=== PATIENT | male | born 1940 | race Caucasian/White ===

== ENCOUNTER 2017-08-13 06:20 | Emergency (ER) | payer MEDICARE, BC ==
[2017-08-13 07:34] LABS: #Eosinphils 0.2 thou/uL (0.0-0.7); #Lymphocytes 0.7 thou/uL (1.20-3.40); #Monocytes 0.6 thou/uL (0.11-0.59); #Neutrophils 6.1 thou/uL (1.40-6.50); %Eosinophils 2.3 % (0.0-10.0); %Monocytes 7.4 % (0.0-10.0); %Neutrophils 81.3 % (42.0-75.0); Hemoglobin 13.9 g/dL (14.0-18.0); Mean Corpuscular HGB CONC 32.6 g/dL (32.0-36.0); Mean Corpuscular Hemoglobin 29.9 pg (27.0-31.0); Mean Corpuscular Volume 91.6 fl (80.0-94.0); Mean Platelet Volume 8.9 fL (7.4-10.4); Platelet Count 169 thou/uL (130-400); RBC Distribution Width 12.5 % (11.5-14.5); Red Blood Cell (RBC) Count 4.66 mill/uL (4.70-6.10); White Blood Cell (WBC) Count 7.5 thou/uL (4.8-10.8)
[2017-08-13] MEDS ORDERED: Furosemide 40 MG/4 ML VIAL ONE (07:45)
[2017-08-13 07:48] LABS: ALT (SGPT) 15 U/L (8-55); AST (SGOT) 18 U/L (5-34); Albumin 3.9 g/dL (3.4-4.8); Alkaline Phosphatase 88 U/L (40-150); Anion Gap 10 mmol/L (10-20); BUN (Urea Nitrogen) 20 mg/dL (8.4-25.7); Bilirubin, Total 0.5 mg/dL (0.2-1.2); CK (CPK) 38 U/L (30-200); Calc. Creatinine Clearance 0 mL/min (70-130); Calcium 10.9 mg/dL (7.8-10.44); Carbon Dioxide 31 mmol/L (23-31); Chloride 98 mmol/L (98-107); Estimated GFR-MDRD 52; Globulin 3.6 g/dL (2.4-3.5); Glucose 116 mg/dL (83-110); Lipase 69 U/L (8-78); Potassium 4.5 mmol/L (3.5-5.1); Protein, Total 7.5 g/dL (5.8-8.1); Sodium 134 mmol/L (136-145)
[2017-08-13 07:51] LABS: CKMB 0.8 ng/mL (0-6.6); Troponin I 0.024 ng/mL (< 0.028)
--- NOTE | 2017-08-13 08:01 | RAD ---
CHEST ONE VIEW: HISTORY: Dyspnea. COMPARISON: 10/24/2016 FINDINGS: The patient is rotated to the left. There are sternotomy wires. There is atherosclerosis of the aor ta. The heart is enlarged. The pulmonary vessels are slightly prominent. There are bibasilar opaci ties, suggesting pleural effusion with parenchymal change. Opacification is left greater than right. No pneumothorax or osseous abnormalities. IMPRESSION: 1. Atherosclerosis. 2. Cardiomegaly. 3. Bibasilar opacities, suggesting pleural and parenchymal changes. Continued surveillance. POS: [facility]
--- NOTE | 2017-08-13 08:27 | RAD ---
KUB: Date: 08-13-17 Comparison: None. History: Difficulty breathing, pain on inspiration. FINDINGS: Supine imaging is provided, limiting assessment for free intraperitoneal air and small bowel obstruct ion. There is increased density in both lung bases, incompletely assessed on this exam, which may sig nify volume loss, pleural fluid, or infiltrate. The bowel gas pattern is nonspecific with no definite evidence for small bowel obstruction. Bowel gas pattern could be better assessed with upright and/or decubitus imaging. IMPRESSION: Nonspecific bowel gas pattern with gas within nondilated small and large bowel. Increased density in both lung bases, better assessed on chest radiograph. POS: [facility]
== END 2017-08-13 10:57 | disposition home or self-care (01) ==
LOC: ERS 06:20
DX: I11.0 Hypertensive heart disease with heart failure (principal); I50.9 Heart failure, unspecified; K59.00 Constipation, unspecified; E11.9 Type 2 diabetes mellitus without complications; Z87.01 Personal history of pneumonia (recurrent); Z79.82 Long term (current) use of aspirin; Z79.899 Other long term (current) drug therapy; Z79.84 Long term (current) use of oral hypoglycemic drugs
CPT/HCPCS: 71045; 74018; 80053; 82550; 82553; 83690; 83880; 84484; 85025; 93005; 94760; 96374; J1940

== ENCOUNTER 2018-06-08 09:50 | Outpatient (CLI) | payer MEDICARE, BC ==
--- NOTE | 2018-06-08 10:37 | RAD ---
EXAM: CHEST PA AND LATERAL: History: Dyspnea. Comparison: 08-13-17, 11-29-15 FINDINGS: Post underlying sternotomy. Persistent overall stable cardiomegaly with some pleural and parenchymal opacity changes noted in both lungs which appear to be chronic and stable. IMPRESSION: Stable cardiomegaly with vascular congestion and increased pleural and parenchymal opacity changes no chantale bilaterally, particularly in the mid and lower lung zones but stable from prior study. No new pro cess. POS: [facility]
== END 2018-06-08 09:51 | disposition home or self-care (01) ==
LOC: RAD 09:50
PROVIDERS: ATTEND Internal Medicine Critical Care Medicine
DX: R06.00 Dyspnea, unspecified (principal); I51.7 Cardiomegaly; R09.89 Other specified symptoms and signs involving the circulatory and respiratory systems
CPT/HCPCS: 71046

== ENCOUNTER 2018-08-18 12:36 | Observation (INO) | payer MEDICARE, BC ==
--- NOTE | 2018-08-18 13:41 | RAD ---
FEXAM: Single view of the chest COMPARISON: 08/13/2017 FINDINGS: Single view of the chest shows an enlarged but stable cardiomediastinal silhouette. The pat ient is status post sternotomy. There is obscurity of the left costophrenic angle which may represent a small left pleural effusion. Degenerative changes are seen in the spine. IMPRESSION: Cardiomegaly and left pleural effusion
[2018-08-18 13:49] LABS: Hemoglobin 14.4 g/dL (14.0-18.0); Mean Corpuscular HGB CONC 33.4 g/dL (32.0-36.0); Mean Corpuscular Hemoglobin 30.7 pg (27.0-31.0); Mean Corpuscular Volume 92.1 fL (78.0-98.0); Mean Platelet Volume 10.1 fL (7.4-10.4); Platelet Count 146 thou/uL (130-400); RBC Distribution Width 12.7 % (11.5-14.5); Red Blood Cell (RBC) Count 4.68 mill/uL (4.70-6.10); White Blood Cell (WBC) Count 9.7 thou/uL (4.8-10.8)
[2018-08-18 14:08] LABS: Band 5 % (5-11); Eosinophils 1 % (0-10); Lymphocytes 8 % (21-51); MDiff Complete? YES; Monocytes 6 % (0-10); Neutrophil 77 % (42-75); Platelet Morphology Comment Appears Adequate; RBC Morphology Normal; Reactive Lymphocytes 3 % (0-10)
[2018-08-18] MEDS ORDERED: Nitroglycerin 2% Ointment 1 INCH/1 GM Packet ONE (14:29)
[2018-08-18] MEDS ORDERED: Furosemide 40 MG/4 ML VIAL ONE (14:29)
[2018-08-18 14:30] LABS: CKMB 1.9 ng/mL (0-6.6)
[2018-08-18 14:43] LABS: Albumin 3.8 g/dL (3.4-4.8)
[2018-08-18 14:44] LABS: Chloride 106 mmol/L (98-107); Potassium 4.5 mmol/L (3.5-5.1); Sodium 140 mmol/L (136-145)
[2018-08-18 14:45] LABS: Calcium 10.3 mg/dL (7.8-10.44); Glucose 92 mg/dL (83-110)
[2018-08-18 14:46] LABS: Globulin 2.6 g/dL (2.4-3.5); Protein, Total 6.4 g/dL (5.8-8.1)
[2018-08-18 14:47] LABS: Anion Gap 10 mmol/L (10-20); Bilirubin, Total 0.9 mg/dL (0.2-1.2); Carbon Dioxide 29 mmol/L (23-31)
[2018-08-18 14:48] LABS: Alkaline Phosphatase 87 U/L (40-150)
[2018-08-18 14:49] LABS: Calc. Creatinine Clearance 0 mL/min (70-130); Estimated GFR-MDRD 53
[2018-08-18 14:50] LABS: BUN (Urea Nitrogen) 25 mg/dL (8.4-25.7)
[2018-08-18 14:51] LABS: ALT (SGPT) 12 U/L (8-55); AST (SGOT) 16 U/L (5-34)
--- NOTE | 2018-08-18 16:35 | HP ---
PRIMARY CARE PHYSICIAN: Dr. Carpenter, out-of-town physician. CHIEF COMPLAINT: Shortness of breath. HISTORY OF PRESENT ILLNESS: The patient is a 77-year-old male, who started having increased shortness of breath and some orthopnea and nocturnal dyspnea since the last night. He denied any chest pain. He denied any cough. No fever. No chills. He is established with Dr. Cruz for his cardiac condition and diastolic congestive heart failure. Currently, he had similar presentation in 2015 when he ended up in the hospital and he had stents placed. PAST MEDICAL HISTORY: Positive for, 1. Coronary artery disease, status post CABG. 2. Diastolic chronic CHF with LVEF of 55% to 60%. 3. Obstructive sleep apnea. 4. Morbid obesity. 5. Type 2 diabetes mellitus. 6. Hyperlipidemia. 7. Chronic kidney disease, stage 3. 8. Benign prostatic hyperplasia. 9. Venous insufficiency. 10. Hypertension. PAST SURGICAL HISTORY: 1. Four-vessel CABG. 2. Stent placement. 3. Hernia repair. 4. History of tracheostomy, status post repair. 5. Left heart catheterization in 2014. ALLERGIES: NONE. MEDICATIONS: Please refer to the medications list. SOCIAL HISTORY: He never smoked. He drinks some alcohol from time to time. He does not use any illicit drugs. Surrogate decision maker is his , Kaley Olsen. REVIEW OF SYSTEMS: All 10 systems were reviewed and they were negative except for symptoms mentioned in the HPI. PHYSICAL EXAMINATION: VITAL SIGNS: Blood pressure is 170/92, pulse is 76, respiratory rate is 22, and pulse oximetry 99% on O2 by nasal cannula. GENERAL: He is not in any distress during my visit. HEENT: His head is atraumatic and normocephalic. Eyes are PERRLA. Sclerae are nonicteric. Oral mucosa is moist. NECK: Supple. No JVD. LUNGS: Breath sounds slightly diminished at both bases. No wheezing. No rales. HEART: S1 and S2 normal. No S3. No S4. There is a systolic murmur mostly audible at the left sternal border, 3/6. ABDOMEN: Obese. Mildly distended. Bowel sounds are present. No organomegaly. EXTREMITIES: 1+ peripheral edema similar bilaterally on lower extremities. NEUROLOGICAL: He is alert and oriented x4. There is no any motor or sensory deficit. Cranial nerves are intact. LABORATORY DATA: White count of 9.7, hemoglobin 14.4, hematocrit 43.1, and platelet count is 146,000. Normal electrolytes. Creatinine 1.31. Troponin I 0.033. BNP 700.1. The rest of chemistry within normal limits. IMAGING DATA: EKG, normal sinus rhythm with right bundle-branch block. Chest x-ray personally reviewed by me showed possible left pleural effusion with some cardiomegaly. IMPRESSION: 1. Acute on chronic exacerbation of congestive heart failure, diastolic. 2. Elevated troponin to rule out acute coronary syndrome. 3. Morbid obesity. 4. Coronary artery disease, status post coronary artery bypass grafting and post stenting. 5. Type 2 diabetes mellitus. 6. Hyperlipidemia. 7. Chronic kidney disease, stage 3. 8. Venous insufficiency. 9. Hypertension. 10. Benign prostatic hyperplasia. PLAN: Admission to observation. Condition is fair. Activity bedrest and bathroom privileges. IV Hep-Lock. Lasix 40 mg IV push twice a day, Lovenox for DVT prophylaxis. Sliding scale, mild with Humalog for his diabetes. We will reconcile his home medications when it is available. We will do echocardiogram on him and continue nitro paste, which was started in the emergency room. Additional sets of troponins. Aspirin 325 mg. Job ID: [id number]
[2018-08-18 16:57] LABS: Troponin I 0.046 ng/mL (< 0.028)
[2018-08-18 18:09] VITALS: BMI 38.2
[2018-08-18] MEDS ORDERED: Lisinopril 20 MG TAB PO SCH (19:30)
[2018-08-18] MEDS ORDERED: Rosuvastatin 20 MG TAB PO SCH (19:30)
[2018-08-18] MEDS ORDERED: Carvedilol 3.125 MG TAB PO SCH (19:30)
[2018-08-18 20:19] LABS: Troponin I 0.056 ng/mL (< 0.028)
[2018-08-19] MEDS: Nitroglycerin 2% Ointment 1 INCH/1 GM Packet TOP SCH ×4 (04:16→23:24)
[2018-08-19 05:34] LABS: Anion Gap 12 mmol/L (10-20); BUN (Urea Nitrogen) 24 mg/dL (8.4-25.7); Calc. Creatinine Clearance 72 mL/min (70-130); Calcium 10.2 mg/dL (7.8-10.44); Carbon Dioxide 27 mmol/L (23-31); Chloride 105 mmol/L (98-107); Estimated GFR-MDRD 53; Glucose 100 mg/dL (83-110); Potassium 4.1 mmol/L (3.5-5.1); Sodium 140 mmol/L (136-145)
[2018-08-19] MEDS: Furosemide 40 MG/4 ML VIAL SLOW IVP SCH ×2 (06:35→13:24)
[2018-08-19] MEDS: Enoxaparin Sodium 40 MG/0.4 ML SYRINGE SC SCH (07:57)
[2018-08-19] MEDS ORDERED: Aspirin 81 mg Enteric Coated Tablet PO SCH (09:00)
[2018-08-19] MEDS ORDERED: NIACIN PO SCH (09:00)
[2018-08-19] MEDS: Aspirin 81 mg Enteric Coated Tablet PO SCH (10:22)
[2018-08-19] MEDS: Vit A,C & E/Lutein/Minerals Tablet PO SCH (10:22)
[2018-08-19] MEDS: Tamsulosin HCl 0.4 MG CAP PO SCH (10:22)
[2018-08-19] MEDS: Docusate 100 MG CAP PO SCH ×2 (10:22→20:23)
[2018-08-19] MEDS: Clopidogrel Bisulfate 75 MG TAB PO SCH (10:23)
[2018-08-19] MEDS: Finasteride 5 MG TAB PO SCH (10:23)
--- NOTE | 2018-08-19 14:41 | PRG ---
DATE OF SERVICE: 08/19/2018 SUBJECTIVE: The patient is seen and examined at the bedside. He feels significantly better. His shortness of breath improved. OBJECTIVE: VITAL SIGNS: Blood pressure is 123/61, pulse is 57, temperature is 98.6, respiratory rate is 16, and O2 saturation is 98% on room air. HEENT: His head is atraumatic and normocephalic. Eyes are PERRLA. Sclerae are nonicteric. Oral mucosa is moist. NECK: Supple. LUNGS: Breath sounds are diminished at both bases with bilateral crackles at both bases. HEART: S1 and S2 normal. No S3. No S4. Systolic murmur at the left sternal border, 2/6. ABDOMEN: Obese, somewhat distended. Bowel sounds are present. EXTREMITIES: 1+ peripheral edema similar bilaterally. NEUROLOGICAL: He is alert and oriented x4. There is no any motor deficit. Cranial nerves are intact. LABORATORY DATA: Labs showed a chemistry of normal electrolytes. Creatinine 1.31. The rest of chemistry within normal limits. Two additional sets of troponin I 0.033 and 0.056. IMPRESSION: 1. Congestive heart failure exacerbation, improved with IV Lasix and nitrates. Three sets of troponin I indeterminate. 2. Morbid obesity. 3. Coronary artery disease, status post coronary artery bypass grafting and stenting, stable. 4. Type 2 diabetes mellitus, stable. 5. Hyperlipidemia, chronic, stable. 6. Chronic kidney disease, stage 3, chronic, stable. 7. Venous insufficiency. 8. Hypertension. 9. Benign prostatic hyperplasia. PLAN: Plan is to continue Lasix IV push twice a day. Echocardiogram is still pending. The patient should be able to go home in the next 24 hours. Job ID: [id number]
[2018-08-19] MEDS: Ipratropium Bromide 0.03% Nasal Inhaler 30 ml Bottle EA NARE SCH ×2 (18:12→18:13)
[2018-08-19] MEDS ORDERED: Rosuvastatin 20 MG TAB PO SCH (21:00)
[2018-08-19] MEDS: Lisinopril 20 MG TAB PO SCH (21:16)
[2018-08-20] MEDS ORDERED: Milk Of Magnesia 30 ML UDCUP PO PRN (04:02)
[2018-08-20] MEDS: Furosemide 40 MG/4 ML VIAL SLOW IVP SCH (04:21)
[2018-08-20] MEDS: Nitroglycerin 2% Ointment 1 INCH/1 GM Packet TOP SCH (04:27)
[2018-08-20] MEDS ORDERED: Ipratropium Bromide 0.03% Nasal Inhaler 30 ml Bottle EA NARE SCH (06:30)
[2018-08-20 07:32] LABS: Anion Gap 11 mmol/L (10-20); BUN (Urea Nitrogen) 25 mg/dL (8.4-25.7); Calc. Creatinine Clearance 71 mL/min (70-130); Calcium 10.1 mg/dL (7.8-10.44); Carbon Dioxide 29 mmol/L (23-31); Chloride 103 mmol/L (98-107); Estimated GFR-MDRD 53; Glucose 105 mg/dL (83-110); Sodium 139 mmol/L (136-145)
[2018-08-20 07:40] VITALS: BP 134/62; TEMP 97.9
[2018-08-20] MEDS ORDERED: metFORMIN 500 MG TAB PO SCH (08:00)
[2018-08-20] MEDS ORDERED: Carvedilol 3.125 MG TAB PO SCH (08:00)
[2018-08-20] MEDS: Enoxaparin Sodium 40 MG/0.4 ML SYRINGE SC SCH (08:18)
[2018-08-20] MEDS: Tamsulosin HCl 0.4 MG CAP PO SCH (08:18)
[2018-08-20] MEDS: Finasteride 5 MG TAB PO SCH (08:18)
[2018-08-20] MEDS: Lisinopril 20 MG TAB PO SCH (08:19)
[2018-08-20] MEDS: Vit A,C & E/Lutein/Minerals Tablet PO SCH (08:19)
[2018-08-20] MEDS: Aspirin 81 mg Enteric Coated Tablet PO SCH (08:19)
[2018-08-20] MEDS: Docusate 100 MG CAP PO SCH (08:19)
[2018-08-20] MEDS: Clopidogrel Bisulfate 75 MG TAB PO SCH (08:19)
--- NOTE | 2018-08-20 18:51 | DIS ---
DATE OF ADMISSION: 08/18/2018 DATE OF DISCHARGE: 08/20/2018 PRIMARY CARE PHYSICIAN: Dr. Mack Carpenter. PRIMARY PLATINUM AND PALLADIUM KETTLE TENDER: Eugene Cruz MD PENDING TESTS AT THIS TIME: Transthoracic echocardiogram. DISCHARGE DISPOSITION: Home. DISCHARGE DIAGNOSES: 1. Acute congestive heart failure exacerbation, likely diastolic. 2. Coronary artery disease with history of coronary artery bypass grafting and stenting. 3. Diabetes mellitus type 2. 4. Hyperlipidemia. 5. Chronic kidney disease, stage 3. 6. Chronic venous insufficiency. 7. Hypertension. 8. BPH. 9. Morbid obesity with a BMI of 37. DISCHARGE MEDICATIONS: 1. Restart home medications. No medication changes remain. 2. Demadex 40 mg daily. 3. Plavix 75 mg daily. 4. Glucophage p.o. b.i.d. 5. Flomax 0.4 mg daily. 6. Crestor 40 mg daily. 7. Niacin 1 tablet daily. 8. Lisinopril 20 mg p.o. b.i.d. 9. Proscar 5 mg daily. 10. Colace 100 mg p.o. b.i.d. 11. Carvedilol 3.125 mg p.o. b.i.d. 12. Aspirin 81 mg daily. IN-HOUSE CONSULTATION: None. PROCEDURES IN HOSPITAL: Transthoracic echocardiogram. HISTORY OF PRESENTING ILLNESS: Mr. Olsen is a very pleasant 77-year-old male with past medical history of coronary artery disease and chronic diastolic congestive heart failure among other, who presented to the emergency room with complaints of worsening shortness of breath. He was diagnosed with acute on chronic congestive heart failure exacerbation and was admitted to the hospital under observation status and was started on diuretics. He was hypertensive upon presentation with a blood pressure of 170/92, but he was saturating 99% on oxygen via nasal cannula. EKG showed sinus rhythm. Chest x-ray showed possible pulmonary vascular congestion. Please see admission history and physical dictated by Dr. Restrepo on 08/18/2018. HOSPITAL COURSE: The patient had great improvement with diuresis. He was hemodynamically stable and his symptoms improved greatly while he was in the hospital. Echo was ordered, but it was not read by the time of discharge and by the time of this dictation. The patient was eager to go home. I did not want to wait for the results of the echo. He will follow up with his marine fuel dock attendant with the echocardiogram. He will restart his torsemide. He was diuresed with IV Lasix while in the hospital. He was seen and examined prior to discharge this morning and is hemodynamically stable with a blood pressure 134/62, heart rate 66, saturating 99% on room air. Chest is clear to auscultation on examination. Rate and rhythm are regular. Extremities are free of any edema. He will be discharged and is encouraged to follow with primary care physician in [address] Cruz as soon as possible. He will follow up with his primary care physician with regard to the results of his echocardiogram at this point. He is otherwise hemodynamically stable and he is compensated with his history of congestive heart failure. Job ID: [id number]
--- NOTE | 2018-08-22 21:47 | EKG ---
Test Reason : Blood Pressure : / mmHG Vent. Rate : 069 BPM Atrial Rate : 069 BPM P-R Int : 186 ms QRS Dur : 160 ms QT Int : 430 ms P-R-T Axes : 042 -28 009 degrees QTc Int : 460 ms Normal sinus rhythm Right bundle branch block Abnormal ECG Confirmed by MAXIMILIANO BALES ([id number]), field map editor MARRY CERNA ([id number]) on 08/22/2018 9:46:23 PM Referred By: Confirmed By:MAXIMILIANO BALES
== END 2018-08-20 11:42 | disposition home or self-care (01) ==
LOC: ERS 12:36 → 2SW 17:31
PROVIDERS: ADMIT Internal Medicine; ATTEND Internal Medicine
DX: I13.0 Hypertensive heart and chronic kidney disease with heart failure and stage 1 through stage 4 chronic kidney disease, or unspecified chronic kidney disease (principal); E11.22 Type 2 diabetes mellitus with diabetic chronic kidney disease; N18.3 Chronic kidney disease, stage 3 (moderate); I50.33 Acute on chronic diastolic (congestive) heart failure; I25.10 Atherosclerotic heart disease of native coronary artery without angina pectoris; I87.2 Venous insufficiency (chronic) (peripheral); G47.33 Obstructive sleep apnea (adult) (pediatric); E66.01 Morbid (severe) obesity due to excess calories; E78.5 Hyperlipidemia, unspecified; Z68.37 Body mass index [BMI] 37.0-37.9, adult; N40.0 Benign prostatic hyperplasia without lower urinary tract symptoms; Z95.1 Presence of aortocoronary bypass graft; Z95.5 Presence of coronary angioplasty implant and graft; Z79.02 Long term (current) use of antithrombotics/antiplatelets; Z79.82 Long term (current) use of aspirin; Z79.84 Long term (current) use of oral hypoglycemic drugs; Z79.899 Other long term (current) drug therapy; Z98.890 Other specified postprocedural states
CPT/HCPCS: 71045; 80048 ×2; 80053; 82553; 83880; 84484 ×2; 85025; 93005; 93306; 94660 ×2; 96372 ×2; 96374; 96376 ×2; 99285; G0378 ×2; 36415; J1650; J1940

== ENCOUNTER 2018-10-20 08:01 | Emergency (ER) | payer MEDICARE, BC ==
--- NOTE | 2018-10-20 08:28 | RAD ---
XR Chest 1 View Portable HISTORY: Dyspnea COMPARISON: 08/18/2018 FINDINGS: Changes of median sternotomy are again seen. The heart size is enlarged. There is continued obscuration of the left costophrenic angle. No pneumothoraces, lobar consolidation, mehul pulmonary edema or large effusions are seen. IMPRESSION: Stable exam
[2018-10-20 08:35] LABS: #Eosinphils 0.3 thou/uL (0.0-0.7); #Lymphocytes 0.9 thou/uL (1.20-3.40); #Monocytes 0.4 thou/uL (0.11-0.59); #Neutrophils 4.7 thou/uL (1.40-6.50); %Eosinophils 4.1 % (0.0-10.0); %Lymphocytes 14.3 % (21.0-51.0); %Monocytes 6.7 % (0.0-10.0); %Neutrophils 74.9 % (42.0-75.0); Hemoglobin 14.1 g/dL (14.0-18.0); Mean Corpuscular HGB CONC 34.1 g/dL (32.0-36.0); Mean Corpuscular Hemoglobin 31.5 pg (27.0-31.0); Mean Corpuscular Volume 92.5 fL (78.0-98.0); Mean Platelet Volume 9.8 fL (7.4-10.4); Platelet Count 130 thou/uL (130-400); RBC Distribution Width 12.5 % (11.5-14.5); Red Blood Cell (RBC) Count 4.48 mill/uL (4.70-6.10); White Blood Cell (WBC) Count 6.3 thou/uL (4.8-10.8)
[2018-10-20 08:46] LABS: ALT (SGPT) 14 U/L (8-55); AST (SGOT) 15 U/L (5-34); Albumin 4.1 g/dL (3.4-4.8); Alkaline Phosphatase 101 U/L (40-150); Anion Gap 12 mmol/L (10-20); BUN (Urea Nitrogen) 28 mg/dL (8.4-25.7); Bilirubin, Total 0.6 mg/dL (0.2-1.2); Calc. Creatinine Clearance 0 mL/min (70-130); Calcium 10.6 mg/dL (7.8-10.44); Carbon Dioxide 28 mmol/L (23-31); Chloride 105 mmol/L (98-107); Estimated GFR-MDRD 46; Globulin 2.4 g/dL (2.4-3.5); Glucose 109 mg/dL (83-110); Potassium 4.8 mmol/L (3.5-5.1); Protein, Total 6.5 g/dL (5.8-8.1); Sodium 140 mmol/L (136-145)
== END 2018-10-20 10:25 | disposition home or self-care (01) ==
LOC: ERS 08:01
DX: R06.02 Shortness of breath (principal); I11.0 Hypertensive heart disease with heart failure; I50.9 Heart failure, unspecified; E11.9 Type 2 diabetes mellitus without complications; E78.5 Hyperlipidemia, unspecified; Z79.899 Other long term (current) drug therapy; Z79.84 Long term (current) use of oral hypoglycemic drugs; Z79.82 Long term (current) use of aspirin
CPT/HCPCS: 71045; 80053; 83880; 84484; 85025; 93005; 99285; C1776

== ENCOUNTER 2019-06-19 12:47 | Inpatient (IN) | payer MEDICARE, BC ==
[2019-06-19 13:34] LABS: #Eosinphils 0.2 thou/uL (0.0-0.7); #Lymphocytes 0.9 thou/uL (1.20-3.40); #Monocytes 0.8 thou/uL (0.11-0.59); #Neutrophils 4.9 thou/uL (1.40-6.50); %Basophils 0.1 % (0.0-1.0); %Eosinophils 3.6 % (0.0-10.0); %Lymphocytes 13.8 % (21.0-51.0); %Monocytes 11.1 % (0.0-10.0); %Neutrophils 71.3 % (42.0-75.0); Hemoglobin 13.1 g/dL (14.0-18.0); Mean Corpuscular HGB CONC 33.3 g/dL (32.0-36.0); Mean Corpuscular Hemoglobin 30.6 pg (27.0-31.0); Mean Corpuscular Volume 91.8 fL (78.0-98.0); Mean Platelet Volume 10.1 fL (7.4-10.4); Platelet Count 157 thou/uL (130-400); RBC Distribution Width 12.2 % (11.5-14.5); Red Blood Cell (RBC) Count 4.29 mill/uL (4.70-6.10); White Blood Cell (WBC) Count 6.8 thou/uL (4.8-10.8)
--- NOTE | 2019-06-19 13:53 | RAD ---
EXAM: Single view of the chest HISTORY: Dyspnea COMPARISON: 10/20/2018 FINDINGS: Single view of the chest shows an enlarged but stable cardiomediastinal silhouette. The pa tient is status post sternotomy. There is obscurity of the left hemidiaphragm which may be secondary to a small left pleural effusion. Degenerative changes are seen in the spine. IMPRESSION: Cardiomegaly and possible small left pleural effusion
[2019-06-19 13:58] LABS: ALT (SGPT) 11 U/L (8-55); AST (SGOT) 14 U/L (5-34); Albumin 3.8 g/dL (3.4-4.8); Alkaline Phosphatase 99 U/L (40-110); Anion Gap 12 mmol/L (10-20); BUN (Urea Nitrogen) 30 mg/dL (8.4-25.7); Bilirubin, Total 0.5 mg/dL (0.2-1.2); CK (CPK) 50 U/L (30-200); Calc. Creatinine Clearance 0 mL/min (70-130); Calcium 10.6 mg/dL (7.8-10.44); Carbon Dioxide 27 mmol/L (23-31); Chloride 104 mmol/L (98-107); Estimated GFR-MDRD 42; Globulin 2.9 g/dL (2.4-3.5); Glucose 89 mg/dL (83-110); Protein, Total 6.7 g/dL (5.8-8.1); Sodium 138 mmol/L (136-145)
[2019-06-19 14:18] LABS: CKMB 1.5 ng/mL (0-6.6)
[2019-06-19] MEDS ORDERED: Aspirin Chewable 81 MG TAB ONE (14:37)
[2019-06-19] MEDS ORDERED: Furosemide 40 MG/4 ML VIAL ONE (14:37)
--- NOTE | 2019-06-19 14:41 | PDOC.FPRHP ---
- History of Present Illness Chief Complaint: increased RAYMOND over the last week History of Present Illness: 78 yo M w/ PMHx of HFpEF presents to the ED with complaint of worsening shortness of breath over the past week. Pt states that these symptoms began to become bothersome and limiting over the past 2 days. This morning he noted gaining 3 lbs since the previous day and knew that he was retaining fluid prompting him to seek further evaluation. Pt is followed by the heart failure clinic. Denies much lower extremity edema but feels that his abdomen is more distended. He notes orthopnea and RAYMOND. states that he often intermittently needs to sit forward when sitting in a chair because of his shortness of breath. Pt denies any chest pain, palpitations, N/V/D, or recent illness. In the ED pt was found to have an elevated BNP, slightly elevated Cr, and indeterminate trop consistent with CHF exacerbation. He was also noted to be in rate controlled A-fib. Pt and deny pt ever being told he has A-fib before but thinks he may be on a blood thinner although I suspect they are referring to his Plavix and home medication reconciliation does not have any anticoagulants. Patient had CABG [place] [address] Knight. Stent [place] [address] Cruz. Follows with Dr. Cruz. ED Course: ED: received 80mg IV Lasix and 324mg asa - Allergies/Adverse Reactions Allergies Allergy/AdvReac Type Severity Reaction Status Date / Time No Known Allergies Allergy Verified 06/19/19 18:21 - Home Medications Medication Instructions Recorded Confirmed Type Aspirin [Ecotrin Low Strength] 1 tab PO DAILY 10/18/13 06/19/19 History Niacin (Inositol Niacinate) 1 tab PO DAILY 10/18/13 06/19/19 History [Niacin] metFORMIN [Glucophage] 1 tab PO BID 10/18/13 06/19/19 History Finasteride [Proscar] 5 mg PO DAILY 05/21/15 06/19/19 History Tamsulosin HCl [Flomax] 0.4 mg PO DAILY 05/21/15 06/19/19 History Carvedilol [Coreg] 3.125 mg PO BID-WM #60 tab 05/25/15 06/19/19 Rx Rosuvastatin Calcium [Crestor] 40 mg PO HS 07/16/16 06/19/19 History Clopidogrel Bisulfate [Plavix] 75 mg PO DAILY tab 10/26/16 06/19/19 Rx Docusate [Colace] 100 mg PO BID cap 10/26/16 06/19/19 Rx Lisinopril [Zestril] 20 mg PO BID tab 10/26/16 06/19/19 Rx Torsemide [Demadex] 40 mg PO DAILY 08/18/18 06/19/19 History Vit C/E/Zn/Coppr/Lutein/Zeaxan 1 capsule PO BID 08/18/18 06/19/19 History [PreserVision Areds 2 Softgel] - History PMHx: HFpEF (55-60% EF in 07/2018), HTN, CAD s/p stent x2, REGINA, HLD, NIDDMII, BPH PSHx: history of hernia repair, Surgical history of coronary artery bypass graft surgery, four vessels, Date of surgery 01/2010, Surgical history of orthopedic surgery, BILATERAL knee, Surgical history of cardiac stents x2 (2014) FHx: Non-contributory Social: Tile Decorator: Dr. Cruz PCP: Dr. Nate Carpenter - Review of Systems General: reports: weight/appetite/sleep changes. denies: fever/chills, night sweats Eyes: denies: vision changes, other ENT: denies: nasal congestion, rhinorrhea Respiratory: reports: shortness of breath, exercise intolerance. denies: cough , congestion Cardiovascular: reports: edema (abdominal), paroxysmal nocturnal dyspnea, orthopnea. denies: chest pain, palpitation Gastrointestinal: denies: nausea, vomiting, diarrhea, constipation, abdominal pain Genitourinary: reports: polyuria. denies: incontinence, dysuria Skin: denies: rashes, lesions Musculoskeletal: denies: pain, stiffness Neurological: denies: numbness, weakness Psychological: denies: anxiety, depression - Vital signs BP: 127/81, MAP: 96, Pulse: 64, Resp: 16 (Non-Labored), Temp: 98.3 (Oral), Pain : 0, O2 sat: 98 on (Room Air), Wt: 110kg - Physical Exam Constitutional: NAD, awake, alert and oriented, well developed -Constitutional: Morbidly obese HEENT: EOMI, grossly normal vision, grossly normal hearing, MMM Neck: supple, FROM, trachea midline Heart: pulses present -Heart: Irregularly irregular rhythm, normal rate, systolic murmur noted No LE edema -Lungs: Poor inspiratory excursion, mildly audible basilar crackles Abdomen: soft, non-tender -Abdomen: Distension, non-tympanic Musculoskeletal: normal structure, normal tone Neurological: no focal deficit, CN II-XII intact Skin: capillary refill <2 seconds -Skin: LE venous stasis Heme/Lymphatic: no unusual bruising or bleeding, no purpura Psychiatric: normal mood and affect, good judgment and insight, intact recent and remote memory FMR H&P: Results - Labs Result Diagrams: 06/19/19 13:09 06/19/19 13:09 Lab results: WBC 6.8 thou/uL (4.8-10.8) 06/19/19 13:09 Hgb 13.1 g/dL (14.0-18.0) L 06/19/19 13:09 Hct 39.4 % (42.0-52.0) L 06/19/19 13:09 MCV 91.8 fL (78.0-98.0) 06/19/19 13:09 Plt Count 157 thou/uL (130-400) 06/19/19 13:09 Neutrophils % 71.3 % (42.0-75.0) 06/19/19 13:09 Sodium 138 mmol/L (136-145) 06/19/19 13:09 Potassium 5.0 mmol/L (3.5-5.1) 06/19/19 13:09 Chloride 104 mmol/L (98-107) 06/19/19 13:09 Carbon Dioxide 27 mmol/L (23-31) 06/19/19 13:09 BUN 30 mg/dL (8.4-25.7) H 06/19/19 13:09 Creatinine 1.59 mg/dL (0.7-1.3) H 06/19/19 13:09 Glucose 89 mg/dL (83-110) 06/19/19 13:09 Calcium 10.6 mg/dL (7.8-10.44) H 06/19/19 13:09 Total Bilirubin 0.5 mg/dL (0.2-1.2) 06/19/19 13:09 AST 14 U/L (5-34) 06/19/19 13:09 ALT 11 U/L (8-55) 06/19/19 13:09 Alkaline Phosphatase 99 U/L (40-110) 06/19/19 13:09 Creatine Kinase 50 U/L (30-200) 06/19/19 13:09 CK-MB (CK-2) 1.5 ng/mL (0-6.6) 06/19/19 13:09 B-Natriuretic Peptide 512.8 pg/mL (0-100) H 06/19/19 13:09 Serum Total Protein 6.7 g/dL (5.8-8.1) 06/19/19 13:09 Albumin 3.8 g/dL (3.4-4.8) 06/19/19 13:09 - EKG Interpretation EK lead EKG shows, atrial fibrillation with controlled ventricular response, Rate (beats per minute): 64, Conduction with, complete right bundle branch block , ST segments normal, T waves normal, [place] normal. - Radiology Interpretation Chest x-ray Status: report reviewed by me (Cardiomegaly and possible small left pleural effusion) FMR H&P: A/P - Problem List (1) Acute exacerbation of CHF (congestive heart failure) Current Visit: No Status: Acute Code(s): I50.9 - HEART FAILURE, UNSPECIFIED (2) CKD (chronic kidney disease) stage 3, GFR 30-59 ml/min Current Visit: No Status: Acute Code(s): N18.3 - CHRONIC KIDNEY DISEASE, STAGE 3 (MODERATE) (3) DM2 (diabetes mellitus, type 2) Current Visit: No Status: Acute (4) Diastolic congestive heart failure Current Visit: No Status: Acute Code(s): I50.30 - UNSPECIFIED DIASTOLIC ( CONGESTIVE) HEART FAILURE (5) Elevated troponin Current Visit: No Status: Acute Code(s): R79.89 - OTHER SPECIFIED ABNORMAL FINDINGS OF BLOOD CHEMISTRY (6) REGINA (obstructive sleep apnea) Current Visit: No Status: Acute Code(s): G47.33 - OBSTRUCTIVE SLEEP APNEA ( ADULT) (PEDIATRIC) (7) BPH (benign prostatic hypertrophy) Current Visit: No Status: Chronic Code(s): N40.0 - BENIGN PROSTATIC HYPERPLASIA WITHOUT LOWER URINRY TRACT SYMP (8) CAD (coronary artery disease) Current Visit: No Status: Chronic Code(s): I25.10 - ATHSCL HEART DISEASE OF [place] CORONARY ARTERY W/O ANG PCTRS Qualifiers: Coronary Disease-Associated Artery/Lesion type: unspecified vessel or lesion type [place] vs. transplanted heart: [place] heart Associated angina: with unspecified angina Qualified Code(s): I25.119 - Atherosclerotic heart disease of [place] coronary artery with unspecified angina pectoris (9) Hyperlipidemia Current Visit: No Status: Chronic Code(s): E78.5 - HYPERLIPIDEMIA, UNSPECIFIED (10) Systolic murmur Current Visit: No Status: Chronic Code(s): I38 - ENDOCARDITIS, VALVE UNSPECIFIED (11) Venous stasis dermatitis of both lower extremities Current Visit: No Status: Chronic Code(s): I83.11 - VARICOSE VEINS OF RIGHT LOWER EXTREMITY WITH INFLAMMATION; I83.12 - VARICOSE VEINS OF LEFT LOWER EXTREMITY WITH INFLAMMATION - Plan HFpEF Exacerbation -08/19/18 Echo: EF 55-60% -Sx consistent w/ exacerbation -BNP: 512, Cr: 1.59, Initial trop: 0.032 -Received 80mg IV Lasix in ED -Continue Lasix 40mg IV BID -Resume home coreg, lisinopril -Strict I/O -Daily weights CAD -Hx of CABG and stent -Resume Plavix, asa, coreg, Lisinopril, niacin, and crestor Diabetes Mellitus -Continue home metformin -Mild SSI, ACHS accu-checks, hypoglycemic protocol BPH -Resume home tamsulosin and finasteride -If pt does not produce expected diuresis or develops sx of retention will consider bladder scan Obstructive Sleep Apnea -Uses CPAP at home, will order for HS use IVF: SL VTE: Lovenox Diet: CC Code: Full Dispo: Admit to tele inpt for diuresis, trop trend, and tele monitoring. ELOS > 48hr PCP: Dr. Carpenter FMR H&P: Upper Level - Pertinent history 78YOM with a PMH significant for HRpEF, CAD s/p CABGx4 & stent placement x2, HLD , HTN & DMII who presented to the ED for evaluation for reported progressively worsening SOB over the last week. Patient reports that over the last week that he has been unable to do normal activities without getting SOB. He stated that this morning he was only able to ambulate ~3o feet before becoming completely winded and having to stop and rest to catch his breath. Goes to the CHF clinic regularly and reports he has been compliant with all of his home meds & watches his salt & fluid intake as directed. Also weighs himself daily and reports that this AM he noted that he had gained ~3 lbs since yesterday AM. Denies any recent illness or fever/chills, cough, abdominal pain, N/V or dysuria. Also denies any associated chest pain or LE edema. Does feel like his abdomen is swollen. - Pertinent findings Labs/Imaging: BNP 512 Trop 0.03 EKG a fib w/o RVR CXR: small L pleural effusion REVIEW OF SYSTEMS: Gen: no fever, chills, or sweats Neuro: no numbness/tingling, no weakness Eyes: no visual changes ENT: no sore throat, no runny nose Resp: no cough, + SOB on exertion Card: denies chest pain, no LE edema GI: no N/V/D, no abdominal pain : no dysuria, no hematuria MSK: no myalgias, no joint pain/stiffness Heme: no easy bruising/bleeding, no blood thinners Skin: no rash, no erythema Vitals: T: 98.3F RR: 18 BP: 127/81 P:64 Sat: 98% on RA Wt: 110kg PHYSICAL EXAMINATION: General: NAD, alert and oriented x3 HEENT: normal sclera, oropharynx without erythema or exudate Neck: Supple. Full ROM. Heart/Cardiovascular System: irregularly irregular rhythm with normal rate, 3/6 systolic flow murmur Lungs/Respiratory System: No increased work of breathing. Room air. Trace crackles on inspiration in LLL Abdomen/Gastro-Intestinal System: no abdominal tenderness, normal bowel sounds, no masses with moderate distension Extremities: Warm extremities. No cyanosis but ~1+ pitting edema in B/L ankles. Neuro: No gross deficits appreciated. CN 2-12 grossly intact. Psychiatry: Awake, Alert and cooperative with exam Skin: No lesions, rashes, or ulcers but chronic venous stasis pigment changes in B/L LEs. Musculoskeletal: Full ROM. - Plan Date/Time: 06/19/19 1440 [place], have evaluated this patient and agree with findings/plan as outlined by internal audit director resident. Pertinent changes/additions are listed here. 78YOM with a PMH significant for HFpEF, CAD s/p CABG x4 & stent placement x2, HTN & DMII who presented to the ED for increased RAYMOND and was found to be in an acute on chronic CHF exacerbation w/ new onset atrial fibrillation. #Acute on chronic HFpEF exacerbation: - BNP 512 w/ abdominal swelling and ~1+ edema in ankles. Small L-sided effusion on CXR. - s/p 80mg IV lasix in the ED w/ no UO yet. Will get strict I&Os on the floor along w/ QD weights. If no void before arrival to floor will bladder scan & consider transitioning back to home torsemide at a higher dose. Will otherwise continue routine home CHF meds. - HH. Low Na diet w/ 1200mL fluid restriction. #New onset Atrial fibrillation: - A fib noted on exam & EKG but rate controlled in the 60s. Continue continuous telemetry monitoring overnight with plans to consult cards in the AM. - Mg, phos & TSH levels pending but likely 2/2 stress associated with problem # 1. - Continue home BB for rate control for now. - VTE PPX with lovenox. #Indeterminant troponin: - Initial troponin elevated @ 0.032 but no reported chest pain or concerning EKG changes. Continue to trend & get repeat EKG should CP develop. - Suspect just stress induced 2/2 problems 1 & 2. #Suspected CKDIII: - BUN/Cr 30/1.59 w/ eGFR of 42. Per chart review eGFR has ranged from the 30- 60s since ~2017. - Will continue to monitor closely while diuresing & renally dose meds PRN. #HFpEF: - Aware, in acute exacerbation. See problem #1. #CAD s/p CABG & stents x2: - Continue home meds. #HTN: - Continue home meds. #HLD: - Continue home meds. #NIDDMII: - Continue home meds with mild SSI while inpatient. - Hypoglycemia protocol, ZOEY back CC 1999 diet. #BPH: - Continue home meds. #[place]: - Continue CPAP while inpatient. ABx: None Fluids: SL VTE PPX: Lovenox GI PPX: None Code status: FULL Dispo: Will admit to telemetry for trending of trops overnight & close monitoring of heart rhythm and rate. Addendum - Attending - Attending Attestation Date/Time: 06/19/192108 I personally evaluated the patient at 1750 and discussed the management with Dr. Martinez/jerry. H&P repeated by me. I agree with the History, Examination, Assessment and Plan documented above with any addition or exceptions noted below. HFpEF exacerbation- IV lasix, fluid restriction, strict I/Os. home meds new onset afib- rate controlled. cards consult in am. Discussed need for NOAC with patient and family as CHADsVASC is 6 and HASBLED is 2. thinks patient is on a blood thinner (will check with cards to see if on their med list ) CKD stage III- in review of cr over the past few years consisted with stage III CKD- will trend daily
[2019-06-19 16:27] LABS: Troponin I 0.029 ng/mL (< 0.028)
[2019-06-19] MEDS ORDERED: Acetaminophen 325 MG TAB PO PRN ×2 (17:23→17:41)
[2019-06-19 17:39] VITALS: BMI 38.2
[2019-06-19] MEDS ORDERED: Dextrose 5% in Water 1,000 ML IV PRN (17:41)
[2019-06-19] MEDS ORDERED: HumaLOG 300 UNITS/3 ML VIAL SC PRN ×2 (17:41)
[2019-06-19] MEDS ORDERED: Dextrose 50% Abboject 50 ML SYRINGE SLOW IVP PRN (17:41)
[2019-06-19] MEDS ORDERED: Ondansetron ODT 4 MG TAB PO PRN (17:41)
[2019-06-19] MEDS ORDERED: Carvedilol 3.125 MG TAB PO SCH (18:00)
[2019-06-19 18:04] LABS: Magnesium 2.8 mg/dL (1.6-2.6); Phosphorus 3.3 mg/dL (2.3-4.7)
[2019-06-19 19:36] LABS: Troponin I 0.031 ng/mL (< 0.028)
[2019-06-19] MEDS: Rosuvastatin 20 MG TAB PO SCH (21:46)
[2019-06-19] MEDS: Lisinopril 20 MG TAB PO SCH (21:47)
[2019-06-19] MEDS: metFORMIN 500 MG TAB PO SCH (21:49)
[2019-06-19] MEDS: Docusate 100 MG CAP PO SCH (21:49)
[2019-06-19] MEDS: Vit A,C & E/Lutein/Minerals Tablet PO SCH (21:49)
[2019-06-19] MEDS: Ipratropium Bromide 0.03% Nasal Inhaler 30 ml Bottle EA NARE SCH (21:53)
[2019-06-20 04:39] LABS: Anion Gap 11 mmol/L (10-20); BUN (Urea Nitrogen) 29 mg/dL (8.4-25.7); Calc. Creatinine Clearance 66 mL/min (70-130); Calcium 9.9 mg/dL (7.8-10.44); Carbon Dioxide 26 mmol/L (23-31); Chloride 106 mmol/L (98-107); Estimated GFR-MDRD 49; Glucose 101 mg/dL (83-110); Sodium 139 mmol/L (136-145)
--- NOTE | 2019-06-20 06:06 | PDOC.FM ---
- Subjective Subjective: Pt states he has had a great improvement in his breathing and sx since yesterday. States he slept much better last night. Has been urinating frequently , filling two bedside urinals just this morning. Denies any CP, palpitations. - Objective Vital Signs & Weight: Vital Signs (12 hours) Temp Pulse Resp BP BP Pulse Ox 06/20/19 05:00 96.2 F L 69 18 112/71 98 06/20/19 03:35 96.2 F L 69 18 112/71 98 06/20/19 00:55 97.8 F 69 17 125/60 94 L 06/19/19 22:07 62 22 H 97 06/19/19 21:47 122/59 L 06/19/19 20:43 98.4 F 65 17 125/62 95 Weight Weight 113.58 kg I&O: 06/18/19 06/19/19 06/20/19 06:59 06:59 06:59 Intake Total 240 Output Total 600 Balance -360 Result Diagrams: 06/19/19 13:09 06/20/19 04:08 Phys Exam - Physical Examination Constitutional: NAD HEENT: moist MMs cervical hyperlordosis and thoracic kyphosis Very scant scattered crackles at bases Irregularly irregular with soft systolic murmur, normal rate Gastrointestinal: soft, non-tender, positive bowel sounds Musculoskeletal: pulses present trace edema to BLE Neurological: non-focal, moves all 4 limbs Psychiatric: normal affect, A&O x 3 Skin: no rash, cap refill <2 seconds Dx/Plan (1) Acute exacerbation of CHF (congestive heart failure) Code(s): I50.9 - HEART FAILURE, UNSPECIFIED Status: Acute (2) CKD (chronic kidney disease) stage 3, GFR 30-59 ml/min Code(s): N18.3 - CHRONIC KIDNEY DISEASE, STAGE 3 (MODERATE) Status: Acute (3) DM2 (diabetes mellitus, type 2) Status: Acute (4) Diastolic congestive heart failure Code(s): I50.30 - UNSPECIFIED DIASTOLIC (CONGESTIVE) HEART FAILURE Status: Acute (5) Elevated troponin Code(s): R79.89 - OTHER SPECIFIED ABNORMAL FINDINGS OF BLOOD CHEMISTRY Status : Acute (6) REGINA (obstructive sleep apnea) Code(s): G47.33 - OBSTRUCTIVE SLEEP APNEA (ADULT) (PEDIATRIC) Status: Acute (7) BPH (benign prostatic hypertrophy) Code(s): N40.0 - BENIGN PROSTATIC HYPERPLASIA WITHOUT LOWER URINRY TRACT SYMP Status: Chronic (8) CAD (coronary artery disease) Code(s): I25.10 - ATHSCL HEART DISEASE OF [place] CORONARY ARTERY W/O ANG PCTRS Status: Chronic Qualifiers: Coronary Disease-Associated Artery/Lesion type: unspecified vessel or lesion type [place] vs. transplanted heart: [place] heart Associated angina: with unspecified angina Qualified Code(s): I25.119 - Atherosclerotic heart disease of [place] coronary artery with unspecified angina pectoris (9) Hyperlipidemia Code(s): E78.5 - HYPERLIPIDEMIA, UNSPECIFIED Status: Chronic (10) Systolic murmur Code(s): I38 - ENDOCARDITIS, VALVE UNSPECIFIED Status: Chronic (11) Venous stasis dermatitis of both lower extremities Code(s): I83.11 - VARICOSE VEINS OF RIGHT LOWER EXTREMITY WITH INFLAMMATION; I83.12 - VARICOSE VEINS OF LEFT LOWER EXTREMITY WITH INFLAMMATION Status: Chronic - Plan Plan: HFpEF Exacerbation -08/19/18 Echo: EF 55-60% -Continue Lasix 40mg IV BID for diuresis -Resume home coreg, lisinopril -Strict I/O -Daily weights New onset Afib - Rate controlled on presentation and asx - Currently remains rate controlled in the 60s - HASBLED: 2 - CHADSVASC: 6 - Pt would likely benefit from anti-coagulation therapy - Will initiate Eliquis at sub-standard dose due to age of 78 and Cr > 1.5 - Plan to consult cardiology this morning CKD III - Cr improved w/ diuresis overnight, remains stable near baseline - Will continue to trend CAD -Hx of CABG and stent -Resume Plavix, asa, coreg, Lisinopril, niacin, and crestor Diabetes Mellitus -Continue home metformin -Mild SSI, ACHS accu-checks, hypoglycemic protocol BPH -Resume home tamsulosin and finasteride -If pt does not produce expected diuresis or develops sx of retention will consider bladder scan Obstructive Sleep Apnea -Uses CPAP at home, will order for HS use IVF: SL VTE: Lovenox Diet: CC Code: Full Dispo: Admit to tele inpt for diuresis, trop trend, and tele monitoring. ELOS > 48hr PCP: Dr. Carpenter Addendum - Attending - Attending Attestation Date/Time: 06/20/19 1260 I personally evaluated the patient at 0735 am and discussed the management with Dr. Martinez I agree with the History, Examination, Assessment and Plan documented above with any addition or exceptions noted below. Acute HFpEF exacerbation- continue lasix, beta barrett, [place] inh. Afib, new onset rate controlled- add eliquis. Appreciate cards input. CKD stage III- trend trop Expect a few more days of diuresis.
[2019-06-20] MEDS: Furosemide 40 MG/4 ML VIAL SLOW IVP SCH ×2 (06:08→13:24)
[2019-06-20] MEDS ORDERED: Carvedilol 3.125 MG TAB PO SCH ×2 (08:00→18:15)
[2019-06-20] MEDS: Niacin 500 MG TAB PO SCH (08:36)
[2019-06-20] MEDS: Aspirin 81 mg Enteric Coated Tablet PO SCH (08:36)
[2019-06-20] MEDS: Vit A,C & E/Lutein/Minerals Tablet PO SCH ×2 (08:37→21:28)
[2019-06-20] MEDS: Clopidogrel Bisulfate 75 MG TAB PO SCH (08:37)
[2019-06-20] MEDS: Finasteride 5 MG TAB PO SCH (08:37)
[2019-06-20] MEDS: Lisinopril 20 MG TAB PO SCH ×2 (08:37→21:29)
[2019-06-20] MEDS: Tamsulosin HCl 0.4 MG CAP PO SCH (08:37)
[2019-06-20] MEDS: metFORMIN 500 MG TAB PO SCH ×2 (08:38→21:29)
[2019-06-20] MEDS: Ipratropium Bromide 0.03% Nasal Inhaler 30 ml Bottle EA NARE SCH ×3 (08:38→21:29)
[2019-06-20] MEDS: Docusate 100 MG CAP PO SCH ×2 (08:39→21:29)
[2019-06-20] MEDS: Apixaban 2.5 MG TAB PO SCH ×2 (08:42→21:29)
[2019-06-20] MEDS ORDERED: Enoxaparin Sodium 40 MG/0.4 ML SYRINGE SC SCH (09:00)
[2019-06-20] MEDS ORDERED: Aspirin Chewable 81 MG TAB PO SCH (09:00)
--- NOTE | 2019-06-20 14:52 | CON ---
DATE OF CONSULTATION: 06/20/2019 REASON FOR CONSULTATION: 1. New onset atrial fibrillation. 2. Congestive heart failure. PRIMARY PHARMACY CONSULTANT: Eugene Cruz MD. HISTORY OF PRESENT ILLNESS: Mr. Olsen is a pleasant 78-year-old gentleman with past history of diastolic dysfunction, CAD status post bypass surgery in addition to stent placement, re-presented with congestive heart failure type symptoms. He states this occurred over the last week. He has had increased shortness of breath, increased lower extremity edema, and PND. He states he has had multiple hospitalizations in the past for similar symptoms. His LVEF has been normal. He also appeared to have new onset atrial fibrillation. Based on his previous history, this is felt to be a new finding. He did have atrial fibrillation noted post bypass. HOME MEDICATIONS: 1. Plavix. 2. Zantac. 3. Metformin. 4. Niacin. 5. Flomax. 6. Crestor. 7. Aspirin. 8. Finasteride. 9. Lisinopril. 10. Carvedilol. 11. Torsemide. 12. Rosuvastatin. PAST MEDICAL HISTORY: As above including; 1. Obesity. 2. Obstructive sleep apnea. 3. Moderate MR. 4. Moderate AI. 5. Hyperlipidemia. 6. Hypertension. 7. Diabetes mellitus. PAST SURGICAL HISTORY: 1. Stent placement to the RCA, PDA graft on 05/09. 2. Inguinal hernia repair. 3. Basal cell carcinoma removed. FAMILY HISTORY: Negative. REVIEW OF SYSTEMS: Ten-point review of systems reviewed and as above, otherwise negative. PHYSICAL EXAMINATION: VITAL SIGNS: Blood pressure 130/70, pulse 66, temperature 97.9. GENERAL: Patient is a pleasant male, who is in no acute distress. The patient appears their stated age. NEUROLOGIC: The patient is alert and oriented x3 with no focal neurologic deficits. HEENT: Sclerae without icterus. Mouth has moist mucous membranes with normal pallor. NECK: No JVD. Carotid upstroke brisk. No bruits bilaterally. LUNGS: Crackles noted bilaterally. BACK: No scoliosis or kyphosis. CARDIAC: Irregularly irregular. ABDOMEN: Soft, nontender, nondistended. No peritoneal signs present. No hepatosplenomegaly. No abnormal striae. EXTREMITIES: 2+ femoral and 2+ dorsalis pedis pulses. No cyanosis, clubbing, or edema. SKIN: No gross abnormalities. PERTINENT LABORATORY DATA: Hemoglobin 13.1, hematocrit 39.4, creatinine 1. IMPRESSION: 1. New onset atrial fibrillation. 2. Congestive heart failure, likely diastolic. 3. Coronary artery disease. 4. Status post bypass surgery. RECOMMENDATIONS: Lasix IV has been given. Would agree. We would also continue Coreg in addition to aspirin. We will cover with Lovenox 1 mg/kg subcu q.12. He may benefit from long-acting novel oral anticoagulant, although states due to financial difficulties, may prefer Coumadin. Echo Doppler is pending. Job ID: [id number]
[2019-06-20] MEDS: Rosuvastatin 20 MG TAB PO SCH (21:28)
[2019-06-21 04:42] LABS: Hemoglobin 12.2 g/dL (14.0-18.0); Platelet Count 164 thou/uL (130-400)
[2019-06-21] MEDS: Furosemide 40 MG/4 ML VIAL SLOW IVP SCH ×2 (05:51→13:51)
--- NOTE | 2019-06-21 05:58 | PDOC.FM ---
"- Subjective Subjective: Mr. Olsen is doing well this morning. He denies any complaints today. He has many questions about a-fib and treatment options, reassured him that cardiology is consulted and we will await their recommendations. - Objective MAR Reviewed: Yes Vital Signs & Weight: Vital Signs (12 hours) Temp Pulse Resp BP BP Pulse Ox 06/21/19 04:20 97.6 F 57 L 16 103/60 97 06/21/19 00:46 97.3 F L 59 L 17 106/57 L 95 06/20/19 21:29 113/58 L 06/20/19 20:10 96.4 F L 64 17 113/58 L 98 Weight Weight 112.582 kg I&O: 06/19/19 06/20/19 06/21/19 06:59 06:59 06:59 Intake Total 240 745 Output Total 600 2100 Balance -360 -1355 Result Diagrams: 06/21/19 04:06 06/21/19 04:06 Phys Exam - Physical Examination Constitutional: NAD Dx/Plan (1) Acute exacerbation of CHF (congestive heart failure) Code(s): I50.9 - HEART FAILURE, UNSPECIFIED Status: Acute (2) CKD (chronic kidney disease) stage 3, GFR 30-59 ml/min Code(s): N18.3 - CHRONIC KIDNEY DISEASE, STAGE 3 (MODERATE) Status: Acute (3) DM2 (diabetes mellitus, type 2) Status: Acute (4) Diastolic congestive heart failure Code(s): I50.30 - UNSPECIFIED DIASTOLIC (CONGESTIVE) HEART FAILURE Status: Acute (5) REGINA (obstructive sleep apnea) Code(s): G47.33 - OBSTRUCTIVE SLEEP APNEA (ADULT) (PEDIATRIC) Status: Acute (6) BPH (benign prostatic hypertrophy) Code(s): N40.0 - BENIGN PROSTATIC HYPERPLASIA WITHOUT LOWER URINRY TRACT SYMP Status: Chronic (7) CAD (coronary artery disease) Code(s): I25.10 - ATHSCL HEART DISEASE OF [place] CORONARY ARTERY W/O ANG PCTRS Status: Chronic Qualifiers: Coronary Disease-Associated Artery/Lesion type: unspecified vessel or lesion type [place] vs. transplanted heart: [place] heart Associated angina: with unspecified angina Qualified Code(s): I25.119 - Atherosclerotic heart disease of [place] coronary artery with unspecified angina pectoris (8) Hyperlipidemia Code(s): E78.5 - HYPERLIPIDEMIA, UNSPECIFIED Status: Chronic (9) Venous stasis dermatitis of both lower extremities Code(s): I83.11 - VARICOSE VEINS OF RIGHT LOWER EXTREMITY WITH INFLAMMATION; I83.12 - VARICOSE VEINS OF LEFT LOWER EXTREMITY WITH INFLAMMATION Status: Chronic - Plan Plan: HFpEF Exacerbation -08/19/18 Echo: EF 55-60% -Continue Lasix 40mg IV BID for diuresis -Resume home coreg, lisinopril -Strict I/O -Daily weights New onset Afib - Rate controlled on presentation and asymptomatic - Currently remains rate controlled in the 60s - HASBLED: 2 | CHADSVASC: 6 - Started Eliquis at sub-standard dose due to age of 78 and Cr > 1.5 - Cardiology consulted. Appreciate recommendations. CKD III - Cr improved w/ diuresis, baseline ~1.3. - Will continue to trend CAD -Hx of CABG and stent -Resume Plavix, asa, coreg, Lisinopril, niacin, and crestor Diabetes Mellitus -Continue home metformin -Mild SSI, ACHS accu-checks, hypoglycemic protocol BPH -Resume home tamsulosin and finasteride -If pt does not produce expected diuresis or develops sx of retention will consider bladder scan Obstructive Sleep Apnea -Uses CPAP at home, will order for HS use IVF: SL VTE: Lovenox Diet: CC Code: Full Dispo: Admit to tele inpt for diuresis, trop trend, and tele monitoring. ELOS > 48hr PCP: Dr. Carpenter Addendum - Attending - Attending Attestation Date/Time: 06/21/19 1067 I personally evaluated the patient and discussed the management with Dr. Thompson. I agree with the History, Examination, Assessment and Plan documented above with any addition or exceptions noted below. Patient's echo was being taken while we were in the room. Will f/u with cardiology recs."
[2019-06-21] MEDS ORDERED: Carvedilol 3.125 MG TAB PO SCH ×2 (08:00)
[2019-06-21] MEDS: Clopidogrel Bisulfate 75 MG TAB PO SCH (08:46)
[2019-06-21] MEDS: Docusate 100 MG CAP PO SCH ×2 (08:46→21:22)
[2019-06-21] MEDS: Aspirin 81 mg Enteric Coated Tablet PO SCH (08:46)
[2019-06-21] MEDS: Lisinopril 20 MG TAB PO SCH ×2 (08:46→21:21)
[2019-06-21] MEDS: Apixaban 2.5 MG TAB PO SCH (08:46)
[2019-06-21] MEDS: Finasteride 5 MG TAB PO SCH (08:46)
[2019-06-21] MEDS: Tamsulosin HCl 0.4 MG CAP PO SCH (08:48)
[2019-06-21] MEDS: Vit A,C & E/Lutein/Minerals Tablet PO SCH ×2 (08:48→21:22)
[2019-06-21] MEDS: Niacin 500 MG TAB PO SCH (08:48)
[2019-06-21] MEDS: metFORMIN 500 MG TAB PO SCH ×2 (08:48→21:22)
[2019-06-21] MEDS: Ipratropium Bromide 0.03% Nasal Inhaler 30 ml Bottle EA NARE SCH ×3 (12:04→21:35)
[2019-06-21] MEDS ORDERED: Carvedilol 3.125 MG TAB PO ONE (19:00)
[2019-06-21] MEDS: Rosuvastatin 20 MG TAB PO SCH (21:21)
--- NOTE | 2019-06-22 05:24 | PDOC.FM ---
"- Subjective Subjective: He is doing well this morning. He did not have much urinary output overnight. He is feeling better. He states that [facility] told him they will put a pacemaker in him on Friday and then address the A-Fib. - Objective MAR Reviewed: Yes Vital Signs & Weight: Vital Signs (12 hours) Temp Pulse Resp BP BP BP Pulse Ox 06/22/19 03:56 98.4 F 51 L 21 H 103/63 97 06/22/19 00:00 60 20 06/21/19 21:21 131/60 06/21/19 20:00 97.9 F 62 20 131/60 99 Weight Weight 112.582 kg I&O: 06/20/19 06/21/19 06/22/19 06:59 06:59 06:59 Intake Total 240 777 720 Output Total 600 2100 500 Balance -360 -1323 220 Result Diagrams: 06/21/19 04:06 06/22/19 08:57 Phys Exam - Physical Examination Constitutional: NAD HEENT: PERRLA, moist MMs Neck: supple, full ROM Respiratory: no wheezing, no rales, no rhonchi, clear to auscultation bilateral Cardiovascular: no significant murmur, no rub Gastrointestinal: soft, non-tender, positive bowel sounds Musculoskeletal: no edema, pulses present Neurological: non-focal, moves all 4 limbs Psychiatric: normal affect, A&O x 3 Skin: no rash, normal turgor Dx/Plan (1) Acute exacerbation of CHF (congestive heart failure) Code(s): I50.9 - HEART FAILURE, UNSPECIFIED Status: Acute (2) CKD (chronic kidney disease) stage 3, GFR 30-59 ml/min Code(s): N18.3 - CHRONIC KIDNEY DISEASE, STAGE 3 (MODERATE) Status: Acute (3) DM2 (diabetes mellitus, type 2) Status: Acute (4) Diastolic congestive heart failure Code(s): I50.30 - UNSPECIFIED DIASTOLIC (CONGESTIVE) HEART FAILURE Status: Acute (5) REGINA (obstructive sleep apnea) Code(s): G47.33 - OBSTRUCTIVE SLEEP APNEA (ADULT) (PEDIATRIC) Status: Acute (6) BPH (benign prostatic hypertrophy) Code(s): N40.0 - BENIGN PROSTATIC HYPERPLASIA WITHOUT LOWER URINRY TRACT SYMP Status: Chronic (7) CAD (coronary artery disease) Code(s): I25.10 - ATHSCL HEART DISEASE OF [place] CORONARY ARTERY W/O ANG PCTRS Status: Chronic Qualifiers: Coronary Disease-Associated Artery/Lesion type: unspecified vessel or lesion type [place] vs. transplanted heart: [place] heart Associated angina: with unspecified angina Qualified Code(s): I25.119 - Atherosclerotic heart disease of [place] coronary artery with unspecified angina pectoris (8) Hyperlipidemia Code(s): E78.5 - HYPERLIPIDEMIA, UNSPECIFIED Status: Chronic (9) Venous stasis dermatitis of both lower extremities Code(s): I83.11 - VARICOSE VEINS OF RIGHT LOWER EXTREMITY WITH INFLAMMATION; I83.12 - VARICOSE VEINS OF LEFT LOWER EXTREMITY WITH INFLAMMATION Status: Chronic - Plan Plan: HFpEF Exacerbation - ECHO 06/21/2019: EF 55-60%. -Change from IV Lasix to PO, patient has been adequately diuresed. -Patient's coreg was discontinued by cardiology yesterday -Strict I/O -Daily weights New onset Afib - Rate controlled on presentation and asymptomatic - Currently remains rate controlled in the 60s - HASBLED: 2 | CHADSVASC: 6 - Eliquis discontinued, for planned pacemake insertion tomorrow. - Cardiology consulted. Appreciate recommendations. CKD III - Cr improved w/ diuresis, baseline ~1.3. - Will continue to trend CAD -Hx of CABG and stent -Resume Plavix, asa, Lisinopril, niacin, and crestor Diabetes Mellitus -Continue home metformin -Mild SSI, ACHS accu-checks, hypoglycemic protocol BPH -Resume home tamsulosin and finasterid Obstructive Sleep Apnea -Uses CPAP at home, will order for HS use IVF: SL VTE: Lovenox Diet: CC, fluids < 1200 mL Code: Full Dispo: Admit to tele inpt for diuresis. ELOS >48hr PCP: Dr. Carpenter Addendum - Attending - Attending Attestation Date/Time: 06/22/19 3727 I personally evaluated the patient and discussed the management with Dr. Thompson. I agree with the History, Examination, Assessment and Plan documented above with any addition or exceptions noted below. Pt is sitting up feeling better. CHF exac improved. Will change to po lasix. Plan for pacemaker tomorrow."
[2019-06-22] MEDS: Furosemide 40 MG/4 ML VIAL SLOW IVP SCH (06:03)
[2019-06-22] MEDS: Lisinopril 20 MG TAB PO SCH ×2 (08:41→20:21)
[2019-06-22] MEDS: Aspirin 81 mg Enteric Coated Tablet PO SCH (08:41)
[2019-06-22] MEDS: Finasteride 5 MG TAB PO SCH (08:41)
[2019-06-22] MEDS: Docusate 100 MG CAP PO SCH ×2 (08:41→20:21)
[2019-06-22] MEDS: metFORMIN 500 MG TAB PO SCH ×2 (08:43→20:21)
[2019-06-22] MEDS: Niacin 500 MG TAB PO SCH (08:43)
[2019-06-22] MEDS: Vit A,C & E/Lutein/Minerals Tablet PO SCH ×2 (08:43→20:21)
[2019-06-22] MEDS: Tamsulosin HCl 0.4 MG CAP PO SCH (08:43)
[2019-06-22] MEDS: Ipratropium Bromide 0.03% Nasal Inhaler 30 ml Bottle EA NARE SCH ×3 (08:44→20:23)
[2019-06-22] MEDS: Clopidogrel Bisulfate 75 MG TAB PO SCH (09:24)
[2019-06-22 10:01] LABS: Anion Gap 13 mmol/L (10-20); BUN (Urea Nitrogen) 29 mg/dL (8.4-25.7); Calc. Creatinine Clearance 62 mL/min (70-130); Calcium 10.4 mg/dL (7.8-10.44); Carbon Dioxide 29 mmol/L (23-31); Chloride 103 mmol/L (98-107); Estimated GFR-MDRD 45; Glucose 89 mg/dL (83-110); Potassium 3.9 mmol/L (3.5-5.1); Sodium 141 mmol/L (136-145)
[2019-06-22] MEDS: Rosuvastatin 20 MG TAB PO SCH (20:21)
[2019-06-23] MEDS ORDERED: CEFAZOLIN 2 GM in Premix Bag 1 BAG IVPB SCH (02:00)
[2019-06-23 03:04] LABS: Platelet Count 137 thou/uL (130-400)
[2019-06-23 03:25] LABS: Anion Gap 12 mmol/L (10-20); BUN (Urea Nitrogen) 30 mg/dL (8.4-25.7); Calc. Creatinine Clearance 70 mL/min (70-130); Calcium 9.8 mg/dL (7.8-10.44); Carbon Dioxide 25 mmol/L (23-31); Chloride 107 mmol/L (98-107); Estimated GFR-MDRD 53; Glucose 96 mg/dL (83-110); Potassium 3.8 mmol/L (3.5-5.1); Sodium 140 mmol/L (136-145)
--- NOTE | 2019-06-23 05:37 | PDOC.FM ---
- Subjective Subjective: Mr. Olsen is doing well this morning, he was being prepared for transport to the OR for his pacemaker placement. - Objective MAR Reviewed: Yes Vital Signs & Weight: Vital Signs (12 hours) Temp Pulse Resp BP BP Pulse Ox 06/23/19 03:05 97.8 F 71 18 140/75 99 06/22/19 20:21 162/81 H 06/22/19 19:25 97.7 F 66 18 149/70 H 100 Weight Weight 109.769 kg I&O: 06/21/19 06/22/19 06/23/19 06:59 06:59 06:59 Intake Total 777 960 720 Output Total 2100 900 975 Balance -1323 60 -255 Result Diagrams: 06/23/19 02:51 06/23/19 02:51 Phys Exam - Physical Examination Constitutional: NAD HEENT: PERRLA, moist MMs Neck: supple, full ROM Respiratory: no wheezing, no rales, no rhonchi, clear to auscultation bilateral Cardiovascular: no significant murmur, no rub Bradycardia. Atrial fibrillation on monitor. Gastrointestinal: soft, non-tender, no distention Musculoskeletal: no edema, pulses present Neurological: non-focal, normal sensation Psychiatric: normal affect, A&O x 3 Skin: no rash, normal turgor Dx/Plan (1) Acute exacerbation of CHF (congestive heart failure) Code(s): I50.9 - HEART FAILURE, UNSPECIFIED Status: Acute (2) CKD (chronic kidney disease) stage 3, GFR 30-59 ml/min Code(s): N18.3 - CHRONIC KIDNEY DISEASE, STAGE 3 (MODERATE) Status: Acute (3) DM2 (diabetes mellitus, type 2) Status: Acute (4) Diastolic congestive heart failure Code(s): I50.30 - UNSPECIFIED DIASTOLIC (CONGESTIVE) HEART FAILURE Status: Acute (5) REGINA (obstructive sleep apnea) Code(s): G47.33 - OBSTRUCTIVE SLEEP APNEA (ADULT) (PEDIATRIC) Status: Acute (6) BPH (benign prostatic hypertrophy) Code(s): N40.0 - BENIGN PROSTATIC HYPERPLASIA WITHOUT LOWER URINRY TRACT SYMP Status: Chronic (7) CAD (coronary artery disease) Code(s): I25.10 - ATHSCL HEART DISEASE OF [place] CORONARY ARTERY W/O ANG PCTRS Status: Chronic Qualifiers: Coronary Disease-Associated Artery/Lesion type: unspecified vessel or lesion type [place] vs. transplanted heart: [place] heart Associated angina: with unspecified angina Qualified Code(s): I25.119 - Atherosclerotic heart disease of [place] coronary artery with unspecified angina pectoris (8) Hyperlipidemia Code(s): E78.5 - HYPERLIPIDEMIA, UNSPECIFIED Status: Chronic (9) Venous stasis dermatitis of both lower extremities Code(s): I83.11 - VARICOSE VEINS OF RIGHT LOWER EXTREMITY WITH INFLAMMATION; I83.12 - VARICOSE VEINS OF LEFT LOWER EXTREMITY WITH INFLAMMATION Status: Chronic - Plan Plan: HFpEF Exacerbation - ECHO 06/21/2019: EF 55-60%. - Restart home torsemide today post-op - Patient's coreg was discontinued by cardiology, likely due to bradycardia. - Strict I/O / Daily weights New onset Afib - Rate controlled and asymptomatic - Cardiology plans to insert pace maker today. Possible cardioversion. - Eliquis discontinued - Cardiology consulted. Appreciate recommendations. CKD III - Cr improved w/ diuresis, baseline ~1.3. - Will continue to trend CAD -Hx of CABG and stent -Resume Plavix, asa, Lisinopril, niacin, and crestor Diabetes Mellitus -Continue home metformin -Mild SSI, ACHS accu-checks, hypoglycemic protocol BPH -Resume home tamsulosin and finasteride Obstructive Sleep Apnea -Uses CPAP at home, will order for HS use IVF: SL VTE: Lovenox Diet: CC, fluids < 1200 mL Code: Full Dispo: Admit to tele inpt for diuresis. ELOS >48hr PCP: Dr. Carpenter Addendum - Attending - Attending Attestation Date/Time: 06/23/19 3279 I personally evaluated the patient and discussed the management with Dr. Thompson. I agree with the History, Examination, Assessment and Plan documented above with any addition or exceptions noted below. Pt went for pacemaker placement. Will f/u with cardiology recs. Continue po lasix.
[2019-06-23] MEDS ORDERED: Sodium Chloride 0.9% 1,000 ML IV SCH (06:00)
[2019-06-23] MEDS ORDERED: Lidocaine 1% (PF) 30 ML VIAL ONE ×4 (06:32→08:39)
[2019-06-23] MEDS ORDERED: Gentamicin 80 MG/2 ML VIAL ONE ×2 (06:32→10:23)
[2019-06-23] MEDS ORDERED: Heparin (Artline) 500 ML ONE (06:32)
[2019-06-23] MEDS ORDERED: CEFAZOLIN 1 GM VIAL ONE ×2 (06:32→10:23)
[2019-06-23] MEDS ORDERED: Fentanyl 100 MCG/2 ML VIAL ONE (07:28)
[2019-06-23] MEDS ORDERED: Midazolam HCl 2 mg/2 ml Vial ONE (07:28)
[2019-06-23] MEDS ORDERED: Furosemide 40 MG TAB PO SCH (07:30)
[2019-06-23] MEDS ORDERED: DOPamine 400 MG/D5W 250 ML 250 ML ONE (08:09)
[2019-06-23] MEDS ORDERED: Iopamidol 370 76% 50 ML VIAL FS ONE (08:57)
[2019-06-23] MEDS ORDERED: Acetaminophen/Codeine 30-300mg Tablet PO PRN ×2 (10:32)
--- NOTE | 2019-06-23 10:51 | RAD ---
EXAM: Single view of the chest HISTORY: Status post pacemaker placement COMPARISON: 06/19/2019 FINDINGS: Single view of the chest shows an enlarged but stable cardiomediastinal silhouette. The pa tient is status post sternotomy. There is a right subclavian pacemaker with its leads in the right atrium and ventricle. No pneumothorax is seen. May be a small left pleural effusion with adjacent at electasis The bones are unremarkable. IMPRESSION: Status post pacemaker placement without evidence of complication.
[2019-06-23] MEDS: Aspirin 81 mg Enteric Coated Tablet PO SCH (13:11)
[2019-06-23] MEDS: Finasteride 5 MG TAB PO SCH (13:11)
[2019-06-23] MEDS: Niacin 500 MG TAB PO SCH (13:11)
[2019-06-23] MEDS: Torsemide 20 MG TAB PO SCH (13:12)
[2019-06-23] MEDS: Docusate 100 MG CAP PO SCH ×2 (13:12→20:48)
[2019-06-23] MEDS: Tamsulosin HCl 0.4 MG CAP PO SCH (13:12)
[2019-06-23] MEDS: metFORMIN 500 MG TAB PO SCH ×2 (13:13→20:48)
[2019-06-23] MEDS: Vit A,C & E/Lutein/Minerals Tablet PO SCH ×2 (13:13→20:48)
[2019-06-23] MEDS: Ipratropium Bromide 0.03% Nasal Inhaler 30 ml Bottle EA NARE SCH (13:14)
[2019-06-23] MEDS: Lisinopril 20 MG TAB PO SCH (15:10)
[2019-06-23] MEDS: Milk Of Magnesia 30 ML UDCUP PO PRN (16:26)
[2019-06-23] MEDS: Carvedilol 6.25 MG TAB PO SCH (17:33)
[2019-06-23] MEDS: ceFAZolin 1 GM/D5W 1 GM in Premix Bag 1 BAG IVPB SCH (18:40)
[2019-06-23] MEDS: Rosuvastatin 20 MG TAB PO SCH (20:48)
[2019-06-24] MEDS: ceFAZolin 1 GM/D5W 1 GM in Premix Bag 1 BAG IVPB SCH ×3 (02:16→18:12)
[2019-06-24 04:58] LABS: Anion Gap 10 mmol/L (10-20); BUN (Urea Nitrogen) 27 mg/dL (8.4-25.7); Calc. Creatinine Clearance 64 mL/min (70-130); Calcium 9.9 mg/dL (7.8-10.44); Carbon Dioxide 26 mmol/L (23-31); Chloride 105 mmol/L (98-107); Estimated GFR-MDRD 48; Glucose 140 mg/dL (83-110); Potassium 4.3 mmol/L (3.5-5.1); Sodium 137 mmol/L (136-145)
--- NOTE | 2019-06-24 05:34 | PDOC.FM ---
- Subjective Subjective: Mr. Olsen is doing well this morning. He is complaining of constipation. - Objective MAR Reviewed: Yes Vital Signs & Weight: Vital Signs (12 hours) Temp Pulse Resp BP BP Pulse Ox 06/24/19 04:34 97.7 F 71 23 H 175/95 H 91 L 06/24/19 03:12 98.2 F 61 18 133/65 98 06/23/19 19:31 98.4 F 69 18 132/63 100 Weight Weight 109.769 kg I&O: 06/22/19 06/23/19 06/24/19 06:59 06:59 06:59 Intake Total 960 720 650 Output Total 900 1375 Balance 60 -655 650 Result Diagrams: 06/23/19 02:51 06/24/19 04:13 Phys Exam - Physical Examination Constitutional: NAD HEENT: PERRLA, moist MMs Neck: supple, full ROM Respiratory: no wheezing, no rales, no rhonchi, clear to auscultation bilateral Cardiovascular: no significant murmur, no rub Atrial fibrillation on monitor Gastrointestinal: soft, non-tender Musculoskeletal: no edema, pulses present Neurological: non-focal, moves all 4 limbs Psychiatric: normal affect, A&O x 3 Skin: no rash, normal turgor Deviation from normal: 2 separate incisions from pacemaker procedure yesterday. -: Clean, dry and intact. Dx/Plan (1) Acute exacerbation of CHF (congestive heart failure) Code(s): I50.9 - HEART FAILURE, UNSPECIFIED Status: Acute (2) CKD (chronic kidney disease) stage 3, GFR 30-59 ml/min Code(s): N18.3 - CHRONIC KIDNEY DISEASE, STAGE 3 (MODERATE) Status: Acute (3) DM2 (diabetes mellitus, type 2) Status: Acute (4) Diastolic congestive heart failure Code(s): I50.30 - UNSPECIFIED DIASTOLIC (CONGESTIVE) HEART FAILURE Status: Acute (5) REGINA (obstructive sleep apnea) Code(s): G47.33 - OBSTRUCTIVE SLEEP APNEA (ADULT) (PEDIATRIC) Status: Acute (6) BPH (benign prostatic hypertrophy) Code(s): N40.0 - BENIGN PROSTATIC HYPERPLASIA WITHOUT LOWER URINRY TRACT SYMP Status: Chronic (7) CAD (coronary artery disease) Code(s): I25.10 - ATHSCL HEART DISEASE OF [place] CORONARY ARTERY W/O ANG PCTRS Status: Chronic Qualifiers: Coronary Disease-Associated Artery/Lesion type: unspecified vessel or lesion type [place] vs. transplanted heart: [place] heart Associated angina: with unspecified angina Qualified Code(s): I25.119 - Atherosclerotic heart disease of [place] coronary artery with unspecified angina pectoris (8) Hyperlipidemia Code(s): E78.5 - HYPERLIPIDEMIA, UNSPECIFIED Status: Chronic (9) Venous stasis dermatitis of both lower extremities Code(s): I83.11 - VARICOSE VEINS OF RIGHT LOWER EXTREMITY WITH INFLAMMATION; I83.12 - VARICOSE VEINS OF LEFT LOWER EXTREMITY WITH INFLAMMATION Status: Chronic - Plan Plan: HFpEF Exacerbation - ECHO 06/21/2019: EF 55-60%. - Restart home HF meds: Coreg, Lisinopril, and Torsemide. - Strict I/O / Daily weights New onset Afib - Rate controlled and asymptomatic - Eliquis discontinued - Cardiology consulted. Appreciate recommendations. - Yesterday had pacemaker placed, rate has improved overnight. Still in A-Fib. Will await cardiology recommendations, specifically in regards to anticoagulation. CKD III, stable. - Will continue to trend CAD -Hx of CABG and stent Diabetes Mellitus -Continue home metformin -Mild SSI, ACHS accu-checks, hypoglycemic protocol BPH -Resume home tamsulosin and finasteride Obstructive Sleep Apnea -Uses CPAP at home, will order for HS use IVF: SL VTE: Lovenox Diet: CC, fluids < 1200 mL Code: Full Dispo: Admit to tele inpt for diuresis. ELOS >48hr PCP: Dr. Carpenter Addendum - Attending - Attending Attestation Date/Time: 06/24/19 1022 I personally evaluated the patient and discussed the management with Dr. Thompson. I agree with the History, Examination, Assessment and Plan documented above with any addition or exceptions noted below. The patient is sitting up in a chair. Plans for cardioversion in a few days. Will stay hospitalized. Pt is in a.fib.
[2019-06-24] MEDS ORDERED: Polyethylene Glycol 3350 17 GM Packet PO PRN (08:23)
[2019-06-24] MEDS ORDERED: Polyethylene Glycol 3350 17 GM Packet PO SCH (08:30)
[2019-06-24] MEDS: Finasteride 5 MG TAB PO SCH (08:51)
[2019-06-24] MEDS: Docusate 100 MG CAP PO SCH ×2 (08:51→21:16)
[2019-06-24] MEDS: Carvedilol 6.25 MG TAB PO SCH ×2 (08:51→18:12)
[2019-06-24] MEDS: Lisinopril 20 MG TAB PO SCH (08:51)
[2019-06-24] MEDS: Ipratropium Bromide 0.03% Nasal Inhaler 30 ml Bottle EA NARE SCH ×4 (08:51→21:17)
[2019-06-24] MEDS: Aspirin 81 mg Enteric Coated Tablet PO SCH (08:51)
[2019-06-24] MEDS: Niacin 500 MG TAB PO SCH (08:52)
[2019-06-24] MEDS: Torsemide 20 MG TAB PO SCH (08:52)
[2019-06-24] MEDS: metFORMIN 500 MG TAB PO SCH ×2 (08:52→21:16)
[2019-06-24] MEDS: Vit A,C & E/Lutein/Minerals Tablet PO SCH ×2 (08:52→21:16)
[2019-06-24] MEDS: Tamsulosin HCl 0.4 MG CAP PO SCH (08:52)
[2019-06-24] MEDS ORDERED: Fleet Enema 133 ML BOT FS SCH (12:30)
[2019-06-24] MEDS: Milk Of Magnesia 30 ML UDCUP PO PRN (15:50)
--- NOTE | 2019-06-24 15:50 | CCL ---
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 DESCRIPTION OF PROCEDURE: The patient was brought to the [facility] and versed 1 mg and fentanyl 25 mg was given intravenously for approximately three hours of continuous moderate conscious sedation with appropriate monitoring. A left subclavian venogram was performed. 1% Lidocaine was infiltrated. The left subclavian vein was entered with the J-wire and this was very deep. Pacemaker pocket was then manufactured. Using a 9 [place] sheath, the sheath would not adequately advance. It then became apparent that he had a persistent left superior vena cava. An antibiotic solution soaked gauze was placed in the pocket and attention was then turned to the right side. A right subclavian venogram was performed. The area was prepped and draped. 1% lidocaine was infiltrated. A J-wire was placed into the right subclavian vein. Pacemaker pocket was manufactured using blunt and sharp dissection with electrocautery for hemostasis. Antibiotic solution soaked gauze was placed into the pocket. Using a 9 [place] long sheath, the ventricular lead was inserted and the sheath was peeled away with the J-wire remaining in place. This was advanced into the RV apex and screws into place. R-wave 14.0, impedance 795, threshold 0.4 volts. Using the same J-wire, a 7 [place] sheath was inserted and the atrial lead was inserted and the sheath was removed. The right atrial lead was screwed into the right atrium. The patient was in atrial fibrillation with P-wave of 1.0. The tabs on the suture tie-down were removed from both leads. Both leads were secured in place with two sutures of 0 silk for each lead. The antibiotic solution soaked gauze was removed and the subcutaneous pocket was irrigated with copious amounts of antibiotic solution. The leads were attached to the pacemaker generator. D-Stat flowable was then placed for continuous oozing. The pacemaker was placed into an antibiotic sleeve and this was placed into the pocket and secured in place with one suture of 0 silk. The incision was then closed using two layers of running 3-0 Vicryl, one layer of running 4-0 Vicryl. Dermabond was placed on the incision. Attention was then turned to the left subclavian pocket. The antibiotic solution soaked gauze was removed and this was irrigated with copious amounts of antibiotic solution. This was then closed using two layers of running 3-0 Vicryl, one layer of running 4-0 Vicryl. Dermabond was placed on the incision. During the procedure, the patient did become hypotensive with systolics as low as 68. He was given intravenous fluids, started on Dopamine up to 15 micrograms per kilogram per minute. However at the conclusion of the procedure, this had been tapered off with systolic pressures still in the 120s to 130s. MTDD
[2019-06-24] MEDS: Rosuvastatin 20 MG TAB PO SCH (21:16)
[2019-06-25] MEDS: ceFAZolin 1 GM/D5W 1 GM in Premix Bag 1 BAG IVPB SCH ×2 (03:21→10:16)
[2019-06-25 04:12] LABS: #Eosinphils 0.2 thou/uL (0.0-0.7); #Monocytes 0.6 thou/uL (0.11-0.59); #Neutrophils 5.3 thou/uL (1.40-6.50); %Basophils 0.3 % (0.0-1.0); %Lymphocytes 13.9 % (21.0-51.0); %Monocytes 8.8 % (0.0-10.0); %Neutrophils 73.9 % (42.0-75.0); Hemoglobin 10.3 g/dL (14.0-18.0); Mean Corpuscular HGB CONC 34.6 g/dL (32.0-36.0); Mean Corpuscular Volume 92.5 fL (78.0-98.0); Mean Platelet Volume 9.5 fL (7.4-10.4); Platelet Count 133 thou/uL (130-400); RBC Distribution Width 12.4 % (11.5-14.5); Red Blood Cell (RBC) Count 3.22 mill/uL (4.70-6.10); White Blood Cell (WBC) Count 7.2 thou/uL (4.8-10.8)
[2019-06-25 04:27] LABS: Anion Gap 10 mmol/L (10-20); BUN (Urea Nitrogen) 24 mg/dL (8.4-25.7); Calc. Creatinine Clearance 83 mL/min (70-130); Calcium 8.6 mg/dL (7.8-10.44); Carbon Dioxide 22 mmol/L (23-31); Chloride 111 mmol/L (98-107); Estimated GFR-MDRD 62; Glucose 97 mg/dL (83-110); Potassium 3.5 mmol/L (3.5-5.1); Sodium 139 mmol/L (136-145)
--- NOTE | 2019-06-25 05:31 | PDOC.FM ---
- Subjective Subjective: Doing well this morning. Despite great efforts yesterday, he still only had a small "rabbit poop" bowel movement. Encouraged him to ambulate and continue bowel regimen. - Objective MAR Reviewed: Yes Vital Signs & Weight: Vital Signs (12 hours) Temp Pulse Resp BP BP Pulse Ox 06/25/19 03:15 97.8 F 71 17 134/63 94 L 06/24/19 21:13 98.3 F 74 19 133/90 97 Weight Weight 111.947 kg I&O: 06/23/19 06/24/19 06/25/19 06:59 06:59 06:59 Intake Total 720 1160 600 Output Total 1375 400 650 Balance -655 760 -50 Result Diagrams: 06/25/19 03:41 06/25/19 03:30 Phys Exam - Physical Examination Constitutional: NAD HEENT: PERRLA, moist MMs Neck: no JVD, full ROM Respiratory: no wheezing, no rales, no rhonchi, clear to auscultation bilateral Cardiovascular: RRR, no significant murmur, no rub Gastrointestinal: soft, non-tender, no distention Musculoskeletal: pulses present, edema present (1+) Neurological: non-focal, normal sensation Psychiatric: normal affect, A&O x 3 Skin: no rash, normal turgor Dx/Plan (1) Acute exacerbation of CHF (congestive heart failure) Code(s): I50.9 - HEART FAILURE, UNSPECIFIED Status: Acute (2) CKD (chronic kidney disease) stage 3, GFR 30-59 ml/min Code(s): N18.3 - CHRONIC KIDNEY DISEASE, STAGE 3 (MODERATE) Status: Acute (3) DM2 (diabetes mellitus, type 2) Status: Acute (4) Diastolic congestive heart failure Code(s): I50.30 - UNSPECIFIED DIASTOLIC (CONGESTIVE) HEART FAILURE Status: Acute (5) REGINA (obstructive sleep apnea) Code(s): G47.33 - OBSTRUCTIVE SLEEP APNEA (ADULT) (PEDIATRIC) Status: Acute (6) BPH (benign prostatic hypertrophy) Code(s): N40.0 - BENIGN PROSTATIC HYPERPLASIA WITHOUT LOWER URINRY TRACT SYMP Status: Chronic (7) CAD (coronary artery disease) Code(s): I25.10 - ATHSCL HEART DISEASE OF [place] CORONARY ARTERY W/O ANG PCTRS Status: Chronic Qualifiers: Coronary Disease-Associated Artery/Lesion type: unspecified vessel or lesion type [place] vs. transplanted heart: [place] heart Associated angina: with unspecified angina Qualified Code(s): I25.119 - Atherosclerotic heart disease of [place] coronary artery with unspecified angina pectoris (8) Hyperlipidemia Code(s): E78.5 - HYPERLIPIDEMIA, UNSPECIFIED Status: Chronic (9) Venous stasis dermatitis of both lower extremities Code(s): I83.11 - VARICOSE VEINS OF RIGHT LOWER EXTREMITY WITH INFLAMMATION; I83.12 - VARICOSE VEINS OF LEFT LOWER EXTREMITY WITH INFLAMMATION Status: Chronic - Plan Plan: HFpEF Exacerbation - ECHO 06/21/2019: EF 55-60%. - Restart home HF meds: Coreg, Lisinopril, and Torsemide. - Strict I/O / Daily weights New onset Afib - Rate controlled and asymptomatic - Eliquis discontinued - Cardiology consulted. Appreciate recommendations. - Pacemaker placed 06/23/2019. Still in A-Fib. Will await cardiology recommendations. Per the patient, Dr. Cruz told him they will restart blood thinners today and plan for ALLIE and possible cardioversion on Friday morning. CKD III, stable. - Will continue to trend CAD -Hx of CABG and stent Diabetes Mellitus -Continue home metformin -Mild SSI, ACHS accu-checks, hypoglycemic protocol BPH -Resume home tamsulosin and finasteride Obstructive Sleep Apnea -Uses CPAP at home, will order for HS use IVF: SL VTE: Eliquis (currently held) Diet: CC, fluids < 1200 mL Code: Full Dispo: Admit to tele inpt for diuresis. ELOS >48hr PCP: Dr. Carpenter Addendum - Attending - Attending Attestation Date/Time: 06/25/19 6013 I personally evaluated the patient and discussed the management with Dr. Thompson. I agree with the History, Examination, Assessment and Plan documented above with any addition or exceptions noted below. Patient is doing well from a cardiac standpoint. He will undergo cardioversion next week. He is having constipation. Adjusting bowel regimen to help with discomfort.
[2019-06-25] MEDS: Aspirin 81 mg Enteric Coated Tablet PO SCH (08:25)
[2019-06-25] MEDS: Vit A,C & E/Lutein/Minerals Tablet PO SCH ×2 (08:25→20:12)
[2019-06-25] MEDS: Tamsulosin HCl 0.4 MG CAP PO SCH (08:25)
[2019-06-25] MEDS: Torsemide 20 MG TAB PO SCH (08:25)
[2019-06-25] MEDS: Lisinopril 20 MG TAB PO SCH (08:25)
[2019-06-25] MEDS: Niacin 500 MG TAB PO SCH (08:25)
[2019-06-25] MEDS: metFORMIN 500 MG TAB PO SCH ×2 (08:25→20:12)
[2019-06-25] MEDS: Finasteride 5 MG TAB PO SCH (08:25)
[2019-06-25] MEDS: Docusate 100 MG CAP PO SCH ×2 (08:26→20:13)
[2019-06-25] MEDS: Carvedilol 6.25 MG TAB PO SCH ×2 (08:26→16:54)
[2019-06-25] MEDS: Ipratropium Bromide 0.03% Nasal Inhaler 30 ml Bottle EA NARE SCH ×3 (08:26→20:13)
[2019-06-25] MEDS: Cephalexin 250 MG CAP PO SCH ×2 (11:53→16:54)
[2019-06-25 17:37] LABS: Hemoglobin 11.4 g/dL (14.0-18.0); Platelet Count 147 thou/uL (130-400)
[2019-06-25] MEDS: Rosuvastatin 20 MG TAB PO SCH (20:13)
[2019-06-26] MEDS: Cephalexin 250 MG CAP PO SCH ×5 (00:34→23:13)
[2019-06-26] MEDS: Milk Of Magnesia 30 ML UDCUP PO PRN (04:32)
[2019-06-26 04:39] LABS: #Basophils 0.1 thou/uL (0.0-0.2); #Eosinphils 0.4 thou/uL (0.0-0.7); #Lymphocytes 1.2 thou/uL (1.20-3.40); #Monocytes 0.7 thou/uL (0.11-0.59); #Neutrophils 4.7 thou/uL (1.40-6.50); %Basophils 0.9 % (0.0-1.0); %Eosinophils 5.4 % (0.0-10.0); %Lymphocytes 16.5 % (21.0-51.0); %Monocytes 10.2 % (0.0-10.0); Hemoglobin 10.2 g/dL (14.0-18.0); Mean Corpuscular HGB CONC 33.6 g/dL (32.0-36.0); Mean Corpuscular Hemoglobin 30.9 pg (27.0-31.0); Mean Corpuscular Volume 92.1 fL (78.0-98.0); Mean Platelet Volume 9.5 fL (7.4-10.4); Platelet Count 132 thou/uL (130-400); RBC Distribution Width 12.4 % (11.5-14.5); Red Blood Cell (RBC) Count 3.28 mill/uL (4.70-6.10)
[2019-06-26 05:04] LABS: Anion Gap 13 mmol/L (10-20); BUN (Urea Nitrogen) 31 mg/dL (8.4-25.7); Calc. Creatinine Clearance 68 mL/min (70-130); Calcium 10.1 mg/dL (7.8-10.44); Carbon Dioxide 24 mmol/L (23-31); Chloride 108 mmol/L (98-107); Estimated GFR-MDRD 50; Glucose 104 mg/dL (83-110); Potassium 4.1 mmol/L (3.5-5.1); Sodium 141 mmol/L (136-145)
--- NOTE | 2019-06-26 05:49 | PDOC.FM ---
- Subjective Subjective: He is complaining of not having a bowel movement since Friday. He complains the food is bad for him in the cafeteria, so he is eating light. - Objective MAR Reviewed: Yes Vital Signs & Weight: Vital Signs (12 hours) Temp Pulse Resp BP BP Pulse Ox 06/26/19 03:39 97.9 F 68 23 H 115/63 93 L 06/26/19 00:00 20 06/25/19 20:00 98.7 F 62 20 108/59 L 97 Weight Weight 111.947 kg I&O: 06/24/19 06/25/19 06/26/19 06:59 06:59 06:59 Intake Total 1160 600 600 Output Total 400 650 Balance 760 -50 600 Result Diagrams: 06/26/19 04:05 06/26/19 04:05 Phys Exam - Physical Examination Constitutional: NAD HEENT: PERRLA, moist MMs Neck: supple, full ROM Respiratory: clear to auscultation bilateral Cardiovascular: RRR Gastrointestinal: soft, non-tender Distended Musculoskeletal: no edema, pulses present Neurological: normal sensation, moves all 4 limbs Psychiatric: normal affect Skin: no rash, normal turgor Dx/Plan (1) CKD (chronic kidney disease) stage 3, GFR 30-59 ml/min Code(s): N18.3 - CHRONIC KIDNEY DISEASE, STAGE 3 (MODERATE) Status: Acute (2) DM2 (diabetes mellitus, type 2) Status: Acute (3) REGINA (obstructive sleep apnea) Code(s): G47.33 - OBSTRUCTIVE SLEEP APNEA (ADULT) (PEDIATRIC) Status: Acute (4) CAD (coronary artery disease) Code(s): I25.10 - ATHSCL HEART DISEASE OF [place] CORONARY ARTERY W/O ANG PCTRS Status: Chronic Qualifiers: Coronary Disease-Associated Artery/Lesion type: unspecified vessel or lesion type [place] vs. transplanted heart: [place] heart Associated angina: with unspecified angina Qualified Code(s): I25.119 - Atherosclerotic heart disease of [place] coronary artery with unspecified angina pectoris (5) CHF (congestive heart failure) Code(s): I50.9 - HEART FAILURE, UNSPECIFIED Status: Chronic (6) Hyperlipidemia Code(s): E78.5 - HYPERLIPIDEMIA, UNSPECIFIED Status: Chronic (7) REGINA on CPAP Code(s): G47.33 - OBSTRUCTIVE SLEEP APNEA (ADULT) (PEDIATRIC) Status: Chronic (8) Venous stasis dermatitis of both lower extremities Code(s): I83.11 - VARICOSE VEINS OF RIGHT LOWER EXTREMITY WITH INFLAMMATION; I83.12 - VARICOSE VEINS OF LEFT LOWER EXTREMITY WITH INFLAMMATION Status: Chronic (9) Acute exacerbation of CHF (congestive heart failure) Code(s): I50.9 - HEART FAILURE, UNSPECIFIED Status: Acute (10) Diastolic congestive heart failure Code(s): I50.30 - UNSPECIFIED DIASTOLIC (CONGESTIVE) HEART FAILURE Status: Acute (11) BPH (benign prostatic hypertrophy) Code(s): N40.0 - BENIGN PROSTATIC HYPERPLASIA WITHOUT LOWER URINRY TRACT SYMP Status: Chronic - Plan Plan: HFpEF Exacerbation - ECHO 06/21/2019: EF 55-60%. - Restart home HF meds: Coreg, Lisinopril, and Torsemide. - Strict I/O, Daily weights New onset Afib - Rate controlled and asymptomatic - Eliquis, will discuss with CM due to limitations in being able to afford the medication - Cardiology consulted. Appreciate recommendations. - Pacemaker placed 06/23/2019. Still in A-Fib. Will await cardiology recommendations. Per the patient, Dr. Cruz told him they will restart blood thinners today and plan for ALLIE and possible cardioversion on Friday morning. CKD III, stable. - Will continue to trend CAD -Hx of CABG and stent Diabetes Mellitus -Continue home metformin -Mild SSI, ACHS accu-checks, hypoglycemic protocol BPH -Resume home tamsulosin and finasteride Obstructive Sleep Apnea -Uses CPAP at home, will order for HS use Constipation -Will give a dose of lactulose today to help with lack fo BM IVF: SL VTE: Eliquis Diet: CC, fluids < 1200 mL Code: Full Dispo: tele inpt, LOS >48hr. Awaiting ALLIE & Cardioversion on Friday PCP: Dr. Carpenter Addendum - Attending - Attending Attestation Date/Time: 06/26/19 7390 I personally evaluated the patient and discussed the management with Dr. Baldwin. I agree with the History, Examination, Assessment and Plan documented above with any addition or exceptions noted below. The patient still has not had a bowel movement, will add lactulose. He is upset this morning because he found out eliquis will be at least $300 a month and cannot afford this. Discussed that we would talk with case mgmt on Friday to see if they can help. If he is unable to afford a NOAC, may need to consider warfarin. Awaiting cardioversion on Friday.
[2019-06-26] MEDS: Torsemide 20 MG TAB PO SCH (09:27)
[2019-06-26] MEDS: Lisinopril 20 MG TAB PO SCH (09:27)
[2019-06-26] MEDS: Ipratropium Bromide 0.03% Nasal Inhaler 30 ml Bottle EA NARE SCH ×3 (09:27→20:37)
[2019-06-26] MEDS: Vit A,C & E/Lutein/Minerals Tablet PO SCH ×2 (09:27→20:31)
[2019-06-26] MEDS: Niacin 500 MG TAB PO SCH (09:28)
[2019-06-26] MEDS: metFORMIN 500 MG TAB PO SCH ×2 (09:28→20:31)
[2019-06-26] MEDS: Finasteride 5 MG TAB PO SCH (09:28)
[2019-06-26] MEDS: Docusate 100 MG CAP PO SCH ×2 (09:28→20:30)
[2019-06-26] MEDS: Tamsulosin HCl 0.4 MG CAP PO SCH (09:28)
[2019-06-26] MEDS: Aspirin 81 mg Enteric Coated Tablet PO SCH (09:29)
[2019-06-26] MEDS: Apixaban 5 MG TAB PO SCH ×2 (09:29→20:30)
[2019-06-26] MEDS: Carvedilol 6.25 MG TAB PO SCH ×3 (09:29→20:30)
[2019-06-26] MEDS: Dronedarone HCl 400 MG TAB PO SCH (17:08)
[2019-06-26] MEDS: Rosuvastatin 20 MG TAB PO SCH (20:30)
[2019-06-27 04:51] LABS: #Eosinphils 0.3 thou/uL (0.0-0.7); #Monocytes 0.5 thou/uL (0.11-0.59); #Neutrophils 4.1 thou/uL (1.40-6.50); %Basophils 0.2 % (0.0-1.0); %Lymphocytes 16.7 % (21.0-51.0); %Monocytes 8.9 % (0.0-10.0); %Neutrophils 69.1 % (42.0-75.0); Hemoglobin 10.5 g/dL (14.0-18.0); Mean Corpuscular HGB CONC 31.8 g/dL (32.0-36.0); Mean Corpuscular Hemoglobin 29.3 pg (27.0-31.0); Mean Platelet Volume 9.5 fL (7.4-10.4); Platelet Count 159 thou/uL (130-400); RBC Distribution Width 12.6 % (11.5-14.5)
[2019-06-27 05:12] LABS: Anion Gap 13 mmol/L (10-20); BUN (Urea Nitrogen) 34 mg/dL (8.4-25.7); Calc. Creatinine Clearance 63 mL/min (70-130); Calcium 10.1 mg/dL (7.8-10.44); Carbon Dioxide 21 mmol/L (23-31); Chloride 107 mmol/L (98-107); Estimated GFR-MDRD 45; Glucose 102 mg/dL (83-110); Potassium 3.9 mmol/L (3.5-5.1); Sodium 137 mmol/L (136-145)
[2019-06-27] MEDS: Cephalexin 250 MG CAP PO SCH ×4 (05:26→23:52)
--- NOTE | 2019-06-27 05:31 | PDOC.FM ---
- Subjective Subjective: He is doing well today. Had a bowel movement yesterday morning. - Objective MAR Reviewed: Yes Vital Signs & Weight: Vital Signs (12 hours) Temp Pulse Resp BP BP Pulse Ox 06/27/19 03:22 97.7 F 64 18 97/51 L 96 06/26/19 23:10 63 20 105/57 L 93 L 06/26/19 20:00 98.3 F 65 18 119/62 98 Weight Weight 112.945 kg I&O: 06/25/19 06/26/19 06/27/19 06:59 06:59 06:59 Intake Total 600 1100 850 Output Total 154 053 5637 Balance -50 1000 -170 Result Diagrams: 06/27/19 04:35 06/27/19 04:35 Phys Exam - Physical Examination Constitutional: NAD HEENT: PERRLA, moist MMs, oral pharynx no lesions Neck: supple, full ROM Respiratory: clear to auscultation bilateral Cardiovascular: no significant murmur afib, regular rhythm Gastrointestinal: soft, non-tender, positive bowel sounds Musculoskeletal: pulses present trace edema Neurological: moves all 4 limbs Psychiatric: normal affect Skin: no rash, normal turgor Dx/Plan (1) Afib Code(s): I48.91 - UNSPECIFIED ATRIAL FIBRILLATION Status: Acute (2) CKD (chronic kidney disease) stage 3, GFR 30-59 ml/min Code(s): N18.3 - CHRONIC KIDNEY DISEASE, STAGE 3 (MODERATE) Status: Acute (3) DM2 (diabetes mellitus, type 2) Status: Acute (4) REGINA (obstructive sleep apnea) Code(s): G47.33 - OBSTRUCTIVE SLEEP APNEA (ADULT) (PEDIATRIC) Status: Acute (5) CAD (coronary artery disease) Code(s): I25.10 - ATHSCL HEART DISEASE OF [place] CORONARY ARTERY W/O ANG PCTRS Status: Chronic Qualifiers: Coronary Disease-Associated Artery/Lesion type: unspecified vessel or lesion type [place] vs. transplanted heart: [place] heart Associated angina: with unspecified angina Qualified Code(s): I25.119 - Atherosclerotic heart disease of [place] coronary artery with unspecified angina pectoris (6) Hyperlipidemia Code(s): E78.5 - HYPERLIPIDEMIA, UNSPECIFIED Status: Chronic (7) REGINA on CPAP Code(s): G47.33 - OBSTRUCTIVE SLEEP APNEA (ADULT) (PEDIATRIC) Status: Chronic (8) Venous stasis dermatitis of both lower extremities Code(s): I83.11 - VARICOSE VEINS OF RIGHT LOWER EXTREMITY WITH INFLAMMATION; I83.12 - VARICOSE VEINS OF LEFT LOWER EXTREMITY WITH INFLAMMATION Status: Chronic (9) Diastolic congestive heart failure Code(s): I50.30 - UNSPECIFIED DIASTOLIC (CONGESTIVE) HEART FAILURE Status: Acute (10) BPH (benign prostatic hypertrophy) Code(s): N40.0 - BENIGN PROSTATIC HYPERPLASIA WITHOUT LOWER URINRY TRACT SYMP Status: Chronic (11) CHF (congestive heart failure) Code(s): I50.9 - HEART FAILURE, UNSPECIFIED Status: Chronic - Plan Plan: New onset Afib - Rate controlled and asymptomatic - Carriequapryl, will discuss with CM due to limitations in being able to afford the medication - Cardiology consulted. Appreciate recommendations. - Pacemaker placed 06/23/2019. Still in A-Fib. Will await cardiology recommendations. Per the patient, Dr. Cruz told him they will restart blood thinners today and plan for ALLIE and possible cardioversion on Friday morning. HFpEF Exacerbation - ECHO 06/21/2019: EF 55-60%. - Restart home HF meds: Coreg, Lisinopril, and Torsemide. - Strict I/O, Daily weights CKD III, stable. - Will continue to trend CAD -Hx of CABG and stent Diabetes Mellitus -Continue home metformin -Mild SSI, ACHS accu-checks, hypoglycemic protocol BPH -Resume home tamsulosin and finasteride Obstructive Sleep Apnea -Uses CPAP at home, will order for HS use Constipation -Lactulose and Colace started yesterday -BM yesterday morning IVF: SL VTE: Eliquis Diet: CC, fluids < 1200 mL Code: Full Dispo: tele inpt, LOS >48hr. Awaiting ALLIE & Cardioversion on Friday PCP: Dr. Carpenter Addendum - Attending - Attending Attestation Date/Time: 06/27/19 4163 I personally evaluated the patient and discussed the management with Dr. Baldwin. I agree with the History, Examination, Assessment and Plan documented above with any addition or exceptions noted below. The patient is feeling much better this morning. He has had a bowel movement. Will continue current meds for bowel regimen. Pt scheduled to have cardioversion tomorrow.
[2019-06-27] MEDS: Torsemide 20 MG TAB PO SCH (09:42)
[2019-06-27] MEDS: Tamsulosin HCl 0.4 MG CAP PO SCH (09:42)
[2019-06-27] MEDS: Niacin 500 MG TAB PO SCH (09:43)
[2019-06-27] MEDS: Dronedarone HCl 400 MG TAB PO SCH ×2 (09:43→17:22)
[2019-06-27] MEDS: Lisinopril 20 MG TAB PO SCH (09:44)
[2019-06-27] MEDS: Apixaban 5 MG TAB PO SCH ×2 (09:44→21:07)
[2019-06-27] MEDS: metFORMIN 500 MG TAB PO SCH ×2 (09:44→21:07)
[2019-06-27] MEDS: Finasteride 5 MG TAB PO SCH (09:44)
[2019-06-27] MEDS: Aspirin 81 mg Enteric Coated Tablet PO SCH (09:44)
[2019-06-27] MEDS: Vit A,C & E/Lutein/Minerals Tablet PO SCH ×2 (09:44→21:07)
[2019-06-27] MEDS: Ipratropium Bromide 0.03% Nasal Inhaler 30 ml Bottle EA NARE SCH ×3 (09:45→21:05)
[2019-06-27] MEDS: Docusate 100 MG CAP PO SCH ×2 (09:45→21:05)
[2019-06-27] MEDS: Carvedilol 6.25 MG TAB PO SCH ×3 (09:45→21:06)
[2019-06-27 17:09] LABS: Hemoglobin 11.5 g/dL (14.0-18.0); Platelet Count 188 thou/uL (130-400)
[2019-06-27] MEDS: Rosuvastatin 20 MG TAB PO SCH (21:06)
--- NOTE | 2019-06-28 00:01 | EKG ---
Test Reason : POST PACEMAKER INSER Blood Pressure : / mmHG Vent. Rate : 065 BPM Atrial Rate : 066 BPM P-R Int : 000 ms QRS Dur : 164 ms QT Int : 448 ms P-R-T Axes : 000 -35 054 degrees QTc Int : 465 ms Poor data quality, interpretation may be adversely affected Demand pacemaker; interpretation is based on intrinsic rhythm Atrial fibrillation with premature ventricular or aberrantly conducted complexes Left axis deviation Right bundle branch block Abnormal ECG When compared with ECG of 19-JUN-2019 12:54, (Unconfirmed) Electronic demand pacing is now Present Confirmed by Kiel LINDER ([id number]) on 06/28/2019 12:00:59 AM Referred By: REBECCA Confirmed By:Kiel LINDER
[2019-06-28 04:45] LABS: #Eosinphils 0.4 thou/uL (0.0-0.7); #Lymphocytes 1.1 thou/uL (1.20-3.40); #Monocytes 0.7 thou/uL (0.11-0.59); #Neutrophils 5.8 thou/uL (1.40-6.50); %Basophils 0.1 % (0.0-1.0); %Eosinophils 4.6 % (0.0-10.0); %Lymphocytes 13.6 % (21.0-51.0); %Monocytes 8.5 % (0.0-10.0); %Neutrophils 73.2 % (42.0-75.0); Hemoglobin 10.7 g/dL (14.0-18.0); Mean Corpuscular HGB CONC 32.1 g/dL (32.0-36.0); Mean Corpuscular Volume 90.4 fL (78.0-98.0); Mean Platelet Volume 9.6 fL (7.4-10.4); Platelet Count 186 thou/uL (130-400); RBC Distribution Width 12.5 % (11.5-14.5); White Blood Cell (WBC) Count 7.9 thou/uL (4.8-10.8)
[2019-06-28] MEDS: Cephalexin 250 MG CAP PO SCH ×3 (05:04→18:57)
[2019-06-28 05:09] LABS: Anion Gap 12 mmol/L (10-20); BUN (Urea Nitrogen) 36 mg/dL (8.4-25.7); Calc. Creatinine Clearance 57 mL/min (70-130); Calcium 10.4 mg/dL (7.8-10.44); Carbon Dioxide 25 mmol/L (23-31); Chloride 106 mmol/L (98-107); Estimated GFR-MDRD 40; Glucose 105 mg/dL (83-110); Potassium 3.9 mmol/L (3.5-5.1); Sodium 139 mmol/L (136-145)
--- NOTE | 2019-06-28 05:38 | PDOC.FM ---
- Subjective Subjective: Mr. Olsen is doing well this morning. He is eager to have his procedure done and go home. - Objective MAR Reviewed: Yes Vital Signs & Weight: Vital Signs (12 hours) Temp Pulse Resp BP BP Pulse Ox 06/28/19 03:22 97.6 F 60 18 99/53 L 93 L 06/27/19 23:31 97.2 F L 64 19 96/64 94 L 06/27/19 20:59 98.1 F 62 18 107/59 L 96 Weight Weight 112.627 kg I&O: 06/26/19 06/27/19 06/28/19 06:59 06:59 06:59 Intake Total 1100 850 600 Output Total 100 1020 400 Balance 1000 -170 200 Result Diagrams: 06/28/19 04:05 06/28/19 04:05 Phys Exam - Physical Examination Constitutional: NAD HEENT: PERRLA, moist MMs Neck: supple, full ROM Respiratory: no wheezing, no rales, no rhonchi, clear to auscultation bilateral Cardiovascular: RRR, no significant murmur, no rub Gastrointestinal: soft, non-tender Musculoskeletal: pulses present, edema present (1+ ) Neurological: non-focal, normal sensation Psychiatric: normal affect, A&O x 3 Skin: no rash, normal turgor Dx/Plan (1) Acute exacerbation of CHF (congestive heart failure) Code(s): I50.9 - HEART FAILURE, UNSPECIFIED Status: Acute (2) CKD (chronic kidney disease) stage 3, GFR 30-59 ml/min Code(s): N18.3 - CHRONIC KIDNEY DISEASE, STAGE 3 (MODERATE) Status: Acute (3) DM2 (diabetes mellitus, type 2) Status: Acute (4) Diastolic congestive heart failure Code(s): I50.30 - UNSPECIFIED DIASTOLIC (CONGESTIVE) HEART FAILURE Status: Acute (5) REGINA (obstructive sleep apnea) Code(s): G47.33 - OBSTRUCTIVE SLEEP APNEA (ADULT) (PEDIATRIC) Status: Acute (6) BPH (benign prostatic hypertrophy) Code(s): N40.0 - BENIGN PROSTATIC HYPERPLASIA WITHOUT LOWER URINRY TRACT SYMP Status: Chronic (7) CAD (coronary artery disease) Code(s): I25.10 - ATHSCL HEART DISEASE OF [place] CORONARY ARTERY W/O ANG PCTRS Status: Chronic Qualifiers: Coronary Disease-Associated Artery/Lesion type: unspecified vessel or lesion type [place] vs. transplanted heart: [place] heart Associated angina: with unspecified angina Qualified Code(s): I25.119 - Atherosclerotic heart disease of [place] coronary artery with unspecified angina pectoris (8) Hyperlipidemia Code(s): E78.5 - HYPERLIPIDEMIA, UNSPECIFIED Status: Chronic (9) Venous stasis dermatitis of both lower extremities Code(s): I83.11 - VARICOSE VEINS OF RIGHT LOWER EXTREMITY WITH INFLAMMATION; I83.12 - VARICOSE VEINS OF LEFT LOWER EXTREMITY WITH INFLAMMATION Status: Chronic - Plan Plan: New onset Afib - Rate controlled and asymptomatic - On Eliquis - Pacemaker placed 06/23/2019. Still in A-Fib. - Cardiology plan is to perform ALLIE and cardioversion today. Will await recommendations. HFpEF Exacerbation - ECHO 06/21/2019: EF 55-60%. - Restart home HF meds: Coreg, Lisinopril, and Torsemide. Lisinopril dose has been decreased to 10mg. - Strict I/O, Daily weights. MELVIN on CKD III - Creatinine uptrended back to 1.66. - Patient will receive fluids during procedure today. Will repeat this pm and consider giving more fluids. Patient may need higher water restriction. He has not been drinking 1200mL per day, encouraged him to take more PO today. CAD -Hx of CABG and stent Diabetes Mellitus -Continue home metformin -Mild SSI, ACHS accu-checks, hypoglycemic protocol BPH -Resume home tamsulosin and finasteride Obstructive Sleep Apnea -Uses CPAP at home, will order for HS use Constipation -Lactulose and Colace IVF: SL VTE: Eliquis Diet: CC, fluids < 1200 mL Code: Full Dispo: tele inpt, LOS >48hr. Awaiting ALLIE & Cardioversion on Friday PCP: Dr. Carpenter Addendum - Attending - Attending Attestation Date/Time: 06/28/19 3510 I personally evaluated the patient and discussed the management with the team. I agree with the History, Examination, Assessment and Plan documented above with any addition or exceptions noted below. Patient in good spirits and feels great. Awaiting procedure. Can likely just d /c acei in light of rising creatinine, suspected d/t hypovolemia because patient is avoiding almost any liquid intake. Gentle hydration and recheck tomorrow.
[2019-06-28] MEDS: Dronedarone HCl 400 MG TAB PO SCH ×2 (08:53→16:53)
[2019-06-28] MEDS: metFORMIN 500 MG TAB PO SCH ×2 (08:53→21:21)
[2019-06-28] MEDS: Aspirin 81 mg Enteric Coated Tablet PO SCH (08:53)
[2019-06-28] MEDS: Vit A,C & E/Lutein/Minerals Tablet PO SCH ×2 (08:53→21:22)
[2019-06-28] MEDS: Tamsulosin HCl 0.4 MG CAP PO SCH (08:53)
[2019-06-28] MEDS: Apixaban 5 MG TAB PO SCH ×2 (08:54→21:21)
[2019-06-28] MEDS: Docusate 100 MG CAP PO SCH ×2 (08:54→21:21)
[2019-06-28] MEDS: Torsemide 20 MG TAB PO SCH (08:54)
[2019-06-28] MEDS: Finasteride 5 MG TAB PO SCH (08:54)
[2019-06-28] MEDS: Carvedilol 6.25 MG TAB PO SCH ×3 (08:54→21:21)
[2019-06-28] MEDS ORDERED: Lisinopril 10 MG TAB PO SCH (09:00)
[2019-06-28] MEDS: Ipratropium Bromide 0.03% Nasal Inhaler 30 ml Bottle EA NARE SCH ×3 (09:07→21:22)
[2019-06-28] MEDS ORDERED: PROPOFOL 200 MG/20 ML VIAL ONE (10:44)
[2019-06-28] MEDS ORDERED: PROPOFOL 0 ML ONE (15:27)
[2019-06-28] MEDS ORDERED: Benzocaine-Menthol 82.5 ML CAN TOP PRN (17:42)
[2019-06-28] MEDS ORDERED: Lidocaine 2% Jelly 5 ML TUBE TOP PRN (17:43)
[2019-06-28] MEDS ORDERED: Niacin 500 MG TAB PO SCH (21:00)
[2019-06-28] MEDS: Rosuvastatin 20 MG TAB PO SCH (21:22)
[2019-06-29] MEDS: Cephalexin 250 MG CAP PO SCH ×3 (00:21→12:13)
[2019-06-29 04:26] LABS: #Eosinphils 0.2 thou/uL (0.0-0.7); #Monocytes 0.7 thou/uL (0.11-0.59); #Neutrophils 6.6 thou/uL (1.40-6.50); %Basophils 0.1 % (0.0-1.0); %Eosinophils 2.2 % (0.0-10.0); %Lymphocytes 11.4 % (21.0-51.0); %Monocytes 7.9 % (0.0-10.0); %Neutrophils 78.4 % (42.0-75.0); Hemoglobin 10.2 g/dL (14.0-18.0); Mean Corpuscular HGB CONC 33.8 g/dL (32.0-36.0); Mean Corpuscular Hemoglobin 30.6 pg (27.0-31.0); Mean Corpuscular Volume 90.4 fL (78.0-98.0); Mean Platelet Volume 9.1 fL (7.4-10.4); Platelet Count 168 thou/uL (130-400); RBC Distribution Width 12.6 % (11.5-14.5); Red Blood Cell (RBC) Count 3.34 mill/uL (4.70-6.10); White Blood Cell (WBC) Count 8.4 thou/uL (4.8-10.8)
[2019-06-29 04:53] LABS: Anion Gap 13 mmol/L (10-20); BUN (Urea Nitrogen) 31 mg/dL (8.4-25.7); Calc. Creatinine Clearance 60 mL/min (70-130); Calcium 10.2 mg/dL (7.8-10.44); Carbon Dioxide 24 mmol/L (23-31); Chloride 106 mmol/L (98-107); Estimated GFR-MDRD 44; Glucose 99 mg/dL (83-110); Sodium 139 mmol/L (136-145)
--- NOTE | 2019-06-29 05:32 | PDOC.FM ---
- Subjective Subjective: Mr. Olsen is doing well this morning. He states that Dr. Cruz told him he was going home today, we will wait for his recommendations prior to d/c. - Objective MAR Reviewed: Yes Vital Signs & Weight: Vital Signs (12 hours) Temp Pulse Resp BP BP BP Pulse Ox 06/29/19 04:00 98.7 F 71 20 123/56 L 97 06/28/19 21:21 111/60 06/28/19 20:00 97.6 F 76 18 111/60 98 Weight Weight 111.266 kg I&O: 06/27/19 06/28/19 06/29/19 06:59 06:59 06:59 Intake Total 850 600 840 Output Total 1020 400 Balance -170 200 840 Result Diagrams: 06/29/19 04:05 06/29/19 04:05 Phys Exam - Physical Examination Constitutional: NAD HEENT: PERRLA, moist MMs, sclera anicteric Neck: no nodes, supple, full ROM Respiratory: no wheezing, no rales, no rhonchi, clear to auscultation bilateral Cardiovascular: RRR, no significant murmur, no rub Gastrointestinal: soft, non-tender Musculoskeletal: pulses present, edema present 1+ bilaterally. Neurological: non-focal, moves all 4 limbs Psychiatric: normal affect, A&O x 3 Skin: no rash, normal turgor Dx/Plan (1) Acute exacerbation of CHF (congestive heart failure) Code(s): I50.9 - HEART FAILURE, UNSPECIFIED Status: Acute (2) CKD (chronic kidney disease) stage 3, GFR 30-59 ml/min Code(s): N18.3 - CHRONIC KIDNEY DISEASE, STAGE 3 (MODERATE) Status: Acute (3) DM2 (diabetes mellitus, type 2) Status: Acute (4) Diastolic congestive heart failure Code(s): I50.30 - UNSPECIFIED DIASTOLIC (CONGESTIVE) HEART FAILURE Status: Acute (5) REGINA (obstructive sleep apnea) Code(s): G47.33 - OBSTRUCTIVE SLEEP APNEA (ADULT) (PEDIATRIC) Status: Acute (6) BPH (benign prostatic hypertrophy) Code(s): N40.0 - BENIGN PROSTATIC HYPERPLASIA WITHOUT LOWER URINRY TRACT SYMP Status: Chronic (7) CAD (coronary artery disease) Code(s): I25.10 - ATHSCL HEART DISEASE OF [place] CORONARY ARTERY W/O ANG PCTRS Status: Chronic Qualifiers: Coronary Disease-Associated Artery/Lesion type: unspecified vessel or lesion type [place] vs. transplanted heart: [place] heart Associated angina: with unspecified angina Qualified Code(s): I25.119 - Atherosclerotic heart disease of [place] coronary artery with unspecified angina pectoris (8) Hyperlipidemia Code(s): E78.5 - HYPERLIPIDEMIA, UNSPECIFIED Status: Chronic (9) Venous stasis dermatitis of both lower extremities Code(s): I83.11 - VARICOSE VEINS OF RIGHT LOWER EXTREMITY WITH INFLAMMATION; I83.12 - VARICOSE VEINS OF LEFT LOWER EXTREMITY WITH INFLAMMATION Status: Chronic - Plan Plan: New onset Afib - On Eliquis - Pacemaker placed 06/23/2019. - S/p ALLIE and Cardioversion 06/28/19. - Pending cardiology recommendations, patient may be discharged today. HFpEF Exacerbation, resolved - ECHO 06/21/2019: EF 55-60%. - Restart home HF meds: Coreg, and Torsemide. - Due to renal function, will d/c lisinopril - Strict I/O, Daily weights. MELVIN on CKD III - Creatinine 1.54 today. - Increased fluid restriction to 1500mL today. CAD -Hx of CABG and stent Diabetes Mellitus -Continue home metformin -Mild SSI, ACHS accu-checks, hypoglycemic protocol BPH -Resume home tamsulosin and finasteride Obstructive Sleep Apnea -Uses CPAP at home, will order for HS use Constipation -Lactulose and Colace IVF: SL VTE: Eliquis Diet: CC, fluids < 1500 mL Code: Full Dispo: Stable, soon to be discharged. PCP: Dr. Carpenter Addendum - Attending - Attending Attestation Date/Time: 06/29/19 3549 I personally evaluated the patient and discussed the management with the team. I agree with the History, Examination, Assessment and Plan documented above with any addition or exceptions noted below. Asensed, Vpaced. No cp/sob/n/v/f/c/palps. He is dressed and wants to go home. Follow up with PCP and cards.
--- NOTE | 2019-06-29 07:42 | OP ---
DATE OF PROCEDURE: 06/28/2019 PROCEDURE PERFORMED: Transesophageal echocardiogram. INDICATION: An 78-year-old gentleman with paroxysmal atrial fibrillation. DESCRIPTION OF PROCEDURE: The patient was taken to the PACU. The patient was sedated by Anesthesiology. A transesophageal probe was placed into the distal esophagus and stomach. Echocardiographic images were obtained. The transesophageal probe was removed. FINDINGS: 1. Normal left systolic function. 2. Left atrial enlargement. 3. Normal aortic valve. 4. Mitral valve prolapse. 5. Moderate to severe mitral regurgitation. 6. Mild aortic regurgitation. 7. No thrombus is noted in left atrium or left atrial appendage. 8. Atherosclerotic debris in the descending aorta. IMPRESSION: No formed thrombus in the left atrium or left atrial appendage. Job ID: [id number]
[2019-06-29] MEDS: Vit A,C & E/Lutein/Minerals Tablet PO SCH (08:55)
[2019-06-29] MEDS: metFORMIN 500 MG TAB PO SCH (08:56)
[2019-06-29] MEDS: Apixaban 5 MG TAB PO SCH (08:56)
[2019-06-29] MEDS: Finasteride 5 MG TAB PO SCH (08:56)
[2019-06-29] MEDS: Torsemide 20 MG TAB PO SCH (08:56)
[2019-06-29] MEDS: Dronedarone HCl 400 MG TAB PO SCH (08:56)
[2019-06-29] MEDS: Aspirin 81 mg Enteric Coated Tablet PO SCH (08:56)
[2019-06-29] MEDS: Carvedilol 6.25 MG TAB PO SCH (08:56)
[2019-06-29] MEDS: Docusate 100 MG CAP PO SCH (08:57)
[2019-06-29] MEDS: Tamsulosin HCl 0.4 MG CAP PO SCH (08:57)
[2019-06-29] MEDS: Ipratropium Bromide 0.03% Nasal Inhaler 30 ml Bottle EA NARE SCH (08:58)
[2019-06-29 11:38] VITALS: BP 100/59; TEMP 98.2
--- NOTE | 2019-06-29 15:37 | DIS ---
DATE OF ADMISSION: 06/19/2019 DATE OF DISCHARGE: 06/29/2019 RESIDENT: Chel Thompson MD. ADMITTING ATTENDING: Phuong Oneil MD. DISCHARGE ATTENDING: Jesus Godinez MD. CONSULT: Cardiology, Dr. Cruz. PROCEDURES: Pacemaker insertion, transesophageal echocardiogram, and cardioversion. PRIMARY DIAGNOSIS: Heart failure with preserved ejection fraction exacerbation, new-onset atrial fibrillation. SECONDARY DIAGNOSES: 1. Coronary artery disease. 2. Diabetes. 3. Benign prostatic hyperplasia. 4. Obstructive sleep apnea. 5. Acute kidney injury on chronic kidney disease, stage 3. DISCONTINUED MEDICATIONS: Lisinopril. DISCHARGE MEDICATIONS: 1. Aspirin. 2. Proscar. 3. Metformin. 4. Rosuvastatin. 5. Flomax. 6. Torsemide. 7. . 8. Ocuvite. 9. Eliquis. 10. Coreg. 11. Keflex. 12. Plavix. 13. Docusate. 14. Dronedarone. 15. Milk of magnesia. 16. MiraLAX. HISTORY OF PRESENT ILLNESS AND HOSPITAL COURSE: Mr. Olsen is a pleasant 78-year-old male, who presented to the emergency department complaining of worsening shortness of breath for the past week. He says that his symptoms became bothersome 2 days prior to admission. He reports that he gained approximately 3 pounds and realized that he was retaining fluid, which prompted him to seek further evaluation. He is a known patient to the [facility]. He has a history of a CABG surgery back in [address] Knight and then stents placed in [address] Cruz. He sees Dr. Cruz as an outpatient. Initial labs were notable for a BNP of 512. A creatinine of 1.59, otherwise unremarkable. An echo from July showed an EF of 55% to 60%. He was given Lasix in the emergency department and continued on Lasix for diuresis as Cardiology was consulted new-onset atrial fibrillation, which was rate controlled. His rate remained in the 50s to 60s and he was started on Eliquis for anticoagulation with Cardiology consulted. Upon review of his clinical course, Cardiology opted to implant the pacemaker. On the , the patient was then given the option to stay in the hospital. Cardiology then opted to wait several days before performing a ALLIE and cardioversion. On 06/28, he underwent the ALLIE with cardioversion and was successfully converted back into sinus rhythm and recovered well. The patient diuresed adequately over the course of his stay. His MELVIN improved. However, it appears that the patient has underlying CKD and his creatinine was on the rise after the procedure. It improved with IV fluid hydration. DISPOSITION: Stable. DISCHARGE INSTRUCTIONS: 1. Location: Home. 2. Diet: Heart healthy. 3. Activity: Ad sameer. 4. Followup: Follow up with [facility], primary care physician, and electronic components assembler within 7 to 14 days of discharge. Job ID: [id number]
--- NOTE | 2019-06-29 20:57 | OP ---
DATE OF PROCEDURE: 06/28/19 SURGEON: Eugene Cruz M.D. PROCEDURE: Direct current electrical cardioversion. PROCEDURE IN DETAIL: 11/30/18 PROCEDURE: Electrical cardioversion. The patient remained sedated after undergoing a transesophageal echo. The pacemaker ventricular outpu t was increased to 5 volts. Using 200 joules of synchronized energy, the patient returned to atrial s ensing/atrial pacing. The pacemaker was then reprogrammed to previous setting. Patient tolerated the procedure well.
== END 2019-06-29 12:16 | disposition home or self-care (01) | DRG 242 ==
LOC: ERS 12:47 → 2NO 17:18 → CCU 06-23 09:14 → 2NO 06-23 10:07
PROVIDERS: ADMIT Family Medicine; ATTEND Family Medicine
PROC: 0JH604Z Insertion of Pacemaker, Single Chamber into Chest Subcutaneous Tissue and Fascia, Open Approach (ICD-10-PCS; principal; 2019-06-23)
PROC: 02H63JZ Insertion of Pacemaker Lead into Right Atrium, Percutaneous Approach (ICD-10-PCS; 2019-06-23)
PROC: 02HK3JZ Insertion of Pacemaker Lead into Right Ventricle, Percutaneous Approach (ICD-10-PCS; 2019-06-23)
PROC: B5171ZZ Fluoroscopy of Left Subclavian Vein using Low Osmolar Contrast (ICD-10-PCS; 2019-06-23)
PROC: B5161ZZ Fluoroscopy of Right Subclavian Vein using Low Osmolar Contrast (ICD-10-PCS; 2019-06-23)
PROC: B24BZZ4 Ultrasonography of Heart with Aorta, Transesophageal (ICD-10-PCS; 2019-06-28)
PROC: 5A2204Z Restoration of Cardiac Rhythm, Single (ICD-10-PCS; 2019-06-28)
DX: I13.0 Hypertensive heart and chronic kidney disease with heart failure and stage 1 through stage 4 chronic kidney disease, or unspecified chronic kidney disease (principal); I50.33 Acute on chronic diastolic (congestive) heart failure; N17.9 Acute kidney failure, unspecified; K59.00 Constipation, unspecified; Z79.82 Long term (current) use of aspirin; Z79.899 Other long term (current) drug therapy; N40.0 Benign prostatic hyperplasia without lower urinary tract symptoms; I25.10 Atherosclerotic heart disease of native coronary artery without angina pectoris; Z95.5 Presence of coronary angioplasty implant and graft; G47.33 Obstructive sleep apnea (adult) (pediatric); Z95.1 Presence of aortocoronary bypass graft; Z98.890 Other specified postprocedural states; N18.3 Chronic kidney disease, stage 3 (moderate); E11.22 Type 2 diabetes mellitus with diabetic chronic kidney disease; E78.5 Hyperlipidemia, unspecified; I83.11 Varicose veins of right lower extremity with inflammation; I83.12 Varicose veins of left lower extremity with inflammation; I48.91 Unspecified atrial fibrillation; Z79.02 Long term (current) use of antithrombotics/antiplatelets; Z79.84 Long term (current) use of oral hypoglycemic drugs; E66.9 Obesity, unspecified; Z68.38 Body mass index [BMI] 38.0-38.9, adult
CPT/HCPCS: 33208; 36415; 36416; 71045; 75820; 80048; 80053; 82550; 82553; 82565; 83735; 83880; 84100; 84443; 84484; 85014; 85018; 85025; 85049; 92960; 93005; 93010; 93306; 93312; 93798; 94660; 96374; 99152; 99153; C1785; C1898; J0690; J1265; J1580; J1644; J1940; J2001; J2250; J2704; J3010; J3370; Q9967

== ENCOUNTER 2019-07-26 10:56 | Emergency (ER) | payer MEDICARE, BC ==
[2019-07-26] MEDS ORDERED: Furosemide 40 MG/4 ML VIAL ONE (11:23)
[2019-07-26] MEDS ORDERED: Nitroglycerin 2% Ointment 1 INCH/1 GM Packet ONE (11:23)
[2019-07-26 11:35] LABS: #Eosinphils 0.2 thou/uL (0.0-0.7); #Lymphocytes 0.7 thou/uL (1.20-3.40); #Monocytes 0.7 thou/uL (0.11-0.59); #Neutrophils 5.5 thou/uL (1.40-6.50); %Basophils 0.4 % (0.0-1.0); %Eosinophils 3.4 % (0.0-10.0); %Lymphocytes 9.7 % (21.0-51.0); %Monocytes 9.2 % (0.0-10.0); %Neutrophils 77.4 % (42.0-75.0); Hemoglobin 11.1 g/dL (14.0-18.0); Mean Corpuscular HGB CONC 32.8 g/dL (32.0-36.0); Mean Corpuscular Hemoglobin 30.6 pg (27.0-31.0); Mean Corpuscular Volume 93.3 fL (78.0-98.0); Mean Platelet Volume 8.8 fL (7.4-10.4); Platelet Count 178 thou/uL (130-400); RBC Distribution Width 13.8 % (11.5-14.5); Red Blood Cell (RBC) Count 3.62 mill/uL (4.70-6.10); White Blood Cell (WBC) Count 7.1 thou/uL (4.8-10.8)
[2019-07-26 11:53] LABS: ALT (SGPT) 21 U/L (8-55); AST (SGOT) 22 U/L (5-34); Alkaline Phosphatase 90 U/L (40-110); Anion Gap 12 mmol/L (10-20); BUN (Urea Nitrogen) 31 mg/dL (8.4-25.7); Bilirubin, Total 0.7 mg/dL (0.2-1.2); CK (CPK) 33 U/L (30-200); Calc. Creatinine Clearance 0 mL/min (70-130); Calcium 10.3 mg/dL (7.8-10.44); Carbon Dioxide 27 mmol/L (23-31); Chloride 103 mmol/L (98-107); Estimated GFR-MDRD 32; Globulin 2.6 g/dL (2.4-3.5); Glucose 72 mg/dL (83-110); Potassium 4.8 mmol/L (3.5-5.1); Protein, Total 6.6 g/dL (5.8-8.1); Sodium 137 mmol/L (136-145)
--- NOTE | 2019-07-26 11:57 | RAD ---
PORTABLE CHEST 1 VIEW: DATE: 07/26/2019. TIME: 11:41 AM. HISTORY: Shortness of breath. Atrial fibrillation. CHF. FINDINGS/IMPRESSION: Comparison is made with the exam of 06/23/2019. The heart size is enlarged. There are changes of median sternotomy and right-sided pacemaker device are again seen. There is continued opacity in the left lower hemithorax which was also seen on the p revious study. A small left pleural effusion may be present. No pneumothoraces are seen. POS: OFF
[2019-07-26 12:13] LABS: CKMB 1.3 ng/mL (0-6.6)
== END 2019-07-26 13:53 | disposition home or self-care (01) ==
LOC: ERS 10:56
DX: I11.0 Hypertensive heart disease with heart failure (principal); I50.9 Heart failure, unspecified; N19 Unspecified kidney failure; I48.91 Unspecified atrial fibrillation; E11.9 Type 2 diabetes mellitus without complications; Z87.01 Personal history of pneumonia (recurrent); Z79.891 Long term (current) use of opiate analgesic; Z79.82 Long term (current) use of aspirin; Z79.84 Long term (current) use of oral hypoglycemic drugs
CPT/HCPCS: 71045; 80053; 82550; 82553; 84484; 85025; 93005; 94760; 96374; J1940

== ENCOUNTER 2019-07-29 12:30 | Outpatient (CLI) | payer MEDICARE, BC ==
--- NOTE | 2019-07-29 13:39 | ULT ---
Exam: Bilateral renal ultrasound complete: HISTORY: Chronic kidney disease COMPARISON: None FINDINGS: Right kidney: 12.1 x 5.1 x 5.1 cm Left kidney: 10.9 x 5.6 x 6 cm No renal hydronephrosis. No evidence for abnormal perinephric process. No solid or cystic renal mass. Unremarkable appearing bladder. IMPRESSION: Unremarkable bilateral renal ultrasound. No hydronephrosis or perinephric process.
== END 2019-07-29 12:31 | disposition home or self-care (01) ==
LOC: BICULT 12:30
PROVIDERS: ATTEND Urology
DX: N18.3 Chronic kidney disease, stage 3 (moderate) (principal)
CPT/HCPCS: 76770

== ENCOUNTER 2019-08-04 02:51 | Inpatient (IN) | payer MEDICARE, BC ==
[2019-08-04 03:48] LABS: ALT (SGPT) 44 U/L (8-55); AST (SGOT) 44 U/L (5-34); Albumin 3.6 g/dL (3.4-4.8); Alkaline Phosphatase 89 U/L (40-110); Anion Gap 12 mmol/L (10-20); BUN (Urea Nitrogen) 27 mg/dL (8.4-25.7); Bilirubin, Total 0.6 mg/dL (0.2-1.2); CK (CPK) 33 U/L (30-200); Calc. Creatinine Clearance 0 mL/min (70-130); Calcium 9.9 mg/dL (7.8-10.44); Carbon Dioxide 24 mmol/L (23-31); Chloride 107 mmol/L (98-107); Estimated GFR-MDRD 32; Globulin 2.6 g/dL (2.4-3.5); Glucose 98 mg/dL (83-110); Potassium 4.7 mmol/L (3.5-5.1); Protein, Total 6.2 g/dL (5.8-8.1); Sodium 138 mmol/L (136-145)
[2019-08-04 03:50] LABS: #Eosinphils 0.3 thou/uL (0.0-0.7); #Lymphocytes 0.7 thou/uL (1.20-3.40); #Monocytes 0.6 thou/uL (0.11-0.59); #Neutrophils 3.8 thou/uL (1.40-6.50); %Basophils 0.3 % (0.0-1.0); %Eosinophils 6.1 % (0.0-10.0); %Lymphocytes 13.3 % (21.0-51.0); %Monocytes 10.4 % (0.0-10.0); %Neutrophils 69.8 % (42.0-75.0); Hemoglobin 9.8 g/dL (14.0-18.0); Mean Corpuscular HGB CONC 33.2 g/dL (32.0-36.0); Mean Corpuscular Hemoglobin 31.1 pg (27.0-31.0); Mean Corpuscular Volume 93.6 fL (78.0-98.0); Mean Platelet Volume 9.2 fL (7.4-10.4); Platelet Count 160 thou/uL (130-400); Red Blood Cell (RBC) Count 3.17 mill/uL (4.70-6.10); White Blood Cell (WBC) Count 5.4 thou/uL (4.8-10.8)
[2019-08-04] MEDS ORDERED: Furosemide 100 MG/10 ML VIAL ONE (04:31)
[2019-08-04] MEDS ORDERED: Nitroglycerin 2% Ointment 1 INCH/1 GM Packet ONE (04:31)
[2019-08-04 04:45] LABS: CKMB 1.4 ng/mL (0-6.6)
[2019-08-04] MEDS ORDERED: [UNRECOGNIZED DRUG - REMARK] PO PRN (05:29)
[2019-08-04] MEDS ORDERED: Ondansetron PF 4 MG/2 ML Vial IVP PRN (05:30)
[2019-08-04] MEDS ORDERED: Senokot S 8.6-50 MG TAB PO PRN (05:30)
[2019-08-04] MEDS ORDERED: Acetaminophen 325 MG TAB PO PRN (05:30)
[2019-08-04] MEDS ORDERED: Aspirin Chewable 81 MG TAB ONE (05:50)
[2019-08-04 06:48] LABS: Troponin I 0.037 ng/mL (< 0.028)
--- NOTE | 2019-08-04 07:12 | HP ---
CHIEF COMPLAINT: Shortness of breath. HISTORY OF PRESENT ILLNESS: The patient is an 78-year-old male, with a history of diastolic heart failure, atrial fibrillation, status post cardioversion, currently in sinus rhythm, history of CAD, who presents to the hospital with complaints of shortness of breath x1 day. The patient states that he has been kind of feeling short of breath coming on for the past few days. However, today last night he woke up around 12:30, feeling very short of breath and could not catch his breath, so he came into the hospital for further evaluation. He normally wears a CPAP at night. He denies any chest pain. He states that he did some gardening yesterday and was very short of breath, had to sit down. He states that also his mobility is very diminished. The patient states that he has been compliant with all his medication. He states that he has been compliant with his diet and also his water intake. PAST MEDICAL HISTORY: As of the following; 1. He has a history of CAD, status post bypass and also stent placed. 2. History of atrial fibrillation, status post cardioversion. 3. Diastolic heart failure. 4. Sleep apnea. 5. BPH. 6. Hyperlipidemia. PAST SURGICAL HISTORY: He has had a hernia repair. He has had a cardioversion, recently had a bypass. He also has had orthopedic surgery and bilateral knee surgery and stents put in x2 in 2014. FAMILY HISTORY: No history of heart disease or cancer. SOCIAL HISTORY: He denies any smoking, however, he used to drink alcohol. Currently, he does not drink alcohol, maybe one beer a week. Denies any drug use. He is a full code. REVIEW OF SYSTEMS: All negative except for the ones mentioned above in the HPI. ALLERGIES: HE HAS NO KNOWN ALLERGIES. MEDICATIONS: 1. Aspirin 81 mg daily. 2. Proscar 5 mg daily. 3. Rosuvastatin 40 mg daily. 4. Eliquis 2.5 twice a day. 5. Coreg 3.125 twice a day. 6. Torsemide 20 mg daily. PHYSICAL EXAMINATION: VITAL SIGNS: As of the following; temperature of 97.9, pulse is 62, blood pressure 115/59, respiratory rate 18, and oxygen saturation 100% on non-rebreather. GENERAL: He is awake, alert, and oriented x3. Does not appear in any distress. CARDIOVASCULAR: S1 and S2 present. He does have a systolic murmur heard in his left sternal border and also his right upper chest area. LUNGS: He has some crackles to his right lower lung bases and also left lower lung bases. No wheezing or rhonchi noted. ABDOMEN: Significantly obese with some caput medusae. Bowel sounds are present x2. No pain upon palpation. He does have some slight bruising to his left flank area, however, no pain upon palpation. He states that this is probably from his pacemaker insertion. His pacemaker to right chest wall area appears intact. EXTREMITIES: Lower extremity, he does have significant lower extremity edema with chronic venous stasis changes. NEUROVASCULAR: There are no focal deficits noted. SKIN: As I mentioned, he has chronic venous stasis to his lower extremities. He also has some mild bruise to his right flank area. LABORATORY RESULTS: As of the following; WBCs of 5.4, hemoglobin of 9.8, hematocrit of 29.6, and platelets of 160. Chemistry; sodium of 138, potassium 4.7, BUN of 27, and creatinine of 2.04. His BNP has been better than before of 520, and his troponin is 0.04. AST is 44. IMAGING DATA: He did have a chest x-ray that according to my interpretation appears some congestion noted to his right lower lung and some maybe left. ASSESSMENT AND PLAN: The patient is an 78-year-old male, who comes into the hospital with shortness of breath. 1. Shortness of breath most likely secondary to possible acute on chronic diastolic heart failure. The patient currently is in sinus rhythm. He has a history of atrial fibrillation. He was cardioverted last admission about a month ago. He is currently on amiodarone. We will continue that. He is on Eliquis 2.5 twice a day. We will continue that. He was initially on aspirin, Plavix, and Eliquis. However, started having nosebleeds at this time. His Plavix was stopped and he was restarted on aspirin on Friday per . I will continue the baby aspirin and the Eliquis. I will consult Cardiology. We will give him some IV Lasix x1. I do not see any sort of infectious etiology. The patient was initially started on BiPAP. He did not tolerate it, so he feels better with a facemask on. We will continue that. 2. Chronic kidney disease. The patient was not aware of this. We will continue to monitor. He recently had an ultrasound of his kidneys due to the pain on his left flank area, his kidney was unremarkable. He currently does not have a door maker. 3. Paroxysmal atrial fibrillation, currently in sinus rhythm, stable. We will continue his home medications. 4. Mildly elevated troponin. This could be secondary to demand related. We will continue to trend. 5. Distended abdomen. The patient states that he used to drink significant amount of beer in the past. He has a very significant abdominal distention. We will get an abdominal ultrasound to see if there is any ascites. 6. Deep venous thrombosis prophylaxis. The patient is already on Eliquis. Job ID: [id number]
[2019-08-04] MEDS ORDERED: Dronedarone HCl 400 MG TAB PO SCH (08:00)
--- NOTE | 2019-08-04 08:12 | RAD ---
Portable frontal chest radiograph: 08/04/2019 COMPARISON: 07/26/2019 HISTORY: Short of breath FINDINGS: Stable dual lead transvenous pacing device. Midline sternotomy wires are noted. Stable enla rgement of the cardiac silhouette. There is pulmonary vessel congestion with perihilar and bibasilar interstitial prominence as well as small bilateral pleural effusions. IMPRESSION: Findings suspicious for pulmonary edema. Basilar infectious pneumonitis or aspiration can not be excluded. Recommend follow-up imaging following treatment to document resolution.
--- NOTE | 2019-08-04 08:35 | ULT ---
ULTRASOUND ABDOMEN: Date: 08/04/2019 HISTORY: Abdominal distention. FINDINGS: Exam is somewhat limited due to body habitus. The visualized portions of the liver have a normal appearance without focal mass or abnormal biliary ductal dilatation. The spleen is enlarged, measuring up to 15.0 cm. No gallstones, gallbladder wall t hickening, or pericholecystic fluid is seen. The kidneys are normal. The pancreas is obscured by over lying bowel gas. The visualized portions of the aorta and IVC are unremarkable. No free fluid is seen . IMPRESSION: 1. No evidence of cholelithiasis. 2. Splenomegaly. POS: [facility]
[2019-08-04] MEDS ORDERED: Clopidogrel Bisulfate 75 MG TAB PO SCH (09:00)
[2019-08-04] MEDS ORDERED: Carvedilol 6.25 MG TAB PO SCH (09:00)
[2019-08-04 10:14] VITALS: BMI 37.8
[2019-08-04] MEDS: Docusate 100 MG CAP PO SCH ×2 (10:55→20:16)
[2019-08-04] MEDS: Apixaban 2.5 MG TAB PO SCH ×2 (10:55→20:16)
[2019-08-04] MEDS: Carvedilol 3.125 MG TAB PO SCH ×2 (10:55→20:16)
[2019-08-04] MEDS: Amiodarone 200 MG TAB PO SCH (10:55)
[2019-08-04] MEDS: Finasteride 5 MG TAB PO SCH (10:55)
[2019-08-04] MEDS: Furosemide 40 MG/4 ML VIAL SLOW IVP SCH (10:55)
[2019-08-04] MEDS ORDERED: Furosemide 40 MG TAB ONE (10:59)
[2019-08-04] MEDS ORDERED: Furosemide 40 MG/4 ML VIAL ONE (11:03)
[2019-08-04] MEDS: Aspirin 81 mg Enteric Coated Tablet PO SCH (11:24)
[2019-08-04 15:24] LABS: Troponin I 0.026 ng/mL (< 0.028)
--- NOTE | 2019-08-04 22:32 | CON ---
DATE OF CONSULTATION: HISTORY OF PRESENT ILLNESS: Randy Olsen is an 78-year-old white male, who I have followed for many years. He is status post bypass surgery and in April 2015, had placement of a stent in the right coronary artery. He has been hospitalized several times with diastolic heart failure. He was hospitalized again in May 2019 with new onset atrial fibrillation. He presented with increased shortness of breath, increased lower extremity edema. Despite stopping his carvedilol, he would have frequent bradycardic episodes and long pauses. It was felt that a pacemaker need to be placed prior to electrical cardioversion. At pacemaker insertion, it was found that he had a persistent left superior vena cava. The pacemaker was placed via the right subclavian vein. He was then placed on Multaq and anticoagulation was started with Eliquis. He underwent transesophageal echo, which revealed normal left ventricular systolic function, rcfadmpq-if-sfmeyz mitral regurgitation. There was no thrombus in left atrium of the left atrial appendage. He underwent electrical cardioversion returned of atrial pacing. He was discharged on Multaq and started to have problems with more fluid accumulation, and it is felt this may have been due to the Multaq. That was discontinued, instead he is placed on amiodarone. He has continued to maintain sinus rhythm. Also, BUN and creatinine continued to rise. He also has been having problems with epistaxis at home and he was last seen 5 days ago, Plavix was discontinued and he has had no more episodes of epistaxis. Due to creatinine going up to 2.99, metolazone was discontinued and torsemide was stopped for 2 days and then reduced of 20 q.a.m. Also blood pressure was low and his carvedilol dose was further reduced. Yesterday, he worked with his Tiller out in the yard. He denies any shortness of breath with that. Then, last night when he was trying to sleep with his CPAP, he became acutely short of breath and came for further evaluation. He has been treated with intravenous Lasix and has had improvement in his breathing. He denies any chest discomfort. PAST MEDICAL HISTORY: Feihgght-mr-kzwndl mitral regurgitation at transesophageal echo, atrial fibrillation post CABG in April 2020, obstructive sleep apnea, hypercholesterolemia, diabetes, and hypertension. PAST SURGICAL HISTORY: Bilateral total knee replacements, stent placement in the right coronary artery after closure of the right posterior descending graft in April 2015, left inguinal hernia repair, and trach placement after CABG due to difficult to wean, CABG with reoperation afterwards for postop bleeding. SOCIAL HISTORY: He does not smoke or drink. REVIEW OF SYSTEMS: Otherwise unremarkable. PHYSICAL EXAMINATION: VITAL SIGNS: Blood pressure 118/58 and pulse 68. HEENT: PERRL. NECK: Supple. CHEST: Clear. CARDIAC: S1 and S2. Normal without any S3 or S4. There is a 1/6 holosystolic murmur. ABDOMEN: Obese. Normal bowel sounds. No tenderness. EXTREMITIES: Revealed 2+ pretibial edema. NEUROLOGICAL: Grossly intact. LABORATORY DATA: EKG reveals sinus rhythm with left axis deviation, nonspecific intraventricular conduction delay, probable right bundle-branch block. On the monitor here, he mostly is atrially paced. Hemoglobin 9.8, hematocrit 29.6, white count 5400, and platelets 160,000. Troponin I 0.040. BNP 520.5. Sodium 138, potassium 4.7, chloride 107, carbon dioxide 24, BUN 27, and creatinine 2.04. IMPRESSION: 1. Acute on chronic diastolic heart failure. 2. Eaoxoxez-sv-twtjqh mitral regurgitation. 3. Atrial fibrillation, status post electrical cardioversion. 4. Status post dual-chamber pacemaker placement. 5. Persistent left superior vena cava. 6. Status post CABG. 7. Placement of stent in the right coronary artery in April 2015, after closure of the right posterior descending graft. 8. Hypertension. 9. Hypercholesterolemia. 10. Obstructive sleep apnea. 11. Chronic kidney disease. PLAN: Mr. Olsen had a creatinine of 2.99, which was obtained in [place] at a different lab and that may be why there is such a discrepancy between that and his current lab value. He will continue to be diuresed and his renal function will need to be watched very closely. Echo will be repeated to reassess left ventricular function. His pacemaker will be interrogated. Job ID: [id number]
[2019-08-05 05:04] LABS: #Eosinphils 0.2 thou/uL (0.0-0.7); #Lymphocytes 0.5 thou/uL (1.20-3.40); #Monocytes 0.4 thou/uL (0.11-0.59); #Neutrophils 2.8 thou/uL (1.40-6.50); %Basophils 0.9 % (0.0-1.0); %Eosinophils 6.1 % (0.0-10.0); %Lymphocytes 12.8 % (21.0-51.0); %Monocytes 10.8 % (0.0-10.0); %Neutrophils 69.3 % (42.0-75.0); Hemoglobin 8.7 g/dL (14.0-18.0); Mean Corpuscular HGB CONC 33.6 g/dL (32.0-36.0); Mean Corpuscular Hemoglobin 30.8 pg (27.0-31.0); Mean Corpuscular Volume 91.5 fL (78.0-98.0); Mean Platelet Volume 9.1 fL (7.4-10.4); Platelet Count 145 thou/uL (130-400); Red Blood Cell (RBC) Count 2.82 mill/uL (4.70-6.10)
[2019-08-05 05:32] LABS: ALT (SGPT) 28 U/L (8-55); AST (SGOT) 19 U/L (5-34); Albumin 3.2 g/dL (3.4-4.8); Alkaline Phosphatase 80 U/L (40-110); Anion Gap 10 mmol/L (10-20); BUN (Urea Nitrogen) 24 mg/dL (8.4-25.7); Bilirubin, Total 0.5 mg/dL (0.2-1.2); Calc. Creatinine Clearance 47 mL/min (70-130); Calcium 9.4 mg/dL (7.8-10.44); Carbon Dioxide 26 mmol/L (23-31); Chloride 106 mmol/L (98-107); Estimated GFR-MDRD 34; Globulin 2.3 g/dL (2.4-3.5); Glucose 82 mg/dL (83-110); Magnesium 2.1 mg/dL (1.6-2.6); Potassium 3.7 mmol/L (3.5-5.1); Protein, Total 5.5 g/dL (5.8-8.1); Sodium 138 mmol/L (136-145)
[2019-08-05] MEDS: Amiodarone 200 MG TAB PO SCH (08:40)
[2019-08-05] MEDS: Finasteride 5 MG TAB PO SCH (08:40)
[2019-08-05] MEDS: Aspirin 81 mg Enteric Coated Tablet PO SCH (08:40)
[2019-08-05] MEDS: Furosemide 40 MG/4 ML VIAL SLOW IVP SCH (08:40)
[2019-08-05] MEDS: Docusate 100 MG CAP PO SCH ×2 (08:40→20:52)
[2019-08-05] MEDS: Apixaban 2.5 MG TAB PO SCH ×2 (08:41→20:52)
[2019-08-05] MEDS: Carvedilol 3.125 MG TAB PO SCH ×2 (08:41→20:52)
[2019-08-05] MEDS ORDERED: Polyethylene Glycol 3350 17 GM Packet PO PRN (14:54)
[2019-08-05] MEDS ORDERED: Milk Of Magnesia 30 ML UDCUP PO PRN (14:54)
[2019-08-05] MEDS ORDERED: Potassium Chloride 20 MEQ TAB PO SCH (15:00)
[2019-08-05] MEDS ORDERED: Tamsulosin HCl 0.4 MG CAP PO SCH (15:00)
[2019-08-05] MEDS ORDERED: Rosuvastatin 20 MG TAB PO SCH (21:00)
--- NOTE | 2019-08-05 23:38 | PDOC.HOSPP ---
- Subjective Encounter Date: 08/05/19 Encounter Time: 11:00 Subjective: Patient seen and examined for CHF exacerbation. No CP. No new complaints. No overnight events - Objective Vital Signs & Weight: Vital Signs (12 hours) Temp Pulse Pulse Pulse Resp BP BP 08/05/19 20:00 98.2 F 83 18 08/05/19 15:29 98.1 F 69 18 08/05/19 11:50 86 78 156/70 H 133/63 BP Pulse Ox 08/05/19 20:00 137/65 96 08/05/19 15:29 131/62 96 08/05/19 11:50 Weight Weight 230 lb 6.4 oz I&O: 08/04/19 08/05/19 08/06/19 06:59 06:59 06:59 Intake Total 1560 720 Output Total 750 Balance 810 720 Result Diagrams: 08/05/19 04:13 08/05/19 04:13 Additional Labs: Accuchecks 08/05/19 08/05/19 08/05/19 20:07 17:39 11:19 POC Glucose 112 H 89 104 08/05/19 06:17 POC Glucose 111 H EKG Reviewed by me: Yes (Tele SR) Hospitalist ROS - Review of Systems Respiratory: reports: SOB with excertion. denies: cough, dry, shortness of breath, hemoptysis, pleuritic pain, sputum, wheezing, other Gastrointestinal: denies: nausea, vomiting, abdominal pain, diarrhea, constipation, melena, hematochezia, other - Medication Medications: Active Medications Generic Name Dose Route Start Last Admin Trade Name Freq PRN Reason Stop Dose Admin Apixaban 2.5 mg 08/05/19 21:00 08/05/19 20:52 Eliquis PO 2.5 mg BID ROCKY Administration Aspirin 81 mg 08/04/19 09:00 08/05/19 08:40 Ecotrin PO 81 mg DAILY ROCKY Administration Carvedilol 3.125 mg 08/05/19 21:00 08/05/19 20:52 Coreg PO 3.125 mg BID ROCKY Administration Docusate Sodium 100 mg 08/04/19 09:00 08/05/19 20:52 Colace PO 100 mg BID ROCKY Administration Finasteride 5 mg 08/04/19 09:00 08/05/19 08:40 Proscar PO 5 mg DAILY ROCKY Administration Rosuvastatin Calcium 40 mg 08/05/19 21:00 08/05/19 20:52 Crestor PO 40 mg HS ROCKY Administration Sodium Chloride 10 ml 08/04/19 21:00 08/05/19 20:53 Flush - Normal Saline IVF 10 ml Q12HR ROCKY Administration - Exam General Appearance: NAD Respiratory: no wheezes, no rales, rhonchi Gastrointestinal: non-distended, normal bowel sounds Extremities: 1+ LE edema Neurological: no new deficit Psychiatric: normal affect, A&O x 3 Hosp A/P - Plan Acute on chronic diastolic HF CAD HTN Obesity BMI 37.2 REGINA on CPAP Mod MR Par Afib - on Eliquis PLAN: Cont IV Lasix Cont Amiodarone Daily labs Cardio input appreciated Cont other meds as above
[2019-08-06] MEDS ORDERED: Potassium Chloride 20 MEQ TAB PO SCH (08:00)
[2019-08-06] MEDS: Aspirin 81 mg Enteric Coated Tablet PO SCH (08:17)
[2019-08-06] MEDS: Finasteride 5 MG TAB PO SCH (08:17)
[2019-08-06] MEDS: Docusate 100 MG CAP PO SCH (08:17)
[2019-08-06] MEDS: Carvedilol 3.125 MG TAB PO SCH (08:18)
[2019-08-06] MEDS: Apixaban 2.5 MG TAB PO SCH (08:18)
[2019-08-06] MEDS ORDERED: Amiodarone 200 MG TAB PO SCH (09:00)
[2019-08-06] MEDS ORDERED: Torsemide 20 MG TAB PO SCH (09:00)
[2019-08-06] MEDS ORDERED: Tamsulosin HCl 0.4 MG CAP PO SCH (09:00)
[2019-08-06 11:46] VITALS: BP 132/63; TEMP 98.2
--- NOTE | 2019-08-06 19:06 | DIS ---
DATE OF ADMISSION: 08/04/2019 DATE OF DISCHARGE: 08/06/2019 DISCHARGE DISPOSITION: Home. FOLLOWUP: 1. Follow up with primary care physician, Dr. Carpenter, in next week as scheduled. 2. Basic metabolic profile after 1 week is recommended. Primary care physician advised to follow. DISCHARGE MEDICATIONS: Torsemide dose was increased to 20 mg b.i.d. All other home medications were left unchanged. The patient was seen and examined on the day of discharge. Denies any new complaints. No chest pain, shortness of breath, or palpitations reported. BRIEF HOSPITAL COURSE: The patient is an 78-year-old male with chronic diastolic heart failure, obstructive sleep apnea, on CPAP, presented to the emergency room with shortness of breath. His workup was consistent with mrdiq-kc-jweizqt diastolic heart failure exacerbation. His symptoms improved with IV diuretics. His weight on discharge is 230 pounds from 234 pounds. He was extensively counseled on congestive heart failure. Torsemide dose was increased to 20 mg twice daily per Cardiology recommendation. He appears stable for discharge. He has been cleared by Cardiology. FINAL DIAGNOSES: 1. Kkhgr-ye-hojzhjl diastolic heart failure exacerbation. 2. Moderate mitral regurgitation. 3. Atrial fibrillation, status post cardioversion in the past. 4. History of pacemaker placement, dual chamber. 5. Coronary artery disease, status post stent and coronary artery bypass graft. 6. Hypertension. 7. Hyperlipidemia. 8. Obstructive sleep apnea. 9. Chronic kidney disease, stage 4. 10. Abnormal liver function tests, probably secondary to passive hepatic congestion. 11. Elevated troponin secondary to congestive heart failure/questionable type-2 myocardial infarction present on admission. The patient and the family understand the above plan of care. Job ID: [id number]
== END 2019-08-06 11:40 | disposition home or self-care (01) | DRG 280 ==
LOC: ERS 02:51 → ERHOLD 05:33 → 2NO 13:28
PROVIDERS: ADMIT Internal Medicine; ATTEND Internal Medicine
DX: I13.0 Hypertensive heart and chronic kidney disease with heart failure and stage 1 through stage 4 chronic kidney disease, or unspecified chronic kidney disease (principal); I50.33 Acute on chronic diastolic (congestive) heart failure; I21.A1 Myocardial infarction type 2; J44.1 Chronic obstructive pulmonary disease with (acute) exacerbation; N18.4 Chronic kidney disease, stage 4 (severe); G47.33 Obstructive sleep apnea (adult) (pediatric); I34.0 Nonrheumatic mitral (valve) insufficiency; N40.0 Benign prostatic hyperplasia without lower urinary tract symptoms; I48.0 Paroxysmal atrial fibrillation; E78.00 Pure hypercholesterolemia, unspecified; I25.10 Atherosclerotic heart disease of native coronary artery without angina pectoris; E66.9 Obesity, unspecified; E11.22 Type 2 diabetes mellitus with diabetic chronic kidney disease; E78.5 Hyperlipidemia, unspecified; Z95.0 Presence of cardiac pacemaker; Z79.01 Long term (current) use of anticoagulants; Z95.1 Presence of aortocoronary bypass graft; Z79.4 Long term (current) use of insulin; Z95.5 Presence of coronary angioplasty implant and graft; Z90.49 Acquired absence of other specified parts of digestive tract; Z68.37 Body mass index [BMI] 37.0-37.9, adult
CPT/HCPCS: 36415; 36416; 71045; 80053; 82550; 82553; 83735; 83880; 84443; 84484; 85025; 93005; 93306; 93798; 93975; 96374; J1940

== ENCOUNTER 2019-08-09 00:30 | Emergency (ER) | payer MEDICARE, BC ==
[2019-08-09 01:08] LABS: #Eosinphils 0.3 thou/uL (0.0-0.7); #Lymphocytes 0.7 thou/uL (1.20-3.40); #Monocytes 0.5 thou/uL (0.11-0.59); #Neutrophils 3.8 thou/uL (1.40-6.50); %Basophils 0.2 % (0.0-1.0); %Eosinophils 5.5 % (0.0-10.0); %Lymphocytes 13.3 % (21.0-51.0); %Monocytes 8.9 % (0.0-10.0); Hemoglobin 9.8 g/dL (14.0-18.0); Mean Corpuscular HGB CONC 33.1 g/dL (32.0-36.0); Mean Corpuscular Hemoglobin 30.4 pg (27.0-31.0); Mean Corpuscular Volume 91.8 fL (78.0-98.0); Mean Platelet Volume 8.8 fL (7.4-10.4); Platelet Count 178 thou/uL (130-400); RBC Distribution Width 13.9 % (11.5-14.5); Red Blood Cell (RBC) Count 3.23 mill/uL (4.70-6.10); White Blood Cell (WBC) Count 5.2 thou/uL (4.8-10.8)
[2019-08-09 01:38] LABS: ALT (SGPT) 25 U/L (8-55); AST (SGOT) 21 U/L (5-34); Albumin 3.8 g/dL (3.4-4.8); Alkaline Phosphatase 96 U/L (40-110); Anion Gap 13 mmol/L (10-20); BUN (Urea Nitrogen) 33 mg/dL (8.4-25.7); Bilirubin, Total 0.4 mg/dL (0.2-1.2); CK (CPK) 48 U/L (30-200); Calc. Creatinine Clearance 0 mL/min (70-130); Calcium 10.1 mg/dL (7.8-10.44); Carbon Dioxide 25 mmol/L (23-31); Chloride 106 mmol/L (98-107); Estimated GFR-MDRD 31; Globulin 2.7 g/dL (2.4-3.5); Glucose 107 mg/dL (83-110); Potassium 4.4 mmol/L (3.5-5.1); Protein, Total 6.5 g/dL (5.8-8.1); Sodium 140 mmol/L (136-145)
[2019-08-09 01:53] LABS: CKMB 1.6 ng/mL (0-6.6)
--- NOTE | 2019-08-09 07:58 | RAD ---
CHEST 2 VIEWS: INDICATION: Emergency room examination. Chest pain and shortness of breath. COMPARISON: Prior exam dated 08/04/2019. FINDINGS: Cardiomegaly with bilateral pleural effusions is similar-appearing. Interstitial edema persists. Le ft-sided pacemaker is unchanged. No pneumothorax is evident. IMPRESSION: Persistent findings of mild congestive heart failure. POS: [facility]
== END 2019-08-09 03:36 | disposition home or self-care (01) ==
LOC: ERS 00:30
DX: I11.0 Hypertensive heart disease with heart failure (principal); I50.9 Heart failure, unspecified; E11.9 Type 2 diabetes mellitus without complications; E78.5 Hyperlipidemia, unspecified; Z79.899 Other long term (current) drug therapy; Z79.82 Long term (current) use of aspirin; Z79.84 Long term (current) use of oral hypoglycemic drugs; Z79.01 Long term (current) use of anticoagulants
CPT/HCPCS: 36415; 71046; 80053; 82550; 82553; 83880; 84484; 85025; 93005; 94760

== ENCOUNTER 2019-09-11 14:15 | Inpatient (IN) | payer MEDICARE, BC ==
--- NOTE | 2019-09-11 15:35 | RAD ---
EXAM: CHEST ONE VIEW: 09/11/19 HISTORY: Chest pain and shortness of breath. History of congestive heart failure. COMPARISON: 08/09/2019. FINDINGS: There is cardiomegaly. Right ICD. Postop midline sternotomy changes. Bilateral vascular congestion wi th some interstitial edema and pleural effusions. Evidence for some congestive heart failure. No confluent lobar pneumonia. IMPRESSION: Evidence for congestive heart failure with cardiomegaly and vascular congestion and pleural effusions . POS: [facility]
[2019-09-11 15:36] LABS: #Eosinphils 0.2 thou/uL (0.0-0.7); #Lymphocytes 0.6 thou/uL (1.20-3.40); #Monocytes 0.5 thou/uL (0.11-0.59); #Neutrophils 4.1 thou/uL (1.40-6.50); %Basophils 0.9 % (0.0-1.0); %Eosinophils 3.8 % (0.0-10.0); %Lymphocytes 10.7 % (21.0-51.0); %Neutrophils 75.6 % (42.0-75.0); Hemoglobin 10.1 g/dL (14.0-18.0); Mean Corpuscular HGB CONC 32.1 g/dL (32.0-36.0); Mean Corpuscular Hemoglobin 27.7 pg (27.0-31.0); Mean Corpuscular Volume 86.3 fL (78.0-98.0); Mean Platelet Volume 10.6 fL (7.4-10.4); Platelet Count 180 thou/uL (130-400); RBC Distribution Width 15.8 % (11.5-14.5); Red Blood Cell (RBC) Count 3.64 mill/uL (4.70-6.10); White Blood Cell (WBC) Count 5.4 thou/uL (4.8-10.8)
[2019-09-11 15:57] LABS: ALT (SGPT) 17 U/L (8-55); AST (SGOT) 15 U/L (5-34); Alkaline Phosphatase 105 U/L (40-110); Anion Gap 14 mmol/L (10-20); BUN (Urea Nitrogen) 27 mg/dL (8.4-25.7); Bilirubin, Total 0.7 mg/dL (0.2-1.2); Calc. Creatinine Clearance 0 mL/min (70-130); Calcium 10.9 mg/dL (7.8-10.44); Carbon Dioxide 25 mmol/L (23-31); Chloride 103 mmol/L (98-107); Estimated GFR-MDRD 32; Globulin 2.9 g/dL (2.4-3.5); Glucose 106 mg/dL (83-110); Lipase 42 U/L (8-78); Protein, Total 6.9 g/dL (5.8-8.1); Sodium 138 mmol/L (136-145)
[2019-09-11] MEDS ORDERED: Aspirin Chewable 81 MG TAB ONE (16:50)
[2019-09-11] MEDS ORDERED: Furosemide 40 MG/4 ML VIAL ONE (16:50)
[2019-09-11 18:27] LABS: Troponin I 0.028 ng/mL (< 0.028)
--- NOTE | 2019-09-11 20:22 | HP ---
HISTORY OF PRESENT ILLNESS: The patient is an 78-year-old male with past medical historyof hypertension; hyperlipidemia; coronary artery disease, status post CABG; diastolic congestive heart failure; atrial fibrillation; and chronic kidney disease, stage 3. The patient presented to the hospital with complaints of shortness of breath. The patient takes torsemide and Eliquis at home, but those two medications were held a week ago for an anticipated cardiac cath. For the past 3 days, the patient has been experiencing increasing shortness of breath on exertion and swelling of his lower extremities. He has tried to put it off and not come to the hospital, but his symptoms progressed, so he decided to come to the ER today. In the ER, he was found to be in respiratory distress and his chest x-ray revealed pulmonary edema. He was given a dose of Lasix and referred to hospitalist team for admission. REVIEW OF SYSTEMS: Negative except as noted in HPI. PAST MEDICAL HISTORY: Hypertension, diabetes mellitus, hyperlipidemia, coronary artery disease, diastolic congestive heart failure, atrial fibrillation, and chronic kidney disease. PAST SURGICAL HISTORY: Pacemaker placement, bilateral knee surgery, hernia surgery, and CABG. FAMILY HISTORY: Noncontributory. SOCIAL HISTORY: The patient drinks beer socially. Denies smoking or illicit drug use. ALLERGIES: NO KNOWN DRUG ALLERGIES. MEDICATIONS: 1. Tamsulosin 0.4 mg orally daily. 2. Finasteride 5 mg orally daily. 3. Aspirin 81 mg orally daily. 4. Rosuvastatin 40 mg orally nightly. 5. Amiodarone 200 mg orally daily. 6. Carvedilol 6.25 mg, the patient takes half a tablet twice daily. 7. Torsemide 40 mg. 8. Furosemide 40 mg orally daily. 9. Eliquis 5 mg, the patient takes half a tablet twice daily. PHYSICAL EXAMINATION: GENERAL: The patient is alert and oriented x3. HEENT: Head is normocephalic and atraumatic. Extraocular muscles are intact. NECK: Supple. No JVD. CHEST: Revealed crackles at the bases bilaterally. CARDIOVASCULAR: Showed normal S1 and S2. No murmurs, rubs, or gallops and peripheral edema +1. ABDOMEN: Soft, nontender, nondistended. NEUROLOGIC: Revealed normal cranial nerves 2 through 12 and no motor or sensory deficits. ASSESSMENT: 1. Gtgxp-ag-qtxzfph heart failure with preserved ejection fraction. 2. Hypertension. 3. Hyperlipidemia. 4. Coronary artery disease. 5. Chronic kidney disease, stage 3. 6. Atrial fibrillation. PLAN: Place on telemetry. Start low-salt diet with 1800 mL fluid restriction. Strict intake and output and daily weight. Start Lasix 40 mg IV twice daily. Check BMP daily to monitor kidney function and potassium levels. We will consider consulting Cardiology. Job ID: [id number]
[2019-09-11 20:59] VITALS: BMI 34.9
[2019-09-11] MEDS ORDERED: Rosuvastatin 20 MG TAB PO SCH (21:00)
[2019-09-11] MEDS: Carvedilol 3.125 MG TAB PO SCH (21:08)
[2019-09-11 21:36] LABS: Troponin I 0.022 ng/mL (< 0.028)
[2019-09-12 04:53] LABS: #Basophils 0.1 thou/uL (0.0-0.2); #Eosinphils 0.3 thou/uL (0.0-0.7); #Lymphocytes 0.8 thou/uL (1.20-3.40); #Monocytes 0.7 thou/uL (0.11-0.59); #Neutrophils 4.7 thou/uL (1.40-6.50); %Basophils 1.2 % (0.0-1.0); %Eosinophils 4.5 % (0.0-10.0); %Lymphocytes 11.7 % (21.0-51.0); %Monocytes 10.8 % (0.0-10.0); %Neutrophils 71.8 % (42.0-75.0); Hemoglobin 9.5 g/dL (14.0-18.0); Mean Corpuscular Hemoglobin 27.9 pg (27.0-31.0); Mean Corpuscular Volume 87.1 fL (78.0-98.0); Mean Platelet Volume 10.2 fL (7.4-10.4); Platelet Count 163 thou/uL (130-400); RBC Distribution Width 16.2 % (11.5-14.5); White Blood Cell (WBC) Count 6.5 thou/uL (4.8-10.8)
[2019-09-12] MEDS: Furosemide 40 MG/4 ML VIAL SLOW IVP SCH ×2 (05:03→13:08)
[2019-09-12 05:18] LABS: Anion Gap 13 mmol/L (10-20); BUN (Urea Nitrogen) 27 mg/dL (8.4-25.7); Calc. Creatinine Clearance 41 mL/min (70-130); Calcium 10.2 mg/dL (7.8-10.44); Carbon Dioxide 24 mmol/L (23-31); Chloride 105 mmol/L (98-107); Estimated GFR-MDRD 30; Glucose 91 mg/dL (83-110); Potassium 3.7 mmol/L (3.5-5.1); Sodium 138 mmol/L (136-145)
[2019-09-12] MEDS: Carvedilol 3.125 MG TAB PO SCH (08:06)
[2019-09-12] MEDS ORDERED: Finasteride 5 MG TAB PO SCH (09:00)
[2019-09-12] MEDS ORDERED: Potassium Chloride 20 MEQ TAB PO SCH (09:00)
[2019-09-12] MEDS ORDERED: Aspirin 81 mg Enteric Coated Tablet PO SCH (09:00)
[2019-09-12] MEDS ORDERED: Amiodarone 200 MG TAB PO SCH (09:00)
[2019-09-12] MEDS ORDERED: Enoxaparin Sodium 40 MG/0.4 ML SYRINGE SC SCH (09:00)
[2019-09-12 11:28] VITALS: BP 110/57; TEMP 98
--- NOTE | 2019-09-12 19:03 | DIS ---
DATE OF ADMISSION: 09/11/2019 DATE OF DISCHARGE: 09/12/2019 DISCHARGE DIAGNOSES: 1. Ypuwx-ji-bgmuulg heart failure with preserved ejection fraction. 2. Hypertension. 3. Hyperlipidemia. 4. Coronary artery disease. 5. Chronic kidney disease, stage 3. 6. Atrial fibrillation. DISCHARGE MEDICATIONS: 1. Furosemide 40 mg orally daily. 2. Tamsulosin 0.4 mg orally daily. 3. Finasteride 5 mg orally daily. 4. Aspirin 81 mg orally daily. 5. Rosuvastatin 40 mg orally nightly. 6. Amiodarone 200 mg orally daily. 7. Carvedilol 6.25 mg half tablet orally twice daily. 8. Eliquis 5 mg orally twice daily, which is on hold by the patient's rabbit dresser. HISTORY OF PRESENT ILLNESS AND HOSPITAL COURSE: The patient is an 78-year-old male with past medical history of hypertension; hyperlipidemia; coronary artery disease, status post CABG; diastolic heart failure; atrial fibrillation; and chronic kidney disease, who presented to the hospital with worsening shortness of breath for the past 3 days. The patient has not been taking his furosemide at home for the past 4 days as instructed by his rabbit dresser. He is scheduled for an upcoming cardiac cath. In the ER, the patient was found to be in respiratory distress and chest x-ray revealed pulmonary edema. He was placed in the hospital on a telemetry floor. IV diuretics with Lasix were started and the patient received 3 doses during his hospital stay. This has led to achievement of negative fluid balance and improvement in his symptoms. On the 2nd day of hospitalization, the patient was feeling back to his baseline. At this time, he is stable for discharge home. He was instructed to continue taking his diuretic and follow up with his rabbit dresser for further instructions. Job ID: [id number]
== END 2019-09-12 13:45 | disposition home or self-care (01) | DRG 291 ==
LOC: ERS 14:15 → 2NO 17:18
PROVIDERS: ADMIT Internal Medicine; ATTEND Internal Medicine
DX: I13.0 Hypertensive heart and chronic kidney disease with heart failure and stage 1 through stage 4 chronic kidney disease, or unspecified chronic kidney disease (principal); I50.33 Acute on chronic diastolic (congestive) heart failure; N18.3 Chronic kidney disease, stage 3 (moderate); E78.5 Hyperlipidemia, unspecified; I25.10 Atherosclerotic heart disease of native coronary artery without angina pectoris; I48.91 Unspecified atrial fibrillation; Z95.1 Presence of aortocoronary bypass graft; Z79.82 Long term (current) use of aspirin; Z79.899 Other long term (current) drug therapy; Z99.89 Dependence on other enabling machines and devices; Z95.5 Presence of coronary angioplasty implant and graft; Z95.0 Presence of cardiac pacemaker; Z79.01 Long term (current) use of anticoagulants
CPT/HCPCS: 36415; 36416; 71045; 80048; 80053; 83690; 83880; 84484; 85025; 93005; 94660; 96374; J1650; J1940

== ENCOUNTER 2019-09-20 11:51 | Inpatient (IN) | payer MEDICARE, BC ==
[2019-09-20] MEDS ORDERED: HOLD HYPOGLYCEMIC MEDS AM OF CATH FS SCH (14:15)
[2019-09-20] MEDS ORDERED: Sodium Chloride 0.9% 1,000 ML IV SCH (14:15)
[2019-09-20 14:33] LABS: #Eosinphils 0.2 thou/uL (0.0-0.7); #Lymphocytes 0.7 thou/uL (1.20-3.40); #Monocytes 0.5 thou/uL (0.11-0.59); #Neutrophils 3.2 thou/uL (1.40-6.50); %Basophils 0.8 % (0.0-1.0); %Lymphocytes 15.5 % (21.0-51.0); %Monocytes 9.8 % (0.0-10.0); Hemoglobin 9.9 g/dL (14.0-18.0); Mean Corpuscular HGB CONC 31.9 g/dL (32.0-36.0); Mean Platelet Volume 10.4 fL (7.4-10.4); Platelet Count 135 thou/uL (130-400); RBC Distribution Width 16.2 % (11.5-14.5); Red Blood Cell (RBC) Count 3.54 mill/uL (4.70-6.10); White Blood Cell (WBC) Count 4.6 thou/uL (4.8-10.8)
[2019-09-20 14:49] LABS: ALT (SGPT) 20 U/L (8-55); AST (SGOT) 15 U/L (5-34); Albumin 3.6 g/dL (3.4-4.8); Alkaline Phosphatase 98 U/L (40-110); Anion Gap 13 mmol/L (10-20); BUN (Urea Nitrogen) 29 mg/dL (8.4-25.7); Bilirubin, Total 0.4 mg/dL (0.2-1.2); Calc. Creatinine Clearance 39 mL/min (70-130); Calcium 10.6 mg/dL (7.8-10.44); Carbon Dioxide 28 mmol/L (23-31); Chloride 103 mmol/L (98-107); Estimated GFR-MDRD 28; Globulin 2.5 g/dL (2.4-3.5); Glucose 132 mg/dL (83-110); Potassium 3.7 mmol/L (3.5-5.1); Protein, Total 6.1 g/dL (5.8-8.1); Sodium 140 mmol/L (136-145)
[2019-09-20] MEDS ORDERED: Communication Order-Pharmacy FS SCH (17:30)
[2019-09-20] MEDS: Carvedilol 3.125 MG TAB PO SCH (19:17)
[2019-09-20] MEDS ORDERED: Furosemide 40 MG/4 ML VIAL SLOW IVP SCH (19:30)
--- NOTE | 2019-09-20 20:08 | RAD ---
PORTABLE CHEST: Indications: Pre-cardiac catheterization. Comparison: 09-11-2019 FINDINGS: Cardiomegaly and post op sternotomy change. Mild vascular congestion. Bilateral effusions. Bibasilar atelectasis. Confluent consolidation or infiltrate in the left lung base cannot be excluded. Bilatera l effusions again noted. Similar findings were present on 09-11-2019. IMPRESSION: Cardiomegaly with vascular congestion and bilateral effusions. Bibasilar atelectasis, more prominent on the left. Stable findings from 09-11-2019. POS: [facility]
[2019-09-20] MEDS: Docusate 100 MG CAP PO SCH (20:52)
[2019-09-20] MEDS: Vit A,C & E/Lutein/Minerals Tablet PO SCH (20:52)
[2019-09-20] MEDS ORDERED: DC ENOXAPARIN NIGHT BEFORE CATH FS SCH (22:00)
[2019-09-21 04:02] VITALS: BMI 36.6
[2019-09-21 05:32] LABS: Anion Gap 14 mmol/L (10-20); BUN (Urea Nitrogen) 28 mg/dL (8.4-25.7); Calc. Creatinine Clearance 40 mL/min (70-130); Calcium 10.7 mg/dL (7.8-10.44); Carbon Dioxide 26 mmol/L (23-31); Chloride 104 mmol/L (98-107); Estimated GFR-MDRD 30; Glucose 85 mg/dL (83-110); Potassium 3.7 mmol/L (3.5-5.1); Sodium 140 mmol/L (136-145)
[2019-09-21] MEDS: Furosemide 40 MG/4 ML VIAL SLOW IVP SCH ×2 (05:58→13:24)
[2019-09-21] MEDS: Tamsulosin HCl 0.4 MG CAP PO SCH (05:58)
[2019-09-21] MEDS: Docusate 100 MG CAP PO SCH ×2 (05:58→20:34)
[2019-09-21] MEDS: Finasteride 5 MG TAB PO SCH (05:58)
[2019-09-21] MEDS: Aspirin Chewable 81 MG TAB PO SCH (05:58)
[2019-09-21] MEDS: Carvedilol 3.125 MG TAB PO SCH ×2 (05:58→16:33)
[2019-09-21] MEDS: Potassium Chloride 20 MEQ TAB PO SCH (05:59)
[2019-09-21] MEDS: Amiodarone 200 MG TAB PO SCH (05:59)
[2019-09-21] MEDS: Polyethylene Glycol 3350 17 GM Packet PO SCH (05:59)
[2019-09-21] MEDS: Vit A,C & E/Lutein/Minerals Tablet PO SCH ×2 (05:59→20:34)
[2019-09-21] MEDS: Rosuvastatin 20 MG TAB PO SCH (05:59)
[2019-09-21] MEDS ORDERED: Sodium Chloride 0.9% 1,000 ML IV SCH (06:00)
--- NOTE | 2019-09-21 06:14 | HP ---
HISTORY OF PRESENT ILLNESS: Randy Olsen is an 78-year-old white male, whom I have followed since April 2010 when he transferred care to me several months after his bypass surgery. In approximately 2005, he had a stent placed in [place]. In January 2010, he developed progressive dyspnea. He underwent stress test at [facility] which was negative. He also had a stress test at [facility] in [place], which was negative. He then had an episode of syncope at home and was admitted at [facility] in January 2010. He underwent cardiac catheterization by Dr. Schwarz, who worked at [facility] at that time. He was found to have 90% plus left main calcified stenosis and diffuse coronary artery disease. He underwent emergency CABG x4 with CHARLES to LAD and saphenous vein graft to the diagonal, obtuse marginal and to the right posterior descending on February 02, 2010. The right PDA graft was anastomosed to the side of the diagonal graft. He had a laura postoperative course, having to undergo reoperation due to postoperative bleeding and developed left hemothorax. Ultimately, he had a tracheostomy placed due to difficulty weaning from the ventilator. The trach remained in place until April 2010 when it fell out. He also lost weight from 300 down to 233 pounds. After bypass surgery, Mr. Olsen stated that he could walk much better than before. He could walk up to 700 to 800 feet without dyspnea. He could only walk 50-60 feet prior to CABG. He did not have any chest discomfort prior to CABG. Echocardiogram in April 2010, revealed this study to be technically difficult with ejection fraction of 50% to 55%, left atrial and left ventricular enlargement, moderate mitral regurgitation, mild to moderate aortic insufficiency, mild tricuspid regurgitation, mild pulmonic regurgitation. He was on amiodarone at that time and it was stopped at three-month followup after CABG. In May 2009, he was walking 2000 feet. He was admitted in July 2009 with increased shortness of breath when his dose of furosemide was reduced for unclear reasons. Chest x-ray on admission showed bilateral alveolar interstitial parenchymal changes and pleural effusion. With diuresis, his dyspnea improved. He also continued to be followed in the office with somewhat poor cholesterol control until around 2013. He was not complaining of much dyspnea during his followups. He was again admitted in April 2015, stating that for 1 month he had developed progressive exertional dyspnea. He would carry wood from outside and would have to stop and catch his breath. He did not have to do this over the previous five years. He denied any chest discomfort without exertion. With rest, he would recover in 5 minutes. The night before admission, he woke up at 2:30 in the morning with pressure in his chest, inability to breathe. He states that he continued to remain short of breath for 2 to 3 hours, although the episode of chest tightness lasted only 1 to 2 minutes. With nitroglycerin, his dyspnea had significantly improved. He had borderline elevated troponin I as high as 0.264. It was felt that he probably had acute coronary syndrome with increasing dyspnea, which was the anginal equivalent prior to bypass surgery. He then underwent cardiac catheterization on 05/23/2015. There was mild inferobasal hypokinesis with ejection fraction 50% to 55%. The mean AO-LV gradient was approximately 5 mm. There was a 90% left main , 80% proximal LAD, and 80% first diagonal stenosis. There was a 90% ramus stenosis. The circumflex was normal. The right coronary artery had a 99% mid stenosis and a 70% distal stenosis with retrograde filling of the distal right coronary artery from the ramus graft and from the first septal. Bypass grafts revealed patent CHARLES to LAD, patent vein graft to the ramus (not obtuse marginal) and patent vein graft to the first diagonal. The vein graft to the right PDA, which was piggybacked onto the diagonal graft was occluded. He then underwent PTCA and stent placement in the right coronary artery with a PROMUS 2.5 x 28 mm stent placed in the distal right coronary artery and PROMUS 3.0 x 20 mm placed in the mid right coronary artery. The mid stent was post dilated with a 3.5 mm balloon. After the intervention, he had no further episodes of chest pain or shortness of breath. He did have two short episodes of second-degree AV block type 1 and was sent home with a 30-day monitor. He returned for followup on June 26, 2015 and did not have any further dyspnea on exertion like he had prior to stent placement. He did not have any significant arrhythmias on 30-day monitor. He returned in October 2015, complaining of waking up in the middle of the night short of breath. He admitted to eating a lot of salt and drinking a lot of water the day before. He was given metolazone to take on a p.r.n. basis and he diuresed. He was taking metolazone 5 mg every Friday. His breathing had improved. However, his BUN and creatinine were elevated and metolazone was reduced to every 7 to 10 days as needed. He was admitted in June 2016 due to increased shortness of breath and finding of pulmonary vascular congestion and bilateral effusions on chest x-ray. This was after he [place] a [place] and had been eating a lot of high sodium foods. He was diuresed and discharge creatinine was 1.22. He was again admitted in October 2016 with diastolic heart failure. He had another episode of diastolic heart failure in July 2018. He was again hospitalized in May 2019 with new onset atrial fibrillation. He presented with increased shortness of breath, increased lower extremity edema. Despite stopping his carvedilol, he did have frequent bradycardic episodes and long pauses with the atrial fibrillation and it was felt that a pacemaker needed to be placed prior to electrical cardioversion. At pacemaker insertion, it was found that he had a persistent left superior vena cava. The pacemaker was placed via the right subclavian vein. He was then placed on Multaq and anticoagulation was started with Eliquis. He underwent transesophageal echo, which revealed normal left ventricular systolic function and moderate to severe mitral regurgitation. There was no thrombus of the left atrium or the left atrial appendage. He underwent electrical cardioversion with return of atrial pacing. He was discharged on Multaq and started to have problems with more fluid accumulation and it was felt that this may have been due to the Multaq, that was discontinued, instead he was placed on amiodarone. He continued to maintain sinus rhythm. Also, his BUN and creatinine continued to rise. He was having problems with epistaxis at home and Plavix was discontinued and he had no more episodes of epistaxis. Due to creatinine increasing up to 2.99, metolazone was discontinued and torsemide was stopped for 2 days and then reduced to 20 mg q.a.m. Blood pressure was low and his carvedilol dose was slowly reduced. He then was admitted again on August 03. Early that day, he had been outside working in the yard with his tiller, but denied any chest discomfort during that activity. Then he was trying to sleep with CPAP when he became acutely short of breath. He came for further evaluation. He was treated with intravenous Lasix and had some improvement in his breathing. He denied any chest discomfort. It was again felt that he has an acute on chronic diastolic heart failure episode. Torsemide was increased back to 20 mg b.i.d. He was again admitted on September 10 with increased shortness of breath and was diuresed overnight and discharged. He continued shortness of breath and he underwent cardiac PET scan, which revealed mild to moderate proximal to distal, inferior, and apical ischemia. It was felt that he need to undergo cardiac catheterization, might need to be admitted early for hydration, which he has now come to the hospital to do. However, he has had increased shortness of breath, increased peripheral edema and I do not feel that he could be adequately hydrated without evoking more respiratory distress. His Eliquis had been stopped since he has not had any atrial fibrillation since electrical cardioversion, so he could undergo invasive evaluation. He has not had any epistaxis since Plavix had been stopped. He denied any melena or bloody bowel movements. He was found to have low iron of 32 with TIBC of 294 and was placed on iron. He denies any chest discomfort, but continues to have significant shortness of breath with minimal exertion. PAST MEDICAL HISTORY: Moderate to severe mitral regurgitation on transesophageal echo, atrial fibrillation post CABG in April 2020, obstructive sleep apnea, hypercholesterolemia, diabetes, hypertension, obesity. PAST SURGICAL HISTORY: Bilateral total knee replacements, stent placement in the right coronary artery after closure of the right posterior descending graft in April 2015, left inguinal hernia repair, trach placement after CABG due to difficulty to wean from the ventilator, CABG with reoperation afterwards for postop bleeding. MEDICATIONS: 1. Flomax 0.4 mg q.a.m. 2. Aspirin 81 daily. 3. Finasteride 5 mg daily. 4. Stool softener, Colace 100 mg b.i.d. 5. KCl 20 mEq q.a.m. 6. Rosuvastatin 40 mg daily. 7. Carvedilol 6.25 one half tablet b.i.d. 8. Amiodarone 200 mg daily. 9. Furosemide 40 mg t.i.d. 10. He was taking Eliquis 2.5 mg b.i.d., which has been discontinued. ALLERGIES: NONE. SOCIAL HISTORY: He does not smoke. He has not had any alcohol in 14 or 15 years. FAMILY HISTORY: Negative for myocardial infarction, CABG, or sudden . REVIEW OF SYSTEMS: A 10-point review of systems is otherwise unremarkable. PHYSICAL EXAMINATION: VITAL SIGNS: Blood pressure 122/57, pulse of 81. HEENT: PERRL. NECK: Supple. CHEST: Clear anteriorly with faint crackles at the bases. CARDIOVASCULAR: S1 and S2 normal without any S3 or S4. There is a 2/6 systolic murmur. Carotid upstrokes are normal without bruits. ABDOMEN: Obese. Normal bowel sounds without tenderness. EXTREMITIES: He does have pitting edema of his abdominal wall. Extremities revealed 3+ pretibial edema. NEUROLOGIC: Grossly intact. SKIN: Warm and dry. LABORATORY DATA: Hemoglobin 9.9, hematocrit 31.2, white count 4600, platelets 135,000. Sodium 140, potassium 3.7, chloride 103, carbon dioxide 28, BUN 29, creatinine 2.23. IMPRESSION: 1. Progressive dyspnea, which is multifactorial. He has had multiple episodes of diastolic heart failure. He has moderate to severe mitral regurgitation. He did have atrial fibrillation that has not recurred since cardioversion. He is atrially paced after pacemaker placement, although his ventricular pacing has increased and is now up to 46%. He also has severe obstructive sleep apnea. 2. Atrial fibrillation, status post cardioversion. No recurrence since cardioversion on interrogation of the pacemaker. 3. Status post dual-chamber pacemaker placement. 4. Persistent left superior vena cava. 5. Status post CABG. 6. Placement of drug-eluting stent in the right coronary artery in April 2015 after closure of the right posterior descending graft. 7. Hypertension. 8. Hypercholesterolemia with last LDL of 49 in March 2019. His LDL has been in 40s and 50s for the past five years. 9. Obstructive sleep apnea. 10. Chronic kidney disease. PLAN: Bedside pulmonary function tests will be obtained. The patient probably will need to undergo diuresis before he can undergo catheterization. I am quite concerned about his renal dysfunction and the need for catheterization with evaluation of multiple bypass grafts. Pulmonary and Renal will also be consulted during this admission. Job ID: [id number] MTDD
[2019-09-21] MEDS ORDERED: Furosemide 40 MG TAB PO SCH (09:00)
[2019-09-21] MEDS: Ferrous Sulfate 325 MG TAB PO SCH (13:40)
--- NOTE | 2019-09-21 23:06 | CON ---
DATE OF CONSULTATION: CONSULTING PHYSICIAN: Evgeny Murillo MD REQUESTING PHYSICIAN: Dr. Cruz. REASON FOR CONSULTATION: Acute on chronic kidney disease. IMPRESSION: 1. Acute on chronic kidney disease, this is likely cardiorenal compounded by diuretics. 2. Multiple cardiac issues including atrial fibrillation and coronary artery disease. PLAN: 1. Patient currently is on diuretics and once his symptoms improve, we will recommend deescalating the diuretics by changing to oral diuretics. 2. Renally dose all medications and avoid potentially nephrotoxic agents. 3. Close outpatient Nephrology followup status post discharge recommended. 4. I do not see any potentially nephrotoxic medications on this patient. HISTORY OF PRESENT ILLNESS: History is that of an 78-year-old gentleman, who presented here with shortness of breath, has extensive cardiac history, being followed by Dr. Cruz. Patient's baseline creatinine anywhere around 1.4. However, over the course of this hospitalization, patient's creatinine has been above 2. Patient currently on IV diuretics Lasix and as a result of these findings, decision is being taken to involve Renal in the management of this case. Chest imaging did reveal evidence of cardiomegaly and congestion. the diuretics. PAST MEDICAL HISTORY: Significant for moderate to severe mitral regurgitation, atrial fibrillation, coronary artery disease status post CABG, obstructive sleep apnea, dyslipidemia, diabetes, hypertension, and obesity. MEDICATIONS: Reviewed as documented on [facility]. ALLERGIES: NO KNOWN DRUG ALLERGIES. SOCIAL HISTORY: No alcohol, no tobacco, no illicit drug use. FAMILY HISTORY: No family history of kidney disease. REVIEW OF SYSTEMS: As documented in the body of the history. All other systems were reviewed and found not to be significantly related to presenting illness. PHYSICAL EXAMINATION: GENERAL: The patient was found not to be in any obvious distress. VITAL SIGNS: Noted with the following vital signs; afebrile, temperature 97.7, pulse 61, respiratory rate of 16, O2 saturations are 97%, blood pressure 123/57. HEENT: Unremarkable. CARDIOVASCULAR SYSTEM: First and second heart sounds were heard. RESPIRATORY SYSTEM: Clear to auscultation. DIGESTIVE SYSTEM: Revealed an obese abdomen. EXTREMITIES: No peripheral edema. SKIN: No new gross rash. LYMPHATICS: No peripheral lymphadenopathy. SUMMARY: An 78-year-old gentleman with cardiac issues presented here with shortness of breath, on diuretics, experiencing bump in creatinine. Thank you for this consultation. We will follow with you. Job ID: [id number]
[2019-09-22 04:54] LABS: Anion Gap 12 mmol/L (10-20); BUN (Urea Nitrogen) 28 mg/dL (8.4-25.7); Calc. Creatinine Clearance 41 mL/min (70-130); Calcium 10.4 mg/dL (7.8-10.44); Carbon Dioxide 27 mmol/L (23-31); Chloride 103 mmol/L (98-107); Estimated GFR-MDRD 30; Glucose 85 mg/dL (83-110); Potassium 3.6 mmol/L (3.5-5.1); Sodium 138 mmol/L (136-145)
[2019-09-22] MEDS: Furosemide 40 MG/4 ML VIAL SLOW IVP SCH ×2 (05:56→13:02)
[2019-09-22] MEDS: Potassium Chloride 20 MEQ TAB PO SCH (08:29)
[2019-09-22] MEDS: Aspirin Chewable 81 MG TAB PO SCH (08:29)
[2019-09-22] MEDS: Finasteride 5 MG TAB PO SCH (08:29)
[2019-09-22] MEDS: Amiodarone 200 MG TAB PO SCH (08:29)
[2019-09-22] MEDS: Carvedilol 3.125 MG TAB PO SCH ×2 (08:29→16:48)
[2019-09-22] MEDS: Vit A,C & E/Lutein/Minerals Tablet PO SCH ×2 (08:29→20:23)
[2019-09-22] MEDS: Rosuvastatin 20 MG TAB PO SCH (08:29)
[2019-09-22] MEDS: Tamsulosin HCl 0.4 MG CAP PO SCH (08:30)
[2019-09-22] MEDS: Ferrous Sulfate 325 MG TAB PO SCH (08:32)
[2019-09-22] MEDS: Polyethylene Glycol 3350 17 GM Packet PO SCH (08:32)
[2019-09-22] MEDS: Docusate 100 MG CAP PO SCH ×2 (08:32→20:23)
[2019-09-22] MEDS ORDERED: Simethicone Chewable 80 MG TAB PO PRN (12:45)
--- NOTE | 2019-09-22 12:45 | EKG ---
Test Reason : Blood Pressure : / mmHG Vent. Rate : 074 BPM Atrial Rate : 075 BPM P-R Int : 000 ms QRS Dur : 148 ms QT Int : 470 ms P-R-T Axes : 000 -38 142 degrees QTc Int : 521 ms AV dual-paced rhythm with prolonged AV conduction Abnormal ECG When compared with ECG of 11-SEP-2019 14:41, Electronic ventricular pacemaker has replaced Sinus rhythm Confirmed by DR. Celine TRAMMELL ([id number]) on 09/22/2019 12:44:27 PM Referred By: REBECCA Confirmed By:DR. Celine TRAMMELL
--- NOTE | 2019-09-22 16:10 | PRG ---
DATE OF SERVICE: 09/22/2019 SUBJECTIVE: Mr. Randy Olsen denies shortness of breath. He said he has had no fever, chills, or sweats. OBJECTIVE: VITAL SIGNS: Stable. LUNGS: Clear. He wore his CPAP last night. He is reporting no new problems. He is tentatively on the cardiac catheterization schedule for in the morning. Job ID: [id number]
[2019-09-22] MEDS ORDERED: Communication Order-Pharmacy FS SCH (18:00)
[2019-09-23 04:52] LABS: Anion Gap 14 mmol/L (10-20); BUN (Urea Nitrogen) 28 mg/dL (8.4-25.7); Calc. Creatinine Clearance 41 mL/min (70-130); Calcium 10.4 mg/dL (7.8-10.44); Carbon Dioxide 25 mmol/L (23-31); Chloride 103 mmol/L (98-107); Estimated GFR-MDRD 31; Glucose 85 mg/dL (83-110); Potassium 3.7 mmol/L (3.5-5.1); Sodium 138 mmol/L (136-145)
[2019-09-23] MEDS: Tamsulosin HCl 0.4 MG CAP PO SCH (05:19)
[2019-09-23] MEDS: Finasteride 5 MG TAB PO SCH (05:19)
[2019-09-23] MEDS: Vit A,C & E/Lutein/Minerals Tablet PO SCH ×2 (05:19→20:46)
[2019-09-23] MEDS: Rosuvastatin 20 MG TAB PO SCH (05:19)
[2019-09-23] MEDS: Potassium Chloride 20 MEQ TAB PO SCH (05:20)
[2019-09-23] MEDS: Carvedilol 3.125 MG TAB PO SCH ×2 (05:20→17:58)
[2019-09-23] MEDS: Ferrous Sulfate 325 MG TAB PO SCH (05:20)
[2019-09-23] MEDS: Amiodarone 200 MG TAB PO SCH (05:20)
[2019-09-23] MEDS: Aspirin Chewable 81 MG TAB PO SCH (05:20)
[2019-09-23] MEDS: Docusate 100 MG CAP PO SCH ×2 (05:33→20:46)
[2019-09-23] MEDS: Furosemide 40 MG/4 ML VIAL SLOW IVP SCH ×2 (05:33→17:57)
[2019-09-23] MEDS: Polyethylene Glycol 3350 17 GM Packet PO SCH (05:33)
[2019-09-23] MEDS ORDERED: Sodium Chloride 0.9% 1,000 ML IV SCH ×2 (06:00→08:39)
[2019-09-23] MEDS ORDERED: Heparin 10,000 UNITS/1 ML VIAL ONE (06:50)
[2019-09-23] MEDS ORDERED: Fentanyl 100 MCG/2 ML VIAL ONE (07:06)
[2019-09-23] MEDS ORDERED: Midazolam HCl 2 mg/2 ml Vial ONE (07:06)
[2019-09-23] MEDS ORDERED: Bivalirudin 250 MG VIAL ONE (07:46)
[2019-09-23] MEDS ORDERED: Clopidogrel Bisulfate 300 MG TAB ONE (07:46)
[2019-09-23] MEDS ORDERED: Nitroglycerin 0.4 MG TAB (25 Tab Bottle) SL PRN (08:38)
[2019-09-23] MEDS ORDERED: Morphine 2 MG/ML SYRINGE SLOW IVP PRN (08:38)
--- NOTE | 2019-09-23 11:03 | PRG ---
DATE OF SERVICE: 09/23/2019 Randy Olsen apparently had a stent placed this morning. He is afebrile. Heart rate is in the 70s, oximetry is 94% this morning on room air, blood pressure 133/65 this morning. Otherwise, there has been no change. Hopefully, coronary stenting procedure will lead to improvement of dyspnea episodes. Job ID: [id number]
[2019-09-23] MEDS ORDERED: Iopamidol 370 76% 100 ML VIAL ONE (12:14)
[2019-09-23] MEDS ORDERED: Iopamidol 370 76% 50 ML VIAL FS ONE (12:14)
--- NOTE | 2019-09-23 16:46 | PRG ---
DATE OF SERVICE: 09/22/2019 OBJECTIVE: VITAL SIGNS: The patient was seen and noted with the following vital signs; afebrile, blood pressure 111/58, pulse 63, respiratory rate of 18, and O2 sats 94%. HEENT: Unremarkable. CARDIOVASCULAR: First and second heart sounds were heard. RESPIRATORY: Clear to auscultation. DIGESTIVE: Revealed a benign abdomen with positive bowel sounds. EXTREMITIES: No peripheral edema. SKIN: No new gross rash. LYMPHATICS: No peripheral lymphadenopathy. LABORATORY INVESTIGATION: Showed a creatinine now down to 2.12. IMPRESSION: 1. Acute on chronic kidney disease, seems to be stabilizing. 2. Morbid obesity. 3. Multiple cardiac issues. PLAN: 1. The patient currently on diuretics. The patient is getting to the point that the diuretics need to be deescalated to oral diuretics. 2. Renally dose all medications and avoid potentially nephrotoxic agents. 3. Further management to be dependent on the clinical course. Job ID: [id number]
--- NOTE | 2019-09-23 16:55 | PRG ---
DATE OF SERVICE: 09/23/2019 OBJECTIVE: VITAL SIGNS: The patient was seen and noted with the following vital signs; afebrile, temperature 97.4, pulse 74, respiratory rate of 20, O2 saturation of 94%, and blood pressure 133/65. HEENT: Unremarkable. CARDIOVASCULAR: First and second heart sounds were heard. RESPIRATORY: Clear to auscultation. DIGESTIVE: Revealed a benign abdomen with positive bowel sounds. EXTREMITIES: No peripheral edema. SKIN: No new gross rash. LYMPHATICS: No peripheral lymphadenopathy. LABORATORY INVESTIGATION: Showed a creatinine down to 2.09. IMPRESSION: 1. Acute on chronic kidney disease, improving. 2. Congestive heart failure. PLAN: 1. Consider deescalating diuretics by changing the Lasix from IV to p.o. diuretics. 2. Further management to be dependent on the clinical course. Job ID: [id number]
[2019-09-23] MEDS: Clopidogrel Bisulfate 75 MG TAB PO SCH (17:56)
[2019-09-24 04:14] LABS: #Eosinphils 0.2 thou/uL (0.0-0.7); #Lymphocytes 0.9 thou/uL (1.20-3.40); #Monocytes 0.6 thou/uL (0.11-0.59); #Neutrophils 4.8 thou/uL (1.40-6.50); %Basophils 0.5 % (0.0-1.0); %Lymphocytes 13.9 % (21.0-51.0); %Monocytes 8.9 % (0.0-10.0); %Neutrophils 73.8 % (42.0-75.0); Hemoglobin 9.6 g/dL (14.0-18.0); Mean Corpuscular HGB CONC 31.1 g/dL (32.0-36.0); Mean Corpuscular Hemoglobin 26.9 pg (27.0-31.0); Mean Corpuscular Volume 86.6 fL (78.0-98.0); Mean Platelet Volume 10.6 fL (7.4-10.4); Platelet Count 144 thou/uL (130-400); RBC Distribution Width 16.4 % (11.5-14.5); Red Blood Cell (RBC) Count 3.57 mill/uL (4.70-6.10); White Blood Cell (WBC) Count 6.5 thou/uL (4.8-10.8)
[2019-09-24 04:36] LABS: ALT (SGPT) 10 U/L (8-55); AST (SGOT) 11 U/L (5-34); Albumin 3.5 g/dL (3.4-4.8); Alkaline Phosphatase 86 U/L (40-110); Anion Gap 11 mmol/L (10-20); BUN (Urea Nitrogen) 22 mg/dL (8.4-25.7); Bilirubin, Total 0.7 mg/dL (0.2-1.2); Calc. Creatinine Clearance 48 mL/min (70-130); Calcium 10.5 mg/dL (7.8-10.44); Carbon Dioxide 24 mmol/L (23-31); Chloride 106 mmol/L (98-107); Estimated GFR-MDRD 37; Globulin 2.5 g/dL (2.4-3.5); Glucose 81 mg/dL (83-110); Potassium 3.6 mmol/L (3.5-5.1); Sodium 137 mmol/L (136-145)
--- NOTE | 2019-09-24 06:08 | EKG ---
Test Reason : POST REBELSTENT-RCA Blood Pressure : / mmHG Vent. Rate : 060 BPM Atrial Rate : 060 BPM P-R Int : 218 ms QRS Dur : 178 ms QT Int : 512 ms P-R-T Axes : 097 -34 016 degrees QTc Int : 512 ms Electronic atrial pacemaker Left axis deviation Right bundle branch block Abnormal ECG When compared with ECG of 20-SEP-2019 17:38, Electronic atrial pacemaker has replaced Electronic ventricular pacemaker Confirmed by DR. Celine TRAMMELL ([id number]) on 09/24/2019 6:08:47 AM Referred By: REBECCA Confirmed By:DR. Celine TRAMMELL
[2019-09-24] MEDS: Tamsulosin HCl 0.4 MG CAP PO SCH (08:11)
[2019-09-24] MEDS: Rosuvastatin 20 MG TAB PO SCH (08:11)
[2019-09-24] MEDS: Potassium Chloride 20 MEQ TAB PO SCH (08:11)
[2019-09-24] MEDS: Vit A,C & E/Lutein/Minerals Tablet PO SCH (08:11)
[2019-09-24] MEDS: Aspirin Chewable 81 MG TAB PO SCH (08:11)
[2019-09-24] MEDS: Clopidogrel Bisulfate 75 MG TAB PO SCH (08:11)
[2019-09-24] MEDS: Polyethylene Glycol 3350 17 GM Packet PO SCH ×2 (08:11→19:36)
[2019-09-24] MEDS: Amiodarone 200 MG TAB PO SCH (08:12)
[2019-09-24] MEDS: Finasteride 5 MG TAB PO SCH (08:12)
[2019-09-24] MEDS: Ferrous Sulfate 325 MG TAB PO SCH (08:12)
[2019-09-24] MEDS: Docusate 100 MG CAP PO SCH (08:13)
[2019-09-24] MEDS: Carvedilol 3.125 MG TAB PO SCH (08:13)
[2019-09-24 08:29] VITALS: BP 124/57; TEMP 97.6
[2019-09-24] MEDS ORDERED: Furosemide 20 MG TAB PO SCH (09:00)
--- NOTE | 2019-09-24 14:47 | PQF ---
CLINICAL DOCUMENTATION IMPROVEMENT CLARIFICATION FORM: ICD-10 Updated PLEASE DO AN ADDENDUM TO THE PROGRESS NOTE WITH ANY DOCUMENTATION UPDATES OR ADDITIONS AND CARRY THROUGH TO DC SUMMARY. THANK YOU. DATE: 09/24/19 ATTN: DR. FERNANDEZ Please exercise your independent, professional judgment in responding to the clarification form. Clinical indicators are provided on the bottom of this form for your review Please check appropriate box(s): HEART FAILURE: A. ACUITY [ ] Acute [ x ] Acute on Chronic [ ] Chronic In addition, please specify: Present on Admission (POA): [ x ] Yes [ ] No [ ] Unable to determine For continuity of documentation, please document condition throughout progress notes and discharge summary. Thank You. CLINICAL INDICATORS - SIGNS / SYMPTOMS / LABS / RESULTS AND LOCATION IN EMR BNP 716.3 PROGRESS NOTE 09/22 ([facility]): "ACUTE ON CHRONIC KIDNEY DISEASE, IMPROVING" "CONGESTIVE HEART FAILURE" RISKS: H/O DIASTOLIC HEART FAILURE (H&P) MITRAL REGURG (H&P) AFIB (H&P) ACUTE ON CHRONIC KIDNEY DISEASE [facility]/22) TREATMENT: IV LASIX 09/20-09/22 PO LASIX 09/23 COREG 09/19-09/22 (This form is maintained as a part of the permanent medical record) 2014 [employer], [employer]. All Rights Reserved [email or web address] [email or web address] [facility]
--- NOTE | 2019-09-24 22:49 | DIS ---
DATE OF ADMISSION: 09/22/2019 DATE OF DISCHARGE: 09/24/2019 DISCHARGE DIAGNOSES: 1. Acute on chronic diastolic heart failure, ACC/AHA stage C, [place] heart Association class 4 at the time of admission. 2. Progressive dyspnea, multifactorial. 3. Restrictive lung disease with FVC of 51%, FEV1 of 50%. 4. Status post coronary artery bypass graft with three of four grafts patent ( right posterior descending graft was occluded since at least April 2015). 5. Status post drug-eluting stent placement in the proximal and distal RCA in April 2015 with continued good results. 6. Bare-metal stent placed in the mid RCA on this admission. 7. Atrial fibrillation, status post cardioversion after pacemaker placed in May 2019 (no atrial fibrillation seen on pacemaker since cardioversion). 8. Status post dual-chamber pacemaker placement. 9. Persistent left superior vena cava. 10. Hypertension. 11. Hypercholesterolemia, under good control. 12. Obstructive sleep apnea. 13. Chronic kidney disease. 14. [id number] mitral regurgitation. DISCHARGE DISPOSITION: Patient will be seen via telemedicine followup in 1 week with CBC and BMP being obtained. DISCHARGE MEDICATIONS: 1. Plavix 75 mg daily x28 days. 2. Amiodarone 200 mg daily. 3. Carvedilol 3.125 b.i.d. 4. Ferrous sulfate 325 q.a.m. 5. Proscar 5 mg q.a.m. 6. Furosemide 40 mg b.i.d. 7. KCl 20 mEq daily. 8. Nitroglycerin p.r.n. 9. Rosuvastatin 40 mg daily. 10. Flomax 0.4 mg daily. 11. Ocuvite with lutein one daily. 12. On the September 26, he will resume Eliquis 2.5 mg b.i.d. and stop aspirin at that time. In 28 days after he runs out of Plavix, he will resume the aspirin 81 daily. HOSPITAL COURSE: Mr. Olsen has been having progressive dyspnea over the last several weeks. He has been hospitalized for diastolic heart failure. With continued progressive dyspnea, he underwent cardiac PET scan in the office. In the past prior to bypass surgery, as well as prior to stent placement in the right coronary artery, his main symptom was exertional dyspnea. On PET scan, he was found to have [id number] proximal to distal inferior and apical ischemia. He was to come for hydration prior to cardiac catheterization to further evaluate this since there was concern that he may have had restenosis of his right coronary artery stents. However, upon arrival, he complained that he had significant dyspnea even with moving in the room and even dyspnea at rest. He could not sleep at night with his CPAP. It was felt that he needed to be diuresed for several days to improve his symptoms prior to cardiac catheterization. He was treated with furosemide 40 mg IV b.i.d. with improvement in his symptoms. He ultimately underwent cardiac catheterization. Due to his renal insufficiency , left ventriculogram was not performed. There was an 80% left main, 80% proximal LAD, and 90% first diagonal. The ramus had a 90% stenosis. The circumflex was small and normal. The right coronary artery had a 20% in-stent proximal RCA stenosis. The distal stent was patent. Between the 2 stents in the mid RCA, there was 70% and 50% lesion. Due to worsening anemia, finding of low iron, and the need for long-term anticoagulation, the decision was made to place a bare-metal stent. Rebel 3.0 x 32 mm stent was placed in the mid RCA with reduction of both lesions to 0%. He was observed overnight and discharged. At the time of discharge, his hemoglobin was 9.6 and hematocrit 31.0. Also during the course of his hospitalization, his creatinine fell from 2.23 to 1.78, even though he was diuresed. Job ID: [id number] MTDD
--- NOTE | 2019-09-29 09:26 | EKG ---
Test Reason : Blood Pressure : / mmHG Vent. Rate : 072 BPM Atrial Rate : 072 BPM P-R Int : 256 ms QRS Dur : 180 ms QT Int : 486 ms P-R-T Axes : 063 -34 030 degrees QTc Int : 532 ms Electronic atrial pacemaker Long first degree AV block Left axis deviation Right bundle branch block Abnormal ECG When compared with ECG of 23-SEP-2019 09:04, No significant change was found Confirmed by DR. Celine TRAMMELL ([id number]) on 09/29/2019 9:26:07 AM Referred By: REBECCA Confirmed By:DR. Celine TRAMMELL
== END 2019-09-24 11:26 | disposition home or self-care (01) | DRG 248 ==
LOC: INTOOBSV 12:33 → 2NO 12:33 → OBSVTOIN 09-22 19:06
PROVIDERS: ADMIT Internal Medicine Cardiovascular Disease; ATTEND Internal Medicine Cardiovascular Disease
PROC: 02703DZ Dilation of Coronary Artery, One Artery with Intraluminal Device, Percutaneous Approach (ICD-10-PCS; principal; 2019-09-23)
PROC: 4A023N8 Measurement of Cardiac Sampling and Pressure, Bilateral, Percutaneous Approach (ICD-10-PCS; 2019-09-23)
PROC: B2131ZZ Fluoroscopy of Multiple Coronary Artery Bypass Grafts using Low Osmolar Contrast (ICD-10-PCS; 2019-09-23)
PROC: B2111ZZ Fluoroscopy of Multiple Coronary Arteries using Low Osmolar Contrast (ICD-10-PCS; 2019-09-23)
PROC: B2161ZZ Fluoroscopy of Right and Left Heart using Low Osmolar Contrast (ICD-10-PCS; 2019-09-23)
DX: I13.0 Hypertensive heart and chronic kidney disease with heart failure and stage 1 through stage 4 chronic kidney disease, or unspecified chronic kidney disease (principal); I50.33 Acute on chronic diastolic (congestive) heart failure; N17.9 Acute kidney failure, unspecified; G47.33 Obstructive sleep apnea (adult) (pediatric); I48.91 Unspecified atrial fibrillation; E78.00 Pure hypercholesterolemia, unspecified; Z96.653 Presence of artificial knee joint, bilateral; N18.9 Chronic kidney disease, unspecified; I34.0 Nonrheumatic mitral (valve) insufficiency; E66.01 Morbid (severe) obesity due to excess calories; E11.22 Type 2 diabetes mellitus with diabetic chronic kidney disease; Z95.0 Presence of cardiac pacemaker; Z95.1 Presence of aortocoronary bypass graft; Z79.82 Long term (current) use of aspirin; Z79.899 Other long term (current) drug therapy; Z68.36 Body mass index [BMI] 36.0-36.9, adult
CPT/HCPCS: 36415; 71045; 80048; 80053; 83880; 85025; 92928; 93005; 93010; 93306; 93461; 93798; 94010; 94640; 99152; 99153; C1769; C1876; C1887; J0583; J1644; J1940; J2250; J3010; J7620; Q9967

== ENCOUNTER 2019-10-07 14:41 | Observation (INO) | payer MEDICARE, BC ==
[2019-10-07 16:13] LABS: #Eosinphils 0.3 thou/uL (0.0-0.7); #Lymphocytes 0.7 thou/uL (1.20-3.40); #Monocytes 0.6 thou/uL (0.11-0.59); %Basophils 0.6 % (0.0-1.0); %Eosinophils 5.5 % (0.0-10.0); %Lymphocytes 12.5 % (21.0-51.0); %Monocytes 10.5 % (0.0-10.0); %Neutrophils 70.9 % (42.0-75.0); Hemoglobin 9.9 g/dL (14.0-18.0); Mean Corpuscular HGB CONC 32.5 g/dL (32.0-36.0); Mean Corpuscular Hemoglobin 28.1 pg (27.0-31.0); Mean Corpuscular Volume 86.4 fL (78.0-98.0); Mean Platelet Volume 10.4 fL (7.4-10.4); Platelet Count 171 thou/uL (130-400); RBC Distribution Width 16.5 % (11.5-14.5); Red Blood Cell (RBC) Count 3.51 mill/uL (4.70-6.10); White Blood Cell (WBC) Count 5.7 thou/uL (4.8-10.8)
[2019-10-07 16:18] LABS: INR-International Normal Ratio 1.4; Prothrombin Time 16.8 sec (12.0-14.7)
[2019-10-07 16:35] LABS: ALT (SGPT) 19 U/L (8-55); AST (SGOT) 11 U/L (5-34); Albumin 3.8 g/dL (3.4-4.8); Alkaline Phosphatase 96 U/L (40-110); Anion Gap 13 mmol/L (10-20); BUN (Urea Nitrogen) 35 mg/dL (8.4-25.7); Bilirubin, Total 0.9 mg/dL (0.2-1.2); Calc. Creatinine Clearance 0 mL/min (70-130); Calcium 10.3 mg/dL (7.8-10.44); Carbon Dioxide 26 mmol/L (23-31); Chloride 104 mmol/L (98-107); Estimated GFR-MDRD 27; Globulin 2.4 g/dL (2.4-3.5); Glucose 100 mg/dL (83-110); Lipase 56 U/L (8-78); Potassium 4.1 mmol/L (3.5-5.1); Protein, Total 6.2 g/dL (5.8-8.1); Sodium 139 mmol/L (136-145)
[2019-10-07 17:00] LABS: CKMB 1.5 ng/mL (0-6.6)
--- NOTE | 2019-10-07 17:20 | RAD ---
AP CHEST: 10/07/19 HISTORY: Dyspnea. COMPARISON: 09/20/19 and 09/11/19. Cardiomegaly with postop sternotomy change. Mild vascular congestion again noted. Hazy bibasilar infi ltrate and small effusions again noted. The left basilar infiltrate and/or consolidation more pronoun ade but appears stable from 09/20/19. Pacemaker leads unchanged. IMPRESSION: Cardiomegaly with mild vascular congestion. Small effusion and bibasilar infiltrates and/or atelectas is, more pronounced on the left. POS: AGW
--- NOTE | 2019-10-07 17:21 | CT ---
CT OF THE ABDOMEN AND PELVIS WITHOUT IV CONTRAST INDICATION: 78-year-old male with abdominal pain that is predominantly left-sided. COMPARISON: CT abdomen pelvis with contrast dated October 18, 2013 FINDINGS: The lack of IV contrast limits evaluation of the solid organs of the abdomen and pelvis. ABDOMEN: Lung bases: There are small bilateral pleural effusions with suspected bibasilar atelectasis. There i s moderate to prominent cardiomegaly. There are groundglass opacities seen within the perihilar region suspicious for airspace edema. Liver: Focal fatty infiltration near the falciform ligament is stable. Gallbladder: Layered gallstones are stable. Pancreas: Normal. Adrenal glands: There is a stable left adrenal adenoma. Right adrenal gland is normal-appearing. Spleen: There are calcified granuloma within the spleen. Kidneys and ureters: Normal. No hydronephrosis. Vasculature: There are severe vascular calcifications seen involving the visualized vasculature. Lymph nodes:No lymphadenopathy. Free fluid in abdomen:No free fluid is evident. PELVIS: Small and large bowel: Portions of the small bowel are excluded from view due to the size of the juan ent's abdomen extending beyond the [id number] of the examination. The visualized unopacified small large bowel appear within normal limits. Appendix:Normal Bladder: Decompressed Rectal and perirectal soft tissues:Normal. Reproductive structures: The prostate is enlarged measuring 5 cm Free fluid in pelvis: No free fluid is evident. Lymphadenopathy pelvis: No lymphadenopathy is evident. Osseous structures: No acute osseous abnormality. No destructive osteolytic or osteoblastic lesion i s identified. There is scattered degenerative and osteoarthritic changes. Soft tissues:Normal. IMPRESSION: 1. Cardiomegaly with perihilar groundglass airspace opacity and bilateral pleural effusion is suspici ous for CHF. The hazy airspace opacities within both lungs is most consistent with airspace edema; however, this can be seen with atypical infectious processes. Would recommend correlation with the cl inical examination. There is subsegmental atelectasis within both lower lobes. 2. No renal or ureteral calculus. 3. Stable left adrenal adenoma. 4. Prostate enlargement
[2019-10-07 17:26] LABS: Bilirubin Negative (Negative); Blood, Urine Negative (Negative); Glucose, Urine (Dipstick) Negative (Negative); Leukocyte Trace (Negative); Nitrite Negative (Negative); Protein, Urine (Dipstick) Negative (Neg-Trace); Urobilinogen 0.2 mg/dL (Less than 2)
[2019-10-07 17:27] LABS: Clarity Clear (Clear)
[2019-10-07 17:33] LABS: Bacteria/HPF None Seen HPF (None Seen); RBC/HPF 0-3 HPF (0-3); Squamous Epithelial 0-3 HPF (0-3); WBC/HPF 0-3 HPF (0-3)
[2019-10-07] MEDS ORDERED: Furosemide 20 MG/2 ML VIAL ONE (17:55)
[2019-10-07 18:29] LABS: Troponin I 0.046 ng/mL (< 0.028)
[2019-10-07] MEDS ORDERED: Acetaminophen 325 MG TAB PO PRN (18:36)
--- NOTE | 2019-10-07 18:49 | PDOC.HHP ---
Hospitalist HPI - History of Present Illness Dyspnea and abdominal pain History of Present Illness: PCP: [facility] [employer] Operator: Dr. Cruz The patient is an 78/M with PMH significant for diastolic CHF, CABG x4, CAD (x2 stents), proxysmal atrial fibrillation (on Eliquis and Plavix), Dual chamber PM (2019), HTN, HLD, DM, CKD IV and REGINA (home CPAP) presents for the above complaints. The patient reports feeling dyspnea for the past several months, stating that he has been in this hospital "7 times for this in the past couple months". Reports his dyspnea is intermittent, sometimes it comes on quickly, exacerbated and relieved by nothing. Reports chronic swelling to Lower extremities that has worsened over past several days. Reports increasing his home dose of lasix from 2 to 3 pills per day because of his increased bloating in his stomach and legs. Denies any cough or wheezing. Denies fever or chills. Denies any chest pain or heart palpitations. Reports orthopnea and says he is compliant with his CPAP or "I couldn't breathe with wearing it". Also, reports left lower,intermittent abdominal pain, describes as sharp, exacerbated and relieved by nothing. Denies any known trauma, N/V/D or constipation. Denies any dysuria, groin pain, or scrotal swelling. He states that he has had this pain for several years and has been told it is a pulled muscle in his abdomen. ED Course: VS BP: 126/62, Pulse: 69, Resp: 18, Temp: 98.4 (Temporal), O2 sat: 99 on (Room Air) EKG Apaced and AV paced Trop 0.042 BNP 767 CXR cardiomegaly, with mild vascular congestion and bilateral small pleural effusions suspicious for CHF exacerbation Mg 3.0 BUN 35 [address] abdomen and pelvis IMPRESSION: 1. Cardiomegaly with perihilar groundglass airspace opacity and bilateral pleural effusion is suspici ous for CHF. The hazy airspace opacities within both lungs is most consistent with airspace edema; however, this can be seen with atypical infectious processes. Would recommend correlation with the cl inical examination. There is subsegmental atelectasis within both lower lobes. 2. No renal or ureteral calculus. 3. Stable left adrenal adenoma. 4. Prostate enlargement Given: Lasix 40mg IVP x 1 dose Allergies: NKDA Home Medications: Nursing to verify and reconcile Hospitalist ROS - Review of Systems Constitutional: denies: fever, chills, weakness Eyes: denies: pain, vision change, conjunctivae inflammation, eyelid inflammation, redness, other ENT: denies: ear pain, ear discharge, nose pain, nose discharge, nose congestion , mouth pain, mouth swelling, throat pain, throat swelling, other Respiratory: reports: shortness of breath. denies: cough, hemoptysis, pleuritic pain, sputum, wheezing Cardiovascular: reports: edema (BLE). denies: chest pain, palpitations, orthopnea, paroxysmal noc. dyspnea, light headedness Gastrointestinal: reports: abdominal pain (LLQ). denies: nausea, vomiting, diarrhea, constipation, melena, hematochezia Genitourinary: denies: dysuria, frequency, incontinence, hematuria, retention, other Musculoskeletal: denies: neck pain, shoulder pain, arm pain, back pain, hand pain, leg pain, foot pain, other Skin: denies: rash, lesions, alma, bruising, other Neurological: denies: weakness, numbness, incoordination, change in speech, confusion, seizures, other Hospitalist History - Past Medical History Source: patient Cardiac: reports: AFIB (paroxysmal on eliquis), CAD, CHF (diastolic HF), HTN, Hyperlipidemia Pulmonary: reports: Other (Restrictive lung disease REGINA (home CPAP)) Heme/Onc: reports: Other (Chronic anemia) Renal/: reports: Other (CKD IV) Endocrine: reports: Diabetes - Family History Family History: reports: Other (Patient poor historian, unable to obtain) - Social History Smoking Status: Never smoker Alcohol: reports: Rare Drugs: reports: none Living Situation: With Family Occupation: Lives with spouse in [facility], retired [employer] Activity level: uses cane/walker - Exam General Appearance: NAD, awake alert Eye: anicteric sclera ENT: normocephalic atraumatic Neck: supple, no JVD Heart: irregular, diminshed peripheral pulses Heart - other findings: BLE 2+ pitting edema, distant heart sounds 2/2 body habitus Respiratory: no wheezes, no tachypnea, rales, rhonchi Gastrointestinal: soft, non-tender, normal bowel sounds, no guarding, no rigidity, distended Extremities: no cyanosis, 2+ LE edema Skin: no rashes Neurological: no focal deficits Psychiatric: normal affect, A&O x 3 Hospitalist Results - Labs Result Diagrams: 10/07/19 15:59 10/07/19 15:59 Lab results: WBC 5.7 thou/uL (4.8-10.8) 10/07/19 15:59 Hgb 9.9 g/dL (14.0-18.0) L 10/07/19 15:59 Hct 30.3 % (42.0-52.0) L 10/07/19 15:59 MCV 86.4 fL (78.0-98.0) 10/07/19 15:59 Plt Count 171 thou/uL (130-400) 10/07/19 15:59 Neutrophils % 70.9 % (42.0-75.0) 10/07/19 15:59 Sodium 139 mmol/L (136-145) 10/07/19 15:59 Potassium 4.1 mmol/L (3.5-5.1) 10/07/19 15:59 Chloride 104 mmol/L (98-107) 10/07/19 15:59 Carbon Dioxide 26 mmol/L (23-31) 10/07/19 15:59 BUN 35 mg/dL (8.4-25.7) H 10/07/19 15:59 Creatinine 2.30 mg/dL (0.7-1.3) H 10/07/19 15:59 Glucose 100 mg/dL (83-110) 10/07/19 15:59 Lactic Acid 0.9 mmol/L (0.5-2.2) 10/07/19 15:59 Calcium 10.3 mg/dL (7.8-10.44) 10/07/19 15:59 Total Bilirubin 0.9 mg/dL (0.2-1.2) 10/07/19 15:59 AST 11 U/L (5-34) 10/07/19 15:59 ALT 19 U/L (8-55) 10/07/19 15:59 Alkaline Phosphatase 96 U/L (40-110) 10/07/19 15:59 CK-MB (CK-2) 1.5 ng/mL (0-6.6) 10/07/19 15:58 Troponin I 0.046 ng/mL (< 0.028) H 10/07/19 17:57 B-Natriuretic Peptide 767.9 pg/mL (0-100) H 10/07/19 15:59 Serum Total Protein 6.2 g/dL (5.8-8.1) 10/07/19 15:59 Albumin 3.8 g/dL (3.4-4.8) 10/07/19 15:59 Lipase 56 U/L (8-78) 10/07/19 15:59 Urine Ketones Negative mg/dL (Negative) 10/07/19 16:37 Urine Blood Negative (Negative) 10/07/19 16:37 Urine Nitrite Negative (Negative) 10/07/19 16:37 Ur Leukocyte Esterase Trace (Negative) H 10/07/19 16:37 Urine RBC 0-3 HPF (0-3) 10/07/19 16:37 Urine WBC 0-3 HPF (0-3) 10/07/19 16:37 Ur Squamous Epith Cells 0-3 HPF (0-3) 10/07/19 16:37 Urine Bacteria None Seen HPF (None Seen) 10/07/19 16:37 - EKG Interpretation EKG: Apaced, AV paced - Radiology Interpretation CT scan - abdomen Status: report reviewed by me Chest x-ray Status: report reviewed by ks Hospitalist H&P A/P - Problem (1) Acute on chronic diastolic heart failure Code(s): I50.33 - ACUTE ON CHRONIC DIASTOLIC (CONGESTIVE) HEART FAILURE Status : Acute Assessment and Plan: Admit to telemetry floor, observation status Expected length of stay less than 2 midnights Patient had acute episode dyspnea in ER, nurse observed monitor EKG changes, unable to get 12 lead ER doctor concern for aflutter vs afib vs heart block CXR vascular congestion and bilateral effusions BNP 767, baseline 500s Trop 0.042 Patient to get lasix 40mg IVP x1 dose in ER, nursing getting IV access Last echo and cath in 08/2019 Will consult cardiology Interrogate PM Continue lasix IVP Fluid restriction and daily weight (2) Dyspnea Code(s): R06.00 - DYSPNEA, UNSPECIFIED Status: Acute Assessment and Plan: Likely secondary to problem #1 (3) Elevated troponin Code(s): R79.89 - OTHER SPECIFIED ABNORMAL FINDINGS OF BLOOD CHEMISTRY Status : Acute Assessment and Plan: EKG paced rhythm, no ST elevations Likely demand ischemia Will trend troponins Last echo and cath August 2019 (4) MELVIN (acute kidney injury) Code(s): N17.9 - ACUTE KIDNEY FAILURE, UNSPECIFIED Status: Acute Assessment and Plan: Baseline creatinine appears to be low 2.0 Baseline GFR appears to be 30 Likely pre renal Will hold nephrotoxins Will recheck level in am (5) Paroxysmal atrial fibrillation Code(s): I48.0 - PAROXYSMAL ATRIAL FIBRILLATION Status: Acute Assessment and Plan: History of atrial fibrillation Episode of arrhythmia on monitor in ER with acute dyspnea Unable to get 12 lead EKG ER doctor thinks a flutter vs afib vs heart block Will continue Eliquis home dosing Will cardiac monitor technician consult cardiology Will interrogate PM Patient home med amiodarone 200mg daily, will restart when reconciled by nursing (6) Abdominal pain Code(s): R10.9 - UNSPECIFIED ABDOMINAL PAIN Status: Acute Assessment and Plan: reports LLQ abdominal pain Ct abdomen unremarkable for any abdominal pathology Physical exam no concern for acute abdomen Labs unremarkable for abdominal pathology will continue to monitor (7) REGINA (obstructive sleep apnea) Code(s): G47.33 - OBSTRUCTIVE SLEEP APNEA (ADULT) (PEDIATRIC) Status: Chronic Assessment and Plan: Patient compliant on home CPAP Will see if family can bring machine, if not RT to manage (8) CKD (chronic kidney disease), stage IV Code(s): N18.4 - CHRONIC KIDNEY DISEASE, STAGE 4 (SEVERE) Status: Chronic (9) HTN (hypertension) Code(s): I10 - ESSENTIAL (PRIMARY) HYPERTENSION Status: Chronic Assessment and Plan: Patient home meds: 1. Coreg 3.125mg BID 2. Lasix 40mg BID Will restart coreg and hold lasix Monitor blood pressure (10) HLD (hyperlipidemia) Code(s): E78.5 - HYPERLIPIDEMIA, UNSPECIFIED Status: Chronic Assessment and Plan: Will restart home statin when medication reconciled (11) Chronic anemia Code(s): D64.9 - ANEMIA, UNSPECIFIED Status: Chronic Assessment and Plan: Appears stable Will repeat CBC in am Will restart home dose of ferrous sulfate when reconciled by nursing - Plan Plan: Consult HF clinic No DVT or GI prophylaxis Full Code MPOA is Malena Gould (spouse) at [phone] Desir
[2019-10-07 22:21] VITALS: BMI 34.4
[2019-10-08 00:08] LABS: Troponin I 0.061 ng/mL (< 0.028)
[2019-10-08 05:04] LABS: #Eosinphils 0.3 thou/uL (0.0-0.7); #Lymphocytes 0.7 thou/uL (1.20-3.40); #Monocytes 0.6 thou/uL (0.11-0.59); #Neutrophils 4.4 thou/uL (1.40-6.50); %Eosinophils 5.5 % (0.0-10.0); %Lymphocytes 11.3 % (21.0-51.0); %Monocytes 9.3 % (0.0-10.0); %Neutrophils 73.8 % (42.0-75.0); Hemoglobin 9.2 g/dL (14.0-18.0); Mean Corpuscular HGB CONC 31.4 g/dL (32.0-36.0); Mean Corpuscular Hemoglobin 27.1 pg (27.0-31.0); Mean Corpuscular Volume 86.4 fL (78.0-98.0); Mean Platelet Volume 10.4 fL (7.4-10.4); Platelet Count 162 thou/uL (130-400); RBC Distribution Width 16.5 % (11.5-14.5); Red Blood Cell (RBC) Count 3.39 mill/uL (4.70-6.10)
[2019-10-08 05:09] LABS: Anion Gap 13 mmol/L (10-20); BUN (Urea Nitrogen) 32 mg/dL (8.4-25.7); Calc. Creatinine Clearance 38 mL/min (70-130); Calcium 10.3 mg/dL (7.8-10.44); Carbon Dioxide 25 mmol/L (23-31); Chloride 105 mmol/L (98-107); Estimated GFR-MDRD 29; Glucose 82 mg/dL (83-110); Potassium 3.7 mmol/L (3.5-5.1); Sodium 139 mmol/L (136-145)
[2019-10-08] MEDS: Furosemide 40 MG/4 ML VIAL SLOW IVP SCH ×2 (05:51→14:07)
[2019-10-08] MEDS ORDERED: Furosemide 40 MG/4 ML VIAL SLOW IVP SCH (07:15)
--- NOTE | 2019-10-08 07:49 | RAD ---
EXAM: Portable chest PROVIDED CLINICAL HISTORY: Respiratory insufficiency COMPARISON: 10/07/2019 FINDINGS: Significant interval change with respect to the prior examination is not apparent. IMPRESSION: As above.
[2019-10-08] MEDS: Vit A,C & E/Lutein/Minerals Tablet PO SCH ×2 (09:38→20:54)
[2019-10-08] MEDS: Carvedilol 3.125 MG TAB PO SCH ×2 (09:39→18:05)
[2019-10-08] MEDS: Amiodarone 200 MG TAB PO SCH (09:39)
[2019-10-08] MEDS: Clopidogrel Bisulfate 75 MG TAB PO SCH (09:39)
[2019-10-08] MEDS: Apixaban 2.5 MG TAB PO SCH ×2 (09:39→20:54)
[2019-10-08] MEDS: Tamsulosin HCl 0.4 MG CAP PO SCH (09:39)
[2019-10-08] MEDS: Finasteride 5 MG TAB PO SCH (09:39)
[2019-10-08] MEDS: Ferrous Sulfate 325 MG TAB PO SCH (09:40)
[2019-10-08] MEDS: Docusate 100 MG CAP PO SCH ×2 (09:40→20:54)
[2019-10-08] MEDS: Polyethylene Glycol 3350 17 GM Packet PO SCH (09:40)
--- NOTE | 2019-10-08 12:46 | PDOC.HOSPP ---
- Subjective Encounter Date: 10/08/19 Encounter Time: 12:45 Subjective: Mr. Olsen was seen today in follow-up of CHF exacerbation. He says he feels better, and is asking about going home. He denies chest pain and never had any. - Objective Vital Signs & Weight: Vital Signs (12 hours) Temp Pulse Pulse Pulse Resp BP BP 10/08/19 11:45 98 F 65 17 10/08/19 10:19 76 68 129/72 140/65 10/08/19 07:53 97.8 F 66 18 10/08/19 07:10 10/08/19 04:00 97.7 F 68 18 BP BP Pulse Ox 10/08/19 11:45 122/59 L 94 L 10/08/19 10:19 10/08/19 07:53 94/47 L 85/45 L 99 10/08/19 07:10 95 10/08/19 04:00 130/60 95 Weight Weight 220 lb I&O: 10/07/19 10/08/19 10/09/19 06:59 06:59 06:59 Intake Total 468 627 Output Total 250 Balance 468 377 Result Diagrams: 10/08/19 04:18 10/08/19 04:18 Additional Labs: Accuchecks 10/08/19 10/08/19 10:51 05:01 POC Glucose 133 H 91 Hospitalist ROS - Medication Medications: Active Medications Generic Name Dose Route Start Last Admin Trade Name Freq PRN Reason Stop Dose Admin Amiodarone HCl 200 mg 10/08/19 09:00 10/08/19 09:39 Cordarone PO 200 mg DAILY ROCKY Administration Apixaban 2.5 mg 10/08/19 09:00 10/08/19 09:39 Eliquis PO 2.5 mg BID ROCKY Administration Carvedilol 3.125 mg 10/08/19 08:00 10/08/19 09:39 Coreg PO 3.125 mg BID-WM ROCKY Administration Clopidogrel Bisulfate 75 mg 10/08/19 09:00 10/08/19 09:39 Plavix PO 75 mg DAILY ROCKY Administration Docusate Sodium 100 mg 10/08/19 09:00 10/08/19 09:40 Colace PO Not Given BID ROCKY Ferrous Sulfate 325 mg 10/08/19 09:00 10/08/19 09:40 Feosol PO Not Given DAILY ROCKY Finasteride 5 mg 10/08/19 09:00 10/08/19 09:39 Proscar PO 5 mg DAILY ROCKY Administration Furosemide 40 mg 10/08/19 06:00 10/08/19 05:51 Lasix SLOW IVP 40 mg 0600,1400 ROCKY Administration Multivitamins/Minerals 1 tab 10/08/19 09:00 10/08/19 09:38 Ocuvite With Lutein PO 1 tab BID ROCKY Administration Polyethylene Glycol 17 gm 10/08/19 09:00 10/08/19 09:40 Miralax PO Not Given DAILY ROCKY Sodium Chloride 10 ml 10/07/19 18:36 10/07/19 22:29 Flush - Normal Saline IVF 10 ml PRN PRN Administration Saline Flush Tamsulosin HCl 0.4 mg 10/08/19 09:00 10/08/19 09:39 Flomax PO 0.4 mg DAILY ROCKY Administration - Exam Eye: PERRL, anicteric sclera Heart: RRR, murmur present, II/IV Respiratory: CTAB (with the exception of coarse breath sounds at the bases, and some rhonchi) Gastrointestinal: soft (obese), normal bowel sounds, no hepatomegaly, no splenomegaly, distended Extremities: 2+ LE edema (chronic venous stasis changes, and varicose veins bilaterally) Hosp A/P (1) Acute on chronic diastolic heart failure Code(s): I50.33 - ACUTE ON CHRONIC DIASTOLIC (CONGESTIVE) HEART FAILURE Status : Acute (2) Paroxysmal atrial fibrillation Code(s): I48.0 - PAROXYSMAL ATRIAL FIBRILLATION Status: Acute (3) CKD (chronic kidney disease), stage IV Code(s): N18.4 - CHRONIC KIDNEY DISEASE, STAGE 4 (SEVERE) Status: Chronic (4) Chronic anemia Code(s): D64.9 - ANEMIA, UNSPECIFIED Status: Chronic (5) DM2 (diabetes mellitus, type 2) Status: Acute (6) REGINA on CPAP Code(s): G47.33 - OBSTRUCTIVE SLEEP APNEA (ADULT) (PEDIATRIC) Status: Chronic - Plan * Acute CHF exacerbation-patient has clinically improved * Will continue Lasix IV * Await Cardiology evaluation * Will have the defibrillator interrogated * DM- blood glucose is stable * HTN- blood pressure is overall stable- ( some hypotension which has resolved * Disposition as per Cardiology
[2019-10-08] MEDS: Rosuvastatin 20 MG TAB PO SCH (20:54)
--- NOTE | 2019-10-08 23:59 | CON ---
DATE OF CONSULTATION: HISTORY: Randy Olsen is an 78-year-old white male with diastolic heart failure. Please see admission and discharge note from 2 weeks ago for full details. He recently underwent stent placement in the mid right coronary artery between 2 previous stents. He has had multiple admissions for diastolic heart failure. He also has history of atrial fibrillation and had a pacemaker placed earlier this year followed by cardioversion and has not been in atrial fibrillation since. When he is in the hospital, he diuresis fairly well with intravenous Lasix, however, it appears that whenever he is discharged, placed on increasing doses of Lasix that he then retains fluid and is back in the hospital within 2 to 3 weeks. Once he was placed on torsemide, however, that was stopped for unknown reasons. He denies any chest discomfort. He came to the emergency room, received Lasix 40 mg IV, stated his breathing dramatically improved. He states he put out a great amount of urine. However, in looking to the emergency room record, I could not see exactly how much he diuresed. PAST MEDICAL HISTORY: See previous dictation. CURRENT MEDICATIONS: At home include amiodarone 200 mg daily, furosemide 40 b.i.d., Proscar 5 daily, ferrous sulfate 325 daily, Colace 100 mg b.i.d., Plavix 75 daily, carvedilol 3.125 b.i.d., Eliquis 2.5 b.i.d., Flomax 0.4 daily, Crestor 40 mg daily, and MiraLAX. ALLERGIES: NONE. PHYSICAL EXAMINATION: VITAL SIGNS: Blood pressure 128/58, pulse 77. HEENT: PERRL. NECK: Supple. CHEST: Fairly clear. CARDIAC: S1 and S2 normal without any S3 or S4. There is a 2/6 systolic murmur. ABDOMEN: Obese, normal bowel sounds. EXTREMITIES: Reveal 2+ pretibial edema. NEUROLOGIC: Grossly intact. SKIN: Warm and dry. LABORATORY DATA: EKG reveals atrial pacing with left axis deviation and right bundle-branch block. Hemoglobin 9.2, hematocrit 29.3, white count 6000. Sodium 139, potassium 3.7, chloride 105, carbon dioxide 25, BUN 32, creatinine 2.18. Troponin I 0.061. IMPRESSION: 1. Kpe-NI-hlmjywyuw myocardial infarction type 2. 2. Acute on chronic diastolic heart failure, which has been a recurring problem with him. It does not appear that the p.o. furosemide has allowed him to diurese adequately. 3. Restrictive lung disease with FVC of 51%, FEV1 of 50%. 4. Status post coronary artery bypass graft x4 with 3 of 4 grafts patent (right posterior descending graft was occluded since at least April 2015). 5. Status post drug-eluting stent placement in the proximal and distal RCA in April 2015 with continued good results. 6. Bare-metal stent placement in the mid right coronary artery, August 2019. 7. Atrial fibrillation, status post cardioversion after pacemaker placed in May 2019 with no atrial fibrillation seen on the pacemaker since that time. 8. Status post dual-chamber pacemaker placement. 9. Persistent left superior vena cava. 10. Hypertension. 11. Hypercholesterolemia, under good control. 12. Obstructive sleep apnea. 13. Chronic kidney disease. 14. Fxtppvwd-rs-wdmlat mitral regurgitation. PLAN: Mr. Olsen appears to do well when he was treated with intravenous Lasix. However, when he was switched back to p.o. and goes home, he always comes back volume overloaded. I therefore placed him on p.o. torsemide 40 mg b.i.d. starting tomorrow as well as low-dose metolazone to see if he adequately diuresis with these p.o. medications. He may need metolazone every day or may just need to take it once or twice a week. If it appears that he is adequately diuresing on this regimen after a day or so, then hopefully can be discharged in 2 days. The other issue is his mitral regurgitation. I would like to have done a transesophageal echo, however, with recent COVID outbreak, that will need to wait for a period of time. His renal function will be monitored on a daily basis. Job ID: [id number] [facility]
[2019-10-09] MEDS: Furosemide 40 MG/4 ML VIAL SLOW IVP SCH ×2 (06:37→15:17)
[2019-10-09] MEDS: Polyethylene Glycol 3350 17 GM Packet PO SCH (08:47)
[2019-10-09] MEDS: Tamsulosin HCl 0.4 MG CAP PO SCH (08:50)
[2019-10-09] MEDS: Apixaban 2.5 MG TAB PO SCH ×2 (08:50→20:33)
[2019-10-09] MEDS: Amiodarone 200 MG TAB PO SCH (08:50)
[2019-10-09] MEDS: Finasteride 5 MG TAB PO SCH (08:50)
[2019-10-09] MEDS: Clopidogrel Bisulfate 75 MG TAB PO SCH (08:50)
[2019-10-09] MEDS: Carvedilol 3.125 MG TAB PO SCH ×2 (08:50→16:35)
[2019-10-09] MEDS: Vit A,C & E/Lutein/Minerals Tablet PO SCH ×2 (08:50→20:33)
[2019-10-09] MEDS: Docusate 100 MG CAP PO SCH ×2 (08:50→20:32)
[2019-10-09] MEDS: Ferrous Sulfate 325 MG TAB PO SCH (10:32)
--- NOTE | 2019-10-09 12:05 | EKG ---
Test Reason : Blood Pressure : / mmHG Vent. Rate : 066 BPM Atrial Rate : 066 BPM P-R Int : 000 ms QRS Dur : 176 ms QT Int : 470 ms P-R-T Axes : 076 -42 -11 degrees QTc Int : 492 ms Atrial-paced rhythm with prolonged AV conduction Left axis deviation Right bundle branch block Abnormal ECG Confirmed by ISHAN WIGGINS ([id number]), supervising editor news reel LUCY RAMIREZ ([id number]) on 10/09/2019 12:05:29 PM Referred By: Confirmed By:ISHAN Santamaria
[2019-10-09] MEDS ORDERED: Milk Of Magnesia 30 ML UDCUP PO PRN (15:38)
[2019-10-09] MEDS ORDERED: Milk Of Magnesia 30 ML UDCUP PO SCH (15:45)
[2019-10-09] MEDS ORDERED: Senokot S 8.6-50 MG TAB PO SCH (15:45)
--- NOTE | 2019-10-09 18:09 | PDOC.HOSPP ---
- Subjective Encounter Date: 10/09/19 Encounter Time: 15:00 Subjective: Patient seen and examined for CHF. SOB improving. No new complaints. No overnight events - Objective Vital Signs & Weight: Vital Signs (12 hours) Temp Pulse Pulse Pulse Resp BP BP 10/09/19 15:17 97.6 F 68 10/09/19 12:50 66 71 128/60 127/60 10/09/19 11:25 97.9 F 63 10/09/19 08:12 98 F 67 10/09/19 08:03 BP Pulse Ox Pulse Ox Pulse Ox 10/09/19 15:17 109/55 L 97 10/09/19 12:50 94 L 100 10/09/19 11:25 115/61 98 10/09/19 08:12 102/51 L 92 L 10/09/19 08:03 95 Weight Admit Weight 220 lb Weight 219 lb 12.8 oz I&O: 10/08/19 10/09/19 10/10/19 06:59 06:59 06:59 Intake Total 468 1479 473 Output Total 1100 875 Balance 468 379 -402 Result Diagrams: 10/08/19 04:18 10/08/19 04:18 Additional Labs: Accuchecks 10/09/19 10/09/19 16:51 10:50 POC Glucose 100 101 EKG Reviewed by me: Yes (Tele SR) Hospitalist ROS - Review of Systems Respiratory: reports: SOB with excertion. denies: cough, dry, shortness of breath, hemoptysis, pleuritic pain, sputum, wheezing, other Cardiovascular: reports: edema. denies: chest pain, palpitations, orthopnea, paroxysmal noc. dyspnea, light headedness, other Gastrointestinal: denies: nausea, vomiting, abdominal pain, diarrhea, constipation, melena, hematochezia, other - Medication Medications: Active Medications Generic Name Dose Route Start Last Admin Trade Name Freq PRN Reason Stop Dose Admin Amiodarone HCl 200 mg 10/08/19 09:00 10/09/19 08:50 Cordarone PO 200 mg DAILY ROCKY Administration Apixaban 2.5 mg 10/08/19 09:00 10/09/19 08:50 Eliquis PO 2.5 mg BID ROCKY Administration Carvedilol 3.125 mg 10/08/19 08:00 10/09/19 16:35 Coreg PO 3.125 mg BID-WM ROCKY Administration Clopidogrel Bisulfate 75 mg 10/08/19 09:00 10/09/19 08:50 Plavix PO 75 mg DAILY ROCKY Administration Docusate Sodium 100 mg 10/08/19 09:00 10/09/19 08:50 Colace PO 100 mg BID ROCKY Administration Ferrous Sulfate 325 mg 10/08/19 09:00 10/09/19 10:32 Feosol PO Not Given DAILY ROCKY Finasteride 5 mg 10/08/19 09:00 10/09/19 08:50 Proscar PO 5 mg DAILY ROCKY Administration Furosemide 40 mg 10/08/19 06:00 10/09/19 15:17 Lasix SLOW IVP 40 mg 0600,1400 ROCKY Administration Multivitamins/Minerals 1 tab 10/08/19 09:00 10/09/19 08:50 Ocuvite With Lutein PO 1 tab BID ROCKY Administration Polyethylene Glycol 17 gm 10/08/19 09:00 10/09/19 08:47 Miralax PO 17 gm DAILY ROCKY Administration Rosuvastatin Calcium 40 mg 10/08/19 21:00 10/08/19 20:54 Crestor PO 40 mg HS ROCKY Administration Sodium Chloride 10 ml 10/07/19 18:36 10/08/19 20:55 Flush - Normal Saline IVF 10 ml PRN PRN Administration Saline Flush Tamsulosin HCl 0.4 mg 10/08/19 09:00 10/09/19 08:50 Flomax PO 0.4 mg DAILY ROCKY Administration - Exam General Appearance: NAD Heart: RRR, no gallops Respiratory: rales (few rales at bases), rhonchi Gastrointestinal: soft, non-tender, normal bowel sounds Neurological: no new deficit Psychiatric: normal affect, A&O x 3 Hosp A/P - Plan Acute on chronic diastolic HF CAD with recent RCA stent HTN Obesity BMI 34 REGINA on CPAP Mod MR Par Afib - on Eliquis Constipation CKD 4 PLAN: Cont IV Lasix Cont Amiodarone/Coreg On Plavix with Eliquis Cardio input appreciated Cont other meds as above Cont Fluid restriction AM labs
[2019-10-09] MEDS: Simethicone Chewable 80 MG TAB PO SCH ×2 (20:33→23:55)
[2019-10-09] MEDS: Rosuvastatin 20 MG TAB PO SCH (20:33)
[2019-10-10 04:39] VITALS: TEMP 97.4
[2019-10-10 05:02] LABS: Albumin 3.5 g/dL (3.4-4.8); Anion Gap 9 mmol/L (10-20); BUN (Urea Nitrogen) 30 mg/dL (8.4-25.7); BUN/Creatinine Ratio 14.63; Calc. Creatinine Clearance 41 mL/min (70-130); Calcium 10.1 mg/dL (7.8-10.44); Carbon Dioxide 28 mmol/L (23-31); Chloride 105 mmol/L (98-107); Estimated GFR-MDRD 31; Glucose 86 mg/dL (83-110); Magnesium 2.7 mg/dL (1.6-2.6); Phosphorus 3.6 mg/dL (2.3-4.7); Potassium 3.4 mmol/L (3.5-5.1); Sodium 139 mmol/L (136-145)
[2019-10-10] MEDS: Furosemide 40 MG/4 ML VIAL SLOW IVP SCH (06:20)
[2019-10-10] MEDS ORDERED: Potassium Chloride 20 MEQ TAB PO SCH ×2 (08:15→17:00)
[2019-10-10] MEDS ORDERED: Senokot S 8.6-50 MG TAB PO SCH (09:00)
[2019-10-10] MEDS: Apixaban 2.5 MG TAB PO SCH (09:20)
[2019-10-10] MEDS: Carvedilol 3.125 MG TAB PO SCH (09:21)
[2019-10-10] MEDS: Vit A,C & E/Lutein/Minerals Tablet PO SCH (09:21)
[2019-10-10] MEDS: Tamsulosin HCl 0.4 MG CAP PO SCH (09:21)
[2019-10-10] MEDS: Ferrous Sulfate 325 MG TAB PO SCH (09:21)
[2019-10-10] MEDS: Finasteride 5 MG TAB PO SCH (09:21)
[2019-10-10] MEDS: Clopidogrel Bisulfate 75 MG TAB PO SCH (09:21)
[2019-10-10] MEDS: Docusate 100 MG CAP PO SCH (09:22)
[2019-10-10] MEDS: Amiodarone 200 MG TAB PO SCH (09:22)
[2019-10-10] MEDS: Polyethylene Glycol 3350 17 GM Packet PO SCH (09:22)
[2019-10-10] MEDS: Simethicone Chewable 80 MG TAB PO SCH (09:22)
[2019-10-10 11:02] VITALS: BP 132/64
--- NOTE | 2019-10-10 13:56 | DIS ---
DATE OF ADMISSION: 10/07/2019 DATE OF DISCHARGE: 10/10/2019 DISCHARGE DISPOSITION: Home. FOLLOWUP: 1. Follow up with primary care physician, Dr. Mack Carpenter next week as scheduled. 2. Follow up with Dr. Eugene Cruz tomorrow. ALLERGIES: NO KNOWN DRUG ALLERGIES. DISCHARGE MEDICATIONS: Same as admission medication. The patient will clarify further medication adjustment with Dr. Cruz tomorrow. BRIEF HOSPITAL COURSE: The patient is an 78-year-old white male with chronic diastolic heart failure, coronary artery disease with recent RCA stent placement, presented to the emergency room on October 07, 2019, with shortness of breath along with abdominal distention. His workup was consistent with [id number] diastolic heart failure exacerbation. He showed good improvement with IV diuretics. His shortness of breath has significantly improved. He is on room air even on ambulation. The patient has an appointment with Dr. Cruz tomorrsuzanne. He will clarify further medication adjustment with Dr. Cruz tomorrow. FINAL DIAGNOSES: 1. [id number] diastolic heart failure exacerbation. 2. Coronary artery disease, status post recent RCA stent placement. 3. Hypertension. 4. Obesity with a BMI of 34. 5. Obstructive sleep apnea, on CPAP. 6. Moderate mitral regurgitation. 7. Paroxysmal atrial fibrillation, on anticoagulation. 8. Constipation, resolved. 9. Chronic kidney disease, stage 4. 10. Elevated troponin probably due to type 2 myocardial infarction. 11. History of coronary artery bypass grafting. 12. History of dual-chamber pacemaker placement. 13. Severe tricuspid regurgitation. 14. The patient and the family understand the above plan of care. Job ID: [id number]
[2019-10-11] MEDS ORDERED: Metolazone 5 MG TAB PO SCH (08:30)
== END 2019-10-10 11:41 | disposition home or self-care (01) ==
LOC: ERS 14:41 → 2SE 20:12
PROVIDERS: ADMIT Internal Medicine; ATTEND Internal Medicine
DX: I13.0 Hypertensive heart and chronic kidney disease with heart failure and stage 1 through stage 4 chronic kidney disease, or unspecified chronic kidney disease (principal); E11.22 Type 2 diabetes mellitus with diabetic chronic kidney disease; N18.4 Chronic kidney disease, stage 4 (severe); I50.33 Acute on chronic diastolic (congestive) heart failure; D63.1 Anemia in chronic kidney disease; N17.9 Acute kidney failure, unspecified; R10.32 Left lower quadrant pain; R14.0 Abdominal distension (gaseous); I25.10 Atherosclerotic heart disease of native coronary artery without angina pectoris; G47.33 Obstructive sleep apnea (adult) (pediatric); I08.1 Rheumatic disorders of both mitral and tricuspid valves; I48.0 Paroxysmal atrial fibrillation; K59.00 Constipation, unspecified; R79.89 Other specified abnormal findings of blood chemistry; E78.5 Hyperlipidemia, unspecified; D35.02 Benign neoplasm of left adrenal gland; N40.0 Benign prostatic hyperplasia without lower urinary tract symptoms; E78.00 Pure hypercholesterolemia, unspecified; E66.9 Obesity, unspecified; Z68.35 Body mass index [BMI] 35.0-35.9, adult; Z79.01 Long term (current) use of anticoagulants; Z79.02 Long term (current) use of antithrombotics/antiplatelets; Z79.899 Other long term (current) drug therapy; Z95.0 Presence of cardiac pacemaker; Z95.1 Presence of aortocoronary bypass graft; Z95.5 Presence of coronary angioplasty implant and graft
CPT/HCPCS: 71045 ×2; 74176; 80048 ×2; 80069; 82553; 82962 ×3; 83605; 83690; 83735 ×2; 83880; 84484 ×2; 85025; 85610; 93005; 93798 ×3; 96374; 96376 ×3; 99285; G0378 ×5; 36415; 36416; 81003; 81015; 84443; J1940

== ENCOUNTER 2020-04-02 14:15 | Inpatient (IN) | payer MEDICARE, BC ==
[2020-04-02 14:42] LABS: #Eosinphils 0.7 thou/uL (0.0-0.7); #Lymphocytes 0.8 thou/uL (1.20-3.40); #Monocytes 0.7 thou/uL (0.11-0.59); %Eosinophils 9.5 % (0.0-10.0); %Lymphocytes 11.6 % (21.0-51.0); %Monocytes 9.9 % (0.0-10.0); Hemoglobin 9.1 g/dL (14.0-18.0); Mean Corpuscular HGB CONC 33.3 g/dL (32.0-36.0); Mean Corpuscular Hemoglobin 25.5 pg (27.0-31.0); Mean Corpuscular Volume 76.6 fL (78.0-98.0); Mean Platelet Volume 10.1 fL (7.4-10.4); Platelet Count 188 thou/uL (130-400); RBC Distribution Width 15.2 % (11.5-14.5); Red Blood Cell (RBC) Count 3.57 mill/uL (4.70-6.10); White Blood Cell (WBC) Count 7.2 thou/uL (4.8-10.8)
[2020-04-02 15:02] LABS: ALT (SGPT) 11 U/L (8-55); AST (SGOT) 13 U/L (5-34); Albumin 3.8 g/dL (3.4-4.8); Alkaline Phosphatase 118 U/L (40-110); Anion Gap 15 mmol/L (10-20); BUN (Urea Nitrogen) 93 mg/dL (8.4-25.7); Calc. Creatinine Clearance 0 mL/min (70-130); Calcium 10.8 mg/dL (7.8-10.44); Carbon Dioxide 28 mmol/L (23-31); Chloride 95 mmol/L (98-107); Estimated GFR-MDRD 21; Globulin 3.1 g/dL (2.4-3.5); Glucose 103 mg/dL (83-110); Protein, Total 6.9 g/dL (5.8-8.1); Sodium 135 mmol/L (136-145)
[2020-04-02 15:24] LABS: CKMB 1.8 ng/mL (0-6.6)
[2020-04-02] MEDS ORDERED: Furosemide 40 MG/4 ML VIAL ONE (15:45)
[2020-04-02] MEDS ORDERED: Potassium Chloride 20 MEQ TAB ONE (15:45)
[2020-04-02] MEDS ORDERED: Aspirin Chewable 81 MG TAB ONE (15:45)
--- NOTE | 2020-04-02 16:07 | RAD ---
XR Chest 1 View Portable HISTORY: CHF COMPARISON: 10/08/2019 FINDINGS: The heart size remains enlarged. Changes of median sternotomy and right-sided pacemaker dev ice again seen. No pneumothoraces are noted. There is mild pulmonary vascular congestion, left pleural effusion with haziness in the lower lung lynn.
--- NOTE | 2020-04-02 16:10 | PDOC.FPRHP ---
- History of Present Illness Chief Complaint: SOB History of Present Illness: Pt is an 79 yo male with PMH of CAD s/p CABG, HFpEF s/p pacemaker, paroxysmal afib, HTN, HLD, DM (not on meds). and REGINA for increased difficulty breathing. He reports that his SOB has progressively worsened throughout the week and became worse overnight. He also woke up feeling extremely weak and unable to ambulate further than 50 feet. He reports difficulty lying flat. Taking all meds as prescribed, no change in weight, no increased swelling. Watches salt intake. Denies fever, chills, cough, chest pain. ED Course: 40 mg IV Lasix, 40 meq K, Aspirin - Allergies/Adverse Reactions Allergies Allergy/AdvReac Type Severity Reaction Status Date / Time No Known Allergies Allergy Verified 04/19/20 07:26 - Home Medications Medication Instructions Recorded Confirmed Type Finasteride [Proscar] 5 mg PO DAILY 05/21/15 04/18/20 History Tamsulosin HCl [Flomax] 0.4 mg PO DAILY 05/21/15 04/18/20 History Docusate [Colace] 100 mg PO BID 09/20/19 04/18/20 History Polyethylene Glycol 3350 [Miralax] 17 gm PO DAILY 09/20/19 04/18/20 History Apixaban [Eliquis] 2.5 mg PO BID #30 tab 09/24/19 04/18/20 Rx Aspirin [Ecotrin Low Strength] 81 mg PO DAILY 04/02/20 04/18/20 History Atorvastatin Calcium [Lipitor] 40 mg PO DAILY 04/02/20 04/18/20 History Amiodarone [Cordarone] 200 mg PO BID #60 tab 04/07/20 04/18/20 Rx Ferrous Sulfate 325 mg PO DAILY #30 tab 04/07/20 04/18/20 Rx Potassium Chloride [K-Dur] 20 meq PO BID-WM #60 tab 04/07/20 04/18/20 Rx Carvedilol [Coreg] 1.5625 mg PO BID #30 tab 04/08/20 04/18/20 Rx Acetaminophen [Tylenol Regular 650 mg PO Q4H PRN tab 04/21/20 Rx Strength] Bacitracin [Bacitracin Zinc 1 pk TOP DAILYPRN PRN pk 04/21/20 Rx Ointment] Metolazone [Zaroxolyn] 5 mg PO SEEPHYS #8 tab 04/21/20 04/18/20 Rx Torsemide [Demadex] 40 mg PO BID@0900,1400 #120 tab 04/21/20 Rx Vit A,C & E/Lutein/Minerals 1 tab PO BID tab 04/21/20 Rx [Ocuvite With Lutein] - History PMHx: CAD s/p CABG, HFpEF s/p pacemaker, paroxysmal afib, HTN, HLD, DM (not on meds), REGINA PSHx: CABG, Pacemaker, Hernia repair, Bilateral knee replacements FHx: Mother had heart disease Social: beer once every 6 months, denies tobacco/drugs - Review of Systems General: reports: fatigue. denies: fever/chills Eyes: denies: eye pain, vision changes ENT: reports: rhinorrhea. denies: nasal congestion Respiratory: reports: shortness of breath. denies: cough Cardiovascular: reports: edema, orthopnea. denies: chest pain, paroxysmal nocturnal dyspnea Gastrointestinal: denies: nausea, vomiting, abdominal pain Skin: denies: rashes, lesions Musculoskeletal: denies: pain, swelling Neurological: reports: weakness. denies: syncope Psychological: denies: anxiety, depression - Vital signs BP: 94/56 HR: 67 RR: 21 Tmax: 97.8 Pox: 100% on RA Wt: 87 kg - Physical Exam Constitutional: NAD, awake, alert and oriented, well developed HEENT: normocephalic and atraumatic, PERRLA, EOMI, grossly normal vision, MMM -HEENT: hard of hearing Neck: supple, FROM Heart: RRR -Heart: significant systolic murmur -Lungs: Diffuse crackles Abdomen: soft, non-tender, bowel sounds present Musculoskeletal: normal structure, normal tone Neurological: no focal deficit Skin: no rash/lesions, no jaundice Heme/Lymphatic: no purpura, no petechia Psychiatric: normal mood and affect, good judgment and insight, intact recent and remote memory FMR H&P: Results - Labs Result Diagrams: 04/08/20 04:36 04/08/20 04:36 Lab results: WBC 7.2 thou/uL (4.8-10.8) 04/02/20 14:30 Hgb 9.1 g/dL (14.0-18.0) L 04/02/20 14:30 Hct 27.3 % (42.0-52.0) L 04/02/20 14:30 MCV 76.6 fL (78.0-98.0) L 04/02/20 14:30 Plt Count 188 thou/uL (130-400) 04/02/20 14:30 Neutrophils % 69.0 % (42.0-75.0) 04/02/20 14:30 Sodium 135 mmol/L (136-145) L 04/02/20 14:30 Potassium 3.0 mmol/L (3.5-5.1) L 04/02/20 14:30 Chloride 95 mmol/L (98-107) L 04/02/20 14:30 Carbon Dioxide 28 mmol/L (23-31) 04/02/20 14:30 BUN 93 mg/dL (8.4-25.7) H 04/02/20 14:30 Creatinine 2.93 mg/dL (0.7-1.3) H 04/02/20 14:30 Glucose 103 mg/dL (83-110) 04/02/20 14:30 Calcium 10.8 mg/dL (7.8-10.44) H 04/02/20 14:30 Total Bilirubin 1.0 mg/dL (0.2-1.2) 04/02/20 14:30 AST 13 U/L (5-34) 04/02/20 14:30 ALT 11 U/L (8-55) 04/02/20 14:30 Alkaline Phosphatase 118 U/L (40-110) H 04/02/20 14:30 CK-MB (CK-2) 1.8 ng/mL (0-6.6) 04/02/20 14:30 B-Natriuretic Peptide 1765.8 pg/mL (0-100) H 04/02/20 14:30 Serum Total Protein 6.9 g/dL (5.8-8.1) 04/02/20 14:30 Albumin 3.8 g/dL (3.4-4.8) 04/02/20 14:30 - Radiology Interpretation Chest x-ray Status: image reviewed by me, report reviewed by me Additional comment: Heart size remains enlarged. No pneumothoraces. Mild pulmonary vascular congestion, left pleural effusion with haziness in the lower lung lynn. FMR H&P: A/P - Plan CHF Exacerbation -HFpEF with echo in August showing EF of 55-60% -s/p 40 mg IV lasix, 40 meq of K, and aspirin in the ED -Cardiology, Dr. Cruz, consulted from ED: recommended IV lasix, halfing patient's home dose of carvedilol -consider repeat echo -on torsemide and metolazone at home -strict Is and Os, daily weights Likely NSTEMI Type II -no chest pain on exam -EKG: HR 66, paced, no ST changes or evidence of acute infarct -Trop: 0.096, will continue to trend -will admit to tele for further monitoring HFpEF s/p pacemaker -see above -Patient's superintendent distribution: Dr. Cruz -continue home medication CAD s/p CABG -continue home meds of atorvastatin, Eliquis, Carvedilol (at 1/2 of patient's home dose) -Trop: 0.096, will trend x3, see above Hypokalemia -s/p 40 meq in ED -repeat BMP at 1999, will replace as needed Physical Deconditioning -PT/OT consulted Paroxysmal Afib -continue Eliquis and amiodarone HTN -see above regarding carvedilol HLD -continue atorvastatin DM -not on any home medication -mild SSI in place -hypoglycemia protocol in place REGINA -will order CPAP PCP: Dr. Carpenter Code: FULL Diet: HH/CC IVF: SL PPx: Home Eliquis Dispo: will admit to tele for further observation and treatment FMR H&P: Upper Level - Plan Date/Time: 04/02/20 1606 ISaloni, have evaluated this patient and agree with findings/plan as outlined by seo intern resident. Pertinent changes/additions are listed here. 79 yo M presents for SOB and fatigue that has been worsening over the past week. He has a PMH of HFpEF (last echo 2019) with pacemaker, s/p cardiac stents x2 (2014) and CABG, DM2, HTN, CKD, and REGINA. He reports paroxysmal nocturnal dyspnea overnight which made him decide to come in today. He reports his metolazone was increased to 5 mg twice daily 2 weeks ago. He denied fever/chills/cough/palp itations/chest pain, weight gain, swelling in BLE. He reports having increased difficulty walking due to fatigue and SOB, stating he can only walk 20 feet with his walker. In ED he appeared to be in acute CHF exacerbation with elevated BNP and mild pulmonary vascular congestion on CXR. Cardiology Dr. Cruz was consulted, he recommended dose of carvedilol and IV Lasix with no fluid resuscitation for low systolic blood pressure due to the CHF exacerbation. He was given 40 IV Lasix, ASA, and 40 meq K for a K of 3.0. On exam he has crackles at bilateral bases, BP 88/36, R 16, P 81, T 97.6. Mild pitting edema BLE. Satting >92% on RA, looks comfortable sitting up in bed. Strength 5/5 BUE and BLE. Diagnosed with Acute CHF exacerbation. Diurese with Lasix, monitor BPs closely and monitor strict I/Os. Cardiology consulted, appreciate recs from Dr. Cruz, cardiology. Monitor electrolytes, replete K as needed. Trend indeterminate troponin. Trend kidney function, which is near baseline of CKD4. PT/OT consulted. Rosario Perez MD PGY3 Addendum - Attending - Attending Attestation Date/Time: 05/01/20 1002 I personally evaluated the patient and discussed the management with Dr. Moore on 04/02/20. I agree with the History, Examination, Assessment and Plan documented above with any addition or exceptions noted below.
[2020-04-02] MEDS ORDERED: Dextrose 50% Abboject 50 ML SYRINGE SLOW IVP PRN (17:37)
[2020-04-02] MEDS ORDERED: Dextrose 5% in Water 1,000 ML IV PRN (17:37)
[2020-04-02] MEDS ORDERED: HumaLOG 300 UNITS/3 ML VIAL SC PRN ×2 (17:37)
[2020-04-02] MEDS ORDERED: Acetaminophen 325 MG TAB PO PRN (17:39)
[2020-04-02 18:00] LABS: Troponin I 0.102 ng/mL (< 0.028)
[2020-04-02] MEDS: Carvedilol 3.125 MG TAB PO SCH (21:04)
[2020-04-02] MEDS: Docusate 100 MG CAP PO SCH (21:04)
[2020-04-02 21:05] LABS: Anion Gap 16 mmol/L (10-20); BUN (Urea Nitrogen) 92 mg/dL (8.4-25.7); Calc. Creatinine Clearance 0 mL/min (70-130); Calcium 10.4 mg/dL (7.8-10.44); Carbon Dioxide 27 mmol/L (23-31); Chloride 95 mmol/L (98-107); Estimated GFR-MDRD 21; Glucose 110 mg/dL (83-110); Sodium 135 mmol/L (136-145)
[2020-04-02] MEDS: Apixaban 2.5 MG TAB PO SCH (21:05)
[2020-04-02] MEDS: Torsemide 20 MG TAB PO SCH (21:05)
[2020-04-02 21:11] LABS: Potassium 2.9 mmol/L (3.5-5.1); Troponin I 0.086 ng/mL (< 0.028)
[2020-04-02 21:19] VITALS: BMI 30.4
[2020-04-02 21:56] LABS: Hemoglobin A1c 5.3 % (4.0-6.0)
[2020-04-02] MEDS ORDERED: Potassium Chloride 20 MEQ TAB PO SCH ×2 (23:00→23:15)
[2020-04-02] MEDS: Potassium Chloride 20 MEQ TAB PO SCH (23:24)
[2020-04-03] LABS: SARS-CoV-2 MS2 Positive; SARS-CoV-2 N Gene Negative; SARS-CoV-2 S Gene Negative; SARS-CoV-2 by NAA Not Detected (NotDetected); SARS-CoV-2 orf1ab Negative
[2020-04-03] MEDS: Potassium Chloride 20 MEQ TAB PO SCH ×3 (03:01→16:44)
[2020-04-03 04:47] LABS: #Eosinphils 0.9 thou/uL (0.0-0.7); #Lymphocytes 0.8 thou/uL (1.20-3.40); #Monocytes 0.7 thou/uL (0.11-0.59); #Neutrophils 4.2 thou/uL (1.40-6.50); %Basophils 0.6 % (0.0-1.0); %Eosinophils 13.6 % (0.0-10.0); %Lymphocytes 12.3 % (21.0-51.0); %Monocytes 9.9 % (0.0-10.0); %Neutrophils 63.5 % (42.0-75.0); Hemoglobin 8.2 g/dL (14.0-18.0); Mean Corpuscular HGB CONC 32.3 g/dL (32.0-36.0); Mean Corpuscular Hemoglobin 25.1 pg (27.0-31.0); Mean Corpuscular Volume 77.8 fL (78.0-98.0); Mean Platelet Volume 9.9 fL (7.4-10.4); Platelet Count 176 thou/uL (130-400); RBC Distribution Width 15.3 % (11.5-14.5); Red Blood Cell (RBC) Count 3.27 mill/uL (4.70-6.10); White Blood Cell (WBC) Count 6.7 thou/uL (4.8-10.8)
[2020-04-03 04:48] LABS: Hemoglobin 8.3 g/dL (14.0-18.0); Platelet Count 179 thou/uL (130-400)
[2020-04-03 05:04] LABS: Anion Gap 14 mmol/L (10-20); BUN (Urea Nitrogen) 94 mg/dL (8.4-25.7); Calc. Creatinine Clearance 26 mL/min (70-130); Calcium 10.4 mg/dL (7.8-10.44); Carbon Dioxide 25 mmol/L (23-31); Chloride 97 mmol/L (98-107); Estimated GFR-MDRD 22; Glucose 94 mg/dL (83-110); Sodium 133 mmol/L (136-145)
--- NOTE | 2020-04-03 07:57 | PDOC.FM ---
- Subjective Subjective: Patient doing well this morning. Sitting up comfortably on the side of the bed. States he feels much better since coming to the ED. No acute events overnight as per tele. - Objective MAR Reviewed: Yes Vital Signs & Weight: Vital Signs (12 hours) Temp Pulse Resp BP BP Pulse Ox 04/03/20 03:54 98.0 F 66 15 116/61 96 04/02/20 23:16 111/59 L 04/02/20 20:00 97.9 F 71 20 97/52 L 92 L Weight Weight 87.679 kg I&O: 04/02/20 04/03/20 04/04/20 06:59 06:59 06:59 Intake Total 320 Output Total 1350 Balance -1030 Result Diagrams: 04/03/20 04:35 04/03/20 04:35 Phys Exam - Physical Examination Constitutional: NAD HEENT: moist MMs Neck: full ROM Respiratory: no wheezing, no rales, clear to auscultation bilateral Cardiovascular: RRR, no significant murmur Gastrointestinal: soft, non-tender b/l LE trace edema Psychiatric: normal affect, A&O x 3 Deviation from normal: b/l LE venous stasis Dx/Plan - Plan Plan: CHF Exacerbation -HFpEF with echo in August showing EF of 55-60% -s/p 40 mg IV lasix, 40 meq of K, and aspirin in the ED -Cardiology, Dr. Cruz, consulted from ED: recommended IV lasix, halfing patient's home dose of carvedilol -consider repeat echo -on torsemide and metolazone at home -strict Is and Os, daily weights Likely NSTEMI Type II -no chest pain on exam -EKG: HR 66, paced, no ST changes or evidence of acute infarct -Trop: 0.096>.102>.086 -will admit to tele for further monitoring HFpEF s/p pacemaker -see above -Patient's cigar packer: Dr. Cruz -continue home medication CAD s/p CABG -continue home meds of atorvastatin, Eliquis, Carvedilol (at 1/2 of patient's home dose) -Trops, see above Hypokalemia -s/p 40 meq in ED -hold morning Lasix as patient is Euvolemic -will replace as needed Physical Deconditioning -PT/OT consulted Paroxysmal Afib -continue Eliquis and amiodarone HTN -see above regarding carvedilol HLD -continue atorvastatin History of DM -not on any home medication -mild SSI in place -hypoglycemia protocol in place -A1C 5.3 REGINA -will order CPAP PCP: Emily Guerra Code: FULL Diet: HH/CC IVF: SL PPx: Home Eliquis Dispo: will admit to tele for further observation and treatment. Anticipate discharge today pending cardiology recs Addendum - Attending - Attending Attestation Date/Time: 04/03/20 0348 I personally evaluated the patient and discussed the management with Dr. Guerrero. I agree with the History, Examination, Assessment and Plan documented above with any addition or exceptions noted below.
[2020-04-03] MEDS ORDERED: Potassium Chloride 20 MEQ TAB PO SCH (08:00)
[2020-04-03 08:22] LABS: Magnesium 2.8 mg/dL (1.6-2.6); Phosphorus 3.2 mg/dL (2.3-4.7)
[2020-04-03] MEDS ORDERED: Amiodarone 200 MG TAB PO SCH (09:00)
[2020-04-03] MEDS ORDERED: Furosemide 20 MG/2 ML VIAL SLOW IVP SCH (09:00)
[2020-04-03] MEDS: Atorvastatin Calcium 40 MG TAB PO SCH (09:35)
[2020-04-03] MEDS: Aspirin 81 mg Enteric Coated Tablet PO SCH (09:35)
[2020-04-03] MEDS: Apixaban 2.5 MG TAB PO SCH (09:35)
[2020-04-03] MEDS: Tamsulosin HCl 0.4 MG CAP PO SCH (09:37)
[2020-04-03] MEDS: Carvedilol 3.125 MG TAB PO SCH ×2 (09:37→22:06)
[2020-04-03] MEDS: Torsemide 20 MG TAB PO SCH ×2 (09:37→22:07)
[2020-04-03] MEDS: Docusate 100 MG CAP PO SCH ×2 (09:37→22:06)
[2020-04-03] MEDS: Finasteride 5 MG TAB PO SCH (09:37)
[2020-04-03 11:56] LABS: Anion Gap 12 mmol/L (10-20); BUN (Urea Nitrogen) 95 mg/dL (8.4-25.7); Calc. Creatinine Clearance 26 mL/min (70-130); Calcium 10.6 mg/dL (7.8-10.44); Carbon Dioxide 28 mmol/L (23-31); Chloride 96 mmol/L (98-107); Estimated GFR-MDRD 22; Glucose 114 mg/dL (83-110); Potassium 3.4 mmol/L (3.5-5.1); Sodium 133 mmol/L (136-145)
--- NOTE | 2020-04-03 20:24 | CON ---
DATE OF CONSULTATION: HISTORY OF PRESENT ILLNESS: Randy Olsen is an 79-year-old white male whom I have followed since April 2010 when he transferred care to me several months after his bypass surgery. In approximately 2005, he had a stent placed in [place]. In January 2010, he developed progressive dyspnea. He underwent stress test at [facility], which was negative. He also had a stress test at [facility] in [place], which was negative. He then had an episode of syncope at home and was admitted to [facility] in January 2010. He underwent cardiac catheterization by Dr. Schwarz, who worked at [facility] at that time. He was found to have a 90% plus left main calcified stenosis and diffuse coronary artery disease. He underwent emergency CABG x4 with CHARLES to the LAD, saphenous vein graft to the diagonal, obtuse marginal to the right posterior descending on February 02, 2010. The right PDA graft was anastomosed to the side of the diagonal graft. He had a laura postoperative course, having to undergo reoperation due to postoperative bleeding and then developed a left hemothorax. Ultimately, he had a tracheostomy placed due to difficulty weaning from the ventilator. The trach remained in place until April 2010 when it fell out. He also lost weight from 300 pounds down to 233 pounds. After bypass surgery, Mr. Olsen stated that he could walk much better than before. He could walk up to 700 to 800 feet without dyspnea. Prior to surgery, he could only walk 50 to 60 feet without dyspnea. He never did have any chest discomfort prior to CABG. Echocardiogram in April 2010 revealed the study to be technically difficult. Ejection fraction was 50% to 55% with left atrial and left ventricular enlargement, moderate mitral regurgitation, xynb-jf-zvwbwsgu aortic insufficiency, mild tricuspid regurgitation, mild pulmonic regurgitation. He was on amiodarone at that time. This was stopped 3 months after CABG. In May 2010, he was walking 2000 feet. He was admitted in July 2010 with increased shortness of breath when his furosemide was reduced for unclear reasons. Chest x-ray on admission showed bilateral alveolar interstitial parenchymal changes and pleural effusion. With diuresis, his dyspnea improved. He also continued to be followed in the office with somewhat poor cholesterol control until around 2013. In general, he would not complain much of dyspnea during his followup. He was again admitted in April 2015 stating that for one month, he developed progressive exertional dyspnea. He would carry wood from outside and would have to stop and catch his breath. He did not have the problem with dyspnea with activity for the previous 5 years. He denied any chest discomfort. With rest, he would recover in 5 minutes. The night before admission, he awoke at 2:30 in the morning with pressure in his chest and inability to breathe. He continued to remain short of breath for 2 to 3 hours, although the episode of chest tightness only lasted 1 to 2 minutes. With nitroglycerin, his dyspnea significantly improved. He had borderline elevated troponin I as high as 0.264. It is felt that he probably had acute coronary syndrome with increasing dyspnea, which had been his anginal equivalent prior to bypass surgery. He underwent cardiac catheterization on May 23, 2015. There was mild inferobasal hypokinesis with ejection fraction 50% to 55%. The mean aortic-LV gradient was approximately 5 mm. There was a 90% left main, 80% proximal LAD, 80% first diagonal stenosis. There was a 90% ramus stenosis. The circumflex was normal. Right coronary artery had a 99% mid stenosis and a 70% distal stenosis with retrograde filling of the distal right coronary artery from the ramus graft and from the first septal. Bypass grafts revealed patent CHARLES to the LAD, patent vein graft to the ramus (not obtuse marginal), and patent vein graft to the first diagonal. The vein graft to the right posterior descending artery, which was piggybacked onto the diagonal graft was occluded. He underwent PTCA and stent placement of the right coronary artery with placement of a PROMUS 2.5 x 28 mm stent in the distal right coronary artery and PROMUS 3.0 x 20 mm stent in the mid right coronary artery. The mid stent was post dilated with 3.5 mm balloon. After the intervention, he had no further episodes of chest discomfort or shortness of breath. He did have 2 short episodes of second-degree AV block type 1 and was sent home with a 30-day monitor. He returned for followup on June 26, 2015, did not have any further episodes of dyspnea on exertion like he had been having prior to stent placement. He also did not have any significant arrhythmias on 30-day monitor. In October 2015, he complained waking up in middle of night with shortness of breath. He admitted eating a lot of salt and drinking a lot of water the day before. He was given metolazone to take on a p.r.n. basis and he diuresed. With taking metolazone every Friday, his breathing improved. However, his BUN and creatinine were elevated. Metolazone was reduced to every 10 days. In June 2016, he was admitted due to increased shortness of breath and findings of pulmonary vascular congestion and bilateral effusions on chest x-ray. This was after he [place] and had been eating a lot of high sodium foods. He was diuresed and discharged creatinine was 1.22. He was again admitted in October 2016 with diastolic heart failure. He had another episode of diastolic heart failure in July 2018. In May 2019, he was admitted with new-onset atrial fibrillation. He presented with increased shortness of breath, increased lower extremity edema. Despite stopping his carvedilol, he continued to have frequent bradycardic episodes, long pauses with atrial fibrillation, and was felt that a pacemaker needed to be placed prior to electrical cardioversion. At pacemaker insertion, it was found that he had persistent left superior vena cava and the pacemaker was placed via the right subclavian vein. He was placed on Multaq and anticoagulation was started with Eliquis. He then underwent transesophageal echo, which revealed normal left ventricular systolic function, igrtxioa-jk-vjixbr mitral regurgitation. He had no thrombus in the left atrium or left atrial appendage. He underwent electrical cardioversion with return of atrial pacing. He was discharged on Multaq and started to have problems with more fluid accumulation and it was felt this may have been due to the Multaq. That was discontinued, so he was placed on amiodarone. His BUN and creatinine continued to rise. He also had some problems with epistaxis at home, on Eliquis and Plavix, and Plavix was discontinued. Due to creatinine increasing up to 2.99, metolazone was discontinued and torsemide was stopped for 2 days and then reduced to 20 q.a.m. Blood pressure at times has been low and his carvedilol doses had to be gradually tapered downward. He was again admitted on August 04, 2019, after working in the yard with his tiller. He was then trying to sleep with the CPAP, when he became acutely short of breath. He was treated with intravenous Lasix and had some improvement in his breathing. He denied any chest discomfort. Again, it was felt that he had jecft-no-zdgpzyc diastolic heart failure. Torsemide was increased back to 20 b.i.d. He was again admitted on September 11, 2019, with increased shortness of breath. He was diuresed overnight and discharged. He continued to have exertional shortness of breath and underwent cardiac PET scan, which revealed dcoy-fz-qyfoqkpe proximal to distal inferior and apical ischemia. In late August 2019, he was admitted for hydration prior to cardiac catheterization. However, upon arrival for hydration, he complained of significant dyspnea with moving in the room. He had dyspnea at rest. He could not sleep at night with CPAP. It was felt that he need to be diuresed for several days to improve his symptoms prior to catheterization. He ultimately underwent cardiac catheterization. Due to his renal insufficiency, a left ventriculogram was not performed. There was 80% left main, 80% proximal LAD, and 90% first diagonal stenosis. The ramus had a 90% stenosis. Circumflex was small and normal. The right coronary artery had a 20% in-stent proximal RCA stenosis. The distal stent was patent. Between the two stents in the mid RCA, there was 70% and 50% lesions. Due to worsening anemia, finding of low iron and the need for long-term anticoagulation, the decision was made to place a bare-metal stent. Rebel 3.0 x 32 mm stent was placed in mid RCA with reduction of both lesions to 0%. He was observed overnight and discharged. During that hospitalization, his creatinine fell from 2.23 down to 1.78, even though he was diuresed. When he was seen for followup in September 2019, he denied any further episodes of shortness of breath or edema and felt much better after the right coronary artery stent placement. In November 2019 again, denied any significant shortness of breath. At times, his creatinine would be elevated and his metolazone dose will need to be adjusted. He was last seen via telemedicine visit on March 16, 2020, and again he denied any increased shortness of breath. He now is admitted with increased shortness of breath. He denied any chest discomfort. He has not had any significant worsening of his baseline peripheral edema. In the emergency room, he was given intravenous Lasix and his breathing has improved. It is noted that his hemoglobin has dropped over the last 3 weeks. He denies any melena or hematochezia. PAST MEDICAL HISTORY: Bzrgvdti-gv-sdhexf mitral regurgitation on transesophageal echo, atrial fibrillation post CABG in April 2010 and recurrence in May 2019, obstructive sleep apnea, hypercholesterolemia, diabetes, hypertension, obesity. OPERATIONS: Bilateral total knee replacements, stent placed in the right coronary artery after closure of the right posterior descending graft in April 2015, left inguinal hernia repair, CABG with reoperation afterwards for postoperative bleeding, trach placement after CABG due to difficulty weaning from the ventilator, permanent pacemaker placement. MEDICATIONS: 1. Amiodarone 200 mg daily. 2. Eliquis 2.5 b.i.d. 3. Aspirin 81 daily. 4. Atorvastatin 40 daily. 5. Carvedilol 6.25 one-half tablet b.i.d. 6. Colace 100 b.i.d. 7. Ferrous sulfate 325 daily. 8. Proscar 5 mg daily. 9. Zaroxolyn 5 mg every week. 10. Torsemide 20 mg b.i.d. 11. KCl 20 mEq b.i.d. 12. MiraLAX. ALLERGIES: NONE. SOCIAL HISTORY: He does not smoke. He has not had any alcohol in 15 or 16 years. FAMILY HISTORY: Negative for myocardial infarction, CABG, or sudden . REVIEW OF SYSTEMS: A 10-point review of systems is unremarkable. PHYSICAL EXAMINATION: VITAL SIGNS: Blood pressure 89/53, pulse of 67. HEENT: PERRL. NECK: Supple. CHEST: Clear. CARDIAC: S1 and S2 normal without any S3 or S4. There is 2/6 systolic murmur. Carotid upstrokes normal without bruits. ABDOMEN: Normal bowel sounds without tenderness or organomegaly. EXTREMITIES: Reveal trace pretibial edema with chronic stasis changes. NEUROLOGIC: Grossly intact. SKIN: Warm and dry. LABORATORY DATA: EKG reveals ventricular pacing. Hemoglobin 8.3, hematocrit 25.4. 3 weeks ago, his hemoglobin was 10.6, hematocrit 32.7. He does have low RBC indices, platelets 179,000. Sodium 133, potassium 3.4, chloride 96, carbon dioxide 28, BUN 95, creatinine 2.75. Troponin I of 0.102. BNP 1765.8. COVID is negative. IMPRESSION: 1. Pthln-ba-lmhkxxg diastolic heart failure. 2. Progressive dyspnea due to diastolic heart failure. On the day of admission, he did have 13 hours of atrial fibrillation, which started approximately at noon. 3. Atrial fibrillation, status post cardioversion in May 2019. He has continued to have intermittent episodes of atrial fibrillation on his pacemaker, which has significantly increased over the last 3 to 4 weeks and as stated on the day of admission, he had an episode of 13 hours. 4. Anemia with drop in hemoglobin from 10.6 down to 8.3 over the last 3 weeks. He is on Eliquis. He denies any melena or hematochezia. He does have frequent nosebleeds. 5. Status post dual-chamber pacemaker placement. On interrogation of his device, he has been 100% ventricularly paced since mid September 2019, which is somewhat of a change for him. His left ventricular function will need to be reassessed. 6. Status post coronary artery bypass graft x4 with right posterior descending artery graft occluded. 7. History of right coronary artery stenting in April 2015 after closure of the right posterior descending graft as well as in August 2019. 8. Hypercholesterolemia under good control. 9. Hypertension. 10. Obstructive sleep apnea. 11. Chronic pulmonary disease. RECOMMENDATIONS: Eliquis to be discontinued due to his drop in hemoglobin. Stools will be guaiaced. GI will be consulted. Iron and iron-binding capacity will be obtained. Over the last year, he has had progressive drop in his blood pressure requiring significant tapering of the carvedilol. I am concerned that he may be developing worsening left ventricular function now that his ventricle is paced 100% of the time. An echo will be repeated to evaluate this. GI will be consulted in regard to his anemia. Also with increased episodes of atrial fibrillation and 13 hour episode on the day of admission, amiodarone will be increased to 200 mg b.i.d. for approximately 1 month and then back to 200 mg daily. Job ID: [id number] [facility] [place] [facility]
[2020-04-03] MEDS: Amiodarone 200 MG TAB PO SCH (22:06)
[2020-04-04 05:00] LABS: Anion Gap 14 mmol/L (10-20); BUN (Urea Nitrogen) 96 mg/dL (8.4-25.7); Calc. Creatinine Clearance 26 mL/min (70-130); Calcium 10.7 mg/dL (7.8-10.44); Carbon Dioxide 27 mmol/L (23-31); Chloride 98 mmol/L (98-107); Estimated GFR-MDRD 23; Glucose 104 mg/dL (83-110); Iron 19 ug/dL (65-175); Iron Binding Capacity, Total 301 mcg/dL (261-462); Potassium 3.6 mmol/L (3.5-5.1); Sodium 135 mmol/L (136-145)
--- NOTE | 2020-04-04 06:25 | PDOC.FM ---
- Subjective Subjective: Patient resting comfortably in bed. Says he is doing well, no concerns or complaints. No CP, SOB, abdominal pain, dark stools, dizziness. Does endorse frequent nose bleeds. On Eliquis, discontinued by Cardiology. Tolerating PO, and ambulating much better than when he presented to the ED. As per tele, no events overnight - Objective MAR Reviewed: Yes Vital Signs & Weight: Vital Signs (12 hours) Temp Pulse Resp BP Pulse Ox 04/04/20 04:00 97.8 F 61 16 90/55 L 98 04/03/20 20:00 98.8 F 62 18 105/53 L 100 Weight Weight 87.815 kg I&O: 04/02/20 04/03/20 04/04/20 06:59 06:59 06:59 Intake Total 320 1440 Output Total 1350 1070 Balance -1030 370 Result Diagrams: 04/04/20 04:12 04/04/20 04:12 Phys Exam - Physical Examination Constitutional: NAD HEENT: moist MMs Respiratory: no wheezing, clear to auscultation bilateral Cardiovascular: RRR Gastrointestinal: soft, non-tender Musculoskeletal: pulses present trace b/l LE edema Neurological: moves all 4 limbs Psychiatric: A&O x 3 Dx/Plan - Plan Plan: Anemia -patient's hemoglobin has been low between 8-10 since 07/2019 -MCV 77.8 -BPs have been low with 80-110 SBP -has not been tachycardic, denies any dark stools, asymptomatic -Iron studies show low iron, normal ferritin, low % saturation, normal TIBC, mixed picture -peripheral smear, FOBT pending -consider GI consult CHF Exacerbation, resolved -HFpEF with echo in August showing EF of 55-60% -s/p 40 mg IV lasix, 40 meq of K, and aspirin in the ED -Cardiology, Dr. Cruz, consulted from ED: recommended IV lasix, halfing patient's home dose of carvedilol -repeat echo pending, follow up results -on torsemide and metolazone at home -strict Is and Os, daily weights Likely NSTEMI Type II -no chest pain on exam -EKG: HR 66, paced, no ST changes or evidence of acute infarct -Trop: 0.096>.102>.086 -will admit to tele for further monitoring HFpEF s/p pacemaker -see above -Patient's table setter: Dr. Cruz -continue home medication CAD s/p CABG -continue home meds of atorvastatin, Eliquis (held), Carvedilol (at 1/2 of patient's home dose) -Trops, see above Hypokalemia -s/p 40 meq in ED -hold morning Lasix as patient is Euvolemic -will replace as needed Physical Deconditioning -PT/OT consulted Paroxysmal Afib -continue amiodarone -Eliquis held in light of anemia HTN -see above regarding carvedilol HLD -continue atorvastatin History of DM -not on any home medication -mild SSI in place -hypoglycemia protocol in place -A1C 5.3 REGINA -will order CPAP PCP: Emily Guerra Code: FULL Diet: HH/CC IVF: SL PPx: Home Eliquis discontinued by cardiology in light of anemia Dispo: will admit to tele for further observation and treatment. microarray specialist recs Addendum - Attending - Attending Attestation Date/Time: 04/04/20 7026 I personally evaluated the patient and discussed the management with Dr. Guerrero. I agree with the History, Examination, Assessment and Plan documented above with any addition or exceptions noted below. Patient stable. Cardiology on board, wants GI evaluation for possible GI source of anemia. Echo pending. Renal function overall stable.
[2020-04-04 07:10] LABS: Iron 19 ug/dL (65-175); Iron Binding Capacity, Total 300 mcg/dL (261-462)
[2020-04-04 07:30] LABS: Mean Corpuscular HGB CONC 32.7 g/dL (32.0-36.0); Mean Corpuscular Hemoglobin 25.5 pg (27.0-31.0); Mean Corpuscular Volume 77.8 fL (78.0-98.0); Mean Platelet Volume 10.1 fL (7.4-10.4); Platelet Count 168 thou/uL (130-400); RBC Distribution Width 15.3 % (11.5-14.5); Red Blood Cell (RBC) Count 3.15 mill/uL (4.70-6.10); White Blood Cell (WBC) Count 5.9 thou/uL (4.8-10.8)
[2020-04-04 07:34] LABS: Band 1 % (5-11); Eosinophils 16 % (0-10); Lymphocytes 13 % (21-51); Microcytosis SLIGHT = 6-15 cells (100X) (0-5/hpf); Monocytes 12 % (0-10); Myelocyte 1 % (0-0)
[2020-04-04 07:40] LABS: Burr Cells SLIGHT = 2-5 cells (100X) (0-1/hpf); Ovalocytes SLIGHT = 2-5 cells (100X) (0-1/hpf); Platelet Morphology Comment Appears Adequate; Polychromasia SLIGHT = 2-3 cells (100X) (0-2/hpf)
[2020-04-04 07:41] LABS: Neutrophil 54 % (42-75)
[2020-04-04] MEDS: Amiodarone 200 MG TAB PO SCH ×2 (07:45→20:50)
[2020-04-04] MEDS: Aspirin 81 mg Enteric Coated Tablet PO SCH (07:45)
[2020-04-04] MEDS: Potassium Chloride 20 MEQ TAB PO SCH ×2 (07:45→16:40)
[2020-04-04] MEDS: Carvedilol 3.125 MG TAB PO SCH ×2 (07:46→20:50)
[2020-04-04] MEDS: Atorvastatin Calcium 40 MG TAB PO SCH (07:46)
[2020-04-04] MEDS: Docusate 100 MG CAP PO SCH ×2 (07:47→20:52)
[2020-04-04] MEDS: Finasteride 5 MG TAB PO SCH (07:47)
[2020-04-04] MEDS: Tamsulosin HCl 0.4 MG CAP PO SCH (07:47)
[2020-04-04] MEDS: Torsemide 20 MG TAB PO SCH ×2 (07:47→20:54)
[2020-04-04 08:00] LABS: Elliptocytes SLIGHT = 2-5 cells (100X) (0-1/hpf)
[2020-04-04] MEDS: Pantoprazole 40 MG VIAL IVP SCH ×2 (10:37→20:54)
--- NOTE | 2020-04-04 17:30 | CON ---
DATE OF CONSULTATION: 04/04/2020 REQUESTING PHYSICIAN: Eugene Cruz MD REASON FOR CONSULTATION: Anemia and heme-positive stool. HISTORY OF PRESENT ILLNESS: Randy Olsen is a very pleasant 79-year-old man with no significant prior gastrointestinal history, but a significant cardiac history. He was admitted to the hospital two days ago with worsening shortness of breath in the absence of chest pain or worsening lower extremity edema. He is on Eliquis for chronic atrial fibrillation and has a pacemaker/defibrillator with ventricular pacing. Upon admission, it was noted that his hemoglobin was below baseline. It was 10.6 three weeks ago and now is down to 8.3, this morning 8.0. Echocardiogram has been ordered and is still pending today. The patient denies any overt gastrointestinal bleeding. There is no melena or hematochezia. His bowel movements are normal brown in color and regular. There is no hematemesis, nausea, vomiting, or abdominal pain. He was briefly having some episodic left lower quadrant discomfort a few months ago, but nothing recently. He does report he has been having nosebleeds on a fairly frequent basis for several months and more so over the past few weeks. He says bleeding episodes can last anywhere from 1 to 8 hours at a time. He has not seen any ENT doctor that he can recall. He has never undergone EGD or colonoscopy in the past. Eliquis was held since yesterday afternoon. Stool came back heme-positive. PAST MEDICAL HISTORY: Atrial fibrillation, CABG in April 2010, obstructive sleep apnea, hyperlipidemia, diabetes, hypertension, obesity, bilateral total knee replacement, right coronary artery stent in April 2015, left inguinal hernia repair, and pacemaker/defibrillator placement. ALLERGIES: NO KNOWN DRUG ALLERGIES. OUTPATIENT MEDICATIONS: 1. Amiodarone 200 mg daily. 2. Eliquis 2.5 mg b.i.d. 3. Aspirin 81 mg daily. 4. Atorvastatin 40 mg daily. 5. Carvedilol 6.25 one-half tablet twice daily. 6. Colace 100 mg b.i.d. 7. Ferrous sulfate 325 mg daily. 8. Proscar 5 mg daily. 9. Zaroxolyn 5 mg every week. 10. Torsemide 20 mg b.i.d. 11. Potassium chloride 20 mEq b.i.d. 12. MiraLAX p.r.n. SOCIAL HISTORY: No smoking. No alcohol for the past 15 years. FAMILY HISTORY: Negative for gastrointestinal malignancy. REVIEW OF SYSTEMS: Full review of systems including constitutional, head, eyes, ears, nose, throat, GI, , cardiovascular, respiratory, musculoskeletal, and neurologic systems is negative except as noted in the HPI. PHYSICAL EXAMINATION: VITAL SIGNS: Temperature 97.5, pulse 85, blood pressure 107/53, 100% oxygen saturation on room air. GENERAL: Pale, obese, lying in bed comfortably, in no distress. SKIN: He is pale. No jaundice. He has a lot of subcutaneous ecchymoses to the extremities x4. EYES: No scleral icterus. Extraocular movements intact. ENT: Mucous membranes moist. No oral lesions. LYMPH: No submandibular or supraclavicular lymphadenopathy. Thyroid nontender to palpation. HEART: Regular rate and rhythm. LUNGS: Clear to auscultation bilaterally. ABDOMEN: Obese. Bowel sounds present. Soft and nontender to deep palpation throughout. No masses or organomegaly appreciated. EXTREMITIES: No peripheral edema. VESSELS: Radial pulses 2+ bilaterally. NEURO: Cranial nerves 2 through 12 intact bilaterally. No focal deficits. LABORATORY STUDIES: Hemoglobin down to 8.0, MCV low at 77.8, WBC 5.9, and platelets 168. Sodium 135, potassium 3.6, BUN 96, creatinine 2.73, and glucose 103. Ferritin normal at 121.39, iron low at 19, percent saturation low at 6%, and TIBC normal range of 300. Troponin 0.086 and BNP elevated to 1765.8. Total bilirubin 1.0, alkaline phosphatase 118, AST 13, ALT 11, and albumin 3.8. Hemoglobin A1c only 5.3%. IMAGING STUDIES: Echocardiogram is pending. Chest x-ray from admission showed cardiomegaly, median sternotomy, right-sided pacemaker, mild pulmonary vascular congestion, and left pleural effusion. ASSESSMENT AND PLAN: 1. Acute on chronic anemia, microcytic. Note his iron studies are mixed. It looks like he takes oral iron on an outpatient basis, so this could certainly represent iron deficiency. 2. Heme-positive stool. This is not really meaningful in the context of inpatient admission with Eliquis administration. 3. Chronic atrial fibrillation, on Eliquis. Eliquis was held since yesterday afternoon. 4. Congestive heart failure. Echocardiogram is pending. 5. Epistaxis. This has been a significant recurrent issue for him over the past several months, worsening over the past few weeks. 6. I had a long discussion with the patient about the anemia. In terms of overt bleeding, he denies anything except for recurrent episodes of epistaxis, which actually do seem significant over the past few months. This is the most likely explanation for the blood loss component to his anemia. Obviously, we cannot discount the possibility of occult gastrointestinal bleeding lesion either, and he has never undergone upper lower endoscopy that he can recall. I would recommend consideration be given to ENT examination, either inpatient consultation or outpatient referral. From the GI standpoint, it would be reasonable to perform diagnostic upper and lower endoscopy. He would need to be off the Eliquis for 48 hours. To that end, we will give him a diet tonight, but have him on clear liquids tomorrow, in anticipation of bowel preparation tomorrow evening and EGD/colonoscopy the following day. This will also allow for echocardiogram results to come back, and for us to obtain formal cardiac clearance for the procedure. 7. Thank you for the consultation. Please call anytime with questions or concerns. Job ID: [id number]
[2020-04-05 04:43] LABS: #Eosinphils 0.8 thou/uL (0.0-0.7); #Lymphocytes 0.6 thou/uL (1.20-3.40); #Monocytes 0.7 thou/uL (0.11-0.59); #Neutrophils 4.5 thou/uL (1.40-6.50); %Basophils 0.7 % (0.0-1.0); %Eosinophils 12.7 % (0.0-10.0); %Lymphocytes 9.4 % (21.0-51.0); %Monocytes 9.9 % (0.0-10.0); %Neutrophils 67.3 % (42.0-75.0); Hemoglobin 8.2 g/dL (14.0-18.0); Mean Corpuscular HGB CONC 32.1 g/dL (32.0-36.0); Mean Corpuscular Hemoglobin 25.3 pg (27.0-31.0); Mean Corpuscular Volume 78.8 fL (78.0-98.0); Mean Platelet Volume 9.2 fL (7.4-10.4); Platelet Count 169 thou/uL (130-400); RBC Distribution Width 15.4 % (11.5-14.5); Red Blood Cell (RBC) Count 3.22 mill/uL (4.70-6.10); White Blood Cell (WBC) Count 6.7 thou/uL (4.8-10.8)
[2020-04-05 05:00] LABS: Anion Gap 14 mmol/L (10-20); BUN (Urea Nitrogen) 89 mg/dL (8.4-25.7); Calc. Creatinine Clearance 27 mL/min (70-130); Calcium 10.8 mg/dL (7.8-10.44); Carbon Dioxide 27 mmol/L (23-31); Chloride 98 mmol/L (98-107); Estimated GFR-MDRD 23; Glucose 113 mg/dL (83-110); Sodium 136 mmol/L (136-145)
[2020-04-05] MEDS ORDERED: Potassium Chloride 20 MEQ TAB PO SCH (06:15)
--- NOTE | 2020-04-05 06:20 | PDOC.FM ---
- Subjective Subjective: Patient sitting up at the side of the bed this morning. Doing well, no complaints. Ambulating well. Denies CP, SOB. Patient is to undergo bowel prep for colonoscopy and EGD scheduled for tomorrow. - Objective MAR Reviewed: Yes Vital Signs & Weight: Vital Signs (12 hours) Temp Pulse Resp BP Pulse Ox 04/05/20 03:46 97.7 F 65 15 100/53 L 97 04/05/20 03:21 98 04/04/20 23:43 104/54 L 04/04/20 19:19 97.8 F 63 16 97/52 L 100 Weight Weight 87.135 kg I&O: 04/03/20 04/04/20 04/05/20 06:59 06:59 06:59 Intake Total 320 1440 1240 Output Total 1350 1070 1080 Balance -1030 370 160 Result Diagrams: 04/05/20 04:35 04/05/20 04:35 Phys Exam - Physical Examination Constitutional: NAD HEENT: moist MMs Neck: full ROM Respiratory: no wheezing decreased breath sounds on left side Cardiovascular: RRR, no significant murmur Gastrointestinal: soft, non-tender Musculoskeletal: pulses present diffuse trace b/l LE edema Neurological: moves all 4 limbs Psychiatric: A&O x 3 Skin: normal turgor Dx/Plan - Plan Plan: Anemia -patient's hemoglobin has been low between 8-10 since 07/2019 -MCV 77.8 -BPs have been low with 80-110 SBP -has not been tachycardic, denies any dark stools, asymptomatic -Iron studies show low iron, normal ferritin, low % saturation, normal TIBC, mixed picture -peripheral smear likely reactive especially in setting of cardiac issues, FOBT positive for heme -GI consulted, appreciated the recs - plan for EGD and colonoscopy 04/05, will follow up results CHF Exacerbation, resolved -HFpEF with echo in August showing EF of 55-60% -repeat echo showed L pleural effusion, EF 55-60%, severely dilated LA, mitral annular calcification, moderate to severe tricuspid regurg -s/p 40 mg IV lasix, 40 meq of K, and aspirin in the ED -Cardiology, Dr. 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 Cruz -continue home medication CAD s/p CABG -continue home meds of atorvastatin, Eliquis (held), Carvedilol (at 1/2 of patient's home dose) -Trops, see above Hypercalcemia -seems to be chronic -aware, consider outpatient workup Hypokalemia -s/p 40 meq in ED -hold morning Lasix as patient is Euvolemic -will replace as indicated Physical Deconditioning -PT/OT consulted Paroxysmal Afib -continue amiodarone -Eliquis held in light of anemia HTN -see above regarding carvedilol HLD -continue atorvastatin History of DM -not on any home medication -mild SSI in place -hypoglycemia protocol in place -A1C 5.3 REGINA -will order CPAP PCP: Emily Guerra Code: FULL Diet: full liquid for colonoscopy prep IVF: SL PPx: Home Eliquis discontinued by cardiology in light of anemia Dispo: will admit to tele for further observation and treatment. engagement specialist recs Addendum - Attending - Attending Attestation Date/Time: 04/05/20 9610 I personally evaluated the patient and discussed the management with Dr. Guerrero. I agree with the History, Examination, Assessment and Plan documented above with any addition or exceptions noted below.
[2020-04-05] MEDS ORDERED: Metolazone 5 MG TAB PO SCH ×2 (08:00→17:00)
[2020-04-05] MEDS: Aspirin 81 mg Enteric Coated Tablet PO SCH (10:14)
[2020-04-05] MEDS: Torsemide 20 MG TAB PO SCH ×2 (10:14→20:05)
[2020-04-05] MEDS: Carvedilol 3.125 MG TAB PO SCH ×2 (10:14→20:05)
[2020-04-05] MEDS: Atorvastatin Calcium 40 MG TAB PO SCH (10:14)
[2020-04-05] MEDS: Potassium Chloride 20 MEQ TAB PO SCH ×2 (10:14→17:17)
[2020-04-05] MEDS: Docusate 100 MG CAP PO SCH ×2 (10:15→20:05)
[2020-04-05] MEDS: Finasteride 5 MG TAB PO SCH (10:15)
[2020-04-05] MEDS: Amiodarone 200 MG TAB PO SCH ×2 (10:15→20:05)
[2020-04-05] MEDS: Tamsulosin HCl 0.4 MG CAP PO SCH (10:16)
[2020-04-05] MEDS: Pantoprazole 40 MG VIAL IVP SCH ×2 (10:16→20:06)
[2020-04-05] MEDS ORDERED: GoLYTELY 4,000 ml Bottle PO SCH (17:00)
--- NOTE | 2020-04-05 18:51 | PRG ---
DATE OF SERVICE: SUBJECTIVE: Mr. Olsen has no acute complaints today. He has had no blood in the stool or black stools or red stools. No nausea or vomiting. No shortness of breath or chest pain. OBJECTIVE: VITAL SIGNS: Temperature 98.9, pulse 65, blood pressure 90/51 to 106/67. GENERAL: He is in no acute distress. Alert and oriented x3. LUNGS: Clear to auscultation bilaterally. HEART: Regular rate and rhythm without murmur. ABDOMEN: Soft, nontender, and nondistended. Bowel sounds are present. EXTREMITIES: No lower extremity edema. LABORATORY DATA: White blood cell count 6.7, hemoglobin is 8.2, and platelets 169. ASSESSMENT: 1. Chronic microcytic anemia with iron studies most consistent with anemia of chronic disease. 2. Some degree of anemia acute or chronic blood loss on Eliquis with frequent long-lasting nosebleeds. Question of whether or not he could have a GI source for blood loss as well. In light of his need for anticoagulation and his acute on chronic anemia, endoscopy is planned to rule out a bleeding source prior to restarting anticoagulation. He has not had a prior colonoscopy. PLAN: EGD and colonoscopy tomorrow. Dr. Pena will be covering service tomorrow. Job ID: [id number]
[2020-04-06 04:41] LABS: #Eosinphils 0.8 thou/uL (0.0-0.7); #Lymphocytes 0.7 thou/uL (1.20-3.40); #Monocytes 0.5 thou/uL (0.11-0.59); #Neutrophils 5.3 thou/uL (1.40-6.50); %Basophils 0.4 % (0.0-1.0); %Eosinophils 10.9 % (0.0-10.0); %Lymphocytes 9.9 % (21.0-51.0); %Monocytes 6.8 % (0.0-10.0); %Neutrophils 71.9 % (42.0-75.0); Hemoglobin 8.5 g/dL (14.0-18.0); Mean Corpuscular HGB CONC 31.9 g/dL (32.0-36.0); Mean Corpuscular Hemoglobin 25.1 pg (27.0-31.0); Mean Corpuscular Volume 78.6 fL (78.0-98.0); Mean Platelet Volume 9.7 fL (7.4-10.4); Platelet Count 191 thou/uL (130-400); RBC Distribution Width 15.4 % (11.5-14.5); Red Blood Cell (RBC) Count 3.38 mill/uL (4.70-6.10); White Blood Cell (WBC) Count 7.3 thou/uL (4.8-10.8)
[2020-04-06 04:59] LABS: Anion Gap 15 mmol/L (10-20); BUN (Urea Nitrogen) 77 mg/dL (8.4-25.7); Calc. Creatinine Clearance 30 mL/min (70-130); Calcium 10.9 mg/dL (7.8-10.44); Carbon Dioxide 27 mmol/L (23-31); Chloride 97 mmol/L (98-107); Estimated GFR-MDRD 26; Glucose 98 mg/dL (83-110); Sodium 136 mmol/L (136-145)
[2020-04-06 05:02] LABS: Potassium 2.8 mmol/L (3.5-5.1)
[2020-04-06] MEDS ORDERED: Potassium Chloride 20 MEQ in Premix Bag 1 BAG IVPB SCH (05:30)
--- NOTE | 2020-04-06 06:24 | PDOC.FM ---
- Subjective Subjective: Patient sitting up in chair this morning in no acute distress. He says he is doing well this morning and wants to go home. Denies CP, SOB, dizziness. Overnight, tele showed no acute events. - Objective MAR Reviewed: Yes Vital Signs & Weight: Vital Signs (12 hours) Temp Pulse Resp BP Pulse Ox 04/06/20 03:57 98.3 F 62 15 106/56 L 93 L 04/06/20 00:00 60 04/05/20 19:17 97.3 F L 67 18 102/52 L 95 Weight Weight 87.861 kg I&O: 04/04/20 04/05/20 04/06/20 06:59 06:59 06:59 Intake Total 1440 1240 1999 Output Total 1070 1080 Balance 171 528 7883 Result Diagrams: 04/06/20 04:14 04/06/20 04:14 Phys Exam - Physical Examination Constitutional: NAD HEENT: moist MMs Neck: full ROM Respiratory: no wheezing, clear to auscultation bilateral Cardiovascular: RRR Gastrointestinal: soft diffuse b/l LE Neurological: moves all 4 limbs Psychiatric: normal affect, A&O x 3 Dx/Plan - Plan Plan: Anemia -patient's hemoglobin has been low between 8-10 since 07/2019 -MCV 77.8 -BPs have been low with 80-110 SBP -has not been tachycardic, denies any dark stools, asymptomatic -Iron studies show low iron, normal ferritin, low % saturation, normal TIBC, mixed picture -peripheral smear likely reactive especially in setting of cardiac issues, FOBT positive for heme -patient has history of nose bleeds, on Eliquis. Consider outpatient ENT workup -GI consulted, appreciated the recs - plan for EGD and colonoscopy 04/06, will follow up results Hypokalemia -hold Lasix as patient is Euvolemic -will replace as indicated -Mg is normal -continue to monitor with AM BMP and repeat BMP as indicated CHF Exacerbation, resolved -HFpEF with echo in August showing EF of 55-60% -repeat echo showed L pleural effusion, EF 55-60%, severely dilated LA, mitral annular calcification, moderate to severe tricuspid regurg -s/p 40 mg IV lasix, 40 meq of K, and aspirin in the ED -Cardiology, Dr. 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 -continue home medication CAD s/p CABG -continue home meds of atorvastatin, Eliquis (held), Carvedilol (at 1/2 of patient's home dose) -Trops, see above Hypercalcemia -seems to be chronic -aware, consider outpatient workup Physical Deconditioning -PT/OT consulted Paroxysmal Afib -continue amiodarone -Eliquis held in light of anemia HTN -see above regarding carvedilol HLD -continue atorvastatin History of DM -not on any home medication -mild SSI in place -hypoglycemia protocol in place -A1C 5.3 REGINA -will order CPAP PCP: Emily Guerra Code: FULL Diet: full liquid for colonoscopy prep IVF: SL PPx: Home Eliquis discontinued by cardiology in light of anemia Dispo: will admit to tele for further observation and treatment. medical charge entry specialist recs Addendum - Attending - Attending Attestation Date/Time: 04/06/20 3068 I personally evaluated the patient and discussed the management with Dr. Guerrero. I agree with the History, Examination, Assessment and Plan documented above with any addition or exceptions noted below. Feels well. Awaiting endoscopy this morning. Replete K. Cardiology and GI on board.
[2020-04-06] MEDS ORDERED: Potassium Chloride 20 MEQ TAB PO SCH (06:30)
[2020-04-06] MEDS ORDERED: PROPOFOL 200 MG/20 ML VIAL ONE (09:36)
--- NOTE | 2020-04-06 13:01 | OP ---
DATE OF PROCEDURE: 04/06/2020 PROCEDURES PERFORMED: Esophagogastroduodenoscopy (diagnostic), colonoscopy (incomplete). INDICATION FOR PROCEDURE: Anemia. DESCRIPTION OF PROCEDURE: After the risks and benefits of the procedures were explained to the patient including risks of bleeding, infection, perforation, reactions to anesthesia, aspiration, and/or pain, informed consent was obtained. The patient was then taken to the endoscopy suite where deep sedation was administered via propofol and Anesthesia support. Once adequate sedation was achieved, the standard gastroscope was introduced into the mouth with intubation of the esophagus, stomach, and the proximal small intestines with the findings listed below. The patient tolerated this portion of the procedure well and upon conclusion of this portion of the procedure, all equipment was removed and the bed was rotated 180 degrees in anticipation of the colonoscopy. After a digital rectal examination was performed, the standard colonoscope was then introduced into the rectum and advanced to the proximal ascending colon with some difficulty due to the significantly poor colonic preparation. The patient tolerated the procedure well with no immediate perioperative complications. The quality of the prep was poor. On conclusion of the procedure, all equipment was removed from the patient and he was transferred to PACU in satisfactory condition. EGD FINDINGS: Esophagus: Normal-appearing mucosa was seen in the proximal, mid, and distal esophagus. There was no evidence of erosions, ulcerations, mass lesions, or active/recent bleeding. Stomach: Normal-appearing mucosa was seen in the gastric cardia, fundus, and proximal body. However, a 4 to 6 mm erythematous patch was seen in the mid to distal gastric body, but did not exhibit any evidence of active or recent bleeding. Otherwise, normal mucosa was seen in the antrum as well as along the incisura. There was no evidence of erosions, ulcerations, mass lesions, or active/recent bleeding. With this erythematous patch in the gastric body, no biopsies were taken given the higher likelihood of a nonbleeding AVM. Duodenum: Normal-appearing mucosa was seen in both the duodenal bulb and second portion of the duodenum. There was no evidence of erosions, ulcerations, mass lesions, or active/recent bleeding. IMPRESSION: 1. 4 to 6 mm erythematous patch in the gastric body without high-risk stigmata of active or recent bleeding. 2. Otherwise, normal upper endoscopy. COLONOSCOPY FINDINGS: Digital rectal exam: Small external hemorrhoids were seen on external examination with normal sphincter tone palpated. Colon findings: A large amount of retained semi-solid and liquid stool was seen throughout the entire colon, which significantly interfered with visualization of the colonic mucosa. The colonoscope was able to be advanced to the proximal ascending colon with further progression inhibited due to the amount of stool and clogging of the scope with inadequate visualization of any of the colonic mucosa. Of the mucosa seen (approximately 10%), normal-appearing mucosa was seen in the ascending, transverse, descending, sigmoid colon, and rectum. Small internal hemorrhoids were seen on rectal retroflexion. IMPRESSION: 1. Poor colonic preparation significantly interfering with visualization of the mucosa. 2. Small internal and external hemorrhoids (nonbleeding). RECOMMENDATIONS: 1. Would continue to trend the patient's H and H and transfuse as necessary to maintain an H and H of 7/21. 2. Continue to monitor clinically for signs of active GI bleeding. 3. Would place the patient on a clear liquid diet today and reprep for colonoscopy tomorrow in light of need of evaluation of the GI tract prior to being placed back on anticoagulation. 4. Would continue to avoid any anticoagulation. 5. Would defer to the ENT Services for management of his recurrent epistaxis, on anticoagulation. We will continue to follow. Please call with any questions. Job ID: [id number]
[2020-04-06] MEDS: Amiodarone 200 MG TAB PO SCH ×2 (13:43→20:41)
[2020-04-06] MEDS: Carvedilol 3.125 MG TAB PO SCH ×2 (13:43→20:41)
[2020-04-06] MEDS: Atorvastatin Calcium 40 MG TAB PO SCH (13:43)
[2020-04-06] MEDS: Potassium Chloride 20 MEQ TAB PO SCH ×2 (13:43→17:51)
[2020-04-06] MEDS: Aspirin 81 mg Enteric Coated Tablet PO SCH (13:43)
[2020-04-06] MEDS: Docusate 100 MG CAP PO SCH ×2 (13:44→20:41)
[2020-04-06] MEDS: Finasteride 5 MG TAB PO SCH (13:44)
[2020-04-06] MEDS: Torsemide 20 MG TAB PO SCH ×2 (13:45→20:41)
[2020-04-06] MEDS: Pantoprazole 40 MG VIAL IVP SCH ×2 (13:45→20:41)
[2020-04-06] MEDS: Tamsulosin HCl 0.4 MG CAP PO SCH (13:45)
[2020-04-06] MEDS ORDERED: GoLYTELY 4,000 ml Bottle PO SCH (14:20)
[2020-04-06 15:53] LABS: Anion Gap 16 mmol/L (10-20); BUN (Urea Nitrogen) 71 mg/dL (8.4-25.7); Calc. Creatinine Clearance 29 mL/min (70-130); Calcium 11.3 mg/dL (7.8-10.44); Carbon Dioxide 27 mmol/L (23-31); Chloride 99 mmol/L (98-107); Estimated GFR-MDRD 25; Glucose 122 mg/dL (83-110); Potassium 3.3 mmol/L (3.5-5.1); Sodium 139 mmol/L (136-145)
[2020-04-06] MEDS: Polyethylene Glycol 3350 17 GM Packet PO SCH (17:50)
[2020-04-07 04:05] LABS: Hemoglobin 7.7 g/dL (14.0-18.0); Platelet Count 168 thou/uL (130-400)
[2020-04-07 04:06] LABS: #Eosinphils 0.7 thou/uL (0.0-0.7); #Lymphocytes 0.6 thou/uL (1.20-3.40); #Monocytes 0.5 thou/uL (0.11-0.59); #Neutrophils 2.9 thou/uL (1.40-6.50); %Basophils 0.1 % (0.0-1.0); %Lymphocytes 13.2 % (21.0-51.0); %Monocytes 10.5 % (0.0-10.0); %Neutrophils 61.2 % (42.0-75.0); Hemoglobin 7.8 g/dL (14.0-18.0); Mean Corpuscular HGB CONC 32.5 g/dL (32.0-36.0); Mean Corpuscular Hemoglobin 24.9 pg (27.0-31.0); Mean Corpuscular Volume 76.6 fL (78.0-98.0); Mean Platelet Volume 9.3 fL (7.4-10.4); Platelet Count 161 thou/uL (130-400); RBC Distribution Width 15.3 % (11.5-14.5); Red Blood Cell (RBC) Count 3.12 mill/uL (4.70-6.10); White Blood Cell (WBC) Count 4.8 thou/uL (4.8-10.8)
[2020-04-07 04:28] LABS: Anion Gap 15 mmol/L (10-20); BUN (Urea Nitrogen) 62 mg/dL (8.4-25.7); Calc. Creatinine Clearance 32 mL/min (70-130); Calcium 10.7 mg/dL (7.8-10.44); Carbon Dioxide 28 mmol/L (23-31); Chloride 100 mmol/L (98-107); Estimated GFR-MDRD 28; Glucose 90 mg/dL (83-110); Magnesium 2.3 mg/dL (1.6-2.6); Sodium 140 mmol/L (136-145)
[2020-04-07 04:30] LABS: Potassium 2.6 mmol/L (3.5-5.1)
[2020-04-07] MEDS: Potassium Chloride 20 MEQ in Premix Bag 1 BAG IVPB SCH ×2 (05:28→07:24)
--- NOTE | 2020-04-07 06:16 | PDOC.FM ---
- Subjective Subjective: patient doing well this morning. No concerns or complaints. Denies GI sxs, no dark stools, CP, SOB. Ambulating well. No acute events overnight as per tele. - Objective MAR Reviewed: Yes Vital Signs & Weight: Vital Signs (12 hours) Temp Pulse Resp BP BP Pulse Ox 04/07/20 04:00 98.1 F 62 15 122/83 95 04/07/20 00:00 61 04/06/20 19:32 97.5 F L 89 18 114/59 L 96 Weight Weight 85.23 kg I&O: 04/05/20 04/06/20 04/07/20 06:59 06:59 06:59 Intake Total 1240 2000 4000 Output Total 1080 275 250 Balance 160 1725 3750 Result Diagrams: 04/07/20 03:49 04/07/20 03:49 Phys Exam - Physical Examination Constitutional: NAD HEENT: moist MMs Neck: full ROM Respiratory: no wheezing, clear to auscultation bilateral Cardiovascular: RRR Gastrointestinal: soft, non-tender Musculoskeletal: pulses present diffuse edema b/l LE Neurological: moves all 4 limbs Psychiatric: A&O x 3 Dx/Plan - Plan Plan: Anemia -patient's hemoglobin has been low between 8-10 since 07/2019 -MCV 77.8 -BPs have been low with 80-110 SBP -has not been tachycardic, denies any dark stools, asymptomatic -Iron studies show low iron, normal ferritin, low % saturation, normal TIBC, mixed picture -peripheral smear likely reactive especially in setting of cardiac issues, FOBT positive for heme -patient has history of nose bleeds, on Eliquis: -ENT consulted by cardiology, follow up recs -GI consulted, appreciated the recs - 04/06 EGD essentially normal, colonoscopy incomplete due to inadequate prep -04/07 repeat colonoscopy Hypokalemia -hold Lasix as patient is Euvolemic -will replace as indicated -Mg is normal -continue to monitor with AM BMP and repeat BMP as indicated CHF Exacerbation, resolved -HFpEF with echo in August showing EF of 55-60% -repeat echo showed L pleural effusion, EF 55-60%, severely dilated LA, mitral annular calcification, moderate to severe tricuspid regurg -s/p 40 mg IV lasix, 40 meq of K, and aspirin in the ED -Cardiology, Dr. 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 -continue home medication CAD s/p CABG -continue home meds of atorvastatin, Eliquis (held), Carvedilol (at 1/2 of patient's home dose) -Trops, see above Hypercalcemia -seems to be chronic -aware, consider outpatient workup Physical Deconditioning -PT/OT consulted Paroxysmal Afib -continue amiodarone -Eliquis held in light of anemia HTN -see above regarding carvedilol HLD -continue atorvastatin History of DM -not on any home medication -mild SSI in place -hypoglycemia protocol in place -A1C 5.3 REGINA -will order CPAP PCP: Emily Guerra Code: FULL Diet: NPO for colonoscopy today IVF: SL PPx: Home Eliquis discontinued by cardiology in light of anemia Dispo: will admit to tele for further observation and treatment. computer training specialist recs Addendum - Attending - Attending Attestation Date/Time: 04/07/20 9999 I personally evaluated the patient and discussed the management with Dr. Guerrero. I agree with the History, Examination, Assessment and Plan documented above with any addition or exceptions noted below. Patient here for CHF. He obtained euvolemia, but then has been undergoing anemia evaluation by GI and ENT before Cardiology will restart his anticoagulation. This workup is in progress. Will need to monitor for repeat hypervolemia given the 2 doses of bowel prep.
[2020-04-07] MEDS ORDERED: Metolazone 5 MG TAB PO SCH ×2 (08:00→17:00)
[2020-04-07] MEDS: Polyethylene Glycol 3350 17 GM Packet PO SCH (08:58)
[2020-04-07] MEDS ORDERED: Potassium Chloride 20 MEQ in Premix Bag 1 BAG IVPB SCH (10:00)
[2020-04-07] MEDS ORDERED: PHENYLEPHRINE-NS 100 MCG/ML 10 ML SYRINGE ONE (10:41)
[2020-04-07] MEDS ORDERED: Lidocaine 1% PF 5 ML VIAL ONE (10:41)
[2020-04-07] MEDS ORDERED: ePHEDrine 50 MG/ML VIAL ONE (10:41)
[2020-04-07] MEDS ORDERED: PROPOFOL 200 MG/20 ML VIAL ONE (10:42)
--- NOTE | 2020-04-07 11:47 | OP ---
DATE OF PROCEDURE: 04/07/2020 PROCEDURE PERFORMED: Colonoscopy with polypectomy. INDICATIONS FOR PROCEDURE: Anemia with suspected GI source, incomplete colonoscopy yesterday secondary to poor colonic preparation. DESCRIPTION OF PROCEDURE: After the risks and benefits of the procedure were explained to the patient including risks of bleeding, infection, perforation, reactions to anesthesia, aspiration, and/or pain, informed consent was obtained. The patient was then taken to the endoscopy suite where deep sedation was administered via propofol and anesthesia support. After adequate sedation was achieved, a digital rectal examination was performed followed by introduction of the standard colonoscope, which was then advanced to the cecum with [id number] difficulty secondary to tortuosity of the colon and significant looping of the colonoscope that required manual abdominal pressure in order to facilitate advancing of the scope. The quality of the prep was initially fair within the right colon, but converted to a good prep with aggressive irrigation and suctioning. The patient tolerated the procedure well with no immediate perioperative complications. Upon conclusion of the procedure, all equipment was removed from the patient and he was transferred to PACU in satisfactory condition. FINDINGS: Digital rectal exam: Small external hemorrhoids were seen on external examination, but normal sphincter tone. Colon findings: A [id number] amount of difficulty was experienced during the colonoscopy secondary to increased tortuosity of the colon and significant looping of the colonoscope as a result. This required manual abdominal pressure, but cecal intubation was able to be achieved (although terminal ileal intubation was not able to be achieved). Of the mucosa seen, normal-appearing mucosa was seen at the ileocecal valve, appendiceal orifice, and within the cecum itself. Two polyps, measuring 5 mm and 10 mm, were seen in the proximal ascending colon and completely removed with snare cautery polypectomy; however, the smaller polyp was unable to be retrieved. The larger polyp was then placed in a specimen jar for further evaluation. Normal-appearing mucosa was then seen in the distal ascending, transverse, descending, sigmoid colon and rectum. Large internal hemorrhoids were seen on rectal retroflexion. IMPRESSION: 1. Two ascending colon polyps, measuring 5 mm and 10 mm in size, status post snare cautery polypectomy, although only the largest polyp was able to be retrieved. 2. Small external hemorrhoids and large internal hemorrhoids without any evidence of bleeding. 3. No etiology of the patient's anemia was seen during this examination. RECOMMENDATIONS: 1. Would continue to trend the patient's hemoglobin and hematocrit and transfuse as necessary to maintain the hemoglobin and hematocrit of 7/21. 2. Continue to monitor clinically for signs of active GI bleeding. 3. Would avoid any anticoagulation over the next 24 to 48 hours given the polypectomy performed today. 4. Would pursue a non GI source of the patient's anemia given the findings on EGD yesterday and colonoscopy today, (strongly consider anemia from significant recent epistaxis). 5. We would recommend a higher fiber diet given the presence of hemorrhoids. 6. Would have the patient follow up in the GI clinic as needed. Given the lack of evidence of anemia on both the upper and lower endoscopies, we will sign off at this time. Please call with any additional questions. Job ID: [id number]
[2020-04-07] MEDS: Atorvastatin Calcium 40 MG TAB PO SCH (12:00)
[2020-04-07] MEDS: Carvedilol 3.125 MG TAB PO SCH ×2 (12:08→20:42)
[2020-04-07] MEDS: Amiodarone 200 MG TAB PO SCH ×2 (12:08→20:42)
[2020-04-07] MEDS: Torsemide 20 MG TAB PO SCH ×2 (12:09→20:43)
[2020-04-07] MEDS: Docusate 100 MG CAP PO SCH ×2 (12:09→20:43)
[2020-04-07] MEDS: Pantoprazole 40 MG VIAL IVP SCH ×2 (12:09→20:41)
[2020-04-07] MEDS: Potassium Chloride 20 MEQ TAB PO SCH ×2 (12:27→15:33)
[2020-04-07] MEDS: Aspirin 81 mg Enteric Coated Tablet PO SCH (12:28)
[2020-04-07] MEDS: Tamsulosin HCl 0.4 MG CAP PO SCH (12:28)
[2020-04-07] MEDS: Finasteride 5 MG TAB PO SCH (12:28)
[2020-04-07 13:59] LABS: Anion Gap 16 mmol/L (10-20); BUN (Urea Nitrogen) 59 mg/dL (8.4-25.7); Calc. Creatinine Clearance 30 mL/min (70-130); Calcium 11.1 mg/dL (7.8-10.44); Carbon Dioxide 30 mmol/L (23-31); Chloride 98 mmol/L (98-107); Estimated GFR-MDRD 28; Glucose 87 mg/dL (83-110); Sodium 141 mmol/L (136-145)
[2020-04-07 14:03] LABS: Potassium 2.9 mmol/L (3.5-5.1)
[2020-04-07] MEDS ORDERED: Torsemide 20 MG TAB PO SCH (15:15)
[2020-04-07 16:39] LABS: Anion Gap 15 mmol/L (10-20); BUN (Urea Nitrogen) 57 mg/dL (8.4-25.7); Calc. Creatinine Clearance 28 mL/min (70-130); Carbon Dioxide 28 mmol/L (23-31); Chloride 99 mmol/L (98-107); Estimated GFR-MDRD 25; Glucose 136 mg/dL (83-110); Potassium 3.2 mmol/L (3.5-5.1); Sodium 139 mmol/L (136-145)
[2020-04-07] MEDS ORDERED: Potassium Chloride 20 MEQ TAB PO SCH (17:00)
[2020-04-08 05:11] LABS: #Eosinphils 0.9 thou/uL (0.0-0.7); #Lymphocytes 0.7 thou/uL (1.20-3.40); #Monocytes 0.6 thou/uL (0.11-0.59); #Neutrophils 3.6 thou/uL (1.40-6.50); %Basophils 0.1 % (0.0-1.0); %Monocytes 9.9 % (0.0-10.0); Hemoglobin 8.4 g/dL (14.0-18.0); Mean Corpuscular HGB CONC 31.7 g/dL (32.0-36.0); Mean Corpuscular Volume 78.7 fL (78.0-98.0); Mean Platelet Volume 9.5 fL (7.4-10.4); Platelet Count 187 thou/uL (130-400); RBC Distribution Width 15.6 % (11.5-14.5); Red Blood Cell (RBC) Count 3.36 mill/uL (4.70-6.10); White Blood Cell (WBC) Count 5.7 thou/uL (4.8-10.8)
[2020-04-08 05:32] LABS: Anion Gap 13 mmol/L (10-20); BUN (Urea Nitrogen) 56 mg/dL (8.4-25.7); Calc. Creatinine Clearance 30 mL/min (70-130); Calcium 11.1 mg/dL (7.8-10.44); Carbon Dioxide 30 mmol/L (23-31); Chloride 97 mmol/L (98-107); Estimated GFR-MDRD 26; Glucose 107 mg/dL (83-110); Potassium 3.1 mmol/L (3.5-5.1); Sodium 137 mmol/L (136-145)
--- NOTE | 2020-04-08 06:03 | PDOC.FM ---
- Subjective Subjective: Patient is sitting up resting comfortably in chair. He says he feels great and really wants to go home. Tolerating PO, ambulating without difficulty. GI and ENT workup negative and complete. Denies SOB, CP, MALONE, edema. No acute overnight events as per tele. - Objective MAR Reviewed: Yes Vital Signs & Weight: Vital Signs (12 hours) Temp Pulse Resp BP BP Pulse Ox 04/08/20 04:00 97.6 F 63 20 117/58 L 99 04/07/20 19:30 97.8 F 75 16 110/59 L 96 Weight Weight 86.455 kg I&O: 04/06/20 04/07/20 04/08/20 06:59 06:59 06:59 Intake Total 1999 4000 1160 Output Total 275 250 350 Balance 1725 3750 810 Result Diagrams: 04/08/20 04:36 04/08/20 04:36 Phys Exam - Physical Examination Constitutional: NAD HEENT: moist MMs Neck: full ROM Respiratory: no wheezing, clear to auscultation bilateral Cardiovascular: RRR Gastrointestinal: soft, non-tender, positive bowel sounds Musculoskeletal: no edema, pulses present Neurological: moves all 4 limbs Psychiatric: normal affect, A&O x 3 Skin: normal turgor Deviation from normal: venous stasis dermatitis in b/l LE Dx/Plan - Plan Plan: Anemia -patient's hemoglobin has been low between 8-10 since 07/2019 -MCV 77.8 -BPs have been low with 80-110 SBP -has not been tachycardic, denies any dark stools, asymptomatic -Iron studies show low iron, normal ferritin, low % saturation, normal TIBC, mixed picture -peripheral smear likely reactive especially in setting of cardiac issues, FOBT positive for heme -patient has history of nose bleeds, on Eliquis: -ENT consulted by cardiology, follow up recs -s/p cauterization under anesthesia. ENT does not think this is source of ane jeanne -follow up with ENT outpatient -GI consulted, appreciated the recs - 04/06 EGD essentially normal, colonoscopy incomplete due to inadequate prep -04/07 repeat colonoscopy with polyp removal. No obvious source of bleeding. Recommends being off anticoagulation for 24-48 hours Hypokalemia -hold Lasix as patient is Euvolemic -will replace as indicated -Mg is normal -continue to monitor with AM BMP and repeat BMP as indicated CHF Exacerbation, resolved -HFpEF with echo in August showing EF of 55-60% -repeat echo showed L pleural effusion, EF 55-60%, severely dilated LA, mitral annular calcification, moderate to severe tricuspid regurg -s/p 40 mg IV lasix, 40 meq of K, and aspirin in the ED -Cardiology, Dr. 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 -continue home medication CAD s/p CABG -continue home meds of atorvastatin, Eliquis (held), Carvedilol (at 1/2 of patient's home dose) -Trops, see above Hypercalcemia -seems to be chronic -aware, consider outpatient workup Physical Deconditioning -PT/OT consulted Paroxysmal Afib -continue amiodarone -Eliquis held in light of anemia HTN -see above regarding carvedilol HLD -continue atorvastatin History of DM -not on any home medication -mild SSI in place -hypoglycemia protocol in place -A1C 5.3 REGINA -will order CPAP PCP: Emily Guerra Code: FULL Diet: HH IVF: SL PPx: Home Eliquis discontinued by cardiology in light of anemia Dispo: will admit to tele for further observation and treatment. health specialist recs Addendum - Attending - Attending Attestation Date/Time: 04/08/20 3716 I personally evaluated the patient and discussed the management with Dr. Guerrero I agree with the History, Examination, Assessment and Plan documented above with any addition or exceptions noted below.
[2020-04-08] MEDS ORDERED: Potassium Chloride 20 MEQ TAB PO SCH (06:15)
[2020-04-08 07:50] LABS: Magnesium 2.1 mg/dL (1.6-2.6); Phosphorus 2.8 mg/dL (2.3-4.7)
[2020-04-08] MEDS: Tamsulosin HCl 0.4 MG CAP PO SCH (08:36)
[2020-04-08] MEDS: Torsemide 20 MG TAB PO SCH (08:36)
[2020-04-08] MEDS: Polyethylene Glycol 3350 17 GM Packet PO SCH (08:36)
[2020-04-08] MEDS: Carvedilol 3.125 MG TAB PO SCH (08:36)
[2020-04-08] MEDS: Aspirin 81 mg Enteric Coated Tablet PO SCH (08:37)
[2020-04-08] MEDS: Atorvastatin Calcium 40 MG TAB PO SCH (08:37)
[2020-04-08] MEDS: Pantoprazole 40 MG VIAL IVP SCH (08:37)
[2020-04-08] MEDS: Docusate 100 MG CAP PO SCH (08:37)
[2020-04-08] MEDS: Amiodarone 200 MG TAB PO SCH (08:37)
[2020-04-08] MEDS: Finasteride 5 MG TAB PO SCH (08:37)
[2020-04-08] MEDS: Potassium Chloride 20 MEQ TAB PO SCH (08:44)
[2020-04-08 12:11] VITALS: BP 101/54; TEMP 97.5
--- NOTE | 2020-04-08 15:00 | PDOC.CPN ---
- Subjective Date: 04/08/20 Time: 11:15 Interval history: Patient has been officially discharged and waiting on transport. No complaints. - Review of Systems General: denies: fever/chills, weight/appetite/sleep changes, night sweats, fatigue Respiratory: denies: cough, congestion, shortness of breath, exercise intolerance Cardiovascular: denies: chest pain, palpitation, edema, paroxysmal nocturnal dyspnea, orthopnea Gastrointestinal: denies: nausea, vomiting, diarrhea, constipation, abd pain, GI bleeding Musculoskeletal: denies: pain, tenderness, stiffness, swelling, arthritis/arthralgias Neurological: denies: numbness, syncope, seizure, weakness - Objective Allergies/Adverse Reactions: Allergies Allergy/AdvReac Type Severity Reaction Status Date / Time No Known Allergies Allergy Verified 04/02/20 21:26 Vital Signs & Weight: Vital Signs Temp Pulse Resp BP BP Pulse Ox 04/08/20 11:42 97.5 F L 76 16 101/54 L 99 04/08/20 07:31 97.1 F L 79 16 130/62 04/08/20 04:00 97.6 F 63 20 117/58 L 99 Weight 190 lb 9.6 oz - Physical Exam General: alert & oriented x3, appears well, no apparent distress HEENT: mucus membranes moist Neck: supple neck Cardiac: regular rate and rhythm Lungs: no wheeze, rales, rhonchi Neuro: grossly intact Abdomen: soft Extremities: no edema Skin: brusing Musculoskeletal: no pain - Labs Result Diagrams: 04/08/20 04:36 04/08/20 04:36 Troponin/CKMB CK-MB (CK-2) 1.8 ng/mL (0-6.6) 04/02/20 14:30 Troponin I 0.086 ng/mL (< 0.028) H 04/02/20 20:36 - Assessment/Plan Assessment/Plan: 1. Anemia 2. Paroxysmal AF 3. Chronic diastolic CHF 4. s/p pacemaker 5. Hypokalemia Ok to continue holding Eliquis. Will have patient follow-up with [facility] as o utpatient to discuss resuming. Euvolemic. No changes from my standpoint.
--- NOTE | 2020-04-10 02:11 | DIS ---
DATE OF ADMISSION: 04/02/2020 DATE OF DISCHARGE: 04/08/2020 RESIDENT: Radha Guerrero MD, PGY-1. ADMITTING ATTENDING: Dr. Katie Clarke. DISCHARGE ATTENDING: Dr. Roderick Higgins. CONSULTS: Cardiology, ENT, Gastroenterology. PROCEDURES: Include a chest x-ray on 04/02/2020, which showed enlarged heart. Changes of median sternotomy and right-sided pacemaker device again seen. No pneumothoraces are noted. There is mild pulmonary vascular congestion, left pleural effusion with haziness in the lower lung lynn. An echocardiogram on 04/04/2020, which showed a left-sided pleural effusion. Moderately increased left ventricular size. Ejection fraction of 55% to 60%. Moderately enlarged right ventricle cavity. Severely dilated left atrium. Moderately enlarged right atrium. Sclerotic aortic valve. Moderate to severe tricuspid regurgitation. A colonoscopy on 04/07/2020, with polypectomy, which showed two ascending colon polyps measuring 5 mm and 10 mm in size, status post snare cautery polypectomy, although only the largest polyp was able to be retrieved. Small external hemorrhoids and large internal hemorrhoids without any evidence of bleeding. No etiology of the patient's anemia was seen during this examination. An EGD and a failed colonoscopy on 04/06/2020. Colonoscopy was not able to be completed because of a poor prep. EGD showed 4 to 6 mm erythematous patch in the gastric body without high-risk stigmata of active or recent bleeding. Otherwise, normal upper endoscopy. On 04/07/2020, the patient was under anesthesia and was seen by ENT, and some vessels in his nose were cauterized. PRIMARY DIAGNOSIS: Congestive heart failure exacerbation. SECONDARY DIAGNOSES: 1. Anemia. 2. Hypokalemia. 3. [id number] myocardial infarction, type 2. 4. Heart failure with preserved ejection fraction, status post pacemaker. 5. Coronary artery disease, status post coronary artery bypass graft. 6. Hypercalcemia. 7. Physical deconditioning. 8. Paroxysmal atrial fibrillation. 9. Hypertension. 10. Hyperlipidemia. 11. Obstructive sleep apnea. DISCHARGE MEDICATIONS: 1. Amiodarone 200 mg p.o. b.i.d. for 1 month, then 200 mg daily. 2. Potassium chloride 40 mEq in the morning and 20 mEq at night. 3. Carvedilol 1.5625 mg p.o. b.i.d. 4. Flomax 0.4 mg p.o. daily. 5. Finasteride 5 mg p.o. daily. 6. Vitamin C/E/zinc/copper. 7. MiraLAX 17 g p.o. daily. 8. Colace 100 mg p.o. b.i.d. 9. Eliquis 2.5 mg p.o. b.i.d. with instruction to not resume until 48 hours post colonoscopy. 10. Lipitor 40 mg p.o. daily. 11. Aspirin 81 mg p.o. daily. 12. Torsemide 20 mg p.o. b.i.d. 13. Metolazone 5 mg p.o. b.i.d. on Friday and Friday only. 14. Ferrous sulfate 325 mg p.o. every other day taken with vitamin C. Discontinued medications: 1. Amiodarone 200 mg p.o. daily. 2. Carvedilol 3.25mg po b.i.d. HISTORY OF PRESENT ILLNESS/HOSPITAL COURSE: The patient is an 79-year-old man, who presented to the ED with chief complaint of increased difficulty breathing. He states that his shortness of breath progressively worsened throughout the week and it became worse overnight, prompting him to present to the ED. He woke up feeling extremely weak and unable to ambulate further than 50 feet. He had difficulty lying flat. He states that he was taking all his medicines as prescribed. He denies any change in weight and has no increased swelling. The patient states that he watches what he eats including his salt intake. He denies fever, chills, cough, or chest pain. In the ED, the patient was given 40 of Lasix, 40 of potassium, and aspirin. Throughout the patient's hospital stay, he felt greatly improved after Lasix; however, his blood pressures were soft and he was euvolemic, so Lasix was discontinued. He denied any chest pain or shortness of breath after 1 day in the hospital. His blood pressures remained soft in the 90s to 100s or 110s systolic. The patient was never tachycardic or febrile. The patient was anemic throughout his stay. Looking back at the patient's chart, it looks like he has been anemic since about July, but he has had a decrease in his hemoglobin from about 10 to 8. Because of this, ENT and GI were consulted as the patient had positive heme and a fecal occult blood test, and he had a history of excessive nosebleeds ever since starting his Eliquis. During this workup for his anemia, his Eliquis was stopped, and the patient was followed closely with Cardiology, who made given recommendations and did procedures as listed above. EGD and colonoscopy were negative for the patient's source of bleeding along with an ENT source. The patient does have hypercalcemia, so it is suggested that the patient possibly get worked up outpatient for this finding. The patient also had hypokalemia throughout his stay and was replaced several times despite his magnesium being within normal limits. The patient worked with PT and OT, ambulated well, and tolerated p.o. without difficulty. DISPOSITION: Stable. DISCHARGE INSTRUCTIONS: 1. Location: Home. 2. Diet: Heart healthy. 3. Activity: Activity as tolerated. 4. Followup: Follow up with. a. Dr. Eugene Cruz, Cardiology, in [address] Dougie Marley in 7 days. c. Primary care provider, Dr. Carpenter in [place], in 3 days for repeat BMP to make sure the patient's potassium and kidney function are okay. Job ID: [id number] [facility]
== END 2020-04-08 12:08 | disposition home or self-care (01) | DRG 280 ==
LOC: ERS 14:15 → 2NO 15:51
PROVIDERS: ADMIT Family Medicine; ATTEND Family Medicine
PROC: 4B02XSZ Measurement of Cardiac Pacemaker, External Approach (ICD-10-PCS; principal; 2020-03-31)
PROC: 0DJ08ZZ Inspection of Upper Intestinal Tract, Via Natural or Artificial Opening Endoscopic (ICD-10-PCS; 2020-04-06)
PROC: 0DJD8ZZ Inspection of Lower Intestinal Tract, Via Natural or Artificial Opening Endoscopic (ICD-10-PCS; 2020-04-06)
PROC: 0DBK8ZZ Excision of Ascending Colon, Via Natural or Artificial Opening Endoscopic (ICD-10-PCS; 2020-04-07)
DX: I13.0 Hypertensive heart and chronic kidney disease with heart failure and stage 1 through stage 4 chronic kidney disease, or unspecified chronic kidney disease (principal); I50.33 Acute on chronic diastolic (congestive) heart failure; I21.A1 Myocardial infarction type 2; N18.4 Chronic kidney disease, stage 4 (severe); D62 Acute posthemorrhagic anemia; E87.6 Hypokalemia; I25.10 Atherosclerotic heart disease of native coronary artery without angina pectoris; E83.52 Hypercalcemia; I48.0 Paroxysmal atrial fibrillation; E78.5 Hyperlipidemia, unspecified; G47.33 Obstructive sleep apnea (adult) (pediatric); Z20.828 Contact with and (suspected) exposure to other viral communicable diseases; D63.1 Anemia in chronic kidney disease; E11.22 Type 2 diabetes mellitus with diabetic chronic kidney disease; Z96.653 Presence of artificial knee joint, bilateral; E78.00 Pure hypercholesterolemia, unspecified; J44.9 Chronic obstructive pulmonary disease, unspecified; I08.3 Combined rheumatic disorders of mitral, aortic and tricuspid valves; K64.4 Residual hemorrhoidal skin tags; K64.8 Other hemorrhoids; R04.0 Epistaxis; Z79.899 Other long term (current) drug therapy; Z95.0 Presence of cardiac pacemaker; Z95.1 Presence of aortocoronary bypass graft; Z79.01 Long term (current) use of anticoagulants; Z79.82 Long term (current) use of aspirin; Z95.5 Presence of coronary angioplasty implant and graft
CPT/HCPCS: 36415; 36416; 71045; 80048; 80053; 82274; 82553; 82728; 83036; 83540; 83550; 83735; 83880; 84100; 84484; 85014; 85018; 85025; 85049; 85060; 87635; 88305; 93005; 93306; 96374; C9113; J1940; J2704; J3480; J3490; U0003

== ENCOUNTER 2020-04-17 22:10 | Inpatient (IN) | payer MEDICARE, BC ==
[2020-04-17 22:47] LABS: #Eosinphils 0.6 thou/uL (0.0-0.7); #Monocytes 0.6 thou/uL (0.11-0.59); %Basophils 0.3 % (0.0-1.0); %Eosinophils 8.9 % (0.0-10.0); %Lymphocytes 13.5 % (21.0-51.0); %Monocytes 8.8 % (0.0-10.0); %Neutrophils 68.5 % (42.0-75.0); Hemoglobin 8.8 g/dL (14.0-18.0); Mean Corpuscular HGB CONC 31.6 g/dL (32.0-36.0); Mean Corpuscular Hemoglobin 25.3 pg (27.0-31.0); Mean Corpuscular Volume 79.9 fL (78.0-98.0); Mean Platelet Volume 9.9 fL (7.4-10.4); Platelet Count 201 thou/uL (130-400); RBC Distribution Width 18.8 % (11.5-14.5); White Blood Cell (WBC) Count 7.3 thou/uL (4.8-10.8)
--- NOTE | 2020-04-17 23:00 | RAD ---
Portable frontal chest radiograph: 04/17/2020 COMPARISON: 04/15/2020 HISTORY: CHF, shortness of breath FINDINGS: Midline sternotomy wires noted. Stable dual lead transvenous pacing device inserted via a r ight-sided approach. There is hazy interstitial and alveolar opacity in the lung bases and perihilar regions with bibasilar airspace disease and bilateral pleural effusions, left greater than right, similar when compared to chest CT performed 04/16/2020 IMPRESSION: Stable appearance of the chest suggesting pulmonary edema. Infectious pneumonitis cannot be excluded. Follow-up imaging following treatment advised.
[2020-04-17 23:11] LABS: ALT (SGPT) 13 U/L (8-55); AST (SGOT) 13 U/L (5-34); Albumin 3.5 g/dL (3.4-4.8); Alkaline Phosphatase 126 U/L (40-110); Anion Gap 14 mmol/L (10-20); BUN (Urea Nitrogen) 65 mg/dL (8.4-25.7); Bilirubin, Total 0.6 mg/dL (0.2-1.2); Calc. Creatinine Clearance 0 mL/min (70-130); Calcium 10.9 mg/dL (7.8-10.44); Carbon Dioxide 23 mmol/L (23-31); Chloride 103 mmol/L (98-107); Estimated GFR-MDRD 19; Globulin 2.8 g/dL (2.4-3.5); Glucose 108 mg/dL (83-110); Potassium 5.3 mmol/L (3.5-5.1); Protein, Total 6.3 g/dL (5.8-8.1); Sodium 135 mmol/L (136-145)
[2020-04-17 23:34] LABS: CKMB 2.4 ng/mL (0-6.6)
[2020-04-17] MEDS ORDERED: Furosemide 40 MG/4 ML VIAL ONE (23:46)
[2020-04-17 23:53] LABS: Bilirubin Negative (Negative); Blood, Urine Negative (Negative); Clarity Clear (Clear); Glucose, Urine (Dipstick) Normal (Negative); Ketone, Urine Negative (Negative); Leukocyte Negative Leu/uL (Negative); Nitrite Negative (Negative); Protein, Urine (Dipstick) Negative (Neg-Trace); Specific Gravity, Urine 1.009 (1.002-1.036); Urobilinogen Normal mg/dL (Less than 2)
[2020-04-18] MEDS ORDERED: Acetaminophen 325 MG TAB PO PRN (00:47)
--- NOTE | 2020-04-18 00:59 | PDOC.FPRHP ---
- History of Present Illness Chief Complaint: SOB History of Present Illness: Pt is a 79y/o M presents today ED today with SOB. He had recently been discharged 04/08 after admission for CHF exacerbation. He had two ER visits since his latest discharge He also presented to the ED a couple days ago for SOB and it was felt that he was safe for discharge home. According to , patient did have adjustments made to his diuretic however was unsure what adjustments were made. Today he continues to have SOB with rest and inability to lay flat. He denies chest pain, diaphoresis, fever, increased edema. He takes medications as prescribed and has not missed any doses, drinks less than 64oz liquid per day and weighed himself daily and has not noticed increase in his weight. ED Course: 40mg IV lasix - Allergies/Adverse Reactions Allergies Allergy/AdvReac Type Severity Reaction Status Date / Time No Known Allergies Allergy Verified 04/02/20 21:26 - Home Medications Medication Instructions Recorded Confirmed Type Finasteride [Proscar] 5 mg PO DAILY 05/21/15 04/18/20 History Tamsulosin HCl [Flomax] 0.4 mg PO DAILY 05/21/15 04/18/20 History Docusate [Colace] 100 mg PO BID 09/20/19 04/18/20 History Polyethylene Glycol 3350 [Miralax] 17 gm PO DAILY 09/20/19 04/18/20 History Vit C/E/Zn/Coppr/Lutein/Zeaxan 1 capsule PO BID 09/20/19 04/18/20 History [PreserVision Areds 2 Softgel] Apixaban [Eliquis] 2.5 mg PO BID #30 tab 09/24/19 04/18/20 Rx Aspirin [Ecotrin Low Strength] 81 mg PO DAILY 04/02/20 04/18/20 History Atorvastatin Calcium [Lipitor] 40 mg PO DAILY 04/02/20 04/18/20 History Metolazone [Zaroxolyn] 5 mg PO SEEPHYS 04/02/20 04/18/20 History Torsemide 20 mg PO BID 04/02/20 04/18/20 History Amiodarone [Cordarone] 200 mg PO BID #60 tab 04/07/20 04/18/20 Rx Ferrous Sulfate 325 mg PO DAILY #30 tab 04/07/20 04/18/20 Rx Potassium Chloride [K-Dur] 20 meq PO BID-WM #60 tab 04/07/20 04/18/20 Rx Carvedilol [Coreg] 1.5625 mg PO BID #30 tab 04/08/20 04/18/20 Rx - History PMHx: -CAD s/p CABG, pt's [employer] is Dr. Cruz -HTN -DM -[place] -CKD -HFpEF -Paroxysmal Afib PSHx: -CABG, s/p pacemaker, hernia repair, bilateral knee replacements FHx: -Mother with heart disease Social: -Beer once every 6 months, denies tobacco, drugs - Review of Systems General: reports: fatigue. denies: fever/chills, night sweats ENT: denies: nasal congestion, rhinorrhea Respiratory: reports: shortness of breath. denies: cough, congestion Cardiovascular: reports: edema. denies: chest pain, palpitation Gastrointestinal: denies: nausea, vomiting, diarrhea, constipation, abdominal pain Genitourinary: denies: incontinence, dysuria, polyuria, discharge Skin: denies: rashes, jaundice Musculoskeletal: reports: swelling. denies: pain, tenderness Neurological: denies: syncope, seizure Psychological: denies: anxiety, depression - Vital signs BP: 122/63, Pulse: 87, Resp: 22, Temp: 97.5 (Oral), Pain: 0, O2 sat: 96 on (Room Air), Time: 04/17/2020 22:11. - Physical Exam Constitutional: NAD, awake, alert and oriented, well developed HEENT: normocephalic and atraumatic, PERRLA Neck: supple, no LAD Heart: RRR, normal S1/S2, pulses present, other (3/6 systolic murmur) Lungs: CTAB, no respiratory distress, no retractions, other (diffuse crackles) Abdomen: soft, non-tender, bowel sounds present, no masses/distention, no hernias Musculoskeletal: normal structure, other (2+ pitting edema bilaterally) Neurological: no focal deficit, CN II-XII intact Skin: good turgor, capillary refill <2 seconds Psychiatric: normal mood and affect, good judgment and insight, intact recent and remote memory FMR H&P: Results - Labs Result Diagrams: 04/18/20 04:06 04/18/20 04:06 Lab results: WBC 7.3 thou/uL (4.8-10.8) 04/17/20 22:38 Hgb 8.8 g/dL (14.0-18.0) L 04/17/20 22:38 Hct 27.9 % (42.0-52.0) L 04/17/20 22:38 MCV 79.9 fL (78.0-98.0) 04/17/20 22:38 Plt Count 201 thou/uL (130-400) 04/17/20 22:38 Neutrophils % 68.5 % (42.0-75.0) 04/17/20 22:38 Sodium 135 mmol/L (136-145) L 04/17/20 22:38 Potassium 5.3 mmol/L (3.5-5.1) H 04/17/20 22:38 Chloride 103 mmol/L (98-107) 04/17/20 22:38 Carbon Dioxide 23 mmol/L (23-31) 04/17/20 22:38 BUN 65 mg/dL (8.4-25.7) H 04/17/20 22:38 Creatinine 3.11 mg/dL (0.7-1.3) H 04/17/20 22:38 Glucose 108 mg/dL (83-110) 04/17/20 22:38 Calcium 10.9 mg/dL (7.8-10.44) H 04/17/20 22:38 Total Bilirubin 0.6 mg/dL (0.2-1.2) 04/17/20 22:38 AST 13 U/L (5-34) 04/17/20 22:38 ALT 13 U/L (8-55) 04/17/20 22:38 Alkaline Phosphatase 126 U/L (40-110) H 04/17/20 22:38 CK-MB (CK-2) 2.4 ng/mL (0-6.6) 04/17/20 22:34 B-Natriuretic Peptide 1848.2 pg/mL (0-100) H 04/17/20 22:34 Serum Total Protein 6.3 g/dL (5.8-8.1) 04/17/20 22:38 Albumin 3.5 g/dL (3.4-4.8) 04/17/20 22:38 Urine Ketones Negative mg/dL (Negative) 04/17/20 23:12 Urine Blood Negative (Negative) 04/17/20 23:12 Urine Nitrite Negative (Negative) 04/17/20 23:12 Ur Leukocyte Esterase Negative Lucinda/uL (Negative) 04/17/20 23:12 - EKG Interpretation EKG: -no acute ST changes - Radiology Interpretation Chest x-ray Status: report reviewed by me (no acute cardiopulmonary processes, evidence of pulmonary edema) FMR H&P: A/P - Plan ##HFpEF, in exacerbation -ED: s/p 1 dose of 40mg IV lasix, CXR showing pulmonary edema -Labs: BNP 1848, Trop 0.040, will trend -EKG: showed no acute ST changes -Currently saturating 100% on RA -Last echo: 04/04 showed EF of 55-60% -40 IV Lasix BID -Strict I/O and daily weights -Holding home BB and home torsemide ##MELVIN on CKD -Labs: Bun/Resource Development Manager = 65/3.11, seems based on prior admission Resource Development Manager baseline is ~2.2- 2.3 -expect improvement with diuresis -repeat labs in AM ##Mild Hyperkalemia -Labs: K 5.3 -repeat labs in AM ##Anemia -Labs: H/H = 8.8/27.9 -previous iron studies have showed low iron, normal ferritin, low % sat, normal TIBC -s/p colonoscopy on prior admission 04/07 upon which polypectomy was performed on two ascending colon polyps, EGD showed showed an erythematous patch of the gastric body without high risk stigmatic or active recent bleeding -pt also s/p cauterization of bleeding nasal vessels, to be followed by ENT -haptoglobin in AM ##Hypercalcemia -Labs: Ca 10.9 -aware, this seems to be chronic based on prior admission, discussion about outpatient workup was had Chronic Conditions: ##Paroxysmal Afib: continue eliquis and amiodarone. note on amiodarone dosing: on prior admission, Dr. Cruz of cardiology had recommended increasing amiodarone to 200mg bid for 1 month starting on 04/03/20 due to pt's increased episodes of afib, so will continue this ##CAD s/p CABG: continue home meds ##T2DM: not currently on medication, diet and exercise controlled, previous A1C 5.3 ##HTN: continue home meds ##[place] PCP: Dr. Carpenter CODE: Full DIET: HH/CC Dispo: admitted to telemetry for observation FMR H&P: Upper Level - Plan Date/Time: 04/18/2057 Mr Olsen is a 79yo male with pmh of HFpEF who presents with SOB. He was recently discharged on 04/08 after admission for CHF exacerbation. He also presented to the ED a couple days ago for SOB and it was felt that he was safe for discharge home. Today he continues to have SOB with rest and inability to lay flat. He denies chest pain, diaphoresis, fever, increased edema. He takes medications as prescribed and has not missed any doses, drinks less than 64oz liquid per day and weight himself daily and has not noticed increase in wt (195lb). PE: General: NAD, sitting straight up in bed CV: RRR, systolic murmur 3/6 Pulm: CTA b/l Extremities: 2+ pitting edema bilaterally to lower shins A/P: Acute HFpEF exacerbation -No requiring oxygen. CXR with stable pulm edema. BNP 1848. EKG paced with no signs of ischemia. Last echo 04/04: EF 55-60%. s/p 40mg IV Lasix in ED. On torsemide 20mg at home. Will give 40mg Lasix BID, monitor strict I&O and adjust dosing accordingly. Daily wt and fluid restriction. HH diet. Dr Cruz is pts [employer]. Consider consult to Dr Stern. Admit to tele. Hyperkalemia -s/p Lasix, will check BMP in AM. Recently discharged on half dose Coreg. Primary Hyperthyroidism -Elevated TSH in October. Recommend outpt workup Indeterminate Trop -EKG with no signs of acute ischemia, Trop at pts baseline. I, Mere Gan, have evaluated this patient and agree with findings/plan as outlined by internet site designer resident. Pertinent changes/additions are listed here. Addendum - Attending - Attending Attestation Date/Time: 04/18/201936 I personally evaluated the patient and discussed the management with Dr. Johnson. I agree with the History, Examination, Assessment and Plan documented above with any addition or exceptions noted below. The patient admits with worsening shortness of breath. Exam consistent with chf exacerbation. Patient is already feeling better with iv lasix. He requests that Dr. Cruz be notified he is at the hospital. Will continue diuresis. Acute on chronic CKD. Will treand creatinine
[2020-04-18 02:31] LABS: Troponin I 0.034 ng/mL (< 0.028)
[2020-04-18 04:44] LABS: #Eosinphils 0.7 thou/uL (0.0-0.7); #Lymphocytes 0.9 thou/uL (1.20-3.40); #Monocytes 0.8 thou/uL (0.11-0.59); #Neutrophils 4.3 thou/uL (1.40-6.50); %Basophils 0.4 % (0.0-1.0); %Lymphocytes 13.6 % (21.0-51.0); Hemoglobin 8.5 g/dL (14.0-18.0); Mean Corpuscular HGB CONC 31.7 g/dL (32.0-36.0); Mean Corpuscular Hemoglobin 25.3 pg (27.0-31.0); Mean Corpuscular Volume 79.9 fL (78.0-98.0); Platelet Count 177 thou/uL (130-400); RBC Distribution Width 19.2 % (11.5-14.5); Red Blood Cell (RBC) Count 3.34 mill/uL (4.70-6.10); White Blood Cell (WBC) Count 6.8 thou/uL (4.8-10.8)
[2020-04-18 05:06] LABS: Troponin I 0.041 ng/mL (< 0.028)
[2020-04-18 05:07] LABS: ALT (SGPT) 12 U/L (8-55); AST (SGOT) 16 U/L (5-34); Albumin 3.2 g/dL (3.4-4.8); Alkaline Phosphatase 115 U/L (40-110); Anion Gap 15 mmol/L (10-20); BUN (Urea Nitrogen) 63 mg/dL (8.4-25.7); Bilirubin, Total 0.7 mg/dL (0.2-1.2); Calc. Creatinine Clearance 0 mL/min (70-130); Calcium 10.6 mg/dL (7.8-10.44); Carbon Dioxide 23 mmol/L (23-31); Chloride 105 mmol/L (98-107); Estimated GFR-MDRD 20; Globulin 2.7 g/dL (2.4-3.5); Glucose 93 mg/dL (83-110); Potassium 4.7 mmol/L (3.5-5.1); Protein, Total 5.9 g/dL (5.8-8.1); Sodium 138 mmol/L (136-145)
[2020-04-18] MEDS: Furosemide 40 MG/4 ML VIAL SLOW IVP SCH ×2 (06:41→13:52)
[2020-04-18] MEDS: Docusate 100 MG CAP PO SCH ×2 (08:41→21:06)
[2020-04-18] MEDS: Amiodarone 200 MG TAB PO SCH ×2 (08:41→21:07)
[2020-04-18] MEDS: Finasteride 5 MG TAB PO SCH (08:41)
[2020-04-18] MEDS: Potassium Chloride 20 MEQ TAB PO SCH ×2 (08:41→21:07)
[2020-04-18] MEDS: Apixaban 2.5 MG TAB PO SCH ×2 (08:41→21:07)
[2020-04-18] MEDS: Carvedilol 3.125 MG TAB PO SCH ×2 (08:42→21:07)
[2020-04-18] MEDS: Vit A,C & E/Lutein/Minerals Tablet PO SCH ×2 (08:42→21:06)
[2020-04-18] MEDS: Tamsulosin HCl 0.4 MG CAP PO SCH (08:42)
[2020-04-18] MEDS: Aspirin 81 mg Enteric Coated Tablet PO SCH (08:42)
[2020-04-18] MEDS: Polyethylene Glycol 3350 17 GM Packet PO SCH (08:43)
[2020-04-18] MEDS: Ferrous Sulfate 325 MG TAB PO SCH (08:43)
[2020-04-18] MEDS: Atorvastatin Calcium 40 MG TAB PO SCH (08:43)
[2020-04-18 11:36] LABS: SARS-CoV-2 MS2 Positive; SARS-CoV-2 N Gene Negative; SARS-CoV-2 S Gene Negative; SARS-CoV-2 by NAA Not Detected (NotDetected); SARS-CoV-2 orf1ab Negative
--- NOTE | 2020-04-18 22:03 | CON ---
DATE OF CONSULTATION: HISTORY OF PRESENT ILLNESS: Randy Olsen is an 79-year-old white male, well known to me with diastolic heart failure. Please see exhaustive cardiac history from 2 weeks ago. During that admission, he underwent EGD and colonoscopy without significant finding for blood loss. He also had epistaxis and underwent evaluation by ENT with cauterization of an area on the left side. He was diuresed during that admission. He states after he was discharged that he did well at home for five or six days and started getting short of breath again. He came to the emergency room on April 15, was given intravenous Lasix and then sent home. He now returns late last night with increased shortness of breath. He has been given intravenous Lasix, was diuresed and his shortness of breath has improved. However, his creatinine continues to rise up to 3.11. He denies any chest discomfort. PAST MEDICAL HISTORY: [id number] mitral regurgitation on transesophageal echo, atrial fibrillation post CABG in April 2010 and recurrence in May 2019. He has had increased episodes recently on his pacemaker of atrial fibrillation, amiodarone has been increased to 200 mg b.i.d. for one month; obstructive sleep apnea; obesity; hypercholesterolemia; diabetes; hypertension; and anemia. OPERATIONS: Bilateral total knee replacements, stent placed in the right coronary artery after closure of the right posterior descending graft in April 2015. This was re-stented in August 2019, left inguinal hernia repair, CABG with three operations afterwards for postoperative bleeding, trach placement after CABG due to difficulty weaning from the ventilator, and permanent pacemaker placement. MEDICATIONS: 1. Amiodarone 200 mg b.i.d. 2. Eliquis 2.5 mg b.i.d. 3. Aspirin 81 daily. 4. Atorvastatin 40 daily. 5. Carvedilol 1.5625 b.i.d. 6. Colace 100 b.i.d. 7. Ferrous sulfate 325 daily. 8. Proscar 5 mg daily. 9. Zaroxolyn 5 mg twice a week. 10. MiraLAX. 11. K-Dur 20 mEq b.i.d. 12. Flomax 0.4 daily. 13. Torsemide 20 mg b.i.d. ALLERGIES: NONE. SOCIAL HISTORY: He does not smoke. He has not had any alcohol for 15 or 16 years. FAMILY HISTORY: Negative for myocardial infarction, CABG, or sudden . REVIEW OF SYSTEMS: A 10-point review of systems is otherwise unremarkable. PHYSICAL EXAMINATION: VITAL SIGNS: Blood pressure 103/51, pulse is 67. HEENT: PERRL. NECK: Supple. CHEST: Clear. CARDIAC: S1 and S2 normal without any S3 or S4. There is a 2/6 systolic murmur. ABDOMEN: Obese. Normal bowel sounds. No tenderness. EXTREMITIES: Revealed 2+ pretibial edema. NEUROLOGICAL: Grossly intact. LABORATORY DATA: EKG reveals atrial sensed and ventricular paced. Echocardiogram during the last admission showed ejection fraction of 55% to 60%, even though he was paced, moderate left ventricular enlargement, moderate right ventricular enlargement, pacing wire in the right ventricle, severe left atrial enlargement, moderate right atrial enlargement, mitral annular calcification, moderate mitral regurgitation, aortic valve sclerosis, mild aortic insufficiency, and moderate to severe tricuspid regurgitation. Hemoglobin 8.5, hematocrit 26.7, white count 6800, platelets 177,000. Sodium 138, potassium 4.7, chloride 105, carbon dioxide 23, BUN 63, creatinine 3.07. Troponin I 0.041. BNP 1848.2. IMPRESSION: 1. Acute on chronic diastolic heart failure. 2. Paroxysmal atrial fibrillation with still having episodes on the pacemaker. He did undergo cardioversion in May 2019. 3. Anemia. 4. Epistaxis, however, he has not had any since cauterization 2-3 weeks ago. 5. Status post dual-chamber pacemaker placement. He has been 100% ventricularly paced since September 2019, however, he still has normal systolic function on echo. 6. Status post CABG x4 with right posterior descending artery graft occluded. 7. History of right coronary artery stenting in April 2015 after closure of the right posterior descending graft as well as in August 2019. 8. Hypercholesterolemia under good control. 9. Hypertension. 10. Obstructive sleep apnea. 11. Chronic pulmonary disease. PLAN: [facility] will be performed to reassess the burden of atrial fibrillation. He will continue to have intravenous diuretics and probably his torsemide dose needs to be increased chronically. Also, I will ask Dr. Adan Valerio to see him for renal evaluation since he has become increasingly difficult to maintain his fluid balance. Job ID: [id number]
[2020-04-19] MEDS: Furosemide 40 MG/4 ML VIAL SLOW IVP SCH ×2 (06:04→13:52)
--- NOTE | 2020-04-19 06:29 | PDOC.FM ---
- Subjective Subjective: Pt awake and very pleasant to talk with this morning. Was thankful he got to speak with Dr Cruz yesterday. Feels his breathing is better, edema is about the same. - Objective Vital Signs & Weight: Vital Signs (12 hours) Temp Pulse Resp BP BP Pulse Ox 04/19/20 03:49 98.3 F 63 16 95/55 L 97 04/18/20 20:00 98.0 F 82 18 116/57 L 98 Weight Weight 89.448 kg I&O: 04/17/20 04/18/20 04/19/20 06:59 06:59 06:59 Intake Total 840 Output Total 800 Balance 40 Result Diagrams: 04/19/20 06:57 04/19/20 06:57 Phys Exam - Physical Examination Constitutional: NAD Neck: supple, full ROM Respiratory: no wheezing, clear to auscultation bilateral Cardiovascular: RRR systolic murmur best heard at apex Gastrointestinal: soft, non-tender, no distention Musculoskeletal: edema present Neurological: non-focal Psychiatric: normal affect, A&O x 3 Deviation from normal: chronic skin color changes of UE Dx/Plan - Plan Plan: #Acute on chronic diastolic HF -has dual chamber pacemaker, 100% paced -Last echo: 04/04 showed EF of 55-60% -consulted cardiology, Dr Cruz: continue IV lasix, will adjust home meds, consulting scrap picker Dr Valerio -Strict I/O and daily weights -Holding home torsemide #MELVIN on CKD -Bun/Cr 54/2.86, improving -continue diuresis -repeat labs in AM -consulted nephrology, Dr Valerio #Mild Hyperkalemia -resolved, K 4.5 -continue to monitor #Anemia -Labs: H/H = 8.8/27.9 -previous iron studies have showed low iron, normal ferritin, low % sat, normal TIBC -s/p colonoscopy on prior admission 04/07 upon which polypectomy was performed on two ascending colon polyps, EGD showed showed an erythematous patch of the gastric body without high risk stigmatic or active recent bleeding -pt also s/p cauterization of bleeding nasal vessels, to be followed by ENT -haptoglobin in AM -continue home meds #Hypercalcemia -Labs: Ca 10.9 -aware, this seems to be chronic based on prior admission #Paroxysmal Afib -continue eliquis -note on amiodarone dosing: on prior admission, Dr. Cruz of cardiology had recommended increasing amiodarone to 200mg bid for 1 month starting on 04/03/20 due to pt's increased episodes of afib -consult cards: Dr Cruz will interrogate pacemaker #CAD s/p CABG and stents -continue home meds #T2DM: -not currently on medication -diet and exercise controlled, previous A1C 5.3 #HTN: -continue home meds #REGINA -has home CPAP to use at night PCP: Dr. Carpenter CODE: Full DIET: HH/CC Dispo: admitted to telemetry, inpatient, consulted cardiology and nephrology, appreciate recs Addendum - Attending - Attending Attestation Date/Time: 04/19/20 4279 I personally evaluated the patient and discussed the management with Dr. Ritter. I agree with the History, Examination, Assessment and Plan documented above with any addition or exceptions noted below. The patient is sitting up on the side of the bed and does note he feels better. Continue IV lasix. Nephrology is being consulted. Will monitor fluid status. Appreciate specialist recs.
[2020-04-19 07:05] LABS: #Eosinphils 0.6 thou/uL (0.0-0.7); #Lymphocytes 0.7 thou/uL (1.20-3.40); #Monocytes 0.6 thou/uL (0.11-0.59); %Basophils 0.1 % (0.0-1.0); %Eosinophils 9.7 % (0.0-10.0); %Lymphocytes 12.4 % (21.0-51.0); %Neutrophils 67.8 % (42.0-75.0); Hemoglobin 8.6 g/dL (14.0-18.0); Mean Corpuscular HGB CONC 30.1 g/dL (32.0-36.0); Mean Corpuscular Hemoglobin 24.2 pg (27.0-31.0); Mean Corpuscular Volume 80.3 fL (78.0-98.0); Mean Platelet Volume 9.2 fL (7.4-10.4); Platelet Count 171 thou/uL (130-400); RBC Distribution Width 19.4 % (11.5-14.5); Red Blood Cell (RBC) Count 3.56 mill/uL (4.70-6.10); White Blood Cell (WBC) Count 5.9 thou/uL (4.8-10.8)
[2020-04-19 07:26] LABS: Anion Gap 15 mmol/L (10-20); BUN (Urea Nitrogen) 54 mg/dL (8.4-25.7); Calc. Creatinine Clearance 26 mL/min (70-130); Calcium 10.6 mg/dL (7.8-10.44); Carbon Dioxide 23 mmol/L (23-31); Chloride 106 mmol/L (98-107); Estimated GFR-MDRD 21; Glucose 96 mg/dL (83-110); Potassium 4.5 mmol/L (3.5-5.1); Sodium 139 mmol/L (136-145)
[2020-04-19] MEDS: Ferrous Sulfate 325 MG TAB PO SCH (08:44)
[2020-04-19] MEDS: Potassium Chloride 20 MEQ TAB PO SCH ×2 (08:44→20:23)
[2020-04-19] MEDS: Finasteride 5 MG TAB PO SCH (08:44)
[2020-04-19] MEDS: Carvedilol 3.125 MG TAB PO SCH ×2 (08:45→20:23)
[2020-04-19] MEDS: Atorvastatin Calcium 40 MG TAB PO SCH (08:45)
[2020-04-19] MEDS: Tamsulosin HCl 0.4 MG CAP PO SCH (08:45)
[2020-04-19] MEDS: Apixaban 2.5 MG TAB PO SCH ×2 (08:45→20:22)
[2020-04-19] MEDS: Aspirin 81 mg Enteric Coated Tablet PO SCH (08:45)
[2020-04-19] MEDS: Docusate 100 MG CAP PO SCH ×2 (08:45→20:22)
[2020-04-19] MEDS: Amiodarone 200 MG TAB PO SCH ×2 (08:46→20:24)
[2020-04-19] MEDS: Vit A,C & E/Lutein/Minerals Tablet PO SCH ×2 (08:46→20:23)
[2020-04-19] MEDS: Polyethylene Glycol 3350 17 GM Packet PO SCH (08:46)
[2020-04-19] MEDS: Metolazone 5 MG TAB PO SCH ×2 (08:46→20:23)
[2020-04-19] MEDS ORDERED: Bacitracin 1 PK TOP PRN (15:05)
[2020-04-20] MEDS: Furosemide 40 MG/4 ML VIAL SLOW IVP SCH (05:48)
--- NOTE | 2020-04-20 06:13 | PDOC.FM ---
- Subjective Subjective: NAEO. Patient reports he feels well this AM. Walked the halls yesterday & did well. Reports swelling is about the same. - Objective MAR Reviewed: Yes Vital Signs & Weight: Vital Signs (12 hours) Temp Pulse Resp BP Pulse Ox 04/20/20 03:00 97.4 F L 64 18 101/50 L 93 L 04/19/20 20:00 80 17 95/49 L 04/19/20 19:00 80 16 95/49 L Weight Weight 88.649 kg I&O: 04/18/20 04/19/20 04/20/20 06:59 06:59 06:59 Intake Total 1560 994 Output Total 1675 2350 Balance -115 -1356 Result Diagrams: 04/20/20 10:47 04/20/20 10:47 Phys Exam - Physical Examination Constitutional: NAD HEENT: moist MMs Neck: supple, full ROM Respiratory: no wheezing, no rales, no rhonchi, clear to auscultation bilateral Cardiovascular: RRR, no significant murmur Gastrointestinal: soft Musculoskeletal: edema present (mild non-pitting edema in B/L LEs) Neurological: non-focal, moves all 4 limbs Psychiatric: normal affect, A&O x 3 Skin: no rash Dx/Plan (1) Acute exacerbation of CHF (congestive heart failure) Code(s): I50.9 - HEART FAILURE, UNSPECIFIED Status: Acute (2) Afib Code(s): I48.91 - UNSPECIFIED ATRIAL FIBRILLATION Status: Acute (3) Chronic disease anemia Code(s): D63.8 - ANEMIA IN OTHER CHRONIC DISEASES CLASSIFIED ELSEWHERE Status: Acute (4) DM2 (diabetes mellitus, type 2) Status: Acute (5) Paroxysmal atrial fibrillation Code(s): I48.0 - PAROXYSMAL ATRIAL FIBRILLATION Status: Acute (6) BPH (benign prostatic hypertrophy) Code(s): N40.0 - BENIGN PROSTATIC HYPERPLASIA WITHOUT LOWER URINRY TRACT SYMP Status: Chronic (7) CAD (coronary artery disease) Code(s): I25.10 - ATHSCL HEART DISEASE OF [place] CORONARY ARTERY W/O ANG PCTRS Status: Chronic Qualifiers: Coronary Disease-Associated Artery/Lesion type: unspecified vessel or lesion type [place] vs. transplanted heart: [place] heart Associated angina: with unspecified angina Qualified Code(s): I25.119 - Atherosclerotic heart disease of [place] coronary artery with unspecified angina pectoris (8) CKD (chronic kidney disease), stage IV Code(s): N18.4 - CHRONIC KIDNEY DISEASE, STAGE 4 (SEVERE) Status: Chronic (9) HLD (hyperlipidemia) Code(s): E78.5 - HYPERLIPIDEMIA, UNSPECIFIED Status: Chronic (10) REGINA (obstructive sleep apnea) Code(s): G47.33 - OBSTRUCTIVE SLEEP APNEA (ADULT) (PEDIATRIC) Status: Chronic - Plan Plan: #Acute on chronic diastolic HF -has dual chamber pacemaker, 100% paced -Last echo: 04/04 showed EF of 55-60% -Cardiology, Dr Cruz, on board. Appreciate recs. Will continue IV lasix while inpatient & adjust home meds per their recs. -Cards consulted patient's senior international tax manager, Dr. Valerio. Touched based with Dr. Valerio today who reports patient needs dietary counseling to limit his Na & fluid intake at home to optimize his fluid status. Stated this can be done in office if patient is stable for dc home today. -Continue Strict I/O and daily weights -Holding home torsemide pending cards recs #MELVIN on CKDIV, resolved -Cr continues to downtrend, pending level for today. eGFR within baseline range for last few days as well per chart review. -continue diuresis per cards recs #Anemia -Labs: H/H = 8.8/27.9 -previous iron studies have showed low iron, normal ferritin, low % sat, normal TIBC -s/p colonoscopy on prior admission 04/07 upon which polypectomy was performed on two ascending colon polyps, EGD showed showed an erythematous patch of the gastric body without high risk stigmatic or active recent bleeding -pt also s/p cauterization of bleeding nasal vessels, to be followed by ENT -haptoglobin WNLs at 209 -continue home meds #Hypercalcemia -Labs: Ca 10.9-> 10.6 -aware, this seems to be chronic based on prior admission #Paroxysmal Afib -Aware, no events overnight. Continue home eliquis, amio & coreg per cards recs. -Pacemaker interrogated yesterday per cards recs & showed only 1 episode of AF/a fib since 04/05/20. #CAD s/p CABG and stents -continue home meds #T2DM: -not currently on medication -diet and exercise controlled, previous A1C 5.3 #HTN: -continue home meds #[place] -has home CPAP to use at night #Mild Hyperkalemia, resolved PCP: Dr. Carpenter CODE: Full DIET: HH/CC Dispo: Continue diuresing & telemetry monitoring with likely d/c home tomorrow per cards recs. Nephro cleared for d/c with close outpatient follow-up. Addendum - Attending - Attending Attestation Date/Time: 04/20/20 1122 I personally evaluated the patient and discussed the management with Dr. Reyes. I agree with the History, Examination, Assessment and Plan documented above with any addition or exceptions noted below. The patient is improved. His breathing is back to baseline. Pt expressed frustration that he was not seen by Dr. Valerio yesterday. Team will try to coordinate with nephrology.
[2020-04-20] MEDS: Aspirin 81 mg Enteric Coated Tablet PO SCH (09:53)
[2020-04-20] MEDS: Carvedilol 3.125 MG TAB PO SCH ×2 (09:53→21:13)
[2020-04-20] MEDS: Docusate 100 MG CAP PO SCH ×2 (09:53→21:13)
[2020-04-20] MEDS: Tamsulosin HCl 0.4 MG CAP PO SCH (09:53)
[2020-04-20] MEDS: Apixaban 2.5 MG TAB PO SCH ×2 (09:53→21:14)
[2020-04-20] MEDS: Ferrous Sulfate 325 MG TAB PO SCH (09:54)
[2020-04-20] MEDS: Atorvastatin Calcium 40 MG TAB PO SCH (09:54)
[2020-04-20] MEDS: Amiodarone 200 MG TAB PO SCH ×2 (09:54→21:13)
[2020-04-20] MEDS: Vit A,C & E/Lutein/Minerals Tablet PO SCH ×2 (09:54→21:14)
[2020-04-20] MEDS: Finasteride 5 MG TAB PO SCH (09:54)
[2020-04-20] MEDS: Potassium Chloride 20 MEQ TAB PO SCH (09:54)
[2020-04-20] MEDS: Polyethylene Glycol 3350 17 GM Packet PO SCH (09:54)
[2020-04-20] MEDS ORDERED: Metolazone 5 MG TAB PO SCH (10:15)
[2020-04-20 11:19] LABS: #Eosinphils 0.5 thou/uL (0.0-0.7); #Lymphocytes 0.7 thou/uL (1.20-3.40); #Monocytes 0.5 thou/uL (0.11-0.59); #Neutrophils 4.1 thou/uL (1.40-6.50); %Basophils 0.7 % (0.0-1.0); %Eosinophils 8.4 % (0.0-10.0); %Lymphocytes 11.2 % (21.0-51.0); %Monocytes 8.7 % (0.0-10.0); Hemoglobin 9.1 g/dL (14.0-18.0); Mean Corpuscular HGB CONC 30.1 g/dL (32.0-36.0); Mean Corpuscular Hemoglobin 24.7 pg (27.0-31.0); Mean Platelet Volume 9.1 fL (7.4-10.4); Platelet Count 178 thou/uL (130-400); RBC Distribution Width 19.8 % (11.5-14.5); Red Blood Cell (RBC) Count 3.68 mill/uL (4.70-6.10); White Blood Cell (WBC) Count 5.8 thou/uL (4.8-10.8)
[2020-04-20 11:20] LABS: Anion Gap 14 mmol/L (10-20); BUN (Urea Nitrogen) 53 mg/dL (8.4-25.7); Calc. Creatinine Clearance 25 mL/min (70-130); Calcium 10.5 mg/dL (7.8-10.44); Carbon Dioxide 25 mmol/L (23-31); Chloride 103 mmol/L (98-107); Estimated GFR-MDRD 21; Glucose 107 mg/dL (83-110); Potassium 3.3 mmol/L (3.5-5.1); Sodium 139 mmol/L (136-145)
[2020-04-20] MEDS: Torsemide 20 MG TAB PO SCH (13:29)
[2020-04-20] MEDS ORDERED: Potassium Chloride 20 MEQ TAB PO SCH (21:00)
[2020-04-21 04:12] LABS: #Eosinphils 0.6 thou/uL (0.0-0.7); #Lymphocytes 0.8 thou/uL (1.20-3.40); #Monocytes 0.6 thou/uL (0.11-0.59); #Neutrophils 3.8 thou/uL (1.40-6.50); %Basophils 0.3 % (0.0-1.0); %Lymphocytes 13.3 % (21.0-51.0); %Neutrophils 65.5 % (42.0-75.0); Hemoglobin 8.6 g/dL (14.0-18.0); Mean Corpuscular Hemoglobin 25.4 pg (27.0-31.0); Mean Corpuscular Volume 79.5 fL (78.0-98.0); Mean Platelet Volume 9.8 fL (7.4-10.4); Platelet Count 180 thou/uL (130-400); RBC Distribution Width 19.1 % (11.5-14.5); Red Blood Cell (RBC) Count 3.38 mill/uL (4.70-6.10); White Blood Cell (WBC) Count 5.9 thou/uL (4.8-10.8)
[2020-04-21 04:28] LABS: Anion Gap 13 mmol/L (10-20); BUN (Urea Nitrogen) 55 mg/dL (8.4-25.7); Calc. Creatinine Clearance 26 mL/min (70-130); Calcium 10.4 mg/dL (7.8-10.44); Carbon Dioxide 27 mmol/L (23-31); Chloride 102 mmol/L (98-107); Estimated GFR-MDRD 22; Glucose 92 mg/dL (83-110); Potassium 3.4 mmol/L (3.5-5.1); Sodium 139 mmol/L (136-145)
--- NOTE | 2020-04-21 07:11 | PDOC.FM ---
- Subjective Subjective: NAEO. Patient sitting up on edge of bed eating breakfast. No complaints. Anxious to get home today. Reports he had good diuresis yesterday and overnight. - Objective MAR Reviewed: Yes Vital Signs & Weight: Vital Signs (12 hours) Temp Pulse Resp BP Pulse Ox 04/21/20 03:13 97.3 F L 72 20 110/58 L 95 04/20/20 20:53 97.9 F 83 18 105/55 L 100 Weight Weight 84.595 kg I&O: 04/20/20 04/21/20 04/22/20 06:59 06:59 06:59 Intake Total 994 658 Output Total 2350 2450 Balance -4585 -5202 Result Diagrams: 04/21/20 03:48 04/21/20 03:48 Phys Exam - Physical Examination Constitutional: NAD HEENT: moist MMs Neck: supple, full ROM Respiratory: no wheezing, no rales, no rhonchi, clear to auscultation bilateral Cardiovascular: RRR, no significant murmur Musculoskeletal: edema present (trace edema in B/L LEs noted) Neurological: non-focal, moves all 4 limbs Psychiatric: normal affect, A&O x 3 Skin: no rash, normal turgor Dx/Plan (1) Acute exacerbation of CHF (congestive heart failure) Code(s): I50.9 - HEART FAILURE, UNSPECIFIED Status: Acute (2) Afib Code(s): I48.91 - UNSPECIFIED ATRIAL FIBRILLATION Status: Acute (3) Chronic disease anemia Code(s): D63.8 - ANEMIA IN OTHER CHRONIC DISEASES CLASSIFIED ELSEWHERE Status: Acute (4) DM2 (diabetes mellitus, type 2) Status: Acute (5) Paroxysmal atrial fibrillation Code(s): I48.0 - PAROXYSMAL ATRIAL FIBRILLATION Status: Acute (6) BPH (benign prostatic hypertrophy) Code(s): N40.0 - BENIGN PROSTATIC HYPERPLASIA WITHOUT LOWER URINRY TRACT SYMP Status: Chronic (7) CAD (coronary artery disease) Code(s): I25.10 - ATHSCL HEART DISEASE OF [place] CORONARY ARTERY W/O ANG PCTRS Status: Chronic Qualifiers: Coronary Disease-Associated Artery/Lesion type: unspecified vessel or lesion type [place] vs. transplanted heart: [place] heart Associated angina: with unspecified angina Qualified Code(s): I25.119 - Atherosclerotic heart disease of [place] coronary artery with unspecified angina pectoris (8) CKD (chronic kidney disease), stage IV Code(s): N18.4 - CHRONIC KIDNEY DISEASE, STAGE 4 (SEVERE) Status: Chronic (9) HLD (hyperlipidemia) Code(s): E78.5 - HYPERLIPIDEMIA, UNSPECIFIED Status: Chronic (10) REGINA (obstructive sleep apnea) Code(s): G47.33 - OBSTRUCTIVE SLEEP APNEA (ADULT) (PEDIATRIC) Status: Chronic - Plan Plan: #Acute on chronic diastolic HF -has dual chamber pacemaker, 100% paced -Last echo: 04/04 showed EF of 55-60% -Cardiology, Dr Cruz, on board. Appreciate recs. Cleared for dc home today on 40mg torsemide BID rather than 20 & metolazone 2x/week. -Cards consulted patient's dynamite packing machine operator, Dr. Valerio. Touched based with Dr. Valerio yesterday who reports patient needs dietary counseling to limit his Na & fluid intake at home to optimize his fluid status. Stated this can be done in office. -Continue torsemide per cards w/ Strict I/O and daily weights. #MELVIN on CKDIV, resolved -Cr continues to downtrend. eGFR within baseline range for last few days as well per chart review. -continue diuresis per cards recs #Anemia -Labs: H/H = 8.8/27.9 on admission & have remained in this range since. -previous iron studies have showed low iron, normal ferritin, low % sat, normal TIBC -s/p colonoscopy on prior admission 04/07 upon which polypectomy was performed on two ascending colon polyps, EGD showed showed an erythematous patch of the gastric body without high risk stigmatic or active recent bleeding -pt also s/p cauterization of bleeding nasal vessels, to be followed by ENT -haptoglobin WNLs at 209 -continue home meds #Hypercalcemia, resolved -Labs: Ca 10.9-> 10.6--> 10.4 -aware, this seems to be chronic based on prior admission #Paroxysmal Afib -Aware, no events overnight. Continue home eliquis, amio & coreg per cards recs. -Pacemaker interrogated yesterday per cards recs & showed only 1 episode of AF/a fib since 04/05/20. #CAD s/p CABG and stents -continue home meds #T2DM: -not currently on medication -diet and exercise controlled, previous A1C 5.3 #HTN: -continue home meds #[place] -has home CPAP to use at night #Mild Hyperkalemia, resolved PCP: Dr. Carpenter CODE: Full DIET: HH/CC Dispo: Will d/c home today on new diuretic dosing per cards recs with instructions to follow-up with nephrology for already [facility] appointment. Addendum - Attending - Attending Attestation Date/Time: 04/21/20 5579 I personally evaluated the patient and discussed the management with Dr. Reyes. I agree with the History, Examination, Assessment and Plan documented above with any addition or exceptions noted below. Patient is much better. He has been cleared for d/c by cardiology. Torsemide has been increased for home.
[2020-04-21 07:53] VITALS: BP 106/57; TEMP 97.6
[2020-04-21 08:16] VITALS: BMI 29.2
[2020-04-21] MEDS: Polyethylene Glycol 3350 17 GM Packet PO SCH (08:38)
[2020-04-21] MEDS: Potassium Chloride 20 MEQ TAB PO SCH (08:39)
[2020-04-21] MEDS: Vit A,C & E/Lutein/Minerals Tablet PO SCH (08:39)
[2020-04-21] MEDS: Atorvastatin Calcium 40 MG TAB PO SCH (08:39)
[2020-04-21] MEDS: Docusate 100 MG CAP PO SCH (08:39)
[2020-04-21] MEDS: Amiodarone 200 MG TAB PO SCH (08:39)
[2020-04-21] MEDS: Apixaban 2.5 MG TAB PO SCH (08:40)
[2020-04-21] MEDS: Carvedilol 3.125 MG TAB PO SCH (08:40)
[2020-04-21] MEDS: Ferrous Sulfate 325 MG TAB PO SCH (08:40)
[2020-04-21] MEDS: Aspirin 81 mg Enteric Coated Tablet PO SCH (08:40)
[2020-04-21] MEDS: Finasteride 5 MG TAB PO SCH (08:40)
[2020-04-21] MEDS: Tamsulosin HCl 0.4 MG CAP PO SCH (08:41)
[2020-04-21] MEDS: Torsemide 20 MG TAB PO SCH (08:42)
--- NOTE | 2020-04-21 12:08 | DIS ---
DATE OF ADMISSION: 04/18/2020 DATE OF DISCHARGE: 04/21/2020 CONSULTS: 1. Cardiology, Dr. Eugene Cruz. 2. Nephrology, Dr. Adan Valerio. PRIMARY DIAGNOSES: 1. Acute on chronic congestive heart failure exacerbation. 2. Acute kidney injury on chronic kidney disease stage 4. SECONDARY DIAGNOSES: 1. Heart failure with preserved ejection fraction. 2. Paroxysmal atrial fibrillation. 3. Chronic kidney disease, stage 4. 4. Obstructive sleep apnea. 5. Diabetes mellitus type 2. 6. Hypertension. 7. Coronary artery disease, status post coronary artery bypass graft. DISCHARGE MEDICATIONS: 1. Tamsulosin 0.4 mg p.o. daily. 2. Finasteride 5 mg p.o. daily. 3. MiraLAX 17 g p.o. daily. 4. Docusate 100 mg p.o. b.i.d. 5. Apixaban 2.5 mg p.o. b.i.d. 6. Atorvastatin 40 mg p.o. daily. 7. Aspirin 81 mg p.o. daily. 8. Amiodarone 200 mg p.o. b.i.d. 9. Potassium chloride 20 mEq tab one tab p.o. b.i.d. with meals. 10. Ferrous sulfate 325 mg p.o. daily. 11. Carvedilol 1.5625 mg p.o. b.i.d. 12. Bacitracin zinc ointment one packet topically daily as needed. 13. Torsemide 40 mg p.o. b.i.d. 14. Ocuvite with Lutein one tab p.o. b.i.d. 15. Acetaminophen 650 mg p.o. q.4 hours p.r.n. pain. 16. Metolazone 5 mg tabs p.o. every Friday and only. DISCONTINUED MEDICATIONS: 1. Torsemide 20 mg p.o. b.i.d. 2. Metolazone 5 mg p.o. every Friday and Friday. 3. PreserVision AREDS soft gel one capsule p.o. b.i.d. HOSPITAL COURSE: The patient is an 79-year-old very pleasant gentleman with past medical history notable for heart failure with preserved ejection fraction and chronic kidney disease stage 4, who presented to the emergency department with a chief complaint of shortness of breath. Of note, he has had frequent ER visits & admissions over the last several months for similar complaint. He endorses being compliant with his medication regimen, but continues to be very short of breath even at rest and stated he is unable to lie flat without feeling short of breath. On presentation to the emergency department the patient's vitals were all within normal limits and he was saturating 96% on room air. His EKG showed no acute ST changes but his chest x-ray did show evidence of pulmonary edema. Laboratories were notable for an elevated BNP of 1848, which was the highest it has ever been per chart review. In addition, his creatinine was above his normal baseline range at 3.11. His eGFR was estimated to be approximately 19. The patient was given an IV dose of Lasix 40 mg and given his frequency of presentation to the ER and his abnormal laboratories, we were asked to admit the patient for acute on chronic CHF exacerbation. The patient was admitted to the telemetry floor for close monitoring overnight and the following day he was continued on IV Lasix 40 mg b.i.d. His endoscopy tech, Dr. Eugene Cruz, was also consulted per the patient's request. Dr. Cruz continued IV Lasix for one additional day and the day prior to discharge transitioned the patient to p.o. torsemide, but at a dose of 40 mg b.i.d. The patient continued to diurese well even on PO meds and by the date of discharge remained medically stable and was cleared for discharge home. Of note, Dr. Adan Valerio, Nephrology, was consulted by Dr. Cruz to also evaluate the patient since it was suspected that the patient's slightly worsening renal function could also be contributing to his resistance to diuretic therapy. Dr. Valerio reported that the patient's frequent exacerbations were more likely due to dietary noncompliance and that he could follow up with the patient regarding this on an outpatient basis. Regarding patient's acute kidney injury by the day of discharge, his renal function was within his baseline range with an EGFR of 22 and a creatinine of 2.83. Thus, after receiving Dr. Cruz's recommendations for his new home medication regimen, the patient was discharged home in stable condition. DISPOSITION: Stable. DISCHARGE INSTRUCTIONS: 1. Location: Home. 2. Diet: Heart healthy, low-sodium, diabetic and renal diet. 3. Activity: Activity as tolerated, no restrictions. 4. Followup: The patient was instructed to follow up with Dr. Adan Valerio for his already scheduled appointment next month. He was also instructed to follow up with Dr. Anthony Knight within 2 to 3 weeks of discharge. Cardiac rehab within 1 week of discharge and his PCP, Dr. Mack Carpenter, within 1 week of discharge. Job ID: [id number] MTDD
[2020-04-21] MEDS ORDERED: Potassium Chloride 20 MEQ TAB PO SCH (21:00)
--- NOTE | 2020-04-24 06:08 | PQF ---
CLINICAL DOCUMENTATION CLARIFICATION FORM: Dear : Jesus Godinez Date / Time: 04/24/2020 0605 Please exercise your independent, professional judgment in responding to the clarification form. Clinical indicators are provided on the bottom of this form for your review Please check appropriate box(es) to clarify if the following diagnosis has been ruled in our ruled out: NSTEMI [ ] Ruled in diagnosis [ ] Continue to treat [ ] Resolved [ x] Ruled out diagnosis [ ] Improving [ ] Cannot rule out diagnosis [ ] Other diagnosis [ ] Unable to determine Physician Signature: Date/Time: For continuity of documentation, please document condition throughout progress notes and discharge summary. Thank You. To be completed by CDI/Coding staff for physician review: Present Clinical Indicators - Signs / Symptoms / Labs Results and Location in Medical Record [X] BP 130/59, Pulse 70, Resp 18, temp 97.4 Vital signs 04/18 [X] BNP 1848.2, Troponin I 0.040, 0.034; 0.041 Laboratory 04/18 [X] EKG : ST segments normal, T waves normal, Tarpley normal, No acute findings for ischemia at this time ED notes 8 04/18 [X] CHF exacerbation, MELVIN, NSTEMI ED notes 8 04/18 [X] Admitted with CHF exacebation H&P p1 04/18 Dr Johnson [X] Indeterminate trop, EKF with no signs of acute ischemia, trop at pts baseline H&P p5 04/18 Dr Johnson Present Risk Factors Results and Location in Medical Record [X] 79 year-old Male H&P p1 04/18 Dr Johnson [X] CHF H&P p1 04/18 Dr Johnson [X] CAD s/p CABG H&P p1 04/18 Dr Johnson [X] Afib H&P p1 04/18 Dr Johnson [X] HTN H&P p1 04/18 Dr Johnson [X] DM H&P p1 04/18 Dr Johnson [X] CKD stage 4 DS 04/21 [X] HLD ED Notes 04/17 [X] Mitral valve regurgitation Consult 04/18 [X] Obesity Consult 04/18 [X] Hypercholesterolemia Consult 04/18 Present Treatments Results and Location in Medical Record [X] Eliquis 2.5 mg oral AUG 03 [X] Aspirin 81 mg oral AUG 03 [X] Coreg 100 mg oral AUG 03 [X] IV NS 1L AUG 03 [X] Cardiology Consult Consult Dr Cruz 04/18 CDS/Coach Tour Driver Signature: Ailyn Lozano Phone #: [phone] Date/Time: 04/24/2020 0605 This is a permanent part of the Medical Record [facility]
== END 2020-04-21 10:02 | disposition home or self-care (01) | DRG 291 ==
LOC: ERS 22:10 → 2NO 04-18 00:08
PROVIDERS: ADMIT Emergency Medicine; ATTEND Emergency Medicine
DX: I13.0 Hypertensive heart and chronic kidney disease with heart failure and stage 1 through stage 4 chronic kidney disease, or unspecified chronic kidney disease (principal); I50.33 Acute on chronic diastolic (congestive) heart failure; N17.9 Acute kidney failure, unspecified; N18.4 Chronic kidney disease, stage 4 (severe); I48.0 Paroxysmal atrial fibrillation; Z20.828 Contact with and (suspected) exposure to other viral communicable diseases; G47.33 Obstructive sleep apnea (adult) (pediatric); E11.22 Type 2 diabetes mellitus with diabetic chronic kidney disease; I25.10 Atherosclerotic heart disease of native coronary artery without angina pectoris; D63.1 Anemia in chronic kidney disease; Z96.653 Presence of artificial knee joint, bilateral; E87.5 Hyperkalemia; E83.52 Hypercalcemia; E05.90 Thyrotoxicosis, unspecified without thyrotoxic crisis or storm; I34.0 Nonrheumatic mitral (valve) insufficiency; E78.00 Pure hypercholesterolemia, unspecified; E66.9 Obesity, unspecified; J44.9 Chronic obstructive pulmonary disease, unspecified; Z95.1 Presence of aortocoronary bypass graft; Z95.0 Presence of cardiac pacemaker; Z79.899 Other long term (current) drug therapy; Z79.82 Long term (current) use of aspirin; Z79.01 Long term (current) use of anticoagulants; Z86.010 Personal history of colon polyps; Z68.29 Body mass index [BMI] 29.0-29.9, adult
CPT/HCPCS: 36415; 36416; 71045; 71250; 80048; 80053; 81003; 82553; 83010; 83880; 84484; 85025; 87635; 93005; 93798; 96374; J1940; U0003

== ENCOUNTER 2020-05-17 06:52 | Outpatient (CLI) | payer MEDICARE, BC ==
[2020-05-17 12:54] LABS: Anion Gap 15 mmol/L (10-20); BUN (Urea Nitrogen) 62 mg/dL (8.4-25.7); Calc. Creatinine Clearance 0 mL/min (70-130); Calcium 11.1 mg/dL (7.8-10.44); Carbon Dioxide 25 mmol/L (23-31); Cardiac Risk 2.3 (Less than 4.5); Chloride 99 mmol/L (98-107); Cholesterol 106 mg/dl (< 200 Desired); Glucose 83 mg/dL (83-110); HDL Cholesterol 47 mg/dL (>60 Neg Risk); LDL Cholesterol, Calculated 47 mg/dL; Potassium 4.5 mmol/L (3.5-5.1); Sodium 134 mmol/L (136-145); Triglycerides 58 mg/dL (Less than 150)
[2020-05-17 13:04] LABS: #Basophils 0.1 10x3/uL (0.0-0.2); #Eosinphils 0.9 10x3/uL (0.0-0.5); #Monocytes 0.7 10x3/uL (0.0-1.1); #Neutrophils 4.3 10x3/uL (1.5-8.4); %Basophils 0.9 % (0.0-2.0); %Eosinophils 13.7 % (0.0-6.0); %Lymphocytes 9.4 % (18.0-47.0); %Neutrophils 65.5 % (40.0-75.0); Hemoglobin 9.6 g/dL (14.0-18.0); Mean Corpuscular HGB CONC 29.9 G/DL (32.0-36.0); Mean Corpuscular Hemoglobin 25.7 PG (27.0-33.0); Mean Corpuscular Volume 86.1 fl (80.0-100.0); Mean Platelet Volume 11.1 fl (7.4-10.4); Platelet Count 173 10x3/uL (130-400); RBC Distribution Width 21.6 % (11.5-14.5); Red Blood Cell (RBC) Count 3.73 10x6/uL (4.40-5.80); White Blood Cell (WBC) Count 6.6 10x3/uL (4.5-11.0)
[2020-05-17 13:05] LABS: Elliptocytes SLIGHT = 2-5 cells (100X) (0-1/hpf); Hypochromia SLIGHT = 6-15 cells (100X) (0-5/hpf); Ovalocytes SLIGHT = 2-5 cells (100X) (0-1/hpf); Schistocytes SLIGHT = 2-5 cells (100X) (0-1/hpf)
[2020-05-17 13:07] LABS: Platelet Morphology Comment Appears Adequate
--- NOTE | 2020-05-17 20:34 | EKG ---
Test Reason : Blood Pressure : / mmHG Vent. Rate : 077 BPM Atrial Rate : 077 BPM P-R Int : 186 ms QRS Dur : 212 ms QT Int : 506 ms P-R-T Axes : 007 -54 103 degrees QTc Int : 572 ms AV dual-paced rhythm Abnormal ECG When compared with ECG of 17-APR-2020 22:26, Vent. rate has increased BY 13 BPM Confirmed by JOVAN EVANS, DR. Ya ([id number]) on 05/17/2020 8:34:45 PM Referred By: MARINA Confirmed By:DR. Felton ALDANA MD
[2020-05-17 22:45] LABS: SARS-CoV-2 MS2 Positive; SARS-CoV-2 N Gene Negative; SARS-CoV-2 S Gene Negative; SARS-CoV-2 by NAA Not Detected (NotDetected); SARS-CoV-2 orf1ab Negative
== END 2020-05-17 06:53 | disposition home or self-care (01) ==
LOC: LABBT 06:52
PROVIDERS: ATTEND Orthopaedic Surgery
DX: Z01.818 Encounter for other preprocedural examination (principal); Z20.828 Contact with and (suspected) exposure to other viral communicable diseases
CPT/HCPCS: 80048; 80061; 85025; 93005; U0003; 87635; 93010

== ENCOUNTER 2020-05-22 05:56 | Day surgery (SDC) | payer MEDICARE, BC ==
[2020-05-16 10:24] VITALS: BMI 28.1
[2020-05-22] MEDS ORDERED: Ketamine 50 MG/ML (10ML VIAL) ONE (07:51)
--- NOTE | 2020-05-22 09:37 | RAD ---
XR Barium Swallow Esophagus History: Dysphagia Comparison: None. Findings: Patient was brought to the fluoroscopy suite. Questions were answered. Patient was initially given gas-forming crystals. Next patient was given thick liquid barium contrast . Secondary peristalsis was relatively poor. No stricture or diverticulum. Numerous tertiary contractio ns. There was aspiration with cough seen on the third swallow of contrast therefore the exam was terminat ed. Impression: 1. Incomplete examination due to aspiration with cough. Speech pathology evaluation recommended. 2. Poor primary and secondary peristalsis with numerous tertiary contractions.
[2020-05-22] MEDS ORDERED: PROPOFOL 200 MG/20 ML VIAL ONE (10:02)
--- NOTE | 2020-05-22 11:52 | OP ---
DATE OF PROCEDURE: 05/22/2020 PROCEDURE PERFORMED: Transesophageal echocardiogram. INDICATIONS FOR PROCEDURE: An 79-year-old gentleman with mitral regurgitation. DESCRIPTION OF PROCEDURE: The patient was taken to the PACU. The patient was sedated by Anesthesiology. A transesophageal probe was placed into the distal esophagus and stomach. Echocardiographic images were obtained. The transesophageal probe was removed. FINDINGS: 1. Normal left ventricular systolic function. 2. Left atrial enlargement. 3. Normal aortic valve. 4. 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 5. Severe mitral regurgitation with reversal of flow in the pulmonary veins. 6. [id number] aortic regurgitation. 7. Mild tricuspid regurgitation. 8. Pacemaker wire in the right ventricle. 9. Atherosclerotic debris in the descending aorta. IMPRESSION: Severe mitral regurgitation with reversal of flow in the pulmonary veins and prolapse of the anterior mitral valve leaflet. Job ID: [id number] MTDD
== END 2020-05-22 09:40 | disposition home or self-care (01) ==
LOC: CCL 05:56
PROVIDERS: ATTEND Internal Medicine Cardiovascular Disease
PROC: B245ZZ4 Ultrasonography of Left Heart, Transesophageal (ICD-10-PCS; principal; 2020-05-22)
DX: I48.91 Unspecified atrial fibrillation (principal); I08.3 Combined rheumatic disorders of mitral, aortic and tricuspid valves; I11.0 Hypertensive heart disease with heart failure; I50.32 Chronic diastolic (congestive) heart failure; N17.9 Acute kidney failure, unspecified; E11.9 Type 2 diabetes mellitus without complications; E78.00 Pure hypercholesterolemia, unspecified; G47.33 Obstructive sleep apnea (adult) (pediatric); E66.9 Obesity, unspecified; Z68.28 Body mass index [BMI] 28.0-28.9, adult; Z79.01 Long term (current) use of anticoagulants; Z79.82 Long term (current) use of aspirin; Z79.899 Other long term (current) drug therapy; Z95.1 Presence of aortocoronary bypass graft
CPT/HCPCS: 74220; 93312; J2704

== ENCOUNTER 2020-09-03 14:19 | Emergency (ER) | payer MEDICARE, BC ==
[2020-09-03] MEDS ORDERED: Bacitracin 1 PK ONE (14:49)
== END 2020-09-03 15:14 | disposition home or self-care (01) ==
LOC: ERS 14:19
DX: S50.811A Abrasion of right forearm, initial encounter (principal); E78.5 Hyperlipidemia, unspecified; I13.0 Hypertensive heart and chronic kidney disease with heart failure and stage 1 through stage 4 chronic kidney disease, or unspecified chronic kidney disease; I50.9 Heart failure, unspecified; N18.9 Chronic kidney disease, unspecified; Z79.82 Long term (current) use of aspirin; Z79.899 Other long term (current) drug therapy; X58.XXXA Exposure to other specified factors, initial encounter
CPT/HCPCS: 99283

== ENCOUNTER 2020-12-11 10:08 | Emergency (ER) | payer MEDICARE, BC | END 2020-12-11 12:46 | disposition home or self-care (01) | LOC: ERS 10:08 | DX: S81.812A Laceration without foreign body, left lower leg, initial encounter (principal); I13.0 Hypertensive heart and chronic kidney disease with heart failure and stage 1 through stage 4 chronic kidney disease, or unspecified chronic kidney disease; I50.9 Heart failure, unspecified; N18.9 Chronic kidney disease, unspecified; I48.91 Unspecified atrial fibrillation; E78.5 Hyperlipidemia, unspecified; E11.22 Type 2 diabetes mellitus with diabetic chronic kidney disease; W22.8XXA Striking against or struck by other objects, initial encounter | CPT/HCPCS: 12002 ==

== ENCOUNTER 2021-01-31 11:55 | Emergency (ER) | payer MEDICARE, BC ==
[2021-01-31] MEDS ORDERED: Lidocaine 1% (PF) 30 ML VIAL ONE (13:44)
[2021-01-31] MEDS ORDERED: Lidocaine 1% PF 5 ML VIAL ONE (13:46)
== END 2021-01-31 15:08 | disposition home or self-care (01) ==
LOC: ERS 11:55 → CAC 15:08
DX: L02.415 Cutaneous abscess of right lower limb (principal); L03.115 Cellulitis of right lower limb; I13.0 Hypertensive heart and chronic kidney disease with heart failure and stage 1 through stage 4 chronic kidney disease, or unspecified chronic kidney disease; E11.22 Type 2 diabetes mellitus with diabetic chronic kidney disease; N18.9 Chronic kidney disease, unspecified; I50.9 Heart failure, unspecified; E78.5 Hyperlipidemia, unspecified; E11.9 Type 2 diabetes mellitus without complications; I48.91 Unspecified atrial fibrillation; Z79.01 Long term (current) use of anticoagulants; Z79.899 Other long term (current) drug therapy
CPT/HCPCS: 10060; J2001

== ENCOUNTER 2021-04-23 14:48 | Emergency (ER) | payer OTHER, MEDICARE, BC ==
[2021-04-23] MEDS ORDERED: Bupivacaine 0.5% 10 ML VIAL ONE (16:42)
== END 2021-04-23 17:34 | disposition home or self-care (01) ==
LOC: ERS 14:48
DX: S01.81XA Laceration without foreign body of other part of head, initial encounter (principal); S40.812A Abrasion of left upper arm, initial encounter; W01.198A Fall on same level from slipping, tripping and stumbling with subsequent striking against other object, initial encounter; I13.0 Hypertensive heart and chronic kidney disease with heart failure and stage 1 through stage 4 chronic kidney disease, or unspecified chronic kidney disease; I50.9 Heart failure, unspecified; N18.9 Chronic kidney disease, unspecified; E78.5 Hyperlipidemia, unspecified; E11.9 Type 2 diabetes mellitus without complications; D64.9 Anemia, unspecified; Z79.02 Long term (current) use of antithrombotics/antiplatelets; Z79.899 Other long term (current) drug therapy
CPT/HCPCS: 12013; 70450; J3490

== ENCOUNTER 2021-04-25 07:45 | Emergency (ER) | payer MEDICARE, BC | END 2021-04-25 09:16 | disposition home or self-care (01) | LOC: ERS 07:45 | DX: S50.02XA Contusion of left elbow, initial encounter (principal); W19.XXXA Unspecified fall, initial encounter; I13.0 Hypertensive heart and chronic kidney disease with heart failure and stage 1 through stage 4 chronic kidney disease, or unspecified chronic kidney disease; I50.9 Heart failure, unspecified; E11.22 Type 2 diabetes mellitus with diabetic chronic kidney disease; I48.91 Unspecified atrial fibrillation; E78.5 Hyperlipidemia, unspecified; D64.9 Anemia, unspecified; I25.10 Atherosclerotic heart disease of native coronary artery without angina pectoris ==

== ENCOUNTER 2021-11-01 10:59 | Outpatient (CLI) | payer MEDICARE, BC | END 2021-11-01 11:00 | disposition home or self-care (01) | LOC: BICRAD 10:59 | PROVIDERS: ATTEND Internal Medicine Cardiovascular Disease | DX: I48.91 Unspecified atrial fibrillation (principal) | CPT/HCPCS: 71046 ==

== ENCOUNTER 2021-12-09 08:23 | Emergency (ER) | payer MEDICARE, BC | END 2021-12-09 11:45 | disposition home or self-care (01) | LOC: ERS 08:23 | DX: S70.01XA Contusion of right hip, initial encounter (principal); S80.01XA Contusion of right knee, initial encounter; I25.10 Atherosclerotic heart disease of native coronary artery without angina pectoris; I48.91 Unspecified atrial fibrillation; I13.0 Hypertensive heart and chronic kidney disease with heart failure and stage 1 through stage 4 chronic kidney disease, or unspecified chronic kidney disease; I50.9 Heart failure, unspecified; N18.9 Chronic kidney disease, unspecified; E11.22 Type 2 diabetes mellitus with diabetic chronic kidney disease; D63.1 Anemia in chronic kidney disease; E78.5 Hyperlipidemia, unspecified; Z87.01 Personal history of pneumonia (recurrent); Z79.899 Other long term (current) drug therapy; W18.30XA Fall on same level, unspecified, initial encounter; X50.9XXA Other and unspecified overexertion or strenuous movements or postures, initial encounter ==

== ENCOUNTER 2022-01-03 12:22 | Outpatient (CLI) | payer MEDICARE, BC ==
[2022-01-03 15:12] LABS: Anion Gap 14 mmol/L (10-20); BUN (Urea Nitrogen) 37 mg/dL (8.4-25.7); Calc. Creatinine Clearance 0 mL/min (70-130); Calcium 10.9 mg/dL (7.8-10.44); Carbon Dioxide 28 mmol/L (23-31); Chloride 101 mmol/L (98-107); Estimated GFR 26; Glucose 94 mg/dL (83-110); Potassium 5.2 mmol/L (3.5-5.1); Sodium 138 mmol/L (136-145)
== END 2022-01-03 12:23 | disposition home or self-care (01) ==
LOC: LABBT 12:22
PROVIDERS: ATTEND Internal Medicine Cardiovascular Disease
DX: Z01.812 Encounter for preprocedural laboratory examination (principal); Z20.822 Contact with and (suspected) exposure to COVID-19
CPT/HCPCS: 80048; 80162; 87811

== ENCOUNTER → 2022-01-08 | Day surgery (SDC) | payer MEDICARE, BC ==
[2022-01-04 14:02] VITALS: BMI 34.4
== END | disposition home or self-care (01) ==
LOC: SDC 05:50
PROVIDERS: ATTEND Internal Medicine Cardiovascular Disease
DX: I47.1 Supraventricular tachycardia (principal); I48.91 Unspecified atrial fibrillation; I11.0 Hypertensive heart disease with heart failure; I50.32 Chronic diastolic (congestive) heart failure; E78.00 Pure hypercholesterolemia, unspecified; E11.9 Type 2 diabetes mellitus without complications; D50.9 Iron deficiency anemia, unspecified; I35.1 Nonrheumatic aortic (valve) insufficiency; G47.33 Obstructive sleep apnea (adult) (pediatric); E66.9 Obesity, unspecified; Z53.8 Procedure and treatment not carried out for other reasons; Z68.34 Body mass index [BMI] 34.0-34.9, adult; Z79.01 Long term (current) use of anticoagulants; Z79.82 Long term (current) use of aspirin; Z79.899 Other long term (current) drug therapy; Z95.0 Presence of cardiac pacemaker; Z95.1 Presence of aortocoronary bypass graft; Z95.5 Presence of coronary angioplasty implant and graft; Z98.890 Other specified postprocedural states

== ENCOUNTER 2022-12-04 12:10 | Outpatient (CLI) | payer MEDICARE, BC | END 2022-12-04 12:11 | disposition home or self-care (01) | LOC: ULT 12:10 | PROVIDERS: ATTEND Urology | DX: E83.52 Hypercalcemia (principal); N18.30 Chronic kidney disease, stage 3 unspecified | CPT/HCPCS: 36415; 76770; 84439; 84443; 84481; 85025 ==

== ENCOUNTER 2022-12-25 09:06 | Day surgery (SDC) | payer MEDICARE, BC ==
[2022-12-23 10:31] VITALS: BMI 27.9
[2022-12-23 11:09] LABS: Hemoglobin 12.5 g/dL (13.5-17.5); Mean Corpuscular HGB CONC 31.9 g/dL (32.0-36.0); Mean Corpuscular Hemoglobin 29.2 pg (27.0-33.0); Mean Corpuscular Volume 91.6 fl (81.2-95.1); Mean Platelet Volume 11.7 fl (7.4-10.4); Platelet Count 150 10x3/uL (150-450); Red Blood Cell (RBC) Count 4.28 10x6/uL (4.32-5.72); White Blood Cell (WBC) Count 7.3 10x3/uL (3.5-10.5)
[2022-12-23 11:19] LABS: PTT 25.1 sec (22.0-33.0); Prothrombin Time 10.6 sec (9.5-12.1)
[2022-12-23 11:21] LABS: Anion Gap 17 mmol/L (10-20); BUN (Urea Nitrogen) 34 mg/dL (8.4-25.7); Calc. Creatinine Clearance 28 mL/min (70-130); Calcium 11.3 mg/dL (7.8-10.44); Carbon Dioxide 23 mmol/L (23-31); Chloride 105 mmol/L (98-107); Estimated GFR 27; Glucose 98 mg/dL (83-110); Potassium 5.5 mmol/L (3.5-5.1); Sodium 139 mmol/L (136-145)
[~2022-12-25 09:06] MED LIST: Iopamidol 370 76% 100 ML VIAL ONE
[2022-12-25] MEDS ORDERED: Lidocaine 1% (PF) 30 ML VIAL ONE (09:49)
[2022-12-25] MEDS ORDERED: CEFAZOLIN 1 GM VIAL ONE (09:49)
[2022-12-25] MEDS ORDERED: Gentamicin 80 MG/2 ML VIAL ONE (09:49)
[2022-12-25 10:23] LABS: Anion Gap 15 mmol/L (10-20); BUN (Urea Nitrogen) 33 mg/dL (8.4-25.7); Calcium 11.7 mg/dL (7.8-10.44); Carbon Dioxide 24 mmol/L (23-31); Chloride 106 mmol/L (98-107); Glucose 96 mg/dL (83-110); Sodium 140 mmol/L (136-145)
[2022-12-25 12:17] LABS: Calc. Creatinine Clearance 29 mL/min (70-130); Estimated GFR 29
[2022-12-25] MEDS ORDERED: fentaNYL PF 100 MCG/2 ML SYRINGE ONE (13:03)
[2022-12-25] MEDS ORDERED: Dexmedetomidine 200 MCG/2 ML VIAL ONE (13:07)
[2022-12-25] MEDS ORDERED: Ketamine 50 MG/ML (10ML VIAL) ONE (13:07)
[2022-12-25] MEDS ORDERED: Propofol 500 MG/50 ML VIAL ONE (15:00)
== END 2022-12-25 19:05 | disposition home or self-care (01) ==
LOC: SDC 09:06
PROVIDERS: ATTEND Internal Medicine Cardiovascular Disease
DX: I50.32 Chronic diastolic (congestive) heart failure (principal)
CPT/HCPCS: 33225; 33229; 71045; 80048 ×2; 85027; 85610; 85730; 93005; C1725; C1769; C1900; C2621; 33208; 33241; J0690; J1580; J2001; J2704; Q9967

== ENCOUNTER 2023-12-04 15:48 | Emergency (ER) | payer MEDICARE, BC ==
[~2023-12-04 15:48] MED LIST changes: -Iopamidol 370 76% 100 ML VIAL ONE; +Iopamidol-370 76% 500 ML MDV (1 ML CHARGE) ONE
[2023-12-04 16:58] LABS: #Basophils Less than 0.03 10x3/uL (0.0-0.2); %Basophils 0.3 % (0.0-1.0); %Eosinophils 2.6 % (0.0-10.0); %Lymphocytes 12.5 % (21.0-51.0); %Monocytes 7.3 % (0.0-10.0); Hematocrit 42.1 % (42.0-52.0); Mean Corpuscular HGB CONC 33.3 g/dL (32.0-36.0); Mean Corpuscular Hemoglobin 31.4 pg (27.0-31.0); Mean Corpuscular Volume 94.4 fL (78.0-98.0); Platelet Count 118 10x3/uL (130-400); RBC Distribution Width 13.1 % (11.5-14.5); Red Blood Cell (RBC) Count 4.46 mill/uL (4.70-6.10)
[2023-12-04 17:10] LABS: Troponin I 0.045 ng/mL (< 0.028)
[2023-12-04 17:12] LABS: ALT (SGPT) 11 U/L (8-55); AST (SGOT) 17 U/L (5-34); Albumin 3.5 g/dL (3.4-4.8); Alkaline Phosphatase 231 U/L (40-110); Anion Gap 13 mmol/L (10-20); BUN (Urea Nitrogen) 23 mg/dL (8.4-25.7); Bilirubin, Total 0.7 mg/dL (0.2-1.2); Calc. Creatinine Clearance 0 mL/min (70-130); Calcium 10.7 mg/dL (7.8-10.44); Carbon Dioxide 24 mmol/L (23-31); Chloride 109 mmol/L (98-107); Estimated GFR 39; Globulin 2.3 g/dL (2.4-3.5); Glucose 89 mg/dL (83-110); Potassium 5.1 mmol/L (3.5-5.1); Protein, Total 5.8 g/dL (5.8-8.1); Sodium 141 mmol/L (136-145)
== END 2023-12-04 20:29 | disposition home or self-care (01) ==
LOC: ERS 15:48
DX: R06.02 Shortness of breath (principal); I13.0 Hypertensive heart and chronic kidney disease with heart failure and stage 1 through stage 4 chronic kidney disease, or unspecified chronic kidney disease; E11.22 Type 2 diabetes mellitus with diabetic chronic kidney disease; N18.9 Chronic kidney disease, unspecified; I50.9 Heart failure, unspecified; I48.91 Unspecified atrial fibrillation; I25.10 Atherosclerotic heart disease of native coronary artery without angina pectoris; Z95.1 Presence of aortocoronary bypass graft
CPT/HCPCS: 71045; 71275; 80053; 83880; 84484; 85025; 93005; 94760; Q9967

== ENCOUNTER 2025-04-30 08:50 | Emergency (ER) | payer MEDICARE, BC | END 2025-04-30 12:36 | disposition home or self-care (01) | LOC: ERS 08:50 | DX: J06.9 Acute upper respiratory infection, unspecified (principal); B97.89 Other viral agents as the cause of diseases classified elsewhere; I25.10 Atherosclerotic heart disease of native coronary artery without angina pectoris; E11.9 Type 2 diabetes mellitus without complications; I48.91 Unspecified atrial fibrillation; I13.0 Hypertensive heart and chronic kidney disease with heart failure and stage 1 through stage 4 chronic kidney disease, or unspecified chronic kidney disease; N18.9 Chronic kidney disease, unspecified; I50.9 Heart failure, unspecified; Z95.5 Presence of coronary angioplasty implant and graft; Z95.0 Presence of cardiac pacemaker | CPT/HCPCS: 71045; 87081; 87428; 87430 ==